=== PATIENT | female | born 1955 | race Caucasian/White ===

== ENCOUNTER → 2018-03-20 11:35 | Outpatient (CLI) | payer BC, SELFPAY ==
[2018-03-20 16:09] LABS: Absolute Lymphocyte Count 2.42 X10^3/ul (0.83-4.51); Absolute Neutrophil Count 3.4 X10^3/uL (2.0-7.7); Basophil# 0.03 X10^3/uL; Basophil% 0.5 % (0-1); Eosinophil# 0.32 X10^3/uL; Eosinophils% 4.9 % (0-5); Hematocrit 41.3 % (37-47); Hemoglobin 13.4 g/dl (12.0-15.0); Lymphocyte # 2.42 X10^3/ul (4.0); Lymphocyte % 36.7 % (19-41); Mean Corp Hgb Conc 32.4 g/gl (32-36); Mean Corpuscular Hgb 31.2 pg (27.0-32.0); Mean Platelet Vol. 12.3 fl (6.2-12.0); Monocyte# 0.42 X10^3/uL; Monocyte% 6.4 % (0-10); Neutrophil # 3.39 X10^3/uL (2.7-7.7); Neutrophil % 51.3 % (47-70); Platelet Count 176 K/mm3 (150-450); RBC Distribution Width CV 14.5 % (11.6-14.6); RBC Distribution Width SD 50.4 fl (35.1-43.9); White Blood Count 6.6 K/mm3 (4.4-11.0)
[2018-03-20 16:12] LABS: POSITIVE COUNT NO; POSITIVE DIFFERENTIAL NO; POSITIVE MORPHOLOGY NO
[2018-03-20 16:33] LABS: Anion Gap 10 (5-15); BUN 17 mg/dL (7-18); BUN/Creat Ratio 16.8 RATIO (10-20); Calcium,Total 8.6 mg/dL (8.5-10.1); Chloride 111 mmol/L (98-107); Cholesterol 188 mg/dL (200); Creatinine, Serum 1.01 mg/dL (0.55-1.02); EST Glomerular Filtration Rate 59 mL/min (>60); Est Glom Filt Rate - Afr Amer 71 mL/min (>60); Glucose 92 mg/dL (74-106); High Density Lipoprotein 48 mg/dL; Potassium 4.2 mmol/L (3.5-5.1); Sodium Level 143 mmol/L (136-145); Thyroid Stim Hormone (TSH) 2.48 uIU/mL (0.358-3.74); Triglycerides 198 mg/dL; Very Low Density Lipoprotein 40 mg/dL (5-40)
[2018-03-21 08:25] LABS: Vitamin D,25 Hydroxy 25.3 ng/mL (29.95-100.01)
[2018-03-24 11:06] LABS: EBV Acute VCA IgM < 36.0 U/mL (0.0-35.9); EBV Early Antigen IgG 22.1 U/mL (0.0-8.9)
== END ==
PROVIDERS: Family Provider Family Medicine; PCP Family Medicine; Visit Provider Family Medicine
DX: E55.9 Vitamin D deficiency, unspecified (principal); E03.9 Hypothyroidism, unspecified; R53.81 Other malaise; R53.83 Other fatigue
CPT/HCPCS: 36415; 80048; 80061; 82306; 84443; 85025; 86663; 86664; 86665

== ENCOUNTER 2018-05-25 14:53 | Emergency (ER) | payer BC, SELFPAY ==
[2018-05-25 14:54] VITALS: BP 151/94; PULSE 59; RESP 18; TEMP 36.6; O2SAT 98; BMI 35.4
[2018-05-25] MEDS: Naproxen 500 MG Tablet PO (15:29)
[2018-05-25] MEDS: Triamcinolone Acetonide 40 MG/ML Vial IM (15:29)
[2018-05-25] MEDS: Famotidine 20 MG Tablet PO (15:29)
--- NOTE | 2018-05-25 15:46 | ED.VISSUMM ---
- ER Visit Summary Date of Service: 05/25/18 Chief Complaint: Bee stings History of Present Illness: The patient is a 63 F who presents with multiple bee stings. She was gardening and disturbed to bees nest. She was wearing gloves but was stung through the gloves. She counted at least 6 things to the back of her left hand and arm. She took 50 mg of Benadryl. She can planes of increasing pain and swelling at the site. She has no difficulty breathing or nausea. Physical Examination: Afebrile vitals are normal Moist mucous membranes Heart regular rate and rhythm Lungs are clear no rales rhonchi wheezing or stridor Airway patent Patient does have some erythema and soft tissue swelling of the dorsum of the left hand and wrist Test Results: Not indicated Emergency Department Course and Treatment: Patient really took diphenhydramine. She was given intramuscular Kenalog oral Pepcid and given naproxen for pain. Reevaluation she is still resting comfortably without any systemic symptoms and has had no progression of symptoms on her left hand or arm. She was advised to continue supportive care including ice and elevation Benadryl at home. She understands to return for new or worsening symptoms and was discharged home. Treatment Plan: [] Disposition: Discharge Impression: Localized allergic reaction to hymenoptera envenomation This note was generated with [employer] dictation software. It may contain incorrect words, spelling, and punctuation that were not noted in review of the chart prior to signing ED Disposition - Plan for ED Patient: Chief Complaint: Allergic Reaction Referrals: Emmanuel Gonzalez MD [Primary Care Provider] -
--- NOTE | 2018-05-25 15:48 | ED.DEP ---
ED Disposition - Plan for ED Patient: Chief Complaint: Allergic Reaction Instructions: ED Bite Sting Insect Local Allergic React Referrals: Emmanuel Gonzalez MD [Primary Care Provider] -
[2018-05-25 16:11] VITALS: BP 149/90; PULSE 61; RESP 18; O2SAT 98
== END 2018-05-25 16:11 | disposition home or self-care (01) ==
LOC: ED 16:04
PROVIDERS: Emergency Provider Emergency Medicine; Family Provider Family Medicine; PCP Family Medicine
DX: T63.441A Toxic effect of venom of bees, accidental (unintentional), initial encounter (principal); M79.89 Other specified soft tissue disorders; M25.432 Effusion, left wrist; L53.8 Other specified erythematous conditions; Y92.9 Unspecified place or not applicable; F31.9 Bipolar disorder, unspecified; E03.9 Hypothyroidism, unspecified; Z79.899 Other long term (current) drug therapy
CPT/HCPCS: 96372; 99283

== ENCOUNTER → 2019-05-01 09:01 | Outpatient (CLI) | payer BC, SELFPAY ==
--- NOTE | 2019-05-01 09:05 | RAD_ITS ---
STUDY: X-RAY - LEFT HAND REASON FOR EXAM: Female, 64 years old. 1 week history of pain of the third digit. No trauma. TECHNIQUE: 3 view(s) of the hand. COMPARISON: None. FINDINGS: Normal radiocarpal articulation. Normal distal radioulnar joint. Normal visualized carpal bones. Normal carpal articulations Normal carpometacarpal articulation of the thumb. Normal second through fifth carpometacarpal joints. Normal metacarpi. Normal metacarpophalangeal joint of the thumb. Normal interphalangeal joint of the thumb. Normal proximal and distal phalanges of the thumb. Normal metacarpophalangeal joints of the second through fifth fingers. Normal proximal and distal interphalangeal joints of the second through fifth fingers. Normal phalanges of the second through fifth fingers. The soft tissue structures are unremarkable. RAD/Hand Min 3 Views IMPRESSION: Normal x-ray examination of the hand. Electronically Signed: Anshu Whaley, at 9:29 EDT , Service support ,
== END ==
PROVIDERS: Family Provider Family Medicine; PCP Family Medicine; Referring Provider Family Medicine; Visit Provider Family Medicine
DX: M79.645 Pain in left finger(s) (principal)
CPT/HCPCS: 73130

== ENCOUNTER 2019-09-02 07:35 | Emergency (ER) | payer BC, SELFPAY ==
[2019-09-02 07:37] VITALS: BP 135/90; PULSE 79; RESP 17; TEMP 37.1; O2SAT 94; BMI 38.6
[2019-09-02 07:48] VITALS: O2SAT 98
--- NOTE | 2019-09-02 07:48 | RAD_ITS ---
STUDY: X-RAY CHEST REASON FOR EXAM: Female, 64 years old. Cough. Shortness of breath. TECHNIQUE: PA and lateral views of the chest. COMPARISON: 01/10/2014. FINDINGS: Cardiac silhouette unremarkable. Pulmonary vascularity unremarkable. Aorta unremarkable. No focal patchy airspace opacities. No pleural effusions. Minimal right basilar airspace disease. Slightly coarse lung markings. Upper abdomen unremarkable. Osseous structures intact with mild degenerative features. No pneumothorax. RAD/Chest PA and Lateral IMPRESSION: Minimal right basilar airspace disease (atelectasis versus early infection) Electronically Signed: Tom Leung DO at 9:31 EST Tel , Service support ,
--- NOTE | 2019-09-02 07:50 | ED.VIS.GEN ---
History of Present Illness Chief Complaint: Cough Informant: Patient Onset: Days - Onset August 31 Context: Sudden Onset Timing: Continuous Quality: Myalgias, arthralgias, temperature 101.0 ?F, cough and wheezing Location: Upper respiratory Current Severity: Mild Maximum Severity: Moderate Worsened by: Uncertain Relieved by: Nothing Associated Symptoms: Nasal congestion and rhinorrhea past 24 hours Narrative: Patient is a 64-year-old non-smoker who presents with respiratory symptoms that started Saturday. She was seen by practitioner at [facility]. She was prescribed Tessalon Perles, albuterol and Zithromax. Patient states nothing is working. She does complain of headache. She denies ocular, visual auditory symptoms. She does report mild sore throat. She does have history obstructive sleep apnea has not been compliant with her CPAP machine. She does report nausea the vomiting diarrhea. She denies rash. Denies leg pain, swelling discoloration. There is no history of PE or DVT. She was not tested for influenza. Prior similar symptoms: Yes Recent Illness/Hospitalization: Yes - Past Medical History (1) Obstructive sleep apnea Status: Acute (2) Diverticulosis large intestine w/o perforation or abscess w/o bleeding Status: Acute (3) Duodenal ulcer disease Status: Acute (4) GERD (gastroesophageal reflux disease) Status: Acute (5) Gastric polyps Status: Acute Past Medical History - Allergies and Home Meds Allergies/Adverse Reactions: Allergies No Known Allergies Allergy (Verified 09/02/19 07:36) Primary Care Physician: Maggie Gutiérrez MD [Primary Care Provider] - Prior records reviewed: Yes Lives: Alone Smoking Status: Never smoker Alcohol: None Drugs: None Review of Systems General: Reports: Fever. Denies: Malaise, Subjective, Sweats Eyes: Denies: Visual changes - bilaterally, Blurred Vision - bilaterally ENT: Reports: Rhinorrhea, Sore throat. Denies: Bilateral ear pain Cardiovascular: Reports: Chest pain - Has pain with cough. Denies: Palpitations, Heart racing Respiratory: Reports: Cough, Sputum. Denies: Dyspnea, Dyspnea on exertion, Orthopnea Gastrointestinal: Denies: Abdominal pain, Nausea, Vomiting, Diarrhea, Melena, Hematochezia Musculoskeletal: Reports: Myalgias. Denies: Arthralgias, Neck pain, Back pain, Swelling, Extremity Pain Skin: Denies: Rash, Wounds Neurological: Reports: Headache, Weakness. Denies: Parasthesia, Numbness Hematologic: Denies: Easy bruising, Easy bleeding Physical Exam Vital Signs/Narrative: Vital Signs Temp Pulse Resp BP Pulse Ox 09/02/19 07:37 98.7 F 79 17 135/90 H 94 Inital Vital Signs reviewed: Yes General: Well nourished, Well developed, Obese, No Acute Distress Cardiovascular: Regular rate, Regular rhythm, No murmurs, Normal S1, Normal S2 Respiratory: No distress, Chest nontender, Rales - Rales noted on the left, Wheezing - Wheezing greater on the left. Negative for: CTA bilaterally Abdomen: Soft, Nontender, Nondistended, Normal bowel sounds Rectal: Deferred Back: Nontender, Normal Inspection Extremities: Nontender, No edema Skin: Normal color, No rash, No Trauma. Negative for: Cyanosis, Diaphoresis, Jaundice Neurological: Alert, Oriented x3, Cranial nerves II-XII grossly intact, Normal Strength, Normal Sensation Psychological: Depressed Diagnostic/Tx/Re-eval Chest X-Ray - ED: 2 View, Read by ED Physician, Normal, Heart, Mediastinum, Bony Structures, No Acute Disease, Chronic Changes 09/02/19 07:48 Chest PA and Lateral [RAD] Stat - Medical Decision Making She presents with viral-like symptoms. This may represent influenza. Will obtain rapid influenza screen. Because rales were noted unilateral chest x-ray was obtained to assess for pneumonia. Patient was treated with albuterol aerosol and prednisone. Per triage symptoms started on Saturday. Patient was informed that she has a viral upper respiratory infection that is causing her cough and wheezing. She was informed the reason she is not getting better is because this is viral and antibiotics do not work on viral infections. She was given a prescription for prednisone. She was informed she may be ill for another 10 to 14 days. Symptoms started proximally 5 days ago will not wait for results of influenza. She is not a candidate for treatment. ED Disposition - Plan for ED Patient: Disposition: Home or Assisted Living Diagnosis: Upper respiratory infection, viral, Acute bronchospasm due to viral infection Instructions: BRONCHITIS with Wheezing (Adult) Prescriptions: Prednisone [Deltasone] 40 mg PO DAILY #10 tab Transmission Status: Received by [facility]/pharmacy #[id number] Inhaler, Assist Devices [Space Chamber Plus] 1 [facility] UD #1 spacer Transmission Status: Received by [facility]/pharmacy #[id number] Referrals: Maggie Gutiérrez MD [Primary Care Provider] - 10-14 Days if not better
[2019-09-02] MEDS: predniSONE 20 MG Tablet 60 MG PO (07:53)
--- NOTE | 2019-09-02 07:54 | ED.RN ---
sepsis screening completed after dr barnes evaluation, sepsis workup not required.
[2019-09-02 08:02] VITALS: PULSE 86; RESP 18; O2SAT 97
[2019-09-02] MEDS: Albuterol 2.5 MG/3 ML VIAL.NEB. INHALATION ×3 (08:02→08:47)
[2019-09-02 09:36] VITALS: BP 121/75; PULSE 68; RESP 15; O2SAT 98
== END 2019-09-02 09:39 | disposition home or self-care (01) ==
PROVIDERS: Emergency Provider Emergency Medicine; Family Provider Family Medicine; PCP Family Medicine
DX: J06.9 Acute upper respiratory infection, unspecified (principal); J98.01 Acute bronchospasm; B34.9 Viral infection, unspecified; G47.33 Obstructive sleep apnea (adult) (pediatric); Z91.19 Patient's noncompliance with other medical treatment and regimen; K21.9 Gastro-esophageal reflux disease without esophagitis; K57.30 Diverticulosis of large intestine without perforation or abscess without bleeding; Z87.19 Personal history of other diseases of the digestive system
CPT/HCPCS: 71046; 87804; 94640; 99251; 99283; G0463

== ENCOUNTER → 2020-02-12 16:35 | Outpatient (CLI) | payer OTHER, BC, SELFPAY ==
--- NOTE | 2020-02-12 16:38 | RAD_ITS ---
STUDY: X-RAY - PELVIS AND RIGHT HIP REASON FOR EXAM: Female, 64 years old. Right hip pain, status post fall. TECHNIQUE: 3 views of the pelvis and hip. COMPARISON: None. FINDINGS: There is a non-specific bowel gas pattern. Normal visualized soft tissue structures. Normal bilateral iliac wings, sacroiliac joints and visualized sacrum. Normal bilateral superior and inferior pubic rami. There is mild sclerosis of the symphysis pubis. Normal bilateral ischial tuberosities. Normal visualized femoral head. Normal acetabulum. Normal hip joint. There are small calcifications lateral to the greater catheters bilaterally which may represent calcific tendinitis. RAD/HIP, UNI W/ Pelvis 2-3 Views IMPRESSION: No demonstrated acute osseous injury as described above. Electronically Signed: Harish Davis MD at 11:50 EDT Tel , Service support ,
--- OUTSIDE RECORDS SUMMARY | 2020-06-19 12:49 | XMS RPT_ITS | CCD ---
:1955 External Reference #:[id number] Author Organization [employer] Care Team Providers Name Role Phone SHIRA PEREZ Unavailable Unavailable ADURY, S Unavailable Unavailable ADURY, S Unavailable Unavailable Allergies Reported Allergen Reaction(s) Severity Date of Onset Location betamethasone Translations: 11-21-2007 - [facility] Other [ BETAMETHASONE [place] [facility] DIPROPIONATE, BETAMETHASONE DIPROPIONATE] SUGAR CANE Translations: [ AOF 05-15-2016 - [facility] Other SUGAR CANE, SUGAR CANE] [facility] Repository Problems Category Problem Name Status Date Location Other hereditary and Restless legs Active 06-27-2017 - [facility] degenerative nervous syndrome System (51702) system conditions Unclassified Unknown / Active 06-22-2016 - [facility](Unknown) [facility] ([id number]) Results Result Name Value Range Unit Interpretation Flag Date Location progress on 2017-06 PROGRESS HNO ID: [id number]: Shira Arriaza Normal 06-27-2017 [facility] AduryService: (none)Author Type: Medical Center PhysicianType: Progress NotesFiled: ([id number]) 08/20/2017 6:33 PMNote Text:TIME IN: 11:30 AMID: Janak Muñiz is a 61 year old femaleCC: Depression and AnxietyHPI:not so goodStressed with workSomewhat reactiveLikes to get things done her waySomehow managingIntermittent dysphoria and ruminationKeeps self busy with craft workAnxiety manageableSome irritabilityDenies SIMed compliantInterim History:Changes in family history: NoChanges in Social history: NoChanges in Health history: Notopiramate (TOPAMAX) 200 mg tablet Take 200 mg by mouth twice daily.sertraline (ZOLOFT) 100 mg tablet Take 1 tablet by mouth once daily.rOPINIRole (REQUIP) 2 mg tablet Take 1 tablet by mouth daily at bedtime.lamoTRIgine (LAMICTAL) 150 mg tablet Take 1 tablet by mouth twice daily.sucralfate (CARAFATE) 1 gram tablet Take 1 g by mouth four times daily.alendronate (FOSAMAX) 70 mg tablet Take 70 mg by mouth once each week.buPROPion XL (WELLBUTRIN XL) 150 mg 24 hr tablet Take 1 tablet by mouthonce daily.CALCIUM CARBONATE/VITAMIN D3 (VITAMIN D-3 ORAL) Take 2,000 Units by mouth.FOLIC ACID/MULTIVIT-MIN/LUTEIN (CENTRUM SILVER ORAL) Take by mouth.FERROUS SULFATE, DRIED (IRON, DRIED, ORAL) Take 65 mg by mouth.levothyroxine (SYNTHROID) 50 mcg tabletMental Status Examination:Appearance: Neatly groomedDemeanor: CooperativeActivity:NormalEye Contact: Temple[facility] Developmental Centerpeech - fastLanguage is goodMood okAffect: Full-RangeAssociations: LogicalProcess:normalKnowledge: GoodDelusion: No.Hallucination: NoSuicidal Ideation: No suicidal ideation, intent or planHomicidal Ideation: No homicidal ideation, intent or plan.Judgement: CriticalInsight: TrueOrientation: Person, Place, Time and SituationMemory: IntactAttention: GoodConcentration: GoodNeurological:Gait: steady Tremor: slightVital Signs: There were no vitals taken for this visit.Review Of SystemsNeurological:Sleep:Average Sleep Per Night: 8hTakes Requip plus UltramNon compliant to PAP therapy - planning to reinitiateGastrointestinal:Appetite: GoodNausea: NoBowel movements: DiarrheaSkin rash: NoOther : Acid refluxCondition: UnchangedMedication side affects: NoAssessment / Plan1. Mild episode of recurrent major depressive disorder (HCC)Cont Lamictal2. JAKE (generalized anxiety disorder)Restart Zoloft3. RLS (restless legs syndrome)Cont Requip4. JOSE - reinitiate CPAP therapy.Orders Placed This Encounter topiramate (TOPAMAX) 200 mg tablet Sig: Take 200 mg by mouth twice daily. sertraline (ZOLOFT) 100 mg tablet Sig: Take 1 tablet by mouth once daily. Dispense: 90 tablet Refill: 3 rOPINIRole (REQUIP) 2 mg tablet Sig: Take 1 tablet by mouth daily at bedtime. Dispense: 90 tablet Refill: 3 lamoTRIgine (LAMICTAL) 150 mg tablet Sig: Take 1 tablet by mouth twice daily. Dispense: 180 tablet Refill: 3Supportive therapy was provided as part of session. Plan discussedincluding risks,benefits, and side effects of medications (ongoingdiscussionn) and patient agreeable to plan.> half of time in counseling AND coordinationShira Perez MDTIME OUT: 11:55 AM Encounters Date Type Reason Provider Location 09-19-2017 Ambulatory SHIRA Lackey CHRIS Facility:[facility] 06-27-2017 - Ambulatory Restless legs [facility] 06-27-2017 syndrome [facility] rodrigo CHRIS ([id number]) Payers Payer Name Policy Number Location BLUE CARD PPO [id number] [facility] ([id number]) The following information is from the original human readable contentNo Payer Records Found Summary Purpose Family History No Family History Records FoundNo Family History Records Found Advance Directives No Advanced Directives Records FoundNo Advanced Directives Records Found Additional Source Comments FOR RECORDS PERTAINING TO PATIENTS WHO ARE OR HAVE BEEN ENROLLED IN A CHEMICAL DEPENDENCY/SUBSTANCE ABUSE PROGRAM, SOME INFORMATION MAY BE OMITTED. This clinical summary was aggregated from multiple sources. Caution should be exercised in using it in the provision of clinical care. This summary normalizes information from multiple sources, and as a consequence, information in this document may materially changethe coding, format and clinical context of patient data. In addition, data may be omittedin some cases. CLINICAL DECISIONS SHOULD BE BASED ON THE PRIMARY CLINICAL RECORDS. [facility] provides no warranty or guarantee of the accuracy or completeness of information in this document. UNRECOGNIZED CONTENT PROVIDED BELOW FOR UNRECOGNIZED SECTION INFORMATION SOURCE DATE CREATED AUTHOR AUTHOR'S ORGANIZATIO N 02/25/2018 [facility] DATE CREATED AUTHOR AUTHOR'S ORGANIZATIO N 02/25/2018 [facility]
== END ==
PROVIDERS: PCP Family Medicine; Referring Provider Nurse Practitioner Family; Visit Provider Nurse Practitioner Family
DX: S73.101A Unspecified sprain of right hip, initial encounter (principal); W19.XXXA Unspecified fall, initial encounter
CPT/HCPCS: 73502

== ENCOUNTER → 2020-02-24 11:43 | Outpatient (CLI) | payer BC, SELFPAY ==
[2020-02-24 15:42] LABS: Absolute Lymphocyte Count 2.23 X10^3/uL (0.83-4.51); Absolute Neutrophil Count 2.3 X10^3/uL (2.0-7.7); Basophil# 0.04 X10^3/uL; Basophil% 0.8 % (0-1); Eosinophils% 5.8 % (0-5); Hematocrit 40.8 % (37-47); Hemoglobin 13.2 g/dL (12.0-15.0); Lymphocyte # 2.23 X10^3/ul (4.0); Lymphocyte % 43.1 % (19-41); Mean Corp Hgb Conc 32.4 g/dL (32-36); Mean Corpuscular Hgb 31.5 pg (27.0-32.0); Mean Corpuscular Volume 97.4 fL (81-99); Mean Platelet Vol. 12.8 fl (6.2-12.0); Monocyte# 0.32 X10^3/uL; Monocyte% 6.2 % (0-10); NRBC Flagged by Analyzer 0 % (0-5); Neutrophil # 2.28 X10^3/uL (2.7-7.7); Neutrophil % 43.9 % (47-70); Platelet Count 175 K/mm3 (150-450); RBC Distribution Width CV 13.6 % (11.6-14.6); RBC Distribution Width SD 48.3 fl (35.1-43.9); Red Blood Count 4.19 M/mm3 (4.2-5.4); White Blood Count 5.2 K/mm3 (4.4-11.0)
[2020-02-24 16:46] LABS: ALB/GLOB Ratio 1.1 RATIO (0.9-2.4); AST(SGOT) 15 U/L (15-37); Alanine Aminotransfer ALT/SGPT 26 U/L (13-56); Albumin, Serum 3.6 g/dL (3.2-5.0); Alkaline Phosphatase 110 U/L (45-117); Anion Gap 7 (5-15); BUN 16 mg/dL (7-18); Calcium,Total 8.7 mg/dL (8.5-10.1); Chloride 109 mmol/L (98-107); Creatinine, Serum 0.89 mg/dL (0.55-1.02); EST Glomerular Filtration Rate 67 mL/min (>60); Est Glom Filt Rate - Afr Amer 82 mL/min (>60); Globulin 3.4 g/dL (2.2-4.2); Glucose 95 mg/dL (74-106); Potassium 3.8 mmol/L (3.5-5.1); Sodium Level 140 mmol/L (136-145); Thyroid Stim Hormone (TSH) 2.66 uIU/mL (0.358-3.74)
[2020-03-22 05:02] LABS: EBV Acute VCA IgM < 36.0
== END ==
PROVIDERS: PCP Family Medicine; Visit Provider Family Medicine
DX: R53.81 Other malaise (principal); R53.83 Other fatigue
CPT/HCPCS: 36415; 80053; 84443; 85025; 86664; 86665

== ENCOUNTER → 2020-05-02 13:53 | Outpatient (CLI) | payer BC, SELFPAY ==
--- NOTE | 2020-05-02 13:56 | RAD_ITS ---
STUDY: X-RAY - LEFT FOOT CLINICAL: Female, 65 years old. foot pain TECHNIQUE: 3 view(s) of the foot. COMPARISON: 11/28/2014 FINDINGS: Normal talus, calcaneus, and tarsal bones. Normal visualized subtalar, talonavicular, calcaneocuboid, tarsal and tarsometatarsal articulations. Normal metatarsi. There is degenerative arthrosis of the metatarsophalangeal joint of the hallux with a hallux valgus deformity. Normal tibial and fibular sesamoid bones. Normal interphalangeal joint of the great toe. Normal phalanges of the great toe. Normal second through fifth metatarsophalangeal joints. Normal interphalangeal joints and phalanges of the lesser toes. The soft tissue structures are unremarkable. RAD/Foot min 3 Views IMPRESSION: Hallux valgus deformity. Electronically Signed: Dameon Oconnor MD at 23:26 EDT Tel , Service support ,
== END ==
PROVIDERS: PCP Family Medicine; Referring Provider Podiatrist; Visit Provider Podiatrist
DX: M20.12 Hallux valgus (acquired), left foot (principal)
CPT/HCPCS: 73630

== ENCOUNTER → 2020-06-22 13:51 | Outpatient (CLI) | payer BC, SELFPAY ==
[2020-06-22 16:21] LABS: Ferritin 47 ng/mL (8-252)
== END ==
PROVIDERS: PCP Family Medicine; Referring Provider Family Medicine; Visit Provider Internal Medicine Pulmonary Disease
DX: G25.81 Restless legs syndrome (principal); D64.9 Anemia, unspecified
CPT/HCPCS: 36415; 82728

== ENCOUNTER → 2020-07-11 14:35 | Outpatient (CLI) | payer BC, SELFPAY ==
--- NOTE | 2020-07-11 14:37 | RAD_ITS ---
STUDY: X-RAY - RIGHT HAND, ATTENTION 3 FINGER REASON FOR EXAM: Female, 65 years old. right 3rd finger pain after a fall last week TECHNIQUE: 3 view(s) of the finger were obtained. COMPARISON: None. FINDINGS: Normal metacarpal head. Normal metacarpophalangeal joint. Normal proximal phalanx. Normal middle phalanx. Normal distal phalanx. Normal proximal interphalangeal joint. Normal distal interphalangeal joint. RAD/Finger(s) Min 2 Views IMPRESSION: Normal x-ray examination of the finger. Electronically Signed: Te Calvin MD at 15:15 EST Tel , Service support ,
--- NOTE | 2020-07-11 14:45 | RAD_ITS ---
STUDY: X-RAY - RIGHT HAND, ATTENTION FOR FINGER REASON FOR EXAM: Female, 65 years old. right 4th digit pain after a fall last week TECHNIQUE: 3 view(s) of the finger were obtained. COMPARISON: None. FINDINGS: Normal metacarpal head. Normal metacarpophalangeal joint. Normal proximal phalanx. Normal middle phalanx. Normal distal phalanx. Normal proximal interphalangeal joint. Normal distal interphalangeal joint. RAD/Finger(s) Min 2 Views IMPRESSION: Normal x-ray examination of the finger. Electronically Signed: Te Calvin MD at 15:13 EST Tel , Service support ,
== END ==
PROVIDERS: PCP Family Medicine; Referring Provider Family Medicine; Visit Provider Family Medicine
DX: M79.644 Pain in right finger(s) (principal)
CPT/HCPCS: 73140

== ENCOUNTER → 2020-08-08 16:20 | Outpatient (CLI) | payer BC, SELFPAY ==
--- NOTE | 2020-08-08 16:22 | RAD_ITS ---
STUDY: X-RAY - RIGHT HAND REASON FOR EXAM: Female, 65 years old. right 4th mcp joint pain-original injury is from several weeks ago, pain not getting any better TECHNIQUE: 2 view(s) of the hand. COMPARISON: None. FINDINGS: Normal radiocarpal articulation. Normal distal radioulnar joint. Normal visualized carpal bones. Normal carpal articulations There is degenerative arthrosis of the carpometacarpal (CMC) articulation of the thumb. Normal second through fifth carpometacarpal joints. Normal metacarpi. Normal metacarpophalangeal joint of the thumb. Normal interphalangeal joint of the thumb. Normal proximal and distal phalanges of the thumb. Normal metacarpophalangeal joints of the second through fifth fingers. Normal proximal and distal interphalangeal joints of the second through fifth fingers. Normal phalanges of the second through fifth fingers. The soft tissue structures are unremarkable. RAD/Hand 2 Views IMPRESSION: Mild first carpometacarpal joint arthrosis Electronically Signed: Te Calvin MD at 16:45 EST Tel , Service support ,
--- NOTE | 2020-08-08 16:22 | RAD_ITS ---
STUDY: X-RAY - RIGHT HAND, ATTENTION 4 FINGER REASON FOR EXAM: Female, 65 years old. right 4th mcp joint pain-original injury is from several weeks ago, pain not getting any better TECHNIQUE: 3 view(s) of the finger were obtained. COMPARISON: 07/11/2020 FINDINGS: Normal metacarpal head. Normal metacarpophalangeal joint. Normal proximal phalanx. Normal middle phalanx. Normal distal phalanx. Normal proximal interphalangeal joint. Normal distal interphalangeal joint. RAD/Finger(s) Min 2 Views IMPRESSION: Normal x-ray examination of the finger. Electronically Signed: Te Calvin MD at 16:44 EST Tel , Service support ,
== END ==
PROVIDERS: PCP Family Medicine; Referring Provider Family Medicine; Visit Provider Family Medicine
DX: M79.644 Pain in right finger(s) (principal); M19.041 Primary osteoarthritis, right hand
CPT/HCPCS: 73120; 73140

== ENCOUNTER 2020-09-01 13:00 | Outpatient (RCR) | payer BC, SELFPAY ==
--- NOTE | 2020-08-11 12:33 | HP.OTEVAL_ITS ---
Patient's Visit Information JANAK UGARTE is a 65 year old F, referred to Occupational Therapy by Dr. Emmanuel Tavarez MD, with a diagnosis of right hand pian. Date of Evaluation: 08/11/20 Occupational Therapist: Liv Finley, OTR/L, CHT - Subjective This 65 year old female was seen for OT eval with dx of right hand pain, 4th d igit injury. pt states she smacked her hand hard on the table by accident on Jul.06. pt states her hand is pianful and she has limited ability to use her hand for ADls- pt is right handed and continues to have pain- pt states x-rays were neg. pt would like her hand pain to decrease. 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 pt states she can not use her hand to lift. - Pain right hand 1 Pain Intensity Range: 1, 7 - ROM ROM Comments: pt demo full composite first but painful with request. pt states her hand was more painful with temp. change - Strength Nurseryperson: right 20# left 50# Lateral Pinch: right 6# left 8# Tripod Pinch: right 2# left 4# Strength Comments: pt limited with right community development aide strength - Edema PIP: right RF 6.0 left RF 5.5 - Quick DASH-Disab of Arm,Shoulder& Hand Quick DASH Score: 45.0000 - Goals Goal:: pt will demo a increase in right community development aide strength to 40# to increase pts ind. with ADls and IADLs by d/c Goal:: pt will report no pain greater than 1/10 with use of right hand with ADls and IADls by dc Goal:: pt will demo understanding of edema control macho. as co-band- elevation- contrast bath by end of 2nd session. - Rehabilitation General Assessment: pt demo with limited functional community development aide strength and pain of right hand with use of ADLs- pt would benefit from skilled OT services 2x week for 3-4 weeks to ed. pt on joint protection, lucila control pain mtg and PRE as pt kole. pt demo understanding and agree to POC Rehabilitation Potential: Good - Anticipated Interventions A/AAROM/PROM, Strengthening, Edema Control, Triggerpoint Release, Modalities, Orthoses, Joint Protection/Energy Conservation - Visit Plan Frequency: 2x /Week Duration: 4 Weeks TEXT: Thank you for the opportunity to evaluate your patient. For Medicare and Medicare HMO plans, please review the plan of care and approve it. It will need to be FAXED BACK to us at [phone] for Medicare purposes. Please let me know if there are questions or concerns regarding this plan of care. Physician Signature:___ Date:
--- NOTE | 2020-11-22 10:37 | HP.OT.NRP ---
JANAK UGARTE was seen in my office for initial evaluation on 08/11/20. The following Plan of Care was established for this patient: Initial Frequency: 2x /Week Initial Duration: 4 Weeks Plan: continue with OT POC, further addressing strength R hand and pain management techs. Asssess proper fitting edema glove pt. has purchased for R hand edema management next session pt. to bring in glove Anticipated Interventions: A/AAROM/PROM, Strengthening, Edema Control, Triggerpoint Release, Modalities, Orthoses, Joint Protection/Energy Conservation This patient was last seen in our office 09/01/20. Pertinent comments regarding their Occupational therapy will appear below: pt was seen for 8 visit with dx of hand pain. pt made little gains and cancelled her last scheduled apt. Due to time lapse in services pt d/c at this time. At this point I will be discontinuing this patient from occupational therapy. I would be happy to see this patient again in the future if found appropriate by the physician. Thank you! Liv Finley, OTR/L, CHT
== END 2020-09-01 19:00 | disposition home or self-care (01) ==
LOC: OT 13:00
PROVIDERS: PCP Family Medicine; Referring Provider Family Medicine; Visit Provider Family Medicine
DX: S69.91XD Unspecified injury of right wrist, hand and finger(s), subsequent encounter (principal)
CPT/HCPCS: 97035; 97110; 97140; 97166

== ENCOUNTER → 2020-09-09 | Outpatient (CLI) | payer OTHER, SELFPAY | END | disposition home or self-care (01) | LOC: LABSPEC 11:50 | PROVIDERS: PCP Family Medicine; Visit Provider Family Medicine | DX: Z20.822 Contact with and (suspected) exposure to COVID-19 (principal) | CPT/HCPCS: 87635; U0005; U0003 ==

== ENCOUNTER → 2020-09-15 | Outpatient (CLI) | payer OTHER, SELFPAY | END | disposition home or self-care (01) | LOC: LABSPEC 16:01 | PROVIDERS: PCP Family Medicine; Visit Provider Family Medicine | DX: Z20.822 Contact with and (suspected) exposure to COVID-19 (principal) | CPT/HCPCS: 87635; U0005; U0003 ==

== ENCOUNTER 2020-11-17 20:51 | Emergency (ER) | payer OTHER, SELFPAY ==
[2020-11-17 20:52] VITALS: BP 186/75; PULSE 72; RESP 18; TEMP 36.1; O2SAT 96; BMI 39.8
--- NOTE | 2020-11-17 21:13 | ED.DCSUM_ITS ---
History of Present Illness Chief Complaint: Lower Extremity Injury Informant: Patient Onset: Days Context: Gradual Onset Timing: Intermittent Current Severity: Moderate Maximum Severity: Moderate Narrative: Patient is a 65-year-old female who presents to the emergency department with right hip pain. The patient states is been happening with increasing frequency. She states sometimes if she stands for prolonged period of time or turns, she feels like her hip gives out. She states that she catches her self and will get pain in her knee. She states it happened 3 times at work tonight. She denies any definitive trauma. She denies any definitive falls. She denies any weakness of the leg. She states if she is just on it for a long period of time it will flareup and give out. Prior similar symptoms: Yes Recent Illness/Hospitalization: No Past Medical History - Allergies and Home Meds Allergies/Adverse Reactions: Allergies No Known Allergies Allergy (Verified 11/17/20 20:55) Primary Care Physician: Emmanuel Tavarez MD [Primary Care Provider] - Prior records reviewed: Yes Surgical History: noncontributory Smoking Status: Never smoker Review of Systems General: Denies: Chills, Fever, Sweats Eyes: Denies: Visual changes - bilaterally, Diplopia ENT: Denies: Rhinorrhea, Sore throat Cardiovascular: Denies: Chest pain, Palpitations Respiratory: Denies: Dyspnea, Cough, Dyspnea on exertion Gastrointestinal: Denies: Abdominal pain, Nausea, Vomiting, Diarrhea, Melena, Hematochezia Genitourinary: Denies: Dysuria, Hematuria, Frequency Musculoskeletal: Denies: Back pain, Extremity Pain Skin: Denies: Rash, Wounds Neurological: Denies: Headache, Weakness, Numbness Physical Exam Vital Signs/Narrative: Vital Signs Temp Pulse Resp BP Pulse Ox 11/17/20 20:52 96.9 F L 72 18 186/75 H 96 Inital Vital Signs reviewed: Yes General: Well nourished, Well developed, No Acute Distress Head: Normocephalic, Atraumatic Eyes: Perrl, EOMI ENT: Moist mucous membranes, No rhinorrhea Neck: Supple, Nontender Cardiovascular: Regular rate, Regular rhythm, No murmurs Respiratory: No distress, CTA bilaterally, Chest nontender Abdomen: Soft, Nontender, Nondistended, Normal bowel sounds Back: Nontender, Normal Inspection Extremities: Nontender, No edema Skin: Normal color, No rash Neurological: Alert, Oriented x3, Cranial nerves II-XII grossly intact, Normal Strength, Normal Sensation Psychological: Normal affect, Normal Mood Diagnostic/Tx/Re-eval - Medical Decision Making Patient presents with atraumatic right hip pain. She has normal reflexes. She does have some pain with abduction of the hip. Pulses are normal. Plain films are obtained. There is some calcific tendinitis, but no evidence fracture dislocation. These were reviewed by both myself and the radiologist. The joint space is well-maintained. I do feel the patient would benefit from a short course of steroids. I am also going to have her outpatient orthopedic follow- up. She is comfortable with this plan of care. Impression 1. Right hip strain ED Disposition - Plan for ED Patient: Instructions: ED Hip Strain Prescriptions: Prednisone [Deltasone] 40 mg PO DAILY #10 tablet Prescription Printed Referrals: Veronika Medley DO [STAFF PHYSICIAN] -
--- NOTE | 2020-11-17 21:25 | RAD_ITS ---
STUDY: X-RAY - PELVIS AND RIGHT HIP REASON FOR EXAM: Female, 65 years old. pain TECHNIQUE: 3 views of the pelvis and hip. COMPARISON: FEBRUARY 12, 2020 FINDINGS: There is a non-specific bowel gas pattern. Normal visualized soft tissue structures. No visualized fracture or osteonecrosis. Normal bilateral iliac wings, sacroiliac joints and visualized sacrum. Normal bilateral superior and inferior pubic rami. There is narrowing with sclerosis of the pubic symphysis. Normal bilateral ischial tuberosities. Normal visualized femoral head. Normal acetabulum. Normal hip joint. RAD/HIP, UNI W/ Pelvis 2-3 Views IMPRESSION: Normal x-ray examination of the pelvis and hip. Electronically Signed: Myron Mcdonald MD at 22:15 EDT , Service support ,
[2020-11-17] MEDS: HYDROcodone Bitartrate/Apap 5/325 Tablet PO (21:39)
[2020-11-17 22:27] VITALS: BP 155/66; PULSE 71; RESP 16; O2SAT 99
== END 2020-11-17 22:28 | disposition home or self-care (01) ==
PROVIDERS: Emergency Provider Emergency Medicine; PCP Family Medicine
DX: S76.011A Strain of muscle, fascia and tendon of right hip, initial encounter (principal); X58.XXXA Exposure to other specified factors, initial encounter
CPT/HCPCS: 73502; 99283

== ENCOUNTER → 2021-02-27 11:52 | Outpatient (CLI) | payer OTHER, SELFPAY ==
[2021-02-27 15:23] LABS: Absolute Lymphocyte Count 2.39 X10^3/uL (0.83-4.51); Absolute Neutrophil Count 3.5 X10^3/uL (2.0-7.7); Basophil# 0.04 X10^3/uL; Basophil% 0.6 % (0-1); Eosinophil# 0.81 X10^3/uL; Eosinophils% 11.3 % (0-5); Hematocrit 43.1 % (37-47); Hemoglobin 14.1 g/dL (12.0-15.0); Lymphocyte # 2.39 X10^3/ul (0.83-4.51); Lymphocyte % 33.3 % (19-41); Mean Corp Hgb Conc 32.7 g/dL (32-36); Mean Corpuscular Hgb 31.1 pg (27.0-32.0); Mean Corpuscular Volume 95.1 fL (81-99); Mean Platelet Vol. 12.7 fl (6.2-12.0); Monocyte% 5.6 % (0-10); NRBC Flagged by Analyzer 0 % (0-5); Neutrophil # 3.51 X10^3/uL (2.7-7.7); Neutrophil % 48.8 % (47-70); Platelet Count 200 K/mm3 (150-450); RBC Distribution Width CV 13.5 % (11.6-14.6); RBC Distribution Width SD 47.6 fl (35.1-43.9); Red Blood Count 4.53 M/mm3 (4.2-5.4); White Blood Count 7.2 K/mm3 (4.4-11.0)
[2021-02-27 15:37] LABS: Vitamin D,25 Hydroxy 30.7 ng/mL
[2021-02-27 15:54] LABS: AST(SGOT) 16 U/L (15-37); Alanine Aminotransfer ALT/SGPT 24 U/L (13-56); Albumin, Serum 3.7 g/dL (3.2-5.0); Alkaline Phosphatase 120 U/L (45-117); Anion Gap 5 (5-15); BUN 22 mg/dL (7-18); BUN/Creat Ratio 22.6 RATIO (10-20); Calcium,Total 8.1 mg/dL (8.5-10.1); Chloride 107 mmol/L (98-107); Cholesterol 205 mg/dL (200); Creatinine, Serum 0.98 mg/dL (0.55-1.02); EST Glomerular Filtration Rate 61 mL/min (>60); Est Glom Filt Rate - Afr Amer 73 mL/min (>60); Globulin 3.7 g/dL (2.2-4.2); Glucose 92 mg/dL (74-106); High Density Lipoprotein 46 mg/dL; Protein, Total 7.4 g/dL (6.4-8.2); Sodium Level 138 mmol/L (136-145); Thyroid Stim Hormone (TSH) 4.21 uIU/mL (0.358-3.74); Triglycerides 164 mg/dL; Very Low Density Lipoprotein 33 mg/dL (5-40)
== END ==
PROVIDERS: PCP Family Medicine; Visit Provider Family Medicine
DX: E55.9 Vitamin D deficiency, unspecified (principal); E78.5 Hyperlipidemia, unspecified; E03.9 Hypothyroidism, unspecified
CPT/HCPCS: 36415; 80053; 80061; 82306; 84443; 85025

== ENCOUNTER 2021-03-30 12:00 | Outpatient (RCR) | payer OTHER, SELFPAY ==
--- NOTE | 2020-11-24 12:39 | HP.PTEVAL_ITS ---
Patient's Visit Information JANAK UGARTE is a 65 year old F referred to Physical Therapy by Dr. Veronika Hoskins, with a diagnosis of R LAT TROCH SYNDROME (PIRIFORMIS/ITB,ETC). GREATER TROCH BURSITIS.. Date of Evaluation: 11/24/20 Physical Therapist: Kandice Clemente, PT, Cert MDT - Visit Plan Frequency: 2-3x /Week Duration: 4-6 Weeks Plan: AQUATIC THERPAY FOR LOW BACK AND HIP PAIN RELIEF, PIRIFORMIS AND ITB STRETCHING, POSTURE CORRECTION/STRENGTHENING, INSTRUCTION IN APPROPRIATE BODY MECHANICS AND ACTIVITY MODIFICATIONS. DLS STARTING WITH A NEUTRAL SPINE PROGRESSING ROM TOLERATED. MARLENE LE ROM, STRETCHING AND STRENGTHENING. HEP INSTRUCTION. 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 WENT BACK TO WORK SATURDAY AFTER BEING OFF A FEW DAYS. FULL DUTY LAST NIGHT - PAINFUL. Disability: NO. Present symptoms: LOW BACK PAIN. RIGHT HIP PAIN AND RIGHT LATERAL THIGH PAIN. RIGHT THIGH NUMBNESS AND TINGLING. INTERMITTENT RIGHT HIP SPASMS. Present since: SEP 2018. Pain Scale: WORST 8/10, LEAST 2/10. Currently: 3/10. Commenced as a result of: TRIPPED OVER SOMEONE AT WORK THAT WAS LYING DOWN ON THE FLOOR. LANDED ON RIGHT KNEE ON CONCRETE THEN WHEN FORWARD ON HANDS. Symptoms at onset: R HIP BUT HIP SPASMS JUST STARTED A COUPLE MONTHS AGO. Worse: WALKING, TWISTING, BENDING, LYING ON RIGHT SIDE, LIFTING, SQUATTING, GETTING PANTS ON, GETTING IN/OUT OF CAR. STEPS. SITTING. Better: LYING FLAT ON BACK, IBUPROFEN. Disturbed sleep: YES - MILDLY. Previous history/Previous treatment: NO BACK OR HIP HISTORY PRIOR TO SEP 2018. PHYSICAL THERAPY AT [facility] IN 2019 - STATES SHE HAD A LOT OF PHYSICAL THERPAY BUT IT DIDN'T HELP HER HIP. FELIPE IN LOW BACK X 3 BETWEEN 2018 AND 2019. SHE REPORTS THE FIRST INJECTION HELPED. NO HIP INJECTIONS. INITIALLY PATINT REPORTS THIS WAS WORKERS COMPENSATION. NO CHIROPRACTOR. ED VISIT A WK AGO - RECEIVED PAIN MEDICINE. HAD X-RAYS IN ED, GIVEN PRESCRIPTION FOR PREDNISONE AND REFERRED TO DR. HOSKINS. THIS IS FIRST VISIT WITH DR. HOSKINS. Coughing/sneezing/straining: NEGATIVE. Gait: I WADDLE. PATIENT REPORTS SHE LIMPS ON R LE TO GET PRESSURE OFF OF HER RIGHT HIP AND KNEE. CAN FEEL WHEN SPASMS ARE GOING TO COME ON. STATES THE SPASMS ARE FREQUENT NOW. STATES HER THE SPASMS USE TO TAKE HER BY SURPRISE AND ALMOST CAUSE HER TO FALL. TIME AND DISTANCE LIMITED. DECREASED SPEED. Difficulty initiating urinatin: NO. Accidents: FALL. Unexplained weight loss: NO. PMH: SHINGLES IN SEP/OCT. MARLENE FOOT PROBLEMS. SEE FURTHER PMH BELOW. Imaging: STUDY: X-RAY - LUMBAR SPINE. REASON FOR EXAM: Female, 65 years old. pain. TECHNIQUE: 4 view(s) of the lumbar spine were obtained. COMPARISON: None. . FINDINGS: Normal lumbar lordosis. There is no substantial scoliosis. There is a. normal alignment of the vertebrae. There is multilevel endplate spondylosis of the lumbar vertebrae. Disc. heights are relatively preserved with only slight narrowing at L3-L4. There is no demonstrated fracture. No spondylolisthesis on flexion,. extension or neutral views. The soft tissue structures are unremarkable. . RAD/L/S Spine Min 4 Views. IMPRESSION: Mild degenerative changes. . Electronically Signed: Gurjit Izquierdo MD ([place]). at 10:35 EDT. STUDY: X-RAY - PELVIS AND RIGHT HIP. REASON FOR EXAM: Female, 65 years old. pain. TECHNIQUE: 3 views of the pelvis and hip. COMPARISON: FEBRUARY 12, 2020. . FINDINGS: There is a non-specific bowel gas pattern. Normal visualized soft tissue. structures. No visualized fracture or osteonecrosis. Normal bilateral iliac wings, sacroiliac joints and visualized sacrum. Normal bilateral superior and inferior pubic rami. There is narrowing with. sclerosis of the pubic symphysis. Normal bilateral ischial tuberosities. Normal visualized femoral head. Normal acetabulum. Normal hip joint. . RAD/HIP, UNI W/ Pelvis 2-3 Views. IMPRESSION: Normal x-ray examination of the pelvis and hip. PATIENT DOES NOT RECALL HAVING AN MRI OF HER BACK OR HIP. . OTHER: WENT TO THE ED AT [facility] A WEEK AGO DUE TO RIGHT HIP SPASMS. OFF PREDNISONE NOW. - Objective Sitting/Standing Posture: POOR. Lordosis: NORMAL. Lateral shift: NO. Relevant shift: N/A. Active Correction of posture: BETTER. Other Observations: INDEP GAIT INTO PT LIMPING ON THE RIGHT LE. INCREASED TRUNK FLEX ION, DECREASED MARLENE STRIDE LENGTH AND DECREASED CADANCE. PATIENT IS MOVING SLOWLY AND GUARDED. Motor deficit: MARLENE LE STRENGTH GROSSLY 5/5 WITH MMT'ING EXCEPT HIPS 4/5 BUT NO C/O PAIN WITH TESTING. Sensory deficit: HYPERSENSATIVITY OR RIGHT DISTAL LATERAL THIGH COMPARED TO LEFT. ROM deficit: TIGHT MARLENE HIP FLEXORS, HS'S AND GASTROC SOLEUS COMPLEX'S. MARLENE HIP IR/ER SYMMETRICAL AND PATIENT DENIES PAIN WITH TESTING. Reflexes: UNABLE TO ELICIT MARLENE LE DTR'S. Dural Signs: NEGATIVE MARLENE LE'S. Lumbar mvmt loss: flex - NIL. ext - MOD. R SG - MOD. L SG - MIN. PATIENT C/O INCREASED RIGHT LOW BACK PAIN WITH LUMBAR EXTENSION AND R SG ROM TESTING. HER MOVEMENT IN THESE DIRECTIONS IS ALSO MORE LIMITED. Core strength: POOR. Palpation: VERY ACUTELY TENDER IN THE L345 REGION WITH LIGHT PALPATION. SHE IS ALSO TENDER WITH PALPATION OF THE RIGHT LATERAL HIP REGION IN THE GREATER TROCH AND ITB REGIONS. SHE IS ALSO TENDER IN THE R PIRIFORMIS REGION. OTHER; POSITIVE RIGHT JOSE TEST. TREATMENT: NEUROMUSCULAR REEDUCATION - RETRAINING OF MVMT AND POSTURE FOR SITTING, LYING AND STANDING ACTIVITIES. - Goals Goal 1:: DECREASE C/O LOW BACK AND RIGHT LE SX'S. Goal Time Frame: 4-6 Weeks Goal 2:: IMPROVE PERSONAL CARE, LIFITNG, WALKING, SITTING, STANDING, SLEEP, SOCIAL LIFE, TRAVEL AND HOMEMAKING FUNCTION Goal Time Frame: 4-6 Weeks Goal 3:: INSTRUCT IN PROPHYLAXIS AND PATIENT WILL BE INDEP WITH A HEP FOR CONTINUED IMPROVEMENT ONCE FORMAL PHYSICAL THERAPY CONCLUDES. Goal Time Frame: 4-6 Weeks - Anticipated Interventions Patient/Client Instruction: Educate patient on: Condition, Plan of Care, Risk Factors, Benefits of Fitness Program For the Purpose of:: To improve self management Therapeutic Exercise to Include: Strength training, Balance training, Body mechanics, Postural training, Flexibilty training, Gait and locomotor training, Neuromotor development, In an aquatic setting, Dynamic Lumbar Stabilization For the Purpose of:: To decrease pain, To increase ROM, To improve muscle performance and motor function, To increase tolerance to activity/condition/position, To improve ability of physical actions for home/community/work/leisure, To improve gait and locomotor functions Cryotherapy (ice pack, ice massage): Yes Thermo therapy (hot pack): Yes Ultrasound (thermal/non thermal): Yes For the Purpose of:: To decrease pain, To improve nutrient delivery to tissue Thank you for the opportunity to evaluate your patient. For Medicare and Medicare HMO plans, please review the plan of care and approve it. It will need to be FAXED BACK to us at [phone] for Medicare purposes. For Medicare only, by signing this I certify the plan of care. Please let me know if there are questions or concerns regarding this plan of care. Physician Signature: Date:
--- NOTE | 2020-12-29 09:03 | HP.PTREVAL_ITS ---
Dr. Veronika Medley, DO, It has been my pleasure to treat JANAK UGARTE over the last 10 visits for R LAT TROCH SYNDROME (PIRIFORMIS/ITB,ETC). GREATER TROCH BURSITIS.. Please see the progress note below for an update on the physical therapy plan of care! Subjective: PATIENT REPORTS SHE IS DOING BETTER. AT TIMES HER PAIN IS ONLY A 1/10. ITS BEEN SO MUCH BETTER. PATIENT REPORTS SHE IS GRATEFUL TO BE ABLE TO GO UP STEPS NORMALLY NOW. SHE REPORTS SHE USE TO DRAG HERSELF UP STEPS. STATES SHE FEELS LIKE SHE IS HEADED THE RIGHT DIRECTION BUT STILL HAS MORE TO LEARN. REPORTS THAT SHE DOES STILL GET ACHING INTO THE OUTSIDE OF HER RIGHT THIGH BUT IT IS SO MUCH BETTER. THE PAIN IN HER RIGHT LOW BACK IS STILL CONSTANT - ALWAYS THERE TO SOME DEGREE. NO LONGER GETTING RIGHT HIP SPASMS. PATIENT REPORTS IT HAS BEEN A COUPLE WEEKS SINCE SHE HAS HAD A SPASM AND THEY USE TO TAKE HER DOWN. LYING ON THE RIGHT SIDE STILL CAUSES PAIN. ABLE TO GET IN AND OUT OF THE CAR EASIER - ISN'T MUCH OF A STRUGGLE. PATIENT IS HAPPY THAT SHE IS SEEING RESULTS. Objective/Function: PATIENT WAS SEEN TODAY FOR RE-ASSESSMENT OF PROGRESS TOWARD THE SET PT GOALS AND THE NEED FOR FURTHER PHYSICAL THERAPY VS READINESS FOR DISCHARGE. PATIENT IS MAKING GOOD PROGRESS TOWARD ALL PT GOALS AND IS A GOOD CANDIDATE TO CONTINUE AQUATIC THERPAY BASED ON PROGRESS MADE AND ROOM FOR FURTHER IMPROVEMENT. UPON EXAM TODAY: INDEP GAIT INTO PT WITHOUT LIMP ON R LE NOW. INCREASED TRUNK FLEXION, BETTER MARLENE STRIDE LENGTH NOW BUT STILL SOME DECREASED CADANCE. PATIENT IS MUCH LESS GUARDED WITH GAIT AND TRANSFERS NOW. Motor deficit: MARLENE LE STRENGTH GROSSLY 5/5 WITH MMT'ING AND NO C/O PAIN WITH TESTING. Sensory deficit: PATIENT NO LONGER HAS HYPERSENSATIVITY OR RIGHT DISTAL LATERAL THIGH COMPARED TO LEFT. MARLENE LE LIGHT TOUCH SENSATION IS INTACT AND SYMMETRICAL. ROM deficit: TIGHT MARLENE HIP FLEXORS, HS'S AND GASTROC SOLEUS COMPLEX'S. MARLENE HIP IR/ER SYMMETRICAL AND PATIENT DENIES PAIN WITH TESTING. Reflexes: UNABLE TO ELICIT MARLENE LE DTR'S. Dural Signs: NEGATIVE MARLENE LE'S. Lumbar mvmt loss: flex - NIL. ext - MOD. R SG - MOD. L SG - MIN. PATIENT C/O INCREASED RIGHT LOW BACK PAIN WITH LUMBAR EXTENSION AND R SG ROM TESTING. HER MOVEMENT IN THESE DIRECTIONS IS ALSO MORE LIMITED. Core strength: POOR. Palpation: VERY ACUTELY TENDER IN THE L345 REGION WITH LIGHT PALPATION. SHE IS ALSO TENDER WITH PALPATION OF THE RIGHT LATERAL HIP REGION IN THE GREATER TROCH AND ITB REGIONS. SHE IS ALSO TENDER IN THE R PIRIFORMIS REGION. OTHER; POSITIVE RIGHT JOSE TEST. Plan Plan: CONTINUE. AQUATIC THERPAY FOR LOW BACK AND HIP PAIN RELIEF, PIRIFORMIS AND ITB STRETCHING, POSTURE CORRECTION/STRENGTHENING, INSTRUCTION IN APPROPRIATE BODY MECHANICS AND ACTIVITY MODIFICATIONS. DLS STARTING WITH A NEUTRAL SPINE PROGRESSING ROM TOLERATED. MARLENE LE ROM, STRETCHING AND STRENGTHENING. HEP INSTRUCTION. Goals Goal 1:: DECREASE C/O LOW BACK AND RIGHT LE SX'S. Goal Time Frame: 4-6 Weeks Goal Progress: Progressing Goal 2:: IMPROVE PERSONAL CARE, LIFITNG, WALKING, SITTING, STANDING, SLEEP, SOCIAL LIFE, TRAVEL AND HOMEMAKING FUNCTION Goal Time Frame: 4-6 Weeks Goal Progress: Progressing Goal 3:: INSTRUCT IN PROPHYLAXIS AND PATIENT WILL BE INDEP WITH A HEP FOR CONTINUED IMPROVEMENT ONCE FORMAL PHYSICAL THERAPY CONCLUDES. Goal Time Frame: 4-6 Weeks Goal Progress: Progressing Anticipated Interventions Patient/Client Instruction: Educate patient on: Condition, Plan of Care, Risk Factors, Benefits of Fitness Program For the Purpose of:: To improve self management Therapeutic Exercise to Include: Strength training, Balance training, Body mechanics, Postural training, Flexibilty training, Gait and locomotor training, Neuromotor development, In an aquatic setting, Dynamic Lumbar Stabilization For the Purpose of:: To decrease pain, To increase ROM, To improve muscle performance and motor function, To increase tolerance to activity/c ondition/position, To improve ability of physical actions for home/community/work/leisure, To improve gait and locomotor functions Cryotherapy (ice pack, ice massage): Yes Thermo therapy (hot pack): Yes Ultrasound (thermal/non thermal): Yes For the Purpose of:: To decrease pain, To improve nutrient delivery to tissue Please do not hesitate to contact me at [phone] by phone or if you have questions or concerns regarding this new plan of care! Sincerely, Kandice Clemente, PT, Cert MDT
--- NOTE | 2021-03-30 14:05 | HP.PT.NRP ---
JANAK UGARTE was seen in my office for initial evaluation on 11/24/20. The following Plan of Care was established for this patient: Initial Frequency: 2-3x /Week Initial Duration: 4-6 Weeks Patient/Client Instruction: Educate patient on: Condition, Plan of Care, Risk Factors, Benefits of Fitness Program For the Purpose of:: To improve self management Therapeutic Exercise to Include: Strength training, Balance training, Body mechanics, Postural training, Flexibilty training, Gait and locomotor training, Neuromotor development, In an aquatic setting, Dynamic Lumbar Stabilization For the Purpose of:: To decrease pain, To increase ROM, To improve muscle performance and motor function, To increase tolerance to activity/condition/position, To improve ability of physical actions for home/community/work/leisure, To improve gait and locomotor functions Cryotherapy (ice pack, ice massage): Yes Thermo therapy (hot pack): Yes Ultrasound (thermal/non thermal): Yes For the Purpose of:: To decrease pain, To improve nutrient delivery to tissue This patient was last seen in our office 02/07/21. Pertinent comments regarding their Physical therapy will appear below: This patient has not returned to Physical Therapy and is appropriate to return to MD for further follow-up as needed. She reported to this PT that she has been very busy and unable to come even though she feels she needs more therapy and the aquatic therapy was really helping her. She is also going to have foot surgery soon. We would be happy to resume PT as needed/indicated. At this point I will be discontinuing this patient from physical therapy. I would be happy to see this patient again in the future if found appropriate by the physician. Thank you! Kandice Clemente, PT, Cert MDT Balance/Gait/Functional tests - Balance/Special Test Scores Oswestry Low Back Score: 4 Lower Extremity Functional Score: 53
== END 2021-03-30 19:00 | disposition home or self-care (01) ==
LOC: PT 12:00
PROVIDERS: PCP Family Medicine; Referring Provider Orthopaedic Surgery; Visit Provider Orthopaedic Surgery
DX: M70.61 Trochanteric bursitis, right hip (principal)
CPT/HCPCS: 97112; 97113; 97162; 97164; 97530

== ENCOUNTER → 2021-04-11 10:23 | Outpatient (CLI) | payer OTHER, SELFPAY ==
[2021-04-11 11:30] LABS: Absolute Lymphocyte Count 2.92 X10^3/uL (0.83-4.51); Absolute Neutrophil Count 3.2 X10^3/uL (2.0-7.7); Basophil# 0.06 X10^3/uL; Basophil% 0.8 % (0-1); Eosinophil# 0.42 X10^3/uL; Eosinophils% 5.9 % (0-5); Hematocrit 41.2 % (37-47); Hemoglobin 13.7 g/dL (12.0-15.0); Lymphocyte # 2.92 X10^3/ul (0.83-4.51); Lymphocyte % 40.9 % (19-41); Mean Corp Hgb Conc 33.3 g/dL (32-36); Mean Corpuscular Hgb 31.5 pg (27.0-32.0); Mean Corpuscular Volume 94.7 fL (81-99); Mean Platelet Vol. 12.3 fl (6.2-12.0); Monocyte# 0.49 X10^3/uL; Monocyte% 6.9 % (0-10); NRBC Flagged by Analyzer 0 % (0-5); Neutrophil # 3.23 X10^3/uL (2.7-7.7); Neutrophil % 45.2 % (47-70); Platelet Count 171 K/mm3 (150-450); RBC Distribution Width CV 13.3 % (11.6-14.6); RBC Distribution Width SD 46.4 fl (35.1-43.9); Red Blood Count 4.35 M/mm3 (4.2-5.4); White Blood Count 7.1 K/mm3 (4.4-11.0)
[2021-04-11 12:05] LABS: AST(SGOT) 18 U/L (15-37); Alanine Aminotransfer ALT/SGPT 30 U/L (13-56); Albumin, Serum 3.6 g/dL (3.2-5.0); Alkaline Phosphatase 107 U/L (45-117); Anion Gap 5 (5-15); BUN 13 mg/dL (7-18); Calcium,Total 8.7 mg/dL (8.5-10.1); Chloride 106 mmol/L (98-107); Cholesterol 178 mg/dL (200); Creatinine, Serum 0.87 mg/dL (0.55-1.02); EST Glomerular Filtration Rate 69 mL/min (>60); Est Glom Filt Rate - Afr Amer 84 mL/min (>60); Globulin 3.5 g/dL (2.2-4.2); Glucose 90 mg/dL (74-106); High Density Lipoprotein 42 mg/dL; Potassium 4.2 mmol/L (3.5-5.1); Protein, Total 7.1 g/dL (6.4-8.2); Sodium Level 139 mmol/L (136-145); Triglycerides 261 mg/dL; Very Low Density Lipoprotein 52 mg/dL (5-40)
== END ==
PROVIDERS: PCP Family Medicine; Referring Provider Family Medicine; Visit Provider Family Medicine
DX: E03.9 Hypothyroidism, unspecified (principal); E55.9 Vitamin D deficiency, unspecified; E78.5 Hyperlipidemia, unspecified
CPT/HCPCS: 36415; 80053; 80061; 82306; 84443; 85025

== ENCOUNTER → 2021-04-19 10:24 | Outpatient (CLI) | payer OTHER, SELFPAY ==
--- NOTE | 2021-04-19 10:30 | RAD_ITS ---
STUDY: X-RAY CHEST REASON FOR EXAM: Female, 66 years old. PRE-PROCEDURE TECHNIQUE: Single PA view of the chest. COMPARISON: Comparison is made with prior study dated 09/02/2019. FINDINGS: The lungs are clear and expanded. There is no demonstrated pleural abnormality. Normal size heart. Normal mediastinum and oliva. Normal visualized pulmonary arteries. Normal visualized aortic arch and descending thoracic aorta. Normal visualized thoracic spine. Normal visualized ribs, clavicles, and shoulders. There is no demonstrated abnormality of the visualized soft tissue structures of the upper abdomen. RAD/Chest 1 View IMPRESSION: Normal x-ray examination of the chest. Electronically Signed: Anshu Whaley MD at 9:43 EDT , Service support ,
== END ==
PROVIDERS: PCP Family Medicine; Referring Provider Podiatrist; Visit Provider Podiatrist
DX: Z01.818 Encounter for other preprocedural examination (principal)
CPT/HCPCS: 71045

== ENCOUNTER → 2021-04-27 14:27 | Outpatient (CLI) | payer OTHER, SELFPAY ==
--- NOTE | 2021-04-27 14:40 | RAD_ITS ---
STUDY: X-RAY - LEFT FOOT CLINICAL: Female, 66 years old. Injury due to a fall. TECHNIQUE: 3 view(s) of the foot. COMPARISON: Comparison is made with prior study 05/02/2020. FINDINGS: Normal talus, calcaneus, and tarsal bones. Normal visualized subtalar, talonavicular, calcaneocuboid, tarsal and tarsometatarsal articulations. The patient is status post corrective hallux valgus surgery with tip 3 small screws in the midportion of the first metatarsal. Normal metatarsophalangeal joint of the great toe. Normal tibial and fibular sesamoid bones. Normal interphalangeal joint of the great toe. Normal phalanges of the great toe. Normal second through fifth metatarsophalangeal joints. Normal interphalangeal joints and phalanges of the lesser toes. Soft tissue swelling. RAD/Foot min 3 Views IMPRESSION: Postoperative changes. Soft tissue swelling. No new fracture is seen. Electronically Signed: Anshu Whaley MD at 15:04 EDT , Service support ,
== END ==
PROVIDERS: PCP Family Medicine; Referring Provider Podiatrist; Visit Provider Podiatrist
DX: S93.692A Other sprain of left foot, initial encounter (principal); W19.XXXA Unspecified fall, initial encounter
CPT/HCPCS: 73630

== ENCOUNTER → 2021-06-21 16:06 | Outpatient (CLI) | payer OTHER, SELFPAY ==
--- NOTE | 2021-06-21 16:09 | RAD_ITS ---
STUDY: X-RAY - LEFT FOOT CLINICAL: Female, 66 years old. PAIN- FOLLOW UP FROM SURGERY TECHNIQUE: 3 radiographic view(s) of the foot. COMPARISON: 04/27/2021 RAD/Foot min 3 Views IMPRESSION: First metatarsal ORIF in near anatomic alignment. There is increased bone bridging and callus formation, compatible with healing. Electronically Signed: Andre Briscoe MD at 8:01 EDT Tel , Service support ,
== END ==
PROVIDERS: PCP Family Medicine; Referring Provider Podiatrist; Visit Provider Podiatrist
DX: M20.12 Hallux valgus (acquired), left foot (principal)
CPT/HCPCS: 73630

== ENCOUNTER → 2021-07-04 | Outpatient (CLI) | payer OTHER, SELFPAY | END | disposition home or self-care (01) | PROVIDERS: PCP Family Medicine; Referring Provider Family Medicine; Visit Provider Family Medicine | DX: Z20.822 Contact with and (suspected) exposure to COVID-19 (principal) | CPT/HCPCS: 87635; U0005; U0003 ==

== ENCOUNTER 2021-08-29 01:18 | Emergency (ER) | payer OTHER, SELFPAY ==
[2021-08-29 01:19] VITALS: BP 123/84; PULSE 74; RESP 22; TEMP 35.9; O2SAT 98; BMI 41.7
--- NOTE | 2021-08-29 01:31 | EKG12_ITS ---
Test Reason : CP Blood Pressure : / mmHG Vent. Rate : 072 BPM Atrial Rate : 072 BPM P-R Int : 180 ms QRS Dur : 090 ms QT Int : 398 ms P-R-T Axes : 049 017 045 degrees QTc Int : 435 ms Normal sinus rhythm Normal ECG Confirmed by MARYCHUY GALICIA, GABO ([id number]), food expeditor ADELITA CONDON ([id number]) on 08/31/2021 9:26:20 AM Referred By: DONATO Confirmed By:GABO PERRIN MD
--- NOTE | 2021-08-29 01:31 | RAD_ITS ---
STUDY: X-RAY CHEST REASON FOR EXAM: Female, 66 years old. Chest pain TECHNIQUE: Single AP portable view of the chest. COMPARISON: 04/19/2021 chest x-ray FINDINGS: The lungs are clear and expanded. There is no demonstrated pleural abnormality. Normal size heart. Normal mediastinum and oliva. Normal visualized pulmonary arteries. Normal visualized aortic arch and descending thoracic aorta. There are diffuse degenerative changes of the visualized thoracic spine. Normal visualized ribs, clavicles, and shoulders. There is no demonstrated abnormality of the visualized soft tissue structures of the upper abdomen. RAD/Chest 1 View (Portable) IMPRESSION: No demonstrated acute cardiopulmonary process. Electronically Signed: Ana Veloz MD at 2:23 EST Tel , Service support ,
--- NOTE | 2021-08-29 01:31 | ED.VIS.CHEST ---
HPI History of Present Illness Chief Complaint: Chest Pain Narrative Narrative: With past medical history of duodenal ulcer disease, gastric polyps, GERD, and hypothyroidism presents with central chest pressure and left arm pain. She states she went to work, and she has worked second shift for 5 hours. She went home, and then began having sharp stabbing pain shooting down her arm that is worse with movement. She also had chest pressure. This started at 9 PM. She has had constant pain and pressure for the last 4-1/2 hours. She denies any history of coronary artery disease or stenting of her coronary arteries. No nausea or vomiting. No fevers or chills. She had shortness of breath in the past and possibly related to this, but she does have history of obstructive sleep apnea. Her main concern is the chest pain, and the sharp stabbing pain she gets with movement of her arm. [facility] Medical History Bipolar disorder GERD (gastroesophageal reflux disease) Hypothyroidism Restless leg syndrome Home Medications bupropion HCl 150 mg PO DAILY 02/10/14 [History Last Taken Unknown] lamotrigine 150 mg PO BID 02/10/14 [History Last Taken Unknown] calcium carbonate 600 mg PO DAILY 05/15/16 [History Last Taken Unknown] cholecalciferol (vitamin D3) 2,000 unit PO DAILY 05/15/16 [History Last Taken Unknown] ferrous sulfate 65 mg PO DAILY 05/15/16 [History Last Taken Unknown] levothyroxine 50 mcg PO DAILY 05/15/16 [History Last Taken Unknown] jqzjzdre-qyf-yjgt-FA-lutein 1 each PO DAILY 05/15/16 [History Last Taken Unknown] ropinirole 2 mg PO QHS 05/15/16 [History Last Taken Unknown] sucralfate 1 gm PO 4X/DAY #120 tab 06/05/16 [Rx Last Taken Unknown] albuterol sulfate 1 puff INHALATION Q4H PRN PRN 09/02/19 [History Last Taken Unknown] cyanocobalamin (vitamin B-12) 500 mcg PO DAILY@0800 09/02/19 [History Last Taken Unknown] gabapentin 300 mg PO QHS 09/02/19 [History Last Taken Unknown] inhalational spacing device #1 spacer 09/02/19 [Rx Last Taken Unknown] omeprazole 20 mg PO DAILY 09/02/19 [History Last Taken Unknown] prednisone 40 mg PO DAILY #10 tablet 11/17/20 [Rx Last Taken Unknown] Allergy/AdvReac Type Severity Reaction Status Date / Time No Known Allergies Allergy Verified 08/29/21 01:22 Social History Smoking Status: Never smoker ROS ROS ED ROS Narrative Constitutional: No fever, no chills. HEENT: No sore throat. No neck pain. No loss of vision. No rhinorrhea. Cardiovascular: Positive chest pressure/chest pain. No palpitations. No pedal edema. Respiratory: No cough, no shortness of breath. Abdominal: No abdominal pain. No nausea. No vomiting. Genitourinary: No dysuria. No hematuria. Musculoskeletal: No myalgias. Left arm pain worse with movement of shoulder. Neurologic: No headaches. No dizziness. No lightheadedness. Skin: No rash. No change in color. Psychiatric: No depression. No anxiety. EXAM Physical Exam Narrative Exam Narrative: Afebrile. Vital signs noted. HEENT: Normocephalic. Atraumatic. PERRL, EOMI. Neck soft and supple. No point tenderness or step off. Cardiovascular: Regular rate and rhythm. No murmurs, rubs, or gallops appreciated. Respiratory: No tachypnea. Lungs clear to auscultation bilaterally. Gastrointestinal: Abdomen soft, nontender, with normoactive bowel sounds. No rebound or guarding. Neurological: Awake. Alert. Nonfocal, nonlateralizing. Skin: No rash. Normal color. No pallor. Musculoskeletal: No pedal edema. Full range of motion extremities. Reproducible left arm pain with raising upper arm greater than 45 degrees. Palpable radial pulse. No evidence of clinical dislocation. Const Vital Signs: 08/29/21 01:19 08/29/21 01:23 08/29/21 01:35 Temperature 96.7 F L Temperature Source Temporal Pulse Rate 74 Respiratory Rate 22 H Respiratory Effort Normal Respiratory Pattern Tachypnea Blood Pressure 123/84 H Blood Pressure Mean 97 Pulse Ox 98 Oxygen Delivery Method Room Air Room Air 08/29/21 03:58 Temperature Temperature Source Pulse Rate 75 Respiratory Rate 16 Respiratory Effort Respiratory Pattern Blood Pressure 150/71 H Blood Pressure Mean 97 Pulse Ox 95 Oxygen Delivery Method Room Air MDM MDM MDM Narrative Medical decision making narrative: Chest pain work-up was pursued. I do feel that she has more of an impingement tendinitis of her left shoulder as it is reproducible. Her EKG demonstrates normal sinus rhythm at 72 bpm without ectopy or acute ST changes. She was not administered aspirin as she has had history of duodenal ulcer. Her laboratory work is grossly unremarkable, CBC normal white count of 8.7 with hemoglobin stable at 13.5. She does have an elevated chloride of 110 but a normal sodium of 141. Initial high-sensitivity troponin negative at 6. Her repeat troponin is negative at 5. Chest x-ray shows no acute process. At this point in time, I feel she be discharged safely home. I feel she has more of an impingement tendinitis of her left shoulder. She will take puek-bal-krxbobe medications as needed. Additionally, I am unsure as the cause of her chest pressure, but with 2 - troponins I feel she can be discharged safely home with follow-up. Of note, she did want to take her home dose of Requip which was given here. Return instructions to the emergency department were reviewed. Disposition is discharged home in stable condition. Lab Data Attestation: I reviewed the patient's lab results. Labs: Laboratory Results - last 24 hr 08/29/21 08/29/21 08/29/21 01:25 01:25 01:52 WBC 8.7 RBC 4.29 Hgb 13.5 Hct 40.4 MCV 94.2 MCH 31.5 MCHC 33.4 RDW Std Deviation 47.7 H RDW Coeff of Poly 14.0 Plt Count 175 MPV 12.5 H Immature Gran % (Auto) 0.500 Neut % (Auto) 55.1 Lymph % (Auto) 33.5 [place] % (Auto) 6.7 Eos % (Auto) 3.4 Baso % (Auto) 0.8 Absolute Neuts (auto) 4.8 Absolute Lymphs (auto) 2.92 Nucleated RBC % 0 Sodium Cancelled 141 Potassium Cancelled 3.8 Chloride Cancelled 110 H Carbon Dioxide Cancelled 25.0 Anion Gap Cancelled 6 BUN Cancelled 16 Creatinine Cancelled 0.97 Estim Creat Clear Calc Cancelled 46.56 Est GFR (MDRD) Af Amer Cancelled 73 Est GFR (MDRD) Non-Af Cancelled 61 BUN/Creatinine Ratio Cancelled 16.4 Glucose Cancelled 100 Calcium Cancelled 9.0 Troponin I High Sens Cancelled 6 08/29/21 03:56 WBC RBC Hgb Hct MCV MCH MCHC RDW Std Deviation RDW Coeff of Poly Plt Count MPV Immature Gran % (Auto) Neut % (Auto) Lymph % (Auto) [place] % (Auto) Eos % (Auto) Baso % (Auto) Absolute Neuts (auto) Absolute Lymphs (auto) Nucleated RBC % Sodium Potassium Chloride Carbon Dioxide Anion Gap BUN Creatinine Estim Creat Clear Calc Est GFR (MDRD) Af Amer Est GFR (MDRD) Non-Af BUN/Creatinine Ratio Glucose Calcium Troponin I High Sens 5 Radiography Diagnostic Testing: Clinical Impression(s) from Imaging Studies Chest X-Ray 08/29/21 01:31 IMPRESSION: No demonstrated acute cardiopulmonary process. Electronically Signed: Ana Veloz MD at 2:23 EST Tel , Service support , Discharge Plan Triage Chief Complaint: Chest Pain ED Provider: Fausto Edmonds Dx/Rx/DC Orders Clinical Impression: Chest pain, Acute shoulder pain, Impingement syndrome of left shoulder Instructions: ED Chest Pain, Uncertain Cause, ED Shoulder Impingement Syndrome, ED Shoulder Pain, Uncertain Cause Prescriptions: No Action lamotrigine 150 MG tablet 150 mg PO BID RF: 0 bupropion HCl 300 MG tablet extended release 24 hr 150 mg PO DAILY RF: 0 ropinirole 1 MG tablet 2 mg PO QHS RF: 0 calcium carbonate 600 MG tablet 600 mg PO DAILY RF: 0 levothyroxine 50 MCG tablet 50 mcg PO DAILY RF: 0 cholecalciferol (vitamin D3) 1,000 UNIT tablet 2,000 unit PO DAILY RF: 0 ferrous sulfate 15 MG/ML drops 65 mg PO DAILY RF: 0 dfbpyiud-iog-mnsq-FA-lutein 1 EACH tablet 1 each PO DAILY RF: 0 sucralfate 1 GM tablet 1 gm PO 4X/DAY Qty: 120 RF: 2 cyanocobalamin (vitamin B-12) 500 MCG tablet 500 mcg PO DAILY@0800 RF: 0 gabapentin 300 MG capsule 300 mg PO QHS RF: 0 omeprazole 20 MG capsule 20 mg PO DAILY RF: 0 albuterol sulfate 1 PUFF inhaler 1 puff inhalation Q4H PRN PRN (Reason: Sob &/Or Wheezing) RF: 0 (DME) inhalational spacing device 1 EACH spacer 1 ea MC UD Qty: 1 RF: 0 prednisone 20 MG tablet 40 mg PO DAILY Qty: 10 RF: 0 Primary Care Provider: Andre Dale Referrals: Andre Dale [Primary Care Provider] - 09/01/21 Disposition Disposition: Home, Self Care
[2021-08-29 01:39] LABS: Absolute Lymphocyte Count 2.92 X10^3/uL (0.83-4.51); Absolute Neutrophil Count 4.8 X10^3/uL (2.0-7.7); Basophil# 0.07 X10^3/uL; Basophil% 0.8 % (0-1); Eosinophils% 3.4 % (0-5); Hematocrit 40.4 % (37-47); Hemoglobin 13.5 g/dL (12.0-15.0); Lymphocyte # 2.92 X10^3/ul (0.83-4.51); Lymphocyte % 33.5 % (19-41); Mean Corp Hgb Conc 33.4 g/dL (32-36); Mean Corpuscular Hgb 31.5 pg (27.0-32.0); Mean Corpuscular Volume 94.2 fL (81-99); Mean Platelet Vol. 12.5 fl (6.2-12.0); Monocyte# 0.58 X10^3/uL; Monocyte% 6.7 % (0-10); NRBC Flagged by Analyzer 0 % (0-5); Neutrophil % 55.1 % (47-70); Platelet Count 175 K/mm3 (150-450); RBC Distribution Width SD 47.7 fl (35.1-43.9); Red Blood Count 4.29 M/mm3 (4.2-5.4); White Blood Count 8.7 K/mm3 (4.4-11.0)
[2021-08-29 02:39] LABS: Anion Gap 6 (5-15); BUN 16 mg/dL (7-18); BUN/Creat Ratio 16.4 RATIO (10-20); Chloride 110 mmol/L (98-107); Creatinine, Serum 0.97 mg/dL (0.55-1.02); EST Glomerular Filtration Rate 61 mL/min (>60); Est Glom Filt Rate - Afr Amer 73 mL/min (>60); Estimated Creatinine Clearance 46.56 ml/min; Glucose 100 mg/dL (74-106); Potassium 3.8 mmol/L (3.5-5.1); Sodium Level 141 mmol/L (136-145); Troponin-I HS 6 pg/mL (3.0-54.0)
[2021-08-29] MEDS: Pramipexole Di-HCl 1 MG Tablet PO (03:55)
[2021-08-29 03:58] VITALS: BP 150/71; PULSE 75; RESP 16; O2SAT 95
[2021-08-29 04:31] LABS: Troponin-I HS 5 pg/mL (3.0-54.0)
[2021-08-29 04:49] VITALS: BP 168/90; PULSE 67; RESP 16; O2SAT 95
== END 2021-08-29 04:51 | disposition home or self-care (01) ==
PROVIDERS: Emergency Provider Emergency Medicine; PCP Family Medicine
DX: R07.9 Chest pain, unspecified (principal); M25.812 Other specified joint disorders, left shoulder; E03.9 Hypothyroidism, unspecified; K21.9 Gastro-esophageal reflux disease without esophagitis; G25.81 Restless legs syndrome; F31.9 Bipolar disorder, unspecified; Z79.899 Other long term (current) drug therapy; Z87.19 Personal history of other diseases of the digestive system
CPT/HCPCS: 71045; 80048; 84484; 85025; 93005; 99285; A4216

== ENCOUNTER 2021-10-04 15:25 | Outpatient (CLI) | payer BC, SELFPAY | END 2021-10-04 23:59 | disposition short-term general hospital (02) | PROVIDERS: PCP Family Medicine; Visit Provider Nurse Practitioner Family | DX: Z20.822 Contact with and (suspected) exposure to COVID-19 (principal) | CPT/HCPCS: 87635; U0003; U0005 ==

== ENCOUNTER 2021-10-14 11:34 | Emergency (ER) | payer BC, MEDICARE, SELFPAY ==
[2021-10-14 11:35] VITALS: BP 195/80; PULSE 90; RESP 18; TEMP 36.6; O2SAT 98; BMI 41.6
[2021-10-14 11:45] VITALS: BP 195/80; PULSE 90; RESP 18; TEMP 36.6; O2SAT 98
--- NOTE | 2021-10-14 11:46 | EX.ED.VIS.UR ---
HPI HPI - URI History of Present Illness Chief Complaint: Shortness of Breath Informant: patient Onset/Context/Timing Onset: Days Context: Gradual Onset Timing: Continuous Current Severity: Mild Maximum Severity: Mild Associated Symptoms Associated Symptoms: Positive for Nasal Congestion, Myalgias, Shortness of Breath and Productive Cough; Negative for Nausea and Vomiting Narrative Narrative: 66-year-old female history of bipolar disorder and hypothyroidism. States on Saturday she started not feeling well and Saturday she developed laryngitis. Thought she just had a cold. Saturday she started developing a low-grade fever of 100.8. She had yellowish sputum that she thinks may have been blood-tinged. She has been vaccinated against COVID she has had 1 shot Kendra was on September 11. She said she has had other symptoms since that time and has been unable to get her second shot yet. She did take a home Covid test on that was negative. Prior similar symptoms: Yes Recent Illness/Hospitalization: No ROS ROS ED ROS Narrative Cough. Fever. Wheezing. Review of Systems ROS Unobtainable: Denies due to encephalopathy Constitutional Constitutional ED: Reports fever(s) Eyes Eyes: Denies change in vision ENT ENT ED: Reports rhinorrhea; Denies ear pain or sore throat Cardiovascular Cardiovascular: Denies chest pain Respiratory/Chest Respiratory/Chest: Reports cough, dyspnea and sputum Gastrointestinal Gastrointestinal: Denies abdominal pain, nausea or vomiting Genitourinary Genitourinary ED: Denies dysuria Musculoskeletal Musculoskeletal: Reports myalgias Integumentary Denies rash Neurologic Neurologic: Denies headache(s) Psychiatric Psychiatric: Denies depression Endocrine Endocrinology: Denies polyuria Hematologic/Lymphatic Hematologic/Lymphatic: Denies easy bruising Allergic/Immunologic Allergic/Immunologic ED: Denies urticaria PFSH [facility] Medical History Bipolar disorder GERD (gastroesophageal reflux disease) Hypothyroidism Restless leg syndrome Home Medications bupropion HCl 150 mg PO DAILY 02/10/14 [History Last Taken Unknown] lamotrigine 150 mg PO BID 02/10/14 [History Last Taken Unknown] calcium carbonate 600 mg PO DAILY 05/15/16 [History Last Taken Unknown] cholecalciferol (vitamin D3) 2,000 unit PO DAILY 05/15/16 [History Last Taken Unknown] ferrous sulfate 65 mg PO DAILY 05/15/16 [History Last Taken Unknown] levothyroxine 50 mcg PO DAILY 05/15/16 [History Last Taken Unknown] gtlsakbc-fqy-aoxp-FA-lutein 1 each PO DAILY 05/15/16 [History Last Taken Unknown] ropinirole 2 mg PO QHS 05/15/16 [History Last Taken Unknown] sucralfate 1 gm PO 4X/DAY #120 tab 06/05/16 [Rx Last Taken Unknown] albuterol sulfate 1 puff INHALATION Q4H PRN PRN 09/02/19 [History Last Taken Unknown] cyanocobalamin (vitamin B-12) 500 mcg PO DAILY@0800 09/02/19 [History Last Taken Unknown] gabapentin 300 mg PO QHS 09/02/19 [History Last Taken Unknown] inhalational spacing device #1 spacer 09/02/19 [Rx Last Taken Unknown] omeprazole 20 mg PO DAILY 09/02/19 [History Last Taken Unknown] prednisone 40 mg PO DAILY #10 tablet 11/17/20 [Rx Last Taken Unknown] albuterol sulfate [ProAir HFA] 2 puff INHALATION Q6H PRN #1 g 10/14/21 [Rx Last Taken Unknown] prednisone 40 mg PO DAILY 7 Days #14 tab 10/14/21 [Rx Last Taken Unknown] Allergy/AdvReac Type Severity Reaction Status Date / Time No Known Allergies Allergy Verified 10/14/21 11:38 Social History Smoking Status: Never smoker EXAM Physical Exam Narrative Exam Narrative: 66-year-old female no acute distress. Vital signs stable. Currently afebrile with a temperature 97.9. Pulse ox 90% on room air no signs of hypoxia. She is in no distress. She does not have labored breathing. H EENT exam unremarkable. Posterior pharynx moist and pink. No erythema or exudate. No trouble swallowing or breathing. Neck nontender. No lymphadenopathy. Lungs dry hacking cough. Bilateral expiratory wheezing. No rales or rhonchi. Equal symmetrical. Heart regular rhythm rate about 90 no murmur. Abdomen soft nontender. Moving all 4 extremities. Calves nontender no edema. Neurologically awake and alert with no focal motor deficits. Const Vital Signs: 10/14/21 11:35 10/14/21 11:45 10/14/21 11:58 Temperature 97.9 F 97.9 F Temperature Source Temporal Temporal Pulse Rate 90 90 76 Respiratory Rate 18 18 18 Respiratory Effort Normal Non-Labored Respiratory Depth Normal Respiratory Pattern Normal Blood Pressure 195/80 H 195/80 H Blood Pressure Mean 118 118 Pulse Ox 98 98 Oxygen Delivery Method Room Air Room Air Positive well nourished, well developed and obese; Negative for cachectic or contractures General Appearance ED: well developed and NAD; Negative for cachectic, contractures, cyanotic, diaphoretic or pallor Nutritional Appearance: obese; Negative for cachectic HEENT Reports moist mucous membranes normocephalic and atraumatic; Negative for scalp tenderness Face and Sinus: Negative for sinus tenderness, maxillary instability or facial tenderness External Ear: external ears normal Eyes PERRL and EOMs intact bilaterally General Eye ED: Negative for pale conjunctiva or scleral icterus Neck no lymphadenopathy, supple, no meningeal signs and no JVD General: Negative for anterior neck swelling or lymphadenopathy Resp normal respiratory effort and No clear to auscultation bilaterally Effort and Inspection: Negative for retractions Auscultation: wheezes; Negative for rales, rhonchi or diminished lung sounds Cardio S1 normal heart sound, S2 normal heart sound and no murmurs Rate: regular rate Rhythm: regular rhythm GI non-tender, non-distended and no masses Inspection: Negative for abdominal distention Auscultation: normoactive bowel sounds Palpation: soft; Negative for tender or guarding Back/Spine no CVA tenderness and normal ROM General Back: Negative for CVA tenderness Cervical Spine: Negative for cervical spine tenderness Thoracic Spine / Upper Back: Negative for thoracic spinal tenderness Extremity normal to inspection and full ROM General Extremety ED: Negative for cyanosis or tenderness General Extremity: Negative for cyanosis Neuro oriented x3 Sensorium / Orientation: alert, oriented to person, oriented to place and oriented to time; Negative for orientation impaired or lethargic Psych mental status grossly normal Attitude: No agitated Mood & Affect: Negative for depressed or tearful Skin General Skin Exam: Negative for jaundice or pallor Lesions: no lesions Rashes: no rashes MDM MDM MDM Narrative Medical decision making narrative: 66-year-old female most likely has a viral URI, bronchitis with bronchospasm. Will obtain a chest x-ray to rule out pneumonia. Obtain a Covid test. And she will be given prednisone and a DuoNeb aerosol treatment for her wheezing. Repeat exam patient is doing well at 1:20 PM. Improved after the aerosol treatment. We went over the patient's test results. She will be discharged home placed on prednisone. And inhaler as needed. And follow-up. Treated as a viral bronchitis with bronchospasm. Lab Data Attestation: I reviewed the patient's lab results. Lab results narrative: Rapid COVID antigen test negative. Radiography Diagnostic Testing: Clinical Impression(s) from Imaging Studies Chest X-Ray 10/14/21 11:49 IMPRESSION: No active pulmonary disease. Electronically Signed: Harish Davis, at 12:03 EST , Chest x-ray, portable, single view interpreted by myself shows normal cardiac silhouette. Chronic changes no acute process. Also read by the radiologist and agrees. Discharge Plan Triage Chief Complaint: Shortness of Breath ED Provider: Lyndon Booker Dx/Rx/DC Orders Clinical Impression: Bronchitis, Bilateral wheezing Instructions: ED Bronchitis with Wheezing (Adult) Prescriptions: New prednisone 20 mg tablet 40 mg PO DAILY 7 Days Qty: 14 RF: 0 albuterol sulfate [ProAir HFA] 90 mcg/actuation HFA aerosol inhaler 2 puff inhalation Q6H PRN (Reason: shortness of breath or wheezing) Qty: 1 RF: 0 No Action lamotrigine 150 MG tablet 150 mg PO BID RF: 0 bupropion HCl 300 MG tablet extended release 24 hr 150 mg PO DAILY RF: 0 ropinirole 1 MG tablet 2 mg PO QHS RF: 0 calcium carbonate 600 MG tablet 600 mg PO DAILY RF: 0 levothyroxine 50 MCG tablet 50 mcg PO DAILY RF: 0 cholecalciferol (vitamin D3) 1,000 UNIT tablet 2,000 unit PO DAILY RF: 0 ferrous sulfate 15 MG/ML drops 65 mg PO DAILY RF: 0 dgsjrngk-ypk-rkmy-FA-lutein 1 EACH tablet 1 each PO DAILY RF: 0 sucralfate 1 GM tablet 1 gm PO 4X/DAY Qty: 120 RF: 2 cyanocobalamin (vitamin B-12) 500 MCG tablet 500 mcg PO DAILY@0800 RF: 0 gabapentin 300 MG capsule 300 mg PO QHS RF: 0 omeprazole 20 MG capsule 20 mg PO DAILY RF: 0 albuterol sulfate 1 PUFF inhaler 1 puff inhalation Q4H PRN PRN (Reason: Sob &/Or Wheezing) RF: 0 (DME) inhalational spacing device 1 EACH spacer 1 ea MC UD Qty: 1 RF: 0 prednisone 20 MG tablet 40 mg PO DAILY Qty: 10 RF: 0 Primary Care Provider: Andre Dale Referrals: Andre Dale [Primary Care Provider] - 3-5 Days if not improving Activity Restrictions/Additional Instructions: Prednisone, which is a steroid, 40 mg a day starting tomorrow for 1 week. This should decrease inflammation in your lungs, improve your breathing and decrease the wheezing. I also wrote your prescription for an inhaler if you need it. Get that filled if you do not feel like your breathing is improving. The prednisone prescription was sent directly to your pharmacy. Follow-up with your doctor as needed if not improved. Most likely this is a virus and should improve with the steroids. If not follow-up with your doctor you may need an antibiotic. Disposition Disposition: Home, Self Care
--- NOTE | 2021-10-14 11:49 | RAD_ITS ---
STUDY: X-RAY CHEST REASON FOR EXAM: Female, 66 years old. Cough TECHNIQUE: Single AP portable view of the chest. COMPARISON: 08/29/2021. FINDINGS: The lungs are clear and expanded. There is no demonstrated pleural abnormality. Normal size heart. Normal mediastinum and oliva. Normal visualized pulmonary arteries. Normal visualized aortic arch and descending thoracic aorta. Stable soft tissues and osseous structures. There is no demonstrated abnormality of the visualized soft tissue structures of the upper abdomen. RAD/Chest 1 View (Portable) IMPRESSION: No active pulmonary disease. Electronically Signed: Hairsh Davis, at 12:03 [facility] ,
[2021-10-14] MEDS: predniSONE 20 MG Tablet 60 MG PO (11:54)
[2021-10-14] MEDS: Ipratropium/Albuterol Sulfate 3 ML AMPUL.NEB INHALATION (11:57)
[2021-10-14 11:58] VITALS: PULSE 76; RESP 18
== END 2021-10-14 13:32 | disposition home or self-care (01) ==
PROVIDERS: Emergency Provider Emergency Medicine; PCP Family Medicine; Visit Provider Emergency Medicine
DX: J40 Bronchitis, not specified as acute or chronic (principal); F31.9 Bipolar disorder, unspecified; R06.2 Wheezing; E03.9 Hypothyroidism, unspecified; K21.9 Gastro-esophageal reflux disease without esophagitis; Z79.899 Other long term (current) drug therapy
CPT/HCPCS: 71045; 87426; 94640; 99283

== ENCOUNTER 2021-10-31 11:55 | Outpatient (CLI) | payer BC, SELFPAY ==
--- NOTE | 2021-10-31 12:00 | RAD_ITS ---
STUDY: X-RAY - LEFT FOOT CLINICAL: Female, 66 years old. Pain. TECHNIQUE: 3 view(s) of the foot. COMPARISON: 06/21/2021. FINDINGS: Osteopenia. Inferior calcaneal spur. Mild arthrosis of the tibiotalar and subtalar joints. Mild arthrosis of the midfoot. Postsurgical changes of hallux valgus repair, unchanged with 3 screws in the proximal first metatarsal. Stable mild deformity of the first metatarsal from surgical intervention. Moderate osteoarthritic changes with hammertoe deformities unaltered. The soft tissue structures are unremarkable. RAD/Foot min 3 Views IMPRESSION: Stable left foot with postsurgical changes and osteoarthritic changes. No acute abnormality. Electronically Signed: Raffi Brown MD at 13:30 EST ,
== END 2021-10-31 23:59 | disposition home or self-care (01) ==
PROVIDERS: PCP Family Medicine; Referring Provider Podiatrist; Visit Provider Podiatrist
DX: M20.12 Hallux valgus (acquired), left foot (principal); M77.32 Calcaneal spur, left foot; M19.072 Primary osteoarthritis, left ankle and foot
CPT/HCPCS: 73630

== ENCOUNTER → 2022-02-27 | Outpatient (CLI) | payer BC, SELFPAY ==
[2022-02-27 12:21] LABS: Basophil# 0.05 X10^3/uL; Basophil% 0.9 % (0-1); Eosinophils% 6.9 % (0-5); Hematocrit 41.3 % (37-47); Hemoglobin 13.4 g/dL (12.0-15.0); Lymphocyte % 32.8 % (19-41); Mean Corp Hgb Conc 32.4 g/dL (32-36); Mean Corpuscular Hgb 31.2 pg (27.0-32.0); Mean Corpuscular Volume 96.3 fL (81-99); Mean Platelet Vol. 12.1 fl (6.2-12.0); Monocyte% 6.9 % (0-10); NRBC Flagged by Analyzer 0 % (0-5); Neutrophil # 3.03 X10^3/uL (2.7-7.7); Neutrophil % 52.2 % (47-70); Platelet Count 179 K/mm3 (150-450); RBC Distribution Width CV 13.9 % (11.6-14.6); RBC Distribution Width SD 49.4 fl (35.1-43.9); Red Blood Count 4.29 M/mm3 (4.2-5.4); White Blood Count 5.8 K/mm3 (4.4-11.0)
[2022-02-27 13:08] LABS: ALB/GLOB Ratio 0.9 RATIO (0.9-2.4); AST(SGOT) 26 U/L (15-37); Alanine Aminotransfer ALT/SGPT 38 U/L (13-56); Albumin, Serum 3.4 g/dL (3.2-5.0); Alkaline Phosphatase 131 U/L (45-117); Anion Gap 7 (5-15); BUN 15 mg/dL (7-18); BUN/Creat Ratio 15.8 RATIO (10-20); Calcium,Total 8.8 mg/dL (8.5-10.1); Chloride 107 mmol/L (98-107); Creatinine, Serum 0.95 mg/dL (0.55-1.02); EST Glomerular Filtration Rate 62 mL/min (>60); Est Glom Filt Rate - Afr Amer 75 mL/min (>60); Globulin 3.9 g/dL (2.2-4.2); Glucose 93 mg/dL (74-106); Potassium 4.1 mmol/L (3.5-5.1); Protein, Total 7.3 g/dL (6.4-8.2); Sodium Level 139 mmol/L (136-145); Thyroid Stim Hormone (TSH) 1.59 uIU/mL (0.358-3.74)
[2022-02-27 13:33] LABS: Vitamin B12 545 pg/mL (211-911)
== END | disposition home or self-care (01) ==
LOC: MFPLAB 11:02
PROVIDERS: PCP Family Medicine; Visit Provider Family Medicine
DX: R53.83 Other fatigue (principal)
CPT/HCPCS: 36415; 80053; 82306; 82607; 84443; 85025

== ENCOUNTER → 2022-03-21 | Outpatient (CLI) | payer BC, SELFPAY ==
[2022-03-21 15:36] LABS: Internal QC Validated? YES +Cl - CLEAR BKGD; Monotest Negative (Negative)
== END | disposition home or self-care (01) ==
LOC: MFPLAB 13:57
PROVIDERS: PCP Family Medicine; Referring Provider Family Medicine; Visit Provider Family Medicine
DX: R50.9 Fever, unspecified (principal)
CPT/HCPCS: 36415; 86308

== ENCOUNTER 2022-05-16 10:56 | Emergency (ER) | payer BC, SELFPAY ==
[2022-05-16 10:58] VITALS: BP 168/78; PULSE 66; RESP 20; TEMP 36.8; O2SAT 96; BMI 40.0
--- NOTE | 2022-05-16 11:13 | EKG12_ITS ---
Test Reason : CP/SOB Blood Pressure : / mmHG Vent. Rate : 060 BPM Atrial Rate : 060 BPM P-R Int : 174 ms QRS Dur : 092 ms QT Int : 444 ms P-R-T Axes : 048 026 063 degrees QTc Int : 444 ms Normal sinus rhythm Normal ECG Confirmed by MARYCHUY GALICIA, GABO ([id number]), photography editor ISMAEL SCHAFER ([id number]) on 05/18/2022 9:50:50 AM Referred By: DONATO Confirmed By:GABO PERRIN MD
--- NOTE | 2022-05-16 11:14 | EDS_ITS ---
HPI History of Present Illness Chief Complaint: Chest Pain Narrative Narrative: Patient presents with central chest tightness and right arm pain that she is had since this morning. She states that she is actually been having bilateral arm pain on and off for the last week. Yesterday when she came home from work, she had right arm pain. She was nauseated all evening. She woke up in cold sweats. This morning she noticed she had central chest tightness. She denies any leg swelling that is worse than usual. She states that she was concerned because she looked up her symptoms and felt that she needed to be checked out because of the night sweats and the continuing arm pain. She denies any exacerbating or alleviating symptoms. She also states that she has been short of breath. She denies any fevers or chills. No cough. No other symptoms. [facility] Medical History Bipolar disorder GERD (gastroesophageal reflux disease) Hypothyroidism Restless leg syndrome Home Medications lamotrigine 150 mg tablet 150 mg PO BID 02/10/14 [History Last Taken Unknown] calcium carbonate 600 mg calcium (1,500 mg) tablet 600 mg PO DAILY 05/15/16 [History Last Taken Unknown] cholecalciferol (vitamin D3) 25 mcg (1,000 unit) tablet 2,000 unit PO DAILY 05/15/16 [History Last Taken Unknown] ferrous sulfate 15 mg iron (75 mg)/mL oral drops 65 mg PO DAILY 05/15/16 [History Last Taken Unknown] levothyroxine 50 mcg tablet 75 mcg PO DAILY 05/15/16 [History Last Taken Unknown] multivit with iywxalsa-ejlq-QF-lutein 8 mg iron-400 mcg-300 mcg tablet 1 each PO DAILY 05/15/16 [History Last Taken Unknown] ropinirole 1 mg tablet 2 mg PO QHS 05/15/16 [History Last Taken Unknown] sucralfate 1 gram tablet 1 gm PO 4X/DAY #120 TABLETS 06/05/16 [Rx Last Taken Unknown] cyanocobalamin (vitamin B-12) 500 mcg tablet 500 mcg PO DAILY@0800 09/02/19 [History Last Taken Unknown] inhalational spacing device ##1 09/02/19 [Rx Last Taken Unknown] omeprazole 20 mg capsule,delayed release 20 mg PO BID 09/02/19 [History Last Taken Unknown] ondansetron 4 mg disintegrating tablet 4 mg PO Q6H PRN nausea and vomiting #12 tabs 05/16/22 [Rx Last Taken Unknown] Allergy/AdvReac Type Severity Reaction Status Date / Time No Known Allergies Allergy Verified 05/16/22 10:57 Surgical History H/O foot surgery Social History Smoking Status: Never smoker ROS ROS ED ROS Narrative Constitutional: No fever, no chills. HEENT: No sore throat. No neck pain. No loss of vision. No rhinorrhea. Cardiovascular: Central chest tightness/chest pain. No palpitations. No pedal edema. Respiratory: No cough, positive shortness of breath. Abdominal: No abdominal pain. No nausea. No vomiting. Genitourinary: No dysuria. No hematuria. Musculoskeletal: No myalgias. Bilateral arm pain, right greater than left today. Neurologic: No headaches. No dizziness. No lightheadedness. Skin: No rash. No change in color. Psychiatric: No depression. No anxiety. EXAM Physical Exam Const Vital Signs: 05/16/22 10:58 05/16/22 11:09 05/16/22 11:19 Temperature 98.2 F Temperature Source Temporal Pulse Rate 66 Respiratory Rate 20 H Respiratory Pattern Normal Blood Pressure 168/78 H Blood Pressure Mean 108 Pulse Ox 96 Oxygen Delivery Method Room Air Room Air Heart Score History: Slightly/Non-Suspicious ECG: Normal Age: >/= 65 years Risk Factors: 1 or 2 Risk Factors Troponin: </= Normal Limit Score: 3 MDM MDM MDM Narrative Medical decision making narrative: Chest pain work-up was pursued. Her pulse ox is 96% on room air without evide nce of hypoxia. She has normal pulse rate. Chest x-ray reviewed by myself and interpreted by myself shows no acute process, no pneumothorax or infiltrate. CBC shows normal white count of 6.9, hemoglobin normal at 13.5 with normal platelet count of 183. CMP is grossly normal with a normal lipase of 170. Initial high-sensitivity troponin 5. Repeat after 2 hours is 4 for a delta troponin less than 7. I feel that she can be discharged safely home with follow-up. I do not feel that her arm pain is related to cardiac pain. She will follow-up with her primary care physician and start [id number] Pepcid. She does have history of peptic ulcer disease and gastric polyps according to her EMR which could be the cause of her nausea. She was given a prescription for Zofran. Return instructions to the emergency department were reviewed. Disposition is discharged home in stable condition. Lab Data Attestation: I reviewed the patient's lab results. Labs: Laboratory Results - last 24 hr 05/16/22 05/16/22 05/16/22 11:18 11:18 13:45 WBC 6.9 RBC 4.37 Hgb 13.5 Hct 41.0 MCV 93.8 MCH 30.9 MCHC 32.9 RDW Std Deviation 48.7 H RDW Coeff of Poly 14.2 Plt Count 183 MPV 11.8 Immature Gran % (Auto) 0.100 Neut % (Auto) 47.1 Lymph % (Auto) 39.8 [place] % (Auto) 7.0 Eos % (Auto) 5.4 H Baso % (Auto) 0.6 Absolute Neuts (auto) 3.2 Absolute Lymphs (auto) 2.74 Nucleated RBC % 0 Sodium 140 Potassium 3.8 Chloride 107 Carbon Dioxide 26.0 Anion Gap 7 BUN 14 Creatinine 0.93 Estim Creat Clear Calc 47.89 Est GFR (MDRD) Af Amer 77 Est GFR (MDRD) Non-Af 64 BUN/Creatinine Ratio 15.1 Glucose 101 Calcium 8.7 Troponin I High Sens 5 4 Lipase 170 Radiography Diagnostic Testing: Clinical Impression(s) from Imaging Studies Chest X-Ray 05/16/22 11:20 IMPRESSION: No acute abnormality is present. Electronically Signed: Anshu Whaley MD at 11:59 EDT , Discharge Plan Triage Chief Complaint: Chest Pain ED Provider: Fausto Edmonds Dx/Rx/DC Orders Clinical Impression: Chest tightness, Arm pain, Nausea Instructions: ED Chest Pain, Uncertain Cause, ED Pain, Acute, Uncertain Cause Prescriptions: New ondansetron 4 mg tablet,disintegrating 4 mg PO Q6H PRN (Reason: nausea and vomiting) Qty: 12 0RF No Action lamotrigine 150 MG tablet 150 mg PO BID Label Comments: BIPOLAR ropinirole 1 MG tablet 2 mg PO QHS Label Comments: RESTLESS LEGS calcium carbonate 600 MG tablet 600 mg PO DAILY levothyroxine 50 MCG tablet 75 mcg PO DAILY Label Comments: THYROID cholecalciferol (vitamin D3) 1,000 UNIT tablet 2,000 unit PO DAILY ferrous sulfate 15 MG/ML drops 65 mg PO DAILY cixyduju-sii-slrz-FA-lutein 1 EACH tablet 1 each PO DAILY sucralfate 1 GM tablet 1 gm PO 4X/DAY Qty: 120 2RF cyanocobalamin (vitamin B-12) 500 MCG tablet 500 mcg PO DAILY@0800 omeprazole 20 MG capsule 20 mg PO BID (DME) inhalational spacing device 1 EACH spacer 1 ea MC UD Qty: 1 0RF Rx Instructions: use with MDI Primary Care Provider: Tila Zazueta Referrals: Andre Dale [[facility]] - Activity Restrictions/Additional Instructions: Follow-up with your primary care physician in 3 to 5 days. Disposition Disposition: Home, Self Care
[2022-05-16] MEDS: 0.9% Normal Saline 1,000 ML 1000 ML IV (11:20)
--- NOTE | 2022-05-16 11:20 | RAD_ITS ---
STUDY: X-RAY CHEST REASON FOR EXAM: Female, 67 years old. Chest pain TECHNIQUE: Single AP portable view of the chest. COMPARISON: Comparison is made with prior study of 10/14/2021. FINDINGS: EKG electrodes are seen. The lungs are clear and expanded. There is no demonstrated pleural abnormality. Normal size heart. Normal mediastinum and oliva. Normal visualized pulmonary arteries. There is atherosclerotic tortuosity of the aortic arch and descending thoracic aorta. There are diffuse degenerative changes of the visualized thoracic spine. Normal visualized ribs, clavicles, and shoulders. There is no demonstrated abnormality of the visualized soft tissue structures of the upper abdomen. RAD/Chest 1 View (Portable) IMPRESSION: No acute abnormality is present. Electronically Signed: Anshu Whaley MD at 11:59 EDT ,
[2022-05-16 11:30] LABS: Absolute Lymphocyte Count 2.74 X10^3/uL (0.83-4.51); Absolute Neutrophil Count 3.2 X10^3/uL (2.0-7.7); Basophil# 0.04 X10^3/uL; Basophil% 0.6 % (0-1); Eosinophil# 0.37 X10^3/uL; Eosinophils% 5.4 % (0-5); Hemoglobin 13.5 g/dL (12.0-15.0); Lymphocyte # 2.74 X10^3/ul (0.83-4.51); Lymphocyte % 39.8 % (19-41); Mean Corp Hgb Conc 32.9 g/dL (32-36); Mean Corpuscular Hgb 30.9 pg (27.0-32.0); Mean Corpuscular Volume 93.8 fL (81-99); Mean Platelet Vol. 11.8 fl (6.2-12.0); Monocyte# 0.48 X10^3/uL; NRBC Flagged by Analyzer 0 % (0-5); Neutrophil # 3.24 X10^3/uL (2.7-7.7); Neutrophil % 47.1 % (47-70); Platelet Count 183 K/mm3 (150-450); RBC Distribution Width CV 14.2 % (11.6-14.6); RBC Distribution Width SD 48.7 fl (35.1-43.9); Red Blood Count 4.37 M/mm3 (4.2-5.4); White Blood Count 6.9 K/mm3 (4.4-11.0)
[2022-05-16 11:47] LABS: Anion Gap 7 (5-15); BUN 14 mg/dL (7-18); BUN/Creat Ratio 15.1 RATIO (10-20); Calcium,Total 8.7 mg/dL (8.5-10.1); Chloride 107 mmol/L (98-107); Creatinine, Serum 0.93 mg/dL (0.55-1.02); EST Glomerular Filtration Rate 64 mL/min (>60); Est Glom Filt Rate - Afr Amer 77 mL/min (>60); Estimated Creatinine Clearance 47.89 ml/min; Glucose 101 mg/dL (74-106); Lipase 170 U/L (73-393); Potassium 3.8 mmol/L (3.5-5.1); Sodium Level 140 mmol/L (136-145); Troponin-I HS (w/2H Reflex) 5 pg/mL (3.0-54.0)
[2022-05-16 13:25] LABS: Reflex Troponin-HS? (from REC) Y
[2022-05-16 14:10] LABS: Troponin-I HS 4 pg/mL (3.0-54.0)
[2022-05-16] MEDS: Ondansetron 4 MG/2 ML Vial IV (14:15)
[2022-05-16 14:52] VITALS: BP 144/97; PULSE 59
== END 2022-05-16 14:55 | disposition home or self-care (01) ==
PROVIDERS: Emergency Provider Emergency Medicine; PCP Family Medicine; Visit Provider Emergency Medicine
DX: R07.89 Other chest pain (principal); M79.601 Pain in right arm; R11.0 Nausea; E03.9 Hypothyroidism, unspecified; K21.9 Gastro-esophageal reflux disease without esophagitis; Z79.899 Other long term (current) drug therapy
CPT/HCPCS: 71045; 80048; 83690; 84484; 85025; 93005; 96361; 96374; 99284; J7030; A4216; J2405

== ENCOUNTER → 2022-08-09 | Outpatient (CLI) | payer BC, SELFPAY ==
[2022-08-19 15:28] LABS: HPV APTIMA, High Risk Negative (Negative)
[2022-08-19 15:29] LABS: HPV Reflexed? NOT INDICATED
== END | disposition home or self-care (01) ==
LOC: LABSPEC 09:56
PROVIDERS: PCP Family Medicine; Visit Provider Nurse Practitioner Family
DX: Z12.4 Encounter for screening for malignant neoplasm of cervix (principal)
CPT/HCPCS: 88175; G0145

== ENCOUNTER → 2022-08-30 | Outpatient (CLI) | payer BC, SELFPAY ==
--- NOTE | 2022-08-30 15:45 | BI_ITS ---
MAMMOGRAPHY - BILATERAL SCREENING REASON FOR EXAM: Female, 67 years old. Routine annual screening examination. PERTINENT HISTORY: Trauma to left breast in 1995. No personal or family history of breast cancer reported. TECHNIQUE: Digital bilateral breast varghese (3D mammographic acquisition) in the CC and MLO projections. 2-D mediolateral oblique (MLO) and craniocaudad (CC) views of both breasts were obtained. CAD: Full Field Digital Mammography with Computer Added Detection was performed. COMPARISON: 10/18/2016, 08/31/2014. FINDINGS: Breast Composition: There are scattered areas of fibroglandular density. There are no dominant masses or suspicious calcifications. Stable benign calcified oil gland cysts in the left breast. Stable benign-appearing bilateral axillary lymph nodes. No other significant abnormalities are identified. There has been no significant change since the prior study. BI/SCRN MAMM (CAD)W/VARGHESE BILAT IMPRESSION: Stable bilateral screening mammogram. Yearly follow-up mammogram recommended. (A) ASSESSMENT CATEGORY: BIRADS Category 2: Benign. A letter regarding these results will be sent to the patient by the facility within 30 days. Approximately 10% of breast cancers are not detected by mammography. A normal mammogram should not delay biopsy of a clinically suspicious abnormality. Electronically Signed: Singh Chance, at 15:44 EST ,
== END | disposition home or self-care (01) ==
LOC: OPBI 15:44
PROVIDERS: PCP Family Medicine; Referring Provider Nurse Practitioner Family; Visit Provider Nurse Practitioner Family
DX: Z12.31 Encounter for screening mammogram for malignant neoplasm of breast (principal)
CPT/HCPCS: 77063; 77067

== ENCOUNTER → 2022-10-10 | Outpatient (CLI) | payer BC, SELFPAY ==
[2022-10-10 17:54] LABS: Absolute Lymphocyte Count 2.43 X10^3/uL (0.83-4.51); Absolute Neutrophil Count 3.2 X10^3/uL (2.0-7.7); Basophil# 0.05 X10^3/uL; Basophil% 0.8 % (0-1); Eosinophil# 0.28 X10^3/uL; Eosinophils% 4.4 % (0-5); Hematocrit 42.3 % (37-47); Hemoglobin 13.7 g/dL (12.0-15.0); Lymphocyte # 2.43 X10^3/ul (0.83-4.51); Lymphocyte % 37.9 % (19-41); Mean Corp Hgb Conc 32.4 g/dL (32-36); Mean Corpuscular Hgb 30.9 pg (27.0-32.0); Mean Corpuscular Volume 95.3 fL (81-99); Mean Platelet Vol. 12.4 fl (6.2-12.0); Monocyte% 6.2 % (0-10); NRBC Flagged by Analyzer 0 % (0-5); Neutrophil # 3.22 X10^3/uL (2.7-7.7); Neutrophil % 50.2 % (47-70); Platelet Count 184 K/mm3 (150-450); RBC Distribution Width SD 48.7 fl (35.1-43.9); Red Blood Count 4.44 M/mm3 (4.2-5.4); White Blood Count 6.4 K/mm3 (4.4-11.0)
[2022-10-10 18:30] LABS: ALB/GLOB Ratio 0.9 RATIO (0.9-2.4); AST(SGOT) 18 U/L (15-37); Alanine Aminotransfer ALT/SGPT 25 U/L (13-56); Albumin, Serum 3.5 g/dL (3.2-5.0); Alkaline Phosphatase 106 U/L (45-117); Anion Gap 9 (5-15); BUN 14 mg/dL (7-18); BUN/Creat Ratio 14.3 RATIO (10-20); Calcium,Total 8.8 mg/dL (8.5-10.1); Chloride 109 mmol/L (98-107); Creatinine, Serum 0.98 mg/dL (0.55-1.02); EST Glomerular Filtration Rate 60 mL/min (>60); Est Glom Filt Rate - Afr Amer 73 mL/min (>60); Globulin 3.8 g/dL (2.2-4.2); Glucose 114 mg/dL (74-106); Potassium 3.4 mmol/L (3.5-5.1); Protein, Total 7.3 g/dL (6.4-8.2); Sodium Level 142 mmol/L (136-145); Thyroid Stim Hormone (TSH) 1.48 uIU/mL (0.358-3.74)
== END | disposition home or self-care (01) ==
LOC: MFPLAB 14:29
PROVIDERS: PCP Family Medicine; Visit Provider Family Medicine
DX: R53.83 Other fatigue (principal)
CPT/HCPCS: 36415; 80053; 84443; 85025

== ENCOUNTER 2022-11-05 02:11 | Emergency (ER) | payer BC, SELFPAY ==
[2022-11-05 02:12] VITALS: BP 165/103; RESP 77; TEMP 36.5; O2SAT 95; BMI 41.4
[2022-11-05 02:16] VITALS: BP 140/82
[2022-11-05 02:17] VITALS: O2SAT 95
--- NOTE | 2022-11-05 02:26 | RAD_ITS ---
EXAM: XR CHEST, 1 VIEW CLINICAL INDICATION: SOB SOB TECHNIQUE: Frontal view of the chest. This report was created using [employer] report generation technology. COMPARISON: Chest x-ray 05/16/2022. FINDINGS: LUNGS AND PLEURAL SPACES: Unremarkable. No consolidation or edema. No pneumothorax. No effusion. HEART: Unremarkable. Cardiac silhouette not enlarged. MEDIASTINUM: Central airways and mediastinal contour are unremarkable. BONES/JOINTS: There are multilevel degenerative changes in the visualized spine. SOFT TISSUES: Unremarkable. RAD/Chest 1 View (Portable) IMPRESSION: No acute findings in the chest. Electronically Signed: Fransisco Lopez MD at 3:59 EST Reading Location ID and State: [facility] / [place] , Service support ,
--- NOTE | 2022-11-05 02:27 | EDS_ITS ---
HPI History of Present Illness Chief Complaint: Shortness of Breath Informant: patient Narrative Narrative: Patient presents saying that when she falls asleep she pauses her breathing. She has had some of this before but its more now. She states she had a sleep study many years ago that was normal but recently her doctor told her that he thought she likely had sleep apnea. She does not use BiPAP or CPAP. She denies asthma but she has used an inhaler. When she gets ill she will get some wheezing. She does not have this at home at this time. She denies being sick recently. No recent coughing. She had a little runny nose that she thought was allergies but no other symptoms. She does not and has not had any chest pain or tightness. No pleuritic pain. No hemoptysis. No personal history of DVT PE recent travel surgery or immobilization. She does not know her family history as she is adopted. She states sitting in the bed and walking around she feels fine. But when she falls asleep she watches herself and then she stops breathing and that wakes her up. She does have a history of anxiety and thinks that this is setting off her anxiety also. [facility] Medical History Abdominal pain Bipolar disorder Carpal tunnel syndrome Cervix erosion Depression Dizziness Fatigue Fever GERD (gastroesophageal reflux disease) Hemorrhoid HLD (hyperlipidemia) HTN (hypertension) Hypothyroidism IBS (irritable bowel syndrome) Impaired fasting glucose Impingement syndrome of unspecified shoulder Incontinence Iron deficiency Kidney stone Low back pain Osteoarthritis Radiculopathy, lumbar region Restless leg syndrome Shingles Stomach ulcer Vitamin D deficiency Home Medications lamotrigine 150 mg tablet 150 mg PO BID 02/10/14 [History Last Taken Unknown] calcium carbonate 600 mg calcium (1,500 mg) tablet 600 mg PO DAILY 05/15/16 [History Last Taken Unknown] cholecalciferol (vitamin D3) 25 mcg (1,000 unit) tablet 2,000 unit PO DAILY 05/15/16 [History Last Taken Unknown] ferrous sulfate 15 mg iron (75 mg)/mL oral drops 65 mg PO DAILY 05/15/16 [History Last Taken Unknown] levothyroxine 50 mcg tablet 75 mcg PO DAILY 05/15/16 [History Last Taken Unknown] multivit with ccjxquqy-znmz-MK-lutein 8 mg iron-400 mcg-300 mcg tablet 1 each PO DAILY 05/15/16 [History Last Taken Unknown] ropinirole 1 mg tablet 2 mg PO QHS 05/15/16 [History Last Taken Unknown] sucralfate 1 gram tablet 1 gm PO 4X/DAY #120 TABLETS 06/05/16 [Rx Last Taken Unknown] cyanocobalamin (vitamin B-12) 500 mcg tablet 500 mcg PO DAILY@0800 09/02/19 [History Last Taken Unknown] inhalational spacing device ##1 09/02/19 [Rx Last Taken Unknown] omeprazole 20 mg capsule,delayed release 20 mg PO BID 09/02/19 [History Last Taken Unknown] ondansetron 4 mg disintegrating tablet 4 mg PO Q6H PRN nausea and vomiting #12 tabs 05/16/22 [Rx Last Taken Unknown] venlafaxine 150 mg capsule,extended release 24 hr 150 mg PO DAILY 10/23/22 [History Last Taken Unknown] Allergy/AdvReac Type Severity Reaction Status Date / Time Fish Containing Products Allergy Intermediate Other Verified 10/23/22 08:36 Sugars, Metabolically Active Allergy Intermediate Diarrhea Verified 10/23/22 08:36 prednisone AdvReac Intermediate Other Verified 11/05/22 02:15 Surgical History H/O foot surgery History of tonsillectomy and adenoidectomy Hx of cholecystectomy Social History Smoking Status: Never smoker alcohol intake: current ROS ROS ED Constitutional Constitutional ED: Denies chills or fever(s) ENT ENT ED: Reports rhinorrhea; Denies sore throat Cardiovascular Cardiovascular: Denies chest pain, palpitations or racing heartbeat Respiratory/Chest Respiratory/Chest: Reports other Details: See history of present illness. ; Denies cough or sputum Gastrointestinal Gastrointestinal: Denies abdominal pain, nausea or vomiting Genitourinary Genitourinary ED: Denies dysuria Musculoskeletal Musculoskeletal: Denies back pain, myalgias or neck pain Integumentary Denies rash Neurologic Neurologic: Denies headache(s), paresthesias or weakness Psychiatric Psychiatric: Reports anxiety Endocrine Endocrinology: Denies polydipsia or polyuria Hematologic/Lymphatic Hematologic/Lymphatic: Denies easy bleeding or easy bruising Allergic/Immunologic Allergic/Immunologic ED: Denies urticaria EXAM Physical Exam Narrative Exam Narrative: Patient is awake alert no acute distress. She is laying in bed. She carries on a normal conversation. HEENT shows no trauma. Voice is normal. No intraoral swelling or exudate. Neck shows no JVD or stridor Lungs are overall clear. If she takes a deep breath she will sometimes cough. At first I thought I heard a little wheeze at the bases but after couple deep breaths that resolved. She did not have a pain with a deep breath. Heart is regular. Has a rate about 75. Appears to be normal sinus rhythm on the monitor. No muffled tones or murmur is heard. Abdomen is soft nontender Extremities show no edema cords tenderness or distended veins. No asymmetry. Skin is not pale or diaphoretic. Const Vital Signs: 11/05/22 02:12 11/05/22 02:16 11/05/22 02:17 Temperature 97.7 F L Temperature Source Temporal Pulse Rate Respiratory Rate 77 H Respiratory Effort Normal Non-Labored Respiratory Depth Normal Respiratory Pattern Normal Blood Pressure 165/103 H 140/82 H Blood Pressure Mean 123 101 Pulse Ox 95 Oxygen Delivery Method Room Air Room Air 11/05/22 02:44 11/05/22 03:11 Temperature Temperature Source Pulse Rate 74 80 Respiratory Rate 12 21 H Respiratory Effort Respiratory Depth Respiratory Pattern Normal Blood Pressure 145/79 H Blood Pressure Mean 101 Pulse Ox 91 Oxygen Delivery Method MDM MDM MDM Narrative Medical decision making narrative: My independent interpretation of the patient's single AP chest x-ray shows what may be some subtle atelectasis at the base and a slightly poor inspiration but no significant infiltrate that I see. Cardiac silhouette and mediastinum look overall normal. Patient's blood work shows no anemia. Her white count and platelets are normal. Electrolytes look good other than minimal elevation of creatinine of 1.05. Glucose is minimally up at 117. Troponin is negative at 4. BNP is totally normal at 39.4. Patient was rechecked. While asleep her saturation did drop as low as 91% but not lower. I rechecked her. She states she feels better. She states she was able to actually fall asleep and did not have that feeling again. I think she might have a component of bronchospasm which she has had in the past. I will send her home with an inhaler. I have encouraged her to talk with her physician as she may need further studies for sleep apnea. She does carry a little bit of extra weight. Her symptoms are consistent with sleep apnea. Patient is not having any chest pain cough pleuritic pain hemoptysis or known risk factor for DVT or PE. She is not tachypneic tachycardic or hypoxic. When the patient checked in she had a respiratory rate recorded is 77 but this was an error. We discussed reasons to return with the patient. Lab Data Attestation: I reviewed the patient's lab results. Labs: Laboratory Results - last 24 hr 11/05/22 11/05/22 11/05/22 02:30 02:30 02:30 WBC 7.3 RBC 4.19 L Hgb 13.2 Hct 40.4 MCV 96.4 MCH 31.5 MCHC 32.7 RDW Std Deviation 49.5 H RDW Coeff of Poly 14.1 Plt Count 183 MPV 12.1 H Immature Gran % (Auto) 0.400 Neut % (Auto) 50.6 Lymph % (Auto) 36.4 [place] % (Auto) 6.8 Eos % (Auto) 5.0 Baso % (Auto) 0.8 Absolute Neuts (auto) 3.7 Absolute Lymphs (auto) 2.67 Nucleated RBC % 0 Sodium 141 Potassium 4.0 Chloride 107 Carbon Dioxide 29.0 Anion Gap 5 BUN 12 Creatinine 1.05 H Estim Creat Clear Calc 42.42 Est GFR (MDRD) Af Amer 67 Est GFR (MDRD) Non-Af 55 L BUN/Creatinine Ratio 11.4 Glucose 117 H Calcium 8.9 Troponin I High Sens 4 B-Natriuretic Peptide 39.4 EKG Initial EKG: Comments: My independent interpretation of the patient's EKG that was done for a sense of dyspnea shows a normal sinus rhythm with overall rate of 67. No ectopy. No preexcitation. No acute ST elevation or depression. AL interval, QRS duration and QTc are all normal. Discharge Plan Triage Chief Complaint: Shortness of Breath ED Provider: Ponce Garcia Dx/Rx/DC Orders Clinical Impression: Sleep apnea, Bronchospasm Instructions: ED Bronchospasm (Adult), ED Sleep Apnea, Obstructive Prescriptions: No Action venlafaxine 150 mg capsule,extended release 24hr 150 mg PO DAILY lamotrigine 150 MG tablet 150 mg PO BID Label Comments: BIPOLAR ropinirole 1 MG tablet 2 mg PO QHS Label Comments: RESTLESS LEGS calcium carbonate 600 MG tablet 600 mg PO DAILY levothyroxine 50 MCG tablet 75 mcg PO DAILY Label Comments: THYROID cholecalciferol (vitamin D3) 1,000 UNIT tablet 2,000 unit PO DAILY ferrous sulfate 15 MG/ML drops 65 mg PO DAILY iwyooqao-phj-idrf-FA-lutein 1 EACH tablet 1 each PO DAILY sucralfate 1 GM tablet 1 gm PO 4X/DAY Qty: 120 2RF cyanocobalamin (vitamin B-12) 500 MCG tablet 500 mcg PO DAILY@0800 omeprazole 20 MG capsule 20 mg PO BID (DME) inhalational spacing device 1 EACH spacer 1 ea MC UD Qty: 1 0RF Rx Instructions: use with MDI ondansetron 4 mg tablet,disintegrating 4 mg PO Q6H PRN (Reason: nausea and vomiting) Qty: 12 0RF Primary Care Provider: Tila Zazueta Referrals: Tila Zazueta, [Primary Care Provider] - 3-5 Days Disposition Disposition: Home, Self Care
--- NOTE | 2022-11-05 02:27 | EKG12_ITS ---
Test Reason : SOB Blood Pressure : / mmHG Vent. Rate : 067 BPM Atrial Rate : 067 BPM P-R Int : 176 ms QRS Dur : 090 ms QT Int : 420 ms P-R-T Axes : 057 067 077 degrees QTc Int : 443 ms Normal sinus rhythm Normal ECG Confirmed by CARLEEN GALICIA, ONEIL ([id number]), editorial clerk ISMAEL SCHAFER ([id number]) on 11/06/2022 7:50:25 AM Referred By: KIARA Confirmed By:ONEIL DURANT MD
[2022-11-05 02:40] LABS: Absolute Lymphocyte Count 2.67 X10^3/uL (0.83-4.51); Absolute Neutrophil Count 3.7 X10^3/uL (2.0-7.7); Basophil# 0.06 X10^3/uL; Basophil% 0.8 % (0-1); Eosinophil# 0.37 X10^3/uL; Hematocrit 40.4 % (37-47); Hemoglobin 13.2 g/dL (12.0-15.0); Lymphocyte # 2.67 X10^3/ul (0.83-4.51); Lymphocyte % 36.4 % (19-41); Mean Corp Hgb Conc 32.7 g/dL (32-36); Mean Corpuscular Hgb 31.5 pg (27.0-32.0); Mean Corpuscular Volume 96.4 fL (81-99); Mean Platelet Vol. 12.1 fl (6.2-12.0); Monocyte% 6.8 % (0-10); NRBC Flagged by Analyzer 0 % (0-5); Neutrophil # 3.71 X10^3/uL (2.7-7.7); Neutrophil % 50.6 % (47-70); Platelet Count 183 K/mm3 (150-450); RBC Distribution Width CV 14.1 % (11.6-14.6); RBC Distribution Width SD 49.5 fl (35.1-43.9); Red Blood Count 4.19 M/mm3 (4.2-5.4); White Blood Count 7.3 K/mm3 (4.4-11.0)
[2022-11-05] MEDS: Ipratropium/Albuterol Sulfate 3 ML AMPUL.NEB INHALATION (02:43)
[2022-11-05 02:44] VITALS: PULSE 74; RESP 12
[2022-11-05 03:02] LABS: Anion Gap 5 (5-15); BUN 12 mg/dL (7-18); BUN/Creat Ratio 11.4 RATIO (10-20); Calcium,Total 8.9 mg/dL (8.5-10.1); Chloride 107 mmol/L (98-107); Creatinine, Serum 1.05 mg/dL (0.55-1.02); EST Glomerular Filtration Rate 55 mL/min (>60); Est Glom Filt Rate - Afr Amer 67 mL/min (>60); Estimated Creatinine Clearance 42.42 ml/min; Glucose 117 mg/dL (74-106); Sodium Level 141 mmol/L (136-145); Troponin-I HS 4 pg/mL (3.0-54.0)
[2022-11-05 03:05] LABS: BNP,B-Type NATRIURETIC PEPTIDE 39.4 pg/mL (0-100)
[2022-11-05 03:11] VITALS: BP 145/79; PULSE 80; RESP 21; O2SAT 91
[2022-11-05 04:05] VITALS: BP 143/73; PULSE 76; RESP 18; O2SAT 99
[2022-11-05] MEDS: Albuterol Sulfate 8 gm Inhaler (60 puffs) 2 PUFF INHALATION (04:06)
== END 2022-11-05 04:08 | disposition home or self-care (01) ==
PROVIDERS: Emergency Provider Emergency Medicine; PCP Family Medicine; Visit Provider Emergency Medicine
DX: G47.30 Sleep apnea, unspecified (principal); J98.01 Acute bronchospasm
CPT/HCPCS: 71045; 80048; 83880; 84484; 85025; 93005; 94640; 99284

== ENCOUNTER → 2022-12-17 | Outpatient (CLI) | payer BC, SELFPAY ==
--- NOTE | 2022-12-17 16:00 | RAD_ITS ---
STUDY: X-RAY CHEST REASON FOR EXAM: Female, 67 years old. COUGH TECHNIQUE: Single frontal view of the chest. COMPARISON: November 05, 2022 FINDINGS: The lungs are clear and expanded. There is no demonstrated pleural abnormality. Normal size heart. Normal mediastinum and oliva. Normal visualized pulmonary arteries. Normal visualized aortic arch and descending thoracic aorta. Normal visualized thoracic spine. Normal visualized ribs, clavicles, and shoulders. There is no demonstrated abnormality of the visualized soft tissue structures of the upper abdomen. RAD/Chest PA and Lateral IMPRESSION: Normal x-ray examination of the chest. Electronically Signed: Bakari Elmore MD at 23:02 EDT ,
== END | disposition home or self-care (01) ==
PROVIDERS: PCP Family Medicine; Referring Provider Family Medicine; Visit Provider Family Medicine
DX: R05.9 Cough, unspecified (principal)
CPT/HCPCS: 71046

== ENCOUNTER 2022-12-18 23:13 | Emergency (ER) | payer BC, SELFPAY ==
[2022-12-18 23:14] VITALS: BP 120/101; PULSE 92; RESP 24; TEMP 35.5; O2SAT 96; BMI 41.6
--- NOTE | 2022-12-18 23:32 | CT_ITS ---
STUDY: CT ABDOMEN AND PELVIS WITHOUT CONTRAST REASON FOR EXAM: Female, 67 years old patient with flank pain. RADIATION DOSAGE (If Supplied By Facility): CTDIvol = ( 20.65 ) mGy, DLP = ( 1037.06 ) mGycm TECHNIQUE: Transaxial images were obtained from the dome of the diaphragm to the symphysis pubis without oral contrast, and without intravenous contrast. Sagittal and coronal images were reconstructed. Individualized dose optimization techniques were used for this CT. COMPARISON: CT of the abdomen and pelvis dated May 15, 2016. FINDINGS: There is bilateral basilar dependent atelectasis. There is groundglass attenuation suggesting possibly early pneumonia. The visualized portions of the heart are within normal limits. Normal liver. There is non-visualization of the gallbladder, which may be secondary to either contraction or a prior cholecystectomy. Normal spleen. Normal pancreas. Normal bilateral adrenal glands. There are tiny nonobstructing renal calculi measuring about 1 or 2 mm in size. There is mild left-sided hydronephrosis and hydroureter secondary to distal ureteral calculus measuring about 2 mm in size. Normal visualized stomach. There is no obvious dilated bowel, ascites or pneumoperitoneum. Small bowel has a grossly normal appearance. There is stool visible throughout the colon with scattered diverticula. Descending colon and sigmoid colon are relatively nondistended. The appendix is visualized and appears normal. There is minimal atherosclerotic calcification of the abdominal aorta, without a demonstrated aneurysm. Normal inferior vena cava. Normal retroperitoneum. There are calcifications in urinary bladder. There may be some sludge within the dependent urinary bladder is well. Normal visualized uterus. There is a small umbilical hernia containing fat. There are diffuse degenerative changes of the visualized spine. CT/Abdomen/Pelvis without Cont IMPRESSION: 1. Mild left-sided hydronephrosis and hydroureter secondary to a distal ureteral calculus. 2. Bilateral nonobstructing renal calculi. 3. Calculi and sludge within the urinary bladder. 4. Bilateral basilar airspace disease and/or atelectasis. Electronically Signed: Juliana Gonzalez MD at 1:33 EDT ,
[2022-12-18] MEDS: 0.9% Normal Saline 1,000 ML 999 ML IV (23:51)
[2022-12-18] MEDS: Morphine 4 MG/ML Syringe IV (23:52)
[2022-12-18] MEDS: Ondansetron 4 MG/2 ML Vial IV (23:52)
[2022-12-19] LABS: Absolute Neutrophil Count 9.8 X10^3/uL (2.0-7.7); Basophil# 0.03 X10^3/uL; Basophil% 0.2 % (0-1); Eosinophil# 0.03 X10^3/uL; Eosinophils% 0.2 % (0-5); Hematocrit 41.9 % (37-47); Lymphocyte % 22.4 % (19-41); Mean Corp Hgb Conc 33.4 g/dL (32-36); Mean Corpuscular Hgb 31.6 pg (27.0-32.0); Mean Corpuscular Volume 94.6 fL (81-99); Mean Platelet Vol. 12.3 fl (6.2-12.0); Monocyte# 0.79 X10^3/uL; Monocyte% 5.7 % (0-10); NRBC Flagged by Analyzer 0 % (0-5); Neutrophil # 9.82 X10^3/uL (2.7-7.7); Neutrophil % 70.9 % (47-70); Platelet Count 191 K/mm3 (150-450); RBC Distribution Width CV 14.1 % (11.6-14.6); RBC Distribution Width SD 48.5 fl (35.1-43.9); Red Blood Count 4.43 M/mm3 (4.2-5.4); White Blood Count 13.9 K/mm3 (4.4-11.0)
[2022-12-19 00:14] LABS: Anion Gap 3 (5-15); BUN 19 mg/dL (7-18); Calcium,Total 9.5 mg/dL (8.5-10.1); Chloride 113 mmol/L (98-107); EST Glomerular Filtration Rate 66 mL/min (>60); Est Glom Filt Rate - Afr Amer 80 mL/min (>60); Estimated Creatinine Clearance 49.49 ml/min; Glucose 116 mg/dL (74-106); Potassium 3.7 mmol/L (3.5-5.1); Sodium Level 141 mmol/L (136-145)
[2022-12-19 00:54] LABS: Mucous, Urine 0 SEEN /hpf (<or=2+)
[2022-12-19 00:56] LABS: Color, Urine Yellow (Yellow); Glucose, Dipstick Normal (Normal); Ketone-Dipstick Negative (Negative); Leukocyte Esterase-Dipstick 500 /ul (Negative); Nitrite-Dipstick Positive (Negative); Occult Blood-Urine 250 /ul (Negative); Protein-Dipstick 100 mg/dl (Negative); Urine Bilirubin Dipstick Negative (Negative); Urine Clarity Sl. Cloudy (Clear); Urine Urobilinogen Normal (Normal); Urine pH 6.5 (5.0 - 8.0)
[2022-12-19 01:07] LABS: White Blood Cells 10-25 SEEN /hpf (0-5)
[2022-12-19 01:08] LABS: Amorphous Sediment 2+; Bacteria 3+ /hpf (None Seen); Red Blood Cells-Urine 0-5 SEEN /hpf (0-5); Squamous Epithelial Cells - UA 0-5 SEEN /hpf (5-10)
--- NOTE | 2022-12-19 02:17 | EDS_ITS ---
HPI History of Present Illness Chief Complaint: Flank Pain Informant: patient and friend Narrative Narrative: Patient is a 67-year-old female with past medical history of GERD and diverticulosis who states that she developed sudden onset left-sided back/flank pain that is sharp and stabbing in nature. She states that there was no excessive activity or trauma prior to the pain beginning. She states that there is no improvement with motion or rest. She denies any fevers chills dysuria or hematuria. She states that she has tried znxb-lph-fjorwax medications but there is been no symptom improvement and secondary to the persistent pain comes in for evaluation [facility] Medical History Abdominal pain Bipolar disorder Carpal tunnel syndrome Cervix erosion Depression Dizziness Fatigue Fever GERD (gastroesophageal reflux disease) Hemorrhoid HLD (hyperlipidemia) HTN (hypertension) Hypothyroidism IBS (irritable bowel syndrome) Impaired fasting glucose Impingement syndrome of unspecified shoulder Incontinence Iron deficiency Kidney stone Low back pain Osteoarthritis Radiculopathy, lumbar region Restless leg syndrome Shingles Stomach ulcer Vitamin D deficiency Home Medications lamotrigine 150 mg tablet 150 mg PO BID 02/10/14 [History Last Taken Unknown] calcium carbonate 600 mg calcium (1,500 mg) tablet 600 mg PO DAILY 05/15/16 [History Last Taken Unknown] cholecalciferol (vitamin D3) 25 mcg (1,000 unit) tablet 2,000 unit PO DAILY 05/15/16 [History Last Taken Unknown] ferrous sulfate 15 mg iron (75 mg)/mL oral drops 65 mg PO DAILY 05/15/16 [History Last Taken Unknown] levothyroxine 50 mcg tablet 75 mcg PO DAILY 05/15/16 [History Last Taken Unknown] multivit with cnzfxjdi-pryy-RG-lutein 8 mg iron-400 mcg-300 mcg tablet 1 each PO DAILY 05/15/16 [History Last Taken Unknown] ropinirole 1 mg tablet 2 mg PO QHS 05/15/16 [History Last Taken Unknown] sucralfate 1 gram tablet 1 gm PO 4X/DAY #120 TABLETS 06/05/16 [Rx Last Taken Unknown] cyanocobalamin (vitamin B-12) 500 mcg tablet 500 mcg PO DAILY@0800 09/02/19 [History Last Taken Unknown] inhalational spacing device ##1 09/02/19 [Rx Last Taken Unknown] omeprazole 20 mg capsule,delayed release 20 mg PO BID 09/02/19 [History Last Taken Unknown] ondansetron 4 mg disintegrating tablet 4 mg PO Q6H PRN nausea and vomiting #12 tabs 05/16/22 [Rx Last Taken Unknown] venlafaxine 150 mg capsule,extended release 24 hr 150 mg PO DAILY 10/23/22 [History Last Taken Unknown] cephalexin 500 mg capsule 500 mg PO TID 7 days #21 caps 12/19/22 [Rx Last Taken Unknown] ketorolac 10 mg tablet 10 mg PO 4X/DAY PRN PRN pain 5 days #20 tabs 12/19/22 [Rx Last Taken Unknown] oxycodone-acetaminophen 5 mg-325 mg tablet (Percocet) 1 tab PO Q6H PRN pain 3 days #12 tabs 12/19/22 [Rx Last Taken Unknown] tamsulosin 0.4 mg capsule (Flomax) 0.4 mg PO DAILY #14 caps 12/19/22 [Rx Last Taken Unknown] Allergy/AdvReac Type Severity Reaction Status Date / Time Fish Containing Products Allergy Intermediate Other Verified 12/18/22 23:14 Sugars, Metabolically Active Allergy Intermediate Diarrhea Verified 12/18/22 23:14 prednisone AdvReac Intermediate Other Verified 12/18/22 23:14 Surgical History H/O foot surgery History of tonsillectomy and adenoidectomy Hx of cholecystectomy Social History Smoking Status: Never smoker alcohol intake: current ROS ROS ED Constitutional Constitutional ED: Denies chills or fever(s) ENT ENT ED: Denies sore throat Cardiovascular Cardiovascular: Denies chest pain Respiratory/Chest Respiratory/Chest: Denies cough or dyspnea Gastrointestinal Gastrointestinal: Reports abdominal pain and nausea; Denies diarrhea or vomiting Genitourinary Genitourinary ED: Denies dysuria or hematuria Musculoskeletal Musculoskeletal: Reports back pain; Denies myalgias Integumentary Denies rash Neurologic Neurologic: Denies headache(s) Hematologic/Lymphatic Hematologic/Lymphatic: Denies easy bleeding or easy bruising EXAM Physical Exam Const Vital Signs: 12/18/22 23:14 Temperature 96 F L Temperature Source Temporal Pulse Rate 92 Respiratory Rate 24 H Blood Pressure 120/101 H Blood Pressure Mean 107 Pulse Ox 96 Oxygen Delivery Method Room Air Positive well nourished, well developed and obese General Appearance ED: well developed Nutritional Appearance: obese HEENT Reports moist mucous membranes Eyes PERRL and EOMs intact bilaterally General Eye ED: Negative for scleral icterus Neck supple Resp normal respiratory effort and clear to auscultation bilaterally Cardio regular rate and regular rhythm Rate: other Other Details: Radial pulses are plus 2 out of 4 bilaterally are equal and symmetric GI non-distended GI Narrative: Abdomen is obese soft and nondistended with normal active bowel sounds. There is pain with palpation in the left mid and lower quadrant with voluntary guarding at the site. No pulsatile mass or fluid wave noted Auscultation: normoactive bowel sounds Palpation: soft Back/Spine Back/Spine Narrative: Positive left CVA pain present Extremity normal to inspection Neuro oriented x3 and CN's II-XII intact bilaterally Sensorium / Orientation: alert Psych mental status grossly normal Skin no rashes or lesions noted Skin Narrative: No overlying abrasions or ecchymosis to suggest trauma no erythema or warmth to suggest infection MDM MDM MDM Narrative Medical decision making narrative: Patient presented to the ER with sudden onset left-sided flank/abdominal pain. Differential includes kidney stone pyelonephritis diverticulitis colitis or lumbosacral spasm/strain. With the sudden onset of pain that is sharp and radiating kidney stone is the most likely differential diagnosis. Secondary to his basic blood work urine sample noncontrast CT scan ordered. White count was elevated at 13.9 and urine did show signs of infection with +3 bacteria but otherwise there is no clinically significant finding. Based on her blood pressure and temperature she does not qualify as urosepsis at this time. Kidney function is normal and therefore she does not have acute kidney injury. CT scan confirmed kidney stone and on reevaluation after treatment the patient is pain- free. Therefore at this time as she does not have NICOLE or urosepsis and her pain has resolved she can be given antibiotics and pain control and is otherwise safe to follow-up with urology on an outpatient basis. History & Record Review Discussion w/independent historian: Patient Lab Data Attestation: I reviewed the patient's lab results. Labs: Laboratory Results - last 24 hr 12/18/22 12/18/22 12/19/22 23:50 23:50 00:50 WBC 13.9 H RBC 4.43 Hgb 14.0 Hct 41.9 MCV 94.6 MCH 31.6 MCHC 33.4 RDW Std Deviation 48.5 H RDW Coeff of Poly 14.1 Plt Count 191 MPV 12.3 H Immature Gran % (Auto) 0.600 Neut % (Auto) 70.9 H Lymph % (Auto) 22.4 [place] % (Auto) 5.7 Eos % (Auto) 0.2 Baso % (Auto) 0.2 Absolute Neuts (auto) 9.8 H Absolute Lymphs (auto) 3.10 Nucleated RBC % 0 Sodium 141 Potassium 3.7 Chloride 113 H Carbon Dioxide 25.0 Anion Gap 3 L BUN 19 H Creatinine 0.90 Estim Creat Clear Calc 49.49 Est GFR (MDRD) Af Amer 80 Est GFR (MDRD) Non-Af 66 BUN/Creatinine Ratio 21.0 H Glucose 116 H Calcium 9.5 Urine Color Yellow Urine Clarity Sl. Cloudy Urine pH 6.5 Ur Specific Sloan 1.020 Urine Protein 100 H Urine Glucose (UA) Normal Urine Ketones Negative Urine Occult Blood 250 H Urine Nitrite Positive H Urine Bilirubin Negative Urine Urobilinogen Normal Ur Leukocyte Esterase 500 H Urine RBC 0-5 SEEN Urine WBC 10-25 SEEN Ur Squamous Epith Cells 0-5 SEEN Amorphous Sediment 2+ Urine Bacteria 3+ Urine Mucus 0 SEEN Radiography Diagnostic Testing: Clinical Impression(s) from Imaging Studies Abdomen/Pelvis CT 12/18/22 23:32 IMPRESSION: 1. Mild left-sided hydronephrosis and hydroureter secondary to a distal ureteral calculus. 2. Bilateral nonobstructing renal calculi. 3. Calculi and sludge within the urinary bladder. 4. Bilateral basilar airspace disease and/or atelectasis. Electronically Signed: Juliana Gonzalez MD at 1:33 EDT Reading Location ID and State: [facility] / [place] , Service support , Discharge Plan Triage Chief Complaint: Flank Pain Other Complaint: Complaint ED Provider: Óscar Crenshaw Dx/Rx/DC Orders Clinical Impression: Kidney stone, Renal colic, UTI (urinary tract infection) Instructions: ED Kidney Stone w/ Colic, UTIs Women Prescriptions: New oxycodone-acetaminophen [Percocet] 5-325 mg tablet 1 tab PO Q6H PRN (Reason: pain) 3 Days Qty: 12 0RF ketorolac 10 mg tablet 10 mg PO 4X/DAY PRN PRN (Reason: pain) 5 Days Qty: 20 0RF tamsulosin [Flomax] 0.4 mg capsule 0.4 mg PO DAILY Qty: 14 0RF cephalexin 500 mg capsule 500 mg PO TID 7 Days Qty: 21 0RF No Action venlafaxine 150 mg capsule,extended release 24hr 150 mg PO DAILY lamotrigine 150 MG tablet 150 mg PO BID Label Comments: BIPOLAR ropinirole 1 MG tablet 2 mg PO QHS Label Comments: RESTLESS LEGS calcium carbonate 600 MG tablet 600 mg PO DAILY levothyroxine 50 MCG tablet 75 mcg PO DAILY Label Comments: THYROID cholecalciferol (vitamin D3) 1,000 UNIT tablet 2,000 unit PO DAILY ferrous sulfate 15 MG/ML drops 65 mg PO DAILY vydlfvfk-ydv-hfju-FA-lutein 1 EACH tablet 1 each PO DAILY sucralfate 1 GM tablet 1 gm PO 4X/DAY Qty: 120 2RF cyanocobalamin (vitamin B-12) 500 MCG tablet 500 mcg PO DAILY@0800 omeprazole 20 MG capsule 20 mg PO BID (DME) inhalational spacing device 1 EACH spacer 1 ea MC UD Qty: 1 0RF Rx Instructions: use with MDI ondansetron 4 mg tablet,disintegrating 4 mg PO Q6H PRN (Reason: nausea and vomiting) Qty: 12 0RF Primary Care Provider: Maggie Gutiérrez Referrals: Maggie Gutiérrez MD [Primary Care Provider] - Kelsey Beck MD [Med Staff - Active Staff] - Activity Restrictions/Additional Instructions: Please follow-up with urology for repeat evaluation regarding your kidney stone. If you develop a fever over 100.4 or have intractable pain despite taking your medications please return the hospital for repeat evaluation Disposition Disposition: Home, Self Care Discharge Date/Time: 12/19/22 03:45
[2022-12-19] MEDS: Ketorolac 30 MG/ML Syringe IV (02:35)
[2022-12-19] MEDS: Ceftriaxone 1 GM/50 ML BAG IV (02:38)
[2022-12-19 02:39] VITALS: BP 147/78; PULSE 73; RESP 15; O2SAT 92
[2022-12-19 03:44] VITALS: BP 147/78; PULSE 73; RESP 15; O2SAT 92
== END 2022-12-19 03:45 | disposition home or self-care (01) ==
PROVIDERS: Emergency Provider Emergency Medicine; PCP Family Medicine; Visit Provider Emergency Medicine
DX: N13.6 Pyonephrosis (principal); N23 Unspecified renal colic; E66.9 Obesity, unspecified
CPT/HCPCS: 74176; 80048; 81001; 85025; 87086; 87088; 96361; 96365; 96375; 99282; A4216; J2405

== ENCOUNTER 2023-03-26 14:06 | Day surgery (SDC) | payer MEDICARE, SELFPAY ==
--- NOTE | 2023-03-26 | EGD_PTH ---
PATIENT: JANAK UGARTE LOC: EN U#:[id number] AGE/SX: 68/F ROOM: RE03/26/[address]: Dr. Tanner Ross DO : 1955 BED: DIS: 03/26/2023 SPEC #: [id number] RECD: 03/26/23 16:59 STATUS: SARITA RETianna #: [id number] PORFIRIO: 03/26/23 00:[address]: Tanner Ross DEPT: SURGICAL PATHOLOGY RECD BY: Blaine Connell ENTERED: 03/27/23 11:41 SP TYPE: EGD BIOPSY OT DR: Tila Zazueta DO Tissues: A - Duodenum, NOS B - Esophageal mucous membrane C - Ileum, NOS D - COLON BIOPSY Procedures: Special Stain Group II Surgery Specimen Level IV Alcian Blue/PAS (control) HEADER OPERATION: [place] [place] PRE-OP DIAGNOSIS: GERD, rectal bleeding TISSUE SUBMITTED: A - Duodenum biopsy, B - Distal esophagus biopsy, C - Terminal ileum biopsy, D - Random colon biopsy MICROSCOPIC DIAGNOSIS A. Duodenum, biopsy: Fragments of duodenal mucosa with nonspecific chronic inflammation and focal gastric metaplasia. B. Distal esophagus, biopsy: Fragments of gastric mucosa with moderate chronic inflammation and mild acute inflammation. Intestinal metaplasia (goblet cell metaplasia) not identified. See comment. C. Terminal ileum, biopsy: A fragment of small intestinal mucosa, no pathologic diagnosis. D. Colon, random biopsy: Fragments of colonic mucosa, no pathologic diagnosis. SJ:apple 03/28/2023 COMMENT B. Alcian blue/PAS stain with matched control supports the above diagnosis. MICROSCOPIC DESCRIPTION Slides are reviewed. GROSS DESCRIPTION A - Received in fixative is one container labeled with the patient's name and designated duodenum biopsy. The specimen consists of multiple irregular fragments of light ureña soft tissue that in aggregate measure 1.0 x 0.5 x 0.1 cm. The specimen is totally submitted in one cassette. B - Received in fixative is one container labeled with the patient's name and designated distal esophagus biopsy. The specimen consists of two irregular fragments of light ureña soft tissue that in aggregate measure 0.8 x 0.3 x 0.1 cm. The specimen is totally submitted in one cassette. C - Received in fixative is one container labeled with the patient's name and designated terminal ileum biopsy. The specimen consists of one irregular fragment of light ureña soft tissue that measures 0.3 x 0.3 x 0.1 cm. The specimen is totally submitted in one cassette. D - Received in fixative is one container labeled with the patient's name and designated random colon biopsy. The specimen consists of multiple irregular fragments of light ureña soft tissue that in aggregate measure 0.8 x 0.2 x 0.1 cm. The specimen is totally submitted in one cassette. / SJ:rg 03/27/2023 TC:3 CPT: 09820 x4, 18847
[2023-03-26] MEDS: Lactated Ringers 1,000 ML 15 ML IV (14:30)
[2023-03-26 14:41] VITALS: BP 116/85; PULSE 73; RESP 17; TEMP 36.6; O2SAT 98; BMI 39.4
--- NOTE | 2023-03-26 14:45 | HP.PCM_ITS ---
History and Physical Date of Admission: 03/26/23 Chief Complaint: rectal bleeding Details: JANAK UGARTE, is a 67 F who presents to the office today to establish with Gastroenterology for intermittent bright red rectal bleeding for at least 5 yrs. Typically occurs with diarrhea, she blames hemorrhoids, can occur several days in a row and then not for a couple of months. She reports a long hx of IBS-D, gets cramping. Flares from sugar and stress. Last colonoscopy 2016--diverticulosis, no polyps. She reports heartburn, sore throat, some dysphagia especially with big pills, nausea (resolves with BM). Has had EGD before, was told distal esophagus was red. 2016 EGD--esophagitis, duodenal ulcers, neg Zheng's. She takes omeprazole 20 mg prn. She takes sucralfate once a day which helps. Recently retired. ROS Const Constitutional: No fatigue ENT ENT: No difficulty swallowing Gastro GI: Positive for abdominal pain, diarrhea and heartburn; No belching, bloating, change in bowel habits, change in stool character, coffee ground emesis, constipation, cramping, difficulty swallowing, feeling full early, excessive flatus, incontinent of stools, Vomiting blood/hematemesis, Blood in stool, loose stools, Black,tarry stools, nausea/dyspepsia, pain with swallowing, vomiting or other Musc Musculoskeletal: No joint pain Skin Skin: No yellowing of the eye or itchy eyes Psych Psychiatric: No anxiety and No depression Endo Endocrine: No fatigue Aller/Imm Allergy/Immunologic: No itchy eyes Pietro/Lymp Hematologic/Lymphatic: No easy bleeding or easy bruising Exam Const General: cooperative and comfortable Nutritional Appearance: obese Orientation: alert, awake and oriented x3 HENMT Head: normal to inspection Eyes Sclera: sclerae normal Resp Effort & Inspection: normal respiratory effort Skin General: no rashes or lesions noted Neuro Gait: normal gait Psych Mood: euthymic mood Quality Reporting Tobacco Screening ([facility]) Smoking Status: Never smoker Assessment and Plan Assessment and Plan (1) GERD (gastroesophageal reflux disease): Status: Chronic Qualifiers: Esophagitis presence: without esophagitis Qualified Code(s): K21.9 - Gastro-esophageal reflux disease without esophagitis Plan: May need to take PPI daily but prefers to continue prn use for now. Will get EGD. (2) Rectal bleeding: Status: Chronic Plan: Chronic intermittent red blood per rectum, she relates it to IBS-D and hemorrhois. Will get colonoscopy. f/u in office 2 wks later. I have examined the patient and the H&P has been reviewed. There are no clinical changes since date of exam.
[2023-03-26 16:35] VITALS: BP 116/85; BP 98/56; PULSE 67; RESP 16; TEMP 36.2; O2SAT 93
[2023-03-26 16:40] VITALS: BP 116/85; BP 94/58; PULSE 66; RESP 16; O2SAT 92
--- NOTE | 2023-03-26 16:43 | OP.EGD_ITS ---
Patient Name: Adriana Aguilera Procedure Date: 03/26/2023 3:45 PM Date of : 1955 Age: 68 Procedure: Upper GI endoscopy Indications: Heartburn Providers: Tanner Ross DO Referring MD: Tanner Ross DO Medicines: Monitored Anesthesia Care Patient Profile: This is a 68 year old female. Refer to note in patient chart for documentation of history and physical. Patient has symptoms. Complications: No immediate complications. Procedure: Pre-Anesthesia Assessment: - Prior to the procedure, a History and Physical was performed, and patient medications and allergies were reviewed. The patient is competent. The risks and benefits of the procedure and the sedation options and risks were discussed with the patient. All questions were answered and informed consent was obtained. Patient identification and proposed procedure were verified by the physician. Mental Status Examination: alert and oriented. Prophylactic Antibiotics: The patient does not require prophylactic antibiotics. Prior Anticoagulants: The patient has taken no previous anticoagulant or antiplatelet agents. ASA Grade Assessment: II - A patient with mild systemic disease. After reviewing the risks and benefits, the patient was deemed in satisfactory condition to undergo the procedure. The anesthesia plan was to use monitored anesthesia care (MAC). Immediately prior to administration of medications, the patient was re-assessed for adequacy to receive sedatives. The heart rate, respiratory rate, oxygen saturations, blood pressure, adequacy of pulmonary ventilation, and response to care were monitored throughout the procedure. The physical status of the patient was re-assessed after the procedure. After obtaining informed consent, the endoscope was passed under direct vision. Throughout the procedure, the patient's blood pressure, pulse, and oxygen saturations were monitored continuously. The Colonoscope was introduced through the mouth, and advanced to the second part of duodenum. The upper GI endoscopy was accomplished without difficulty. The patient tolerated the procedure well. Scope In: 3:52:25 PM Scope Out: 3:56:51 PM Total Procedure Duration Time 0 hours 4 minutes 26 seconds Findings: LA Grade A (one or more mucosal breaks less than 5 mm, not extending between tops of 2 mucosal folds) esophagitis with no bleeding was found 37 to 39 cm from the incisors. Biopsies were taken with a cold forceps for histology. Verification of patient identification for the specimen was done. Estimated blood loss was minimal. A small hiatal hernia was present. No gross lesions were noted in the entire examined stomach. Diffuse moderate inflammation characterized by friability and granularity was found in the duodenal bulb, in the first portion of the duodenum and in the second portion of the duodenum. Biopsies were taken with a cold forceps for histology. Verification of patient identification for the specimen was done. Estimated blood loss was minimal. Impression: - LA Grade A reflux esophagitis. Biopsied. - Small hiatal hernia. - No gross lesions in the stomach. - Chronic duodenitis. Biopsied. Recommendation: - Discharge patient to home. - Resume previous diet. - Continue present medications. - Await pathology results. - Repeat upper endoscopy to check healing. - Return to GI office. Procedure Code(s): --- Professional --- 06016, Esophagogastroduodenoscopy, flexible, transoral; with biopsy, single or multiple CPT copyright 2017 [employer] [employer]. All rights reserved. The codes documented in this report are preliminary and upon therapy tech review may be revised to meet current compliance requirements. Tanner Ross DO 03/26/2023 4:42:23 PM This report has been signed electronically. Number of Addenda: 0 Note Initiated On: 03/26/2023 3:45 PM
--- NOTE | 2023-03-26 16:43 | OP.CCLET_ITS ---
03/26/2023 Tila Zazueta Do Re : Upper GI endoscopy procedure for Adriana Aguilera Dear Carlita This procedure was performed on Sunday, March 26, 2023. My impressions and recommendations are as follows: Impressions : - LA Grade A reflux esophagitis. Biopsied. - Small hiatal hernia. - No gross lesions in the stomach. - Chronic duodenitis. Biopsied. Recommendations : - Discharge patient to home. - Resume previous diet. - Continue present medications. - Await pathology results. - Repeat upper endoscopy to check healing. - Return to GI office. My findings are described in the full procedure note, which is enclosed. If I can be of further assistance, please feel free to contact me at . Sincerely, Tanner Ross, 03/26/2023 4:42:23 PM This report has been signed electronically.
[2023-03-26 16:45] VITALS: BP 116/85; BP 95/58; PULSE 62; RESP 16; O2SAT 94
--- NOTE | 2023-03-26 16:47 | OP.CCLET_ITS ---
03/26/2023 Tila Zazueta Do Re : Colonoscopy procedure for Adriana Aguilera Dear Carlita This procedure was performed on Sunday, March 26, 2023. My impressions and recommendations are as follows: Impressions : - Non-bleeding internal hemorrhoids. Banded. - Congested mucosa in the sigmoid colon, in the transverse colon and in the ascending colon. Biopsied. Clips were placed. - Ileitis. Biopsied. Recommendations : - Discharge patient to home. - Resume previous diet. - Continue present medications. - Await pathology results. - Repeat colonoscopy is recommended for surveillance. The colonoscopy date will be determined after pathology results from today's exam become available for review. My findings are described in the full procedure note, which is enclosed. If I can be of further assistance, please feel free to contact me at . Sincerely, Tanner Ross, 03/26/2023 4:46:51 PM This report has been signed electronically.
--- NOTE | 2023-03-26 16:47 | OP.COLON_ITS ---
Patient Name: Adriana Aguilera Procedure Date: 03/26/2023 3:57 PM Date of : 1955 Age: 68 Procedure: Colonoscopy Indications: Clinically significant diarrhea of unexplained origin Providers: Tanner Ross DO Referring MD: Tanner Ross DO Medicines: Monitored Anesthesia Care Patient Profile: This is a 68 year old female. Refer to note in patient chart for documentation of history and physical. Patient has symptoms. Refer to note in patient chart for documentation of history and physical. Last Colonoscopy: date unknown. Unable to locate last colonoscopy report. Complications: No immediate complications. Procedure: Pre-Anesthesia Assessment: - Prior to the procedure, a History and Physical was performed, and patient medications and allergies were reviewed. The patient is competent. The risks and benefits of the procedure and the sedation options and risks were discussed with the patient. All questions were answered and informed consent was obtained. Patient identification and proposed procedure were verified by the physician. Mental Status Examination: alert and oriented. Prophylactic Antibiotics: The patient does not require prophylactic antibiotics. Prior Anticoagulants: The patient has taken no previous anticoagulant or antiplatelet agents. ASA Grade Assessment: II - A patient with mild systemic disease. After reviewing the risks and benefits, the patient was deemed in satisfactory condition to undergo the procedure. The anesthesia plan was to use monitored anesthesia care (MAC). Immediately prior to administration of medications, the patient was re-assessed for adequacy to receive sedatives. The heart rate, respiratory rate, oxygen saturations, blood pressure, adequacy of pulmonary ventilation, and response to care were monitored throughout the procedure. The physical status of the patient was re-assessed after the procedure. After I obtained informed consent, the scope was passed under direct vision. Throughout the procedure, the patient's blood pressure, pulse, and oxygen saturations were monitored continuously. The Colonoscope was introduced through the anus and advanced to the terminal ileum. The colonoscopy was performed without difficulty. The patient tolerated the procedure well. The quality of the bowel preparation was adequate. Scope In: 3:59:44 PM Scope Withdrawal Time 0 hours 18 minutes 6 seconds Scope Out: 4:28:36 PM Total Procedure Duration Time 0 hours 28 minutes 52 seconds Findings: The perianal and digital rectal examinations were normal. Non-bleeding internal hemorrhoids were found during retroflexion. The hemorrhoids were Grade II (internal hemorrhoids that prolapse but reduce spontaneously). A hemorrhoid was isolated with anoscopy. Nitroglycerin was applied topically to decrease spasm of the anal sphincter. The ShortShot ligator was positioned over the hemorrhoid at the left lateral position. Suction was applied and one rubber band was placed over the hemorrhoid. This was checked to make certain that the muscularis was free of the band. Post-banding digital rectal exam showed band in good position. There were no complications. An area of mildly congested mucosa was found in the sigmoid colon, in the transverse colon and in the ascending colon. Biopsies were taken with a cold forceps for histology. Verification of patient identification for the specimen was done. Estimated blood loss was minimal. To prevent bleeding after the biopsy, two hemostatic clips were successfully placed. There was no bleeding at the end of the procedure. Patchy inflammation, mild in severity and characterized by erythema was found in the terminal ileum. Biopsies were taken with a cold forceps for histology. Verification of patient identification for the specimen was done. Estimated blood loss was minimal. Impression: - Non-bleeding internal hemorrhoids. Banded. - Congested mucosa in the sigmoid colon, in the transverse colon and in the ascending colon. Biopsied. Clips were placed. - Ileitis. Biopsied. Recommendation: - Discharge patient to home. - Resume previous diet. - Continue present medications. - Await pathology results. - Repeat colonoscopy is recommended for surveillance. The colonoscopy date will be determined after pathology results from today's exam become available for review. Procedure Code(s): --- Professional --- 75935, Colonoscopy, flexible; with band ligation(s) (eg, hemorrhoids) 76828, Colonoscopy, flexible; with biopsy, single or multiple CPT copyright 2017 [employer]. All rights reserved. The codes documented in this report are preliminary and upon medical insurance coder review may be revised to meet current compliance requirements. Tanner Ross DO 03/26/2023 4:46:51 PM This report has been signed electronically. Number of Addenda: 0 Note Initiated On: 03/26/2023 3:57 PM
[2023-03-26 16:50] VITALS: BP 116/85; BP 93/65; PULSE 61; RESP 16; TEMP 36.1; O2SAT 93
[2023-03-26 17:18] VITALS: BP 116/85
== END 2023-03-26 17:30 | disposition home or self-care (01) ==
LOC: EN 14:09 → AC 14:10
PROVIDERS: PCP Family Medicine; Referring Provider Family Medicine; Visit Provider Internal Medicine Gastroenterology
PROC: 0DJD8ZZ Inspection of Lower Intestinal Tract, Via Natural or Artificial Opening Endoscopic (ICD-10-PCS; CPT 45378; principal; 2023-03-26 15:10)
DX: K21.00 Gastro-esophageal reflux disease with esophagitis, without bleeding (principal); F31.9 Bipolar disorder, unspecified; K29.80 Duodenitis without bleeding; K44.9 Diaphragmatic hernia without obstruction or gangrene; K64.1 Second degree hemorrhoids; K58.0 Irritable bowel syndrome with diarrhea; I10 Essential (primary) hypertension; E03.9 Hypothyroidism, unspecified; E66.9 Obesity, unspecified; Z90.49 Acquired absence of other specified parts of digestive tract; Z68.34 Body mass index [BMI] 34.0-34.9, adult; Z79.899 Other long term (current) drug therapy
CPT/HCPCS: 45380; 45398; 43239; 88305; 88313; J7120; J2405

== ENCOUNTER 2023-04-21 11:41 | Inpatient (IN) | payer MEDICARE, SELFPAY ==
[2023-04-21] VITALS (19 sets, daily range): BP systolic 59–155; BP diastolic 43–88; PULSE 78–110; RESP 12–94; TEMP 36.3–37.2; O2SAT 84–98; BMI 40.8
--- NOTE | 2023-04-21 11:55 | CT_ITS ---
STUDY: CT ABDOMEN AND PELVIS WITHOUT CONTRAST REASON FOR EXAM: Female, 68 years old. Diffuse abdominal pain RADIATION DOSAGE (If Supplied By Facility): CTDIvol = ( 20.49 ) mGy, DLP = ( 41239.46 ) mGycm TECHNIQUE: Transaxial images were obtained from the dome of the diaphragm to the symphysis pubis without oral contrast, and without intravenous contrast. Sagittal and coronal images were reconstructed. Individualized dose optimization techniques were used for this CT. COMPARISON: 12/19/2022 FINDINGS: Chronic interstitial changes in the lung bases with dependent atelectasis. The visualized portions of the heart are within normal limits. Normal liver. There is non-visualization of the gallbladder, which may be secondary to either contraction or a prior cholecystectomy. Normal spleen. Normal pancreas. Normal bilateral adrenal glands. Right kidney is free of obstructive uropathy or suspicious solid renal lesion, there are punctate nonobstructing stones. Left kidney shows hydronephrosis and hydroureter findings due to a 4.8 mm stone in the distal left ureter seen on axial image 151 and coronal recon image 88. There are punctate nonobstructing left renal stones as well. Normal visualized stomach. Normal small intestine. Normal colon. The appendix is visualized and appears normal. Appendix is seen on coronal reconstructed images 68 through 71 There is diffuse atherosclerotic calcification of the abdominal aorta, without a demonstrated aneurysm. Normal inferior vena cava. Normal retroperitoneum. Normal urinary bladder. Uterus is present, the endometrium cannot be accurately evaluated with CT Normal abdominal wall. Mild degenerative bony changes CT/Abdomen/Pelvis without Cont IMPRESSION: Left-sided hydronephrosis and hydroureter with a minimal amount of perinephric and periureteral stranding due to a 4.8 mm stone in the distal left ureter on images described above. Punctate nonobstructing bilateral nephrolithiasis No free intraperitoneal fluid, air, or suspicious adenopathy, normal appendix visualized Uterus is present, the endometrium cannot be accurately evaluated with CT Electronically Signed: Wade Villa MD at 13:14 EDT ,
--- NOTE | 2023-04-21 11:56 | EX.ED.DYSGE1 ---
HPI History of Present Illness Chief Complaint: Flank Pain Detail of Chief Complaint: Left flank pain Informant: patient Narrative Narrative: Patient presents with left flank pain that started last evening. Patient states the pain now radiates to the left lower abdomen. She complains of feeling the urge to urinate but often times unable to get urine out. Patient complains of some dysuria. She has history of kidney stones and thinks she might be passing a kidney stone. She denies any hematuria. She denies fever. She has had nausea but no vomiting. She does see a urologist. [facility] Medical History (Updated 04/21/23 @ 15:[address] Madonna Bradley, DO) Abdominal pain Arthritis Bipolar disorder Bipolar disorder, unspecified Carpal tunnel syndrome Cervix erosion Chronic cough Depression Dizziness Easy bruising Fatigue Fever GERD (gastroesophageal reflux disease) Hemorrhoid History of edema History of kidney stones HTN (hypertension) Hypothyroidism IBS (irritable bowel syndrome) Impaired fasting glucose Impingement syndrome of unspecified shoulder Incontinence Injury of head and neck Iron deficiency Leg cramps Low back pain Low iron Non-smoker Osteoarthritis Post-menopausal Radiculopathy, lumbar region Restless leg syndrome Shingles Shortness of breath on exertion Stomach ulcer Vitamin D deficiency Wears glasses Wears partial dentures Home Medications cholecalciferol (vitamin D3) 25 mcg (1,000 unit) tablet 2,000 unit PO DAILY 05/15/16 [History Last Taken Unknown] ferrous sulfate 15 mg iron (75 mg)/mL oral drops 65 mg PO DAILY 05/15/16 [History Last Taken Unknown] levothyroxine 50 mcg tablet 75 mcg PO DAILY 05/15/16 [History Last Taken Unknown] ugqyzlvo-ijlo-jkmu 8 mg-folic 400 mcg-K 50 mcg-lutein 300 mcg tablet 1 each PO DAILY 05/15/16 [History Last Taken Unknown] inhalational spacing device ##1 09/02/19 [Rx Last Taken Unknown] omeprazole 20 mg capsule,delayed release 20 mg PO DAILY 09/02/19 [History Last Taken Unknown] albuterol sulfate 90 mcg/actuation breath activated powder inhaler 2 inh inhalation Q6H PRN COUGHING 03/22/23 [History Last Taken Unknown] calcium carb-vit V5-mxjczrxvf-twnq 333 mg-200 unit-133 mg-5 mg tablet 1 tab PO DAILY 03/22/23 [History Last Taken Unknown] potassium chloride 10 mEq tablet,extended release (K-Tab) 10 meq PO DAILY 03/22/23 [History Last Taken Unknown] sucralfate 1 gram tablet 1 gm PO DAILY 03/22/23 [History Last Taken Unknown] vitamin B complex (Vitamins B Complex capsule) 1 cap PO DAILY 03/22/23 [History Last Taken Unknown] lamotrigine 150 mg tablet 150 mg PO BID #60 tabs 04/11/23 [Rx Last Taken Unknown] ropinirole 1 mg tablet 3 mg PO QHS 04/11/23 [History Last Taken Unknown] venlafaxine 150 mg capsule,extended release 24 hr 150 mg PO DAILY #30 caps 04/11/23 [Rx Last Taken Unknown] venlafaxine 75 mg tablet 75 mg PO DAILY 04/11/23 [History Last Taken Unknown] Allergy/AdvReac Type Severity Reaction Status Date / Time Sugars, Metabolically Active Allergy Intermediate Diarrhea Verified 04/21/23 11:43 prednisone AdvReac Intermediate Other Verified 04/21/23 11:43 Surgical History H/O foot surgery History of esophagogastroduodenoscopy (EGD) History of selective injection of anesthetic agent around lumbar nerve root History of tonsillectomy and adenoidectomy Hx of cholecystectomy Social History Smoking Status: Never smoker alcohol intake: current ROS ROS ED Review of Systems ROS Unobtainable: other Constitutional Constitutional ED: Reports lethargy; Denies chills, fever(s), sweats or weight loss Eyes Eyes: Denies blurry vision, change in vision or diplopia ENT ENT ED: Denies rhinorrhea or sore throat Cardiovascular Cardiovascular: Denies chest pain, orthopnea or racing heartbeat Respiratory/Chest Respiratory/Chest: Denies cough, dyspnea, dyspnea on exertion, orthopnea or sputum Gastrointestinal Gastrointestinal: Reports abdominal pain and nausea; Denies diarrhea or vomiting Genitourinary Genitourinary ED: Denies dysuria, hematuria or urinary frequency Musculoskeletal Musculoskeletal: Reports back pain; Denies arthralgias, myalgias or neck pain Integumentary Denies abscess, Abrasions or rash Neurologic Neurologic: Denies headache(s) or weakness Psychiatric Psychiatric: Denies anxiety, depression or suicidal thoughts Endocrine Endocrinology: Denies polydipsia, polyphagia or polyuria Hematologic/Lymphatic Hematologic/Lymphatic: Denies easy bleeding, easy bruising or lymphadenopathy Allergic/Immunologic Allergic/Immunologic ED: Denies mouth swelling, tongue swelling or urticaria EXAM Physical Exam Const Vital Signs: 04/21/23 11:43 04/21/23 11:42 04/21/23 13:42 Temperature 97.3 F L Temperature Source Temporal Pulse Rate 89 78 Respiratory Rate 14 14 Respiratory Effort Normal Respiratory Pattern Normal Blood Pressure 155/88 H 134/78 H Blood Pressure Mean 110 96 Pulse Ox 98 98 Oxygen Delivery Method Room Air Room Air Positive well nourished and well developed General Appearance ED: well developed and NAD HEENT Reports TM's clear and moist mucous membranes normocephalic and atraumatic; Negative for trauma or tenderness Tympanic Membrane ED: Yes TM's clear Eyes PERRL and EOMs intact bilaterally General Eye ED: Negative for pale conjunctiva or scleral icterus Neck no lymphadenopathy, supple and no JVD General: Negative for tenderness Chest Wall inspection of chest normal and palpation of chest normal Chest: Negative for tenderness Resp normal respiratory effort and clear to auscultation bilaterally Effort and Inspection: Negative for respiratory distress or pain with movement Auscultation: Negative for rhonchi, wheezes or diminished lung sounds Cardio regular rate, regular rhythm, S1 normal heart sound, S2 normal heart sound and no murmurs Peripheral Pulses: pulses 2+ throughout GI normal to inspection, nondistended, normoactive bowel sounds, soft to palpation, non-distended and no masses GI Narrative: Mild tenderness to left lower quadrant with some guarding. There is no rebound, rigidity, or peritoneal signs. No mass palpated. Back/Spine no thoracic nor lumbar tenderness Back/Spine Narrative: Mild CVA tenderness on the left. Extremity normal to inspection General Extremety ED: Negative for edema General Extremity: Negative for edema Neuro oriented x3, CN's II-XII intact bilaterally, no sensory deficits noted and gait normal Sensorium / Orientation: awake, alert, oriented to person, oriented to place and oriented to time Motor Exam: strength 5/5 throughout and strength abnormal Psych mental status grossly normal Skin no rashes or lesions noted and no wounds MDM MDM MDM Narrative Medical decision making narrative: Patient presents via EMS and she had already received Toradol IV. She continues to complain of pain that is a 8 out of 10. She will be given morphine and Zofran. Basic labs will be obtained as well as a urinalysis and a CT scan of the abdomen pelvis without contrast to evaluate further. In the differential would be UTI versus kidney stone versus diverticulitis versus other acute intra-abdominal process. Patient CBC with differential showing a 5.7 and chemistries unremarkable. BUN was elevated 21 and creatinine 1.37. Urinalysis positive for UTI. I did start patient on Rocephin and Zithromax. Patient was medicated with morphine and Zofran and Toradol. Initially had good pain relief with that but then pain came back and required another 4 mg of morphine. Patient continues to complain of pain. Case will be discussed with hospitalist to evaluate for admission for pain control and fluids and antibiotics. Discussed case with patient's urologist Dr. Beck who will admit patient for further management. Lab Data Attestation: I reviewed the patient's lab results. Labs: Laboratory Results - last 24 hr 04/21/23 04/21/23 11:50 14:13 WBC 5.7 RBC 4.05 L Hgb 13.2 Hct 38.7 MCV 95.6 MCH 32.6 H MCHC 34.1 RDW Std Deviation 48.7 H RDW Coeff of Poly 13.7 Plt Count 145 L MPV 11.6 Immature Gran % (Auto) 0.300 Neut % (Auto) 76.5 H Lymph % (Auto) 18.9 L [place] % (Auto) 0.5 Eos % (Auto) 3.3 Baso % (Auto) 0.5 Absolute Neuts (auto) 4.4 Absolute Lymphs (auto) 1.08 Nucleated RBC % 0 Sodium 139 Potassium 3.6 Chloride 108 H Carbon Dioxide 24.0 Anion Gap 7 BUN 21 H Creatinine 1.37 H Estim Creat Clear Calc 33.47 Est GFR (MDRD) Af Amer 49 L Est GFR (MDRD) Non-Af 41 L BUN/Creatinine Ratio 15.3 Glucose 126 H Calcium 8.5 Urine Color Yellow Urine Clarity Sl. Cloudy Urine pH 6.0 Ur Specific [place] 1.020 Urine Protein 30 H Urine Glucose (UA) Normal Urine Ketones 5 H Urine Occult Blood 150 H Urine Nitrite Positive H Urine Bilirubin 1 H Urine Urobilinogen 1 H Ur Leukocyte Esterase 500 H Urine RBC 0-5 SEEN Urine WBC 25-50 SEEN Ur Squamous Epith Cells 0 SEEN Urine Bacteria RARE Urine Mucus 0 SEEN Radiography Diagnostic Testing: Clinical Impression(s) from Imaging Studies Abdomen/Pelvis CT 04/21/23 11:55 IMPRESSION: Left-sided hydronephrosis and hydroureter with a minimal amount of perinephric and periureteral stranding due to a 4.8 mm stone in the distal left ureter on images described above. Punctate nonobstructing bilateral nephrolithiasis No free intraperitoneal fluid, air, or suspicious adenopathy, normal appendix visualized Uterus is present, the endometrium cannot be accurately evaluated with CT Electronically Signed: Wade Villa MD at 13:14 EDT Reading Location ID and State: [facility] / MD , Service support , Discharge Plan Triage Chief Complaint: Flank Pain ED Provider: Madonna Bradley Dx/Rx/DC Orders Clinical Impression: NICOLE (acute kidney injury), Intractable pain, Urolithiasis, Acute UTI Prescriptions: No Action venlafaxine 75 mg tablet 75 mg PO DAILY venlafaxine 150 mg capsule,extended release 24hr 150 mg PO DAILY Qty: 30 2RF lamotrigine 150 mg tablet 150 mg PO BID Qty: 60 2RF levothyroxine 50 MCG tablet 75 mcg PO DAILY Patient Comments: THYROID cholecalciferol (vitamin D3) 1,000 UNIT tablet 2,000 unit PO DAILY ferrous sulfate 15 MG/ML drops 65 mg PO DAILY xbwrxvcs-sxx-gwwk-FA-vit K-lut 1 EACH tablet 1 each PO DAILY ropinirole 1 mg tablet 3 mg PO QHS Patient Comments: RESTLESS LEGS omeprazole 20 MG capsule 20 mg PO DAILY (DME) inhalational spacing device 1 EACH spacer 1 ea MC UD Qty: 1 0RF Rx Instructions: use with MDI calcium carb-D3-mag [id number] [id number] vr-wadr-ov-mg tablet 1 tab PO DAILY Rx Instructions: administer with a meal vitamin B complex [Vitamins B Complex] Capsule 1 cap PO DAILY potassium chloride [K-Tab] 10 mEq tablet extended release 10 meq PO DAILY sucralfate 1 GM tablet 1 gm PO DAILY albuterol sulfate 90 mcg/actuation aerosol powdr breath activated 2 inh inhalation Q6H PRN (Reason: COUGHING) Primary Care Provider: Tila Zazueta Referrals: Tila Zazueta, [Primary Care Provider] - Disposition Disposition: Acute Care Hospital
[2023-04-21] MEDS: Ondansetron 4 MG/2 ML Vial IV ×2 (12:00→19:43)
[2023-04-21] MEDS: Morphine 4 MG/ML Syringe IV ×3 (12:00→19:41)
[2023-04-21 12:06] LABS: Absolute Lymphocyte Count 1.08 X10^3/uL (0.83-4.51); Absolute Neutrophil Count 4.4 X10^3/uL (2.0-7.7); Basophil# 0.03 X10^3/uL; Basophil% 0.5 % (0-1); Differential Indicated SCAN CRITERIA MET; Eosinophil# 0.19 X10^3/uL; Eosinophils% 3.3 % (0-5); Hematocrit 38.7 % (37-47); Hemoglobin 13.2 g/dL (12.0-15.0); Lymphocyte # 1.08 X10^3/ul (0.83-4.51); Lymphocyte % 18.9 % (19-41); Mean Corp Hgb Conc 34.1 g/dL (32-36); Mean Corpuscular Hgb 32.6 pg (27.0-32.0); Mean Corpuscular Volume 95.6 fL (81-99); Mean Platelet Vol. 11.6 fl (6.2-12.0); Monocyte# 0.03 X10^3/uL; Monocyte% 0.5 % (0-10); NRBC Flagged by Analyzer 0 % (0-5); Neutrophil # 4.37 X10^3/uL (2.7-7.7); Neutrophil % 76.5 % (47-70); POSITIVE MORPHOLOGY YES; Platelet Count 145 K/mm3 (150-450); RBC Distribution Width CV 13.7 % (11.6-14.6); RBC Distribution Width SD 48.7 fl (35.1-43.9); Red Blood Count 4.05 M/mm3 (4.2-5.4); White Blood Count 5.7 K/mm3 (4.4-11.0)
[2023-04-21 12:19] LABS: Anion Gap 7 (5-15); BUN 21 mg/dL (7-18); BUN/Creat Ratio 15.3 RATIO (10-20); Calcium,Total 8.5 mg/dL (8.5-10.1); Chloride 108 mmol/L (98-107); Creatinine, Serum 1.37 mg/dL (0.55-1.02); EST Glomerular Filtration Rate 41 mL/min (>60); Est Glom Filt Rate - Afr Amer 49 mL/min (>60); Estimated Creatinine Clearance 33.47 ml/min; Glucose 126 mg/dL (74-106); Potassium 3.6 mmol/L (3.5-5.1); Sodium Level 139 mmol/L (136-145)
[2023-04-21] MEDS: 0.9% Normal Saline 1,000 ML 125 ML IV (12:31)
[2023-04-21 14:18] LABS: Mucous, Urine 0 SEEN /hpf (<or=2+); Squamous Epithelial Cells - UA 0 SEEN /hpf (5-10)
[2023-04-21 14:23] LABS: Color, Urine Yellow (Yellow); Glucose, Dipstick Normal (Normal); Ketone-Dipstick 5 mg/dl (Negative); Leukocyte Esterase-Dipstick 500 /ul (Negative); Nitrite-Dipstick Positive (Negative); Occult Blood-Urine 150 /ul (Negative); Protein-Dipstick 30 mg/dl (Negative); Urine Clarity Sl. Cloudy (Clear); Urine Urobilinogen 1 mg/dl (Normal)
[2023-04-21 14:25] LABS: Urine Bilirubin Dipstick 1 mg/dL (Negative)
[2023-04-21 14:28] LABS: Red Blood Cells-Urine 0-5 SEEN /hpf (0-5); White Blood Cells 25-50 SEEN /hpf (0-5)
[2023-04-21 14:29] LABS: Bacteria RARE /hpf (None Seen)
[2023-04-21] MEDS: Ceftriaxone 1 GM/50 ML BAG IV (14:47)
--- NOTE | 2023-04-21 15:19 | HP.PCM_ITS ---
HPI - General General Date of Admission: 04/21/23 Date of Service: 04/21/23 Chief Complaint: left flank pain HPI Narrative JANAK UGARTE, is a 68 F with a PMH as outlined who presents via the ED on 04/21/2023 with a complaint of left flank pain which started one day prior to admission, and radiated to the left lower abdomen. [facility] Medical History (Updated 04/21/23 @ 15:[address] Madonna Bradley, DO) Abdominal pain Arthritis Bipolar disorder Bipolar disorder, unspecified Carpal tunnel syndrome Cervix erosion Chronic cough Depression Dizziness Easy bruising Fatigue Fever GERD (gastroesophageal reflux disease) Hemorrhoid History of edema History of kidney stones HTN (hypertension) Hypothyroidism IBS (irritable bowel syndrome) Impaired fasting glucose Impingement syndrome of unspecified shoulder Incontinence Injury of head and neck Iron deficiency Leg cramps Low back pain Low iron Non-smoker Osteoarthritis Post-menopausal Radiculopathy, lumbar region Restless leg syndrome Shingles Shortness of breath on exertion Stomach ulcer Vitamin D deficiency Wears glasses Wears partial dentures Home Medications cholecalciferol (vitamin D3) 25 mcg (1,000 unit) tablet 2,000 unit PO DAILY 05/15/16 [History Last Taken Unknown] ferrous sulfate 15 mg iron (75 mg)/mL oral drops 65 mg PO DAILY 05/15/16 [History Last Taken Unknown] levothyroxine 50 mcg tablet 75 mcg PO DAILY 05/15/16 [History Last Taken Unknown] fyonyzbh-xroh-uizh 8 mg-folic 400 mcg-K 50 mcg-lutein 300 mcg tablet 1 each PO DAILY 05/15/16 [History Last Taken Unknown] inhalational spacing device ##1 09/02/19 [Rx Last Taken Unknown] omeprazole 20 mg capsule,delayed release 20 mg PO DAILY 09/02/19 [History Last Taken Unknown] albuterol sulfate 90 mcg/actuation breath activated powder inhaler 2 inh inhalation Q6H PRN COUGHING 03/22/23 [History Last Taken Unknown] calcium carb-vit I9-rnmioxhdp-plre 333 mg-200 unit-133 mg-5 mg tablet 1 tab PO DAILY 03/22/23 [History Last Taken Unknown] potassium chloride 10 mEq tablet,extended release (K-Tab) 10 meq PO DAILY 03/22/23 [History Last Taken Unknown] sucralfate 1 gram tablet 1 gm PO DAILY 03/22/23 [History Last Taken Unknown] vitamin B complex (Vitamins B Complex capsule) 1 cap PO DAILY 03/22/23 [History Last Taken Unknown] lamotrigine 150 mg tablet 150 mg PO BID #60 tabs 04/11/23 [Rx Last Taken Unknown] ropinirole 1 mg tablet 3 mg PO QHS 04/11/23 [History Last Taken Unknown] venlafaxine 150 mg capsule,extended release 24 hr 150 mg PO DAILY #30 caps 04/11/23 [Rx Last Taken Unknown] venlafaxine 75 mg tablet 75 mg PO DAILY 04/11/23 [History Last Taken Unknown] Allergy/AdvReac Type Severity Reaction Status Date / Time Sugars, Metabolically Active Allergy Intermediate Diarrhea Verified 04/21/23 11:43 prednisone AdvReac Intermediate Other Verified 04/21/23 11:43 Surgical History H/O foot surgery History of esophagogastroduodenoscopy (EGD) History of selective injection of anesthetic agent around lumbar nerve root History of tonsillectomy and adenoidectomy Hx of cholecystectomy Social History Smoking Status: Never smoker alcohol intake: current Vital Signs Vital Signs Vital Signs: 04/21/23 11:43 04/21/23 11:42 04/21/23 13:42 Temperature 97.3 F L Temperature Source Temporal Pulse Rate 89 78 Respiratory Rate 14 14 Respiratory Effort Normal Respiratory Pattern Normal Blood Pressure 155/88 H 134/78 H Blood Pressure Mean 110 96 Pulse Ox 98 98 Oxygen Delivery Method Room Air Room Air Weight Weight: 237 lb 12.8 oz Body Mass Index (BMI) 40.8 Results Lab / Micro Data 04/21/23 11:50 04/21/23 11:50 Labs: Laboratory Results - last 24 hr 04/21/23 11:50: WBC 5.7, RBC 4.05 L, Hgb 13.2, Hct 38.7, MCV 95.6, MCH 32.6 H, MCHC 34.1, RDW Std Deviation 48.7 H, RDW Coeff of Poly 13.7, Plt Count 145 L, MPV 11.6, Immature Gran % (Auto) 0.300, Neut % (Auto) 76.5 H, Lymph % (Auto) 18.9 L, [place] % (Auto) 0.5, Eos % (Auto) 3.3, Baso % (Auto) 0.5, Absolute Neuts (auto) 4.4, Absolute Lymphs (auto) 1.08, Nucleated RBC % 0, Sodium 139, Potassium 3.6, Chloride 108 H, Carbon Dioxide 24.0, Anion Gap 7, BUN 21 H, Creatinine 1.37 H, Estim Creat Clear Calc 33.47, Est GFR (MDRD) Af Amer 49 L, Est GFR (MDRD) Non-Af 41 L, BUN/Creatinine Ratio 15.3, Glucose 126 H, Calcium 8.5 04/21/23 14:13: Urine Color Yellow, Urine Clarity Sl. Cloudy, Urine pH 6.0, Ur Specific [place] 1.020, Urine Protein 30 H, Urine Glucose (UA) Normal, Urine Ketones 5 H, Urine Occult Blood 150 H, Urine Nitrite Positive H, Urine Bilirubin 1 H, Urine Urobilinogen 1 H, Ur Leukocyte Esterase 500 H, Urine RBC 0-5 SEEN, Urine WBC 25-50 SEEN, Ur Squamous Epith Cells 0 SEEN, Urine Bacteria RARE, Urine Mucus 0 SEEN Radiology Impression Abdomen/Pelvis CT 04/21/23 11:55 IMPRESSION: Left-sided hydronephrosis and hydroureter with a minimal amount of perinephric and periureteral stranding due to a 4.8 mm stone in the distal left ureter on images described above. Punctate nonobstructing bilateral nephrolithiasis No free intraperitoneal fluid, air, or suspicious adenopathy, normal appendix visualized Uterus is present, the endometrium cannot be accurately evaluated with CT Electronically Signed: Wade Villa MD at 13:14 EDT ,
[2023-04-21] MEDS: Lactated Ringers 1,000 ML 125 ML IV (19:28)
[2023-04-21] MEDS: lamoTRIgine 150 MG Tablet PO (21:23)
[2023-04-21] MEDS: Pramipexole Di-HCl 0.5 MG Tablet 1.5 MG PO (21:23)
[2023-04-21] MEDS: Cefazolin 1 GM/50 ML BAG IV (21:23)
[2023-04-21] MEDS: Venlafaxine XR 150 MG Capsule PO (21:23)
[2023-04-21] MEDS: 0.9% Normal Saline 1,000 ML 999 ML IV ×2 (23:15→23:58)
[2023-04-21] MEDS: Naloxone 2 MG/2 ML Syringe 1 MG IV (23:38)
[2023-04-21 23:46] LABS: Allen Test Positive; Base Excess -6 mmol/L (-2 to +2); Bicarbonate 19.2 mmol/L (22-26); Blood Gas Specimen Type ART; FI02 40; O2 Delivery Device BiPAP; PEEP 8; PO2 78 mmHG (75-100); SITE R Radial; SO2 95 % (95-99); Total Carbon Dioxide 20 mmol/L; pCO2 33.4 mmHg (35-45); pH 7.37 (7.35-7.45)
[2023-04-22] VITALS (54 sets, daily range): BP systolic 75–128; BP diastolic 51–100; PULSE 70–97; RESP 12–31; TEMP 36.7–38.2; O2SAT 88–97; BMI 42.2
--- NOTE | 2023-04-22 00:04 | PCM.HP.STD ---
[facility] - [facility] Date of Admission: 04/21/23 Chief Complaint: Left flank pain [facility] Narrative JANAK UGARTE, is a 68 F who presented to the emergency room with uncontrolled left flank pain and a history of kidney stones. A CT scan confirmed a left distal ureteral calculus. She was admitted to the floor for cystoscopy and ureteral stent insertion along with supportive care, intravenous antibiotics and pain control. I was called this evening with a hypotensive blood pressure reading of 85 systolic with a heart rate in the low 90s and the patient at the time was asymptomatic. A bolus was ordered of 1 L of normal saline. An hour later I received a phone call that her blood pressure continued to be hypotensive, heart rate in the 90s, with an oxygen requirement of more than 4 L nasal cannula. I immediately consulted the medical staff lead warehouse associate and came in to evaluate the patient. The patient was able to answer questions but not necessarily known to be accurately. She was placed on BiPAP, fluids were increased, and stat labs were ordered. Medical staff arrived. Further antibiotic administration with Zosyn and vancomycin was ordered. The OR team was called for immediate cystoscopy and left ureteral stent insertion. Consent had already been obtained previously with admission orders. Per nursing staff, an empty bottle of oxycodone was found within the patient's belongings and Narcan was also ordered. FOR[facility]LY [facility] Medical History (Updated 04/22/23 @ 00:[address] Kelsey Beck MD) Abdominal pain Arthritis Bipolar disorder Bipolar disorder, unspecified Carpal tunnel syndrome Cervix erosion Chronic cough Depression Dizziness Easy bruising Fatigue Fever GERD (gastroesophageal reflux disease) Hemorrhoid History of edema History of kidney stones HTN (hypertension) Hypothyroidism IBS (irritable bowel syndrome) Impaired fasting glucose Impingement syndrome of unspecified shoulder Incontinence Injury of head and neck Iron deficiency Leg cramps Low back pain Low iron Non-smoker Osteoarthritis Post-menopausal Radiculopathy, lumbar region Restless leg syndrome Sepsis Shingles Shortness of breath on exertion Stomach ulcer Vitamin D deficiency Wears glasses Wears partial dentures Home Medications cholecalciferol (vitamin D3) 25 mcg (1,000 unit) tablet 2,000 unit PO DAILY 05/15/16 [History Last Taken 04/20/23 08:00] ferrous sulfate 15 mg iron (75 mg)/mL oral drops 65 mg PO DAILY 05/15/16 [History Last Taken 04/20/23 08:00] levothyroxine 50 mcg tablet 75 mcg PO DAILY 05/15/16 [History Last Taken 04/21/23 08:00] bbvktxez-bjcs-epro 8 mg-folic 400 mcg-K 50 mcg-lutein 300 mcg tablet 1 each PO DAILY 05/15/16 [History Last Taken 04/20/23 08:00] inhalational spacing device ##1 09/02/19 [Rx Last Taken Unknown] omeprazole 20 mg capsule,delayed release 20 mg PO DAILY 09/02/19 [History Last Taken 04/21/23 08:00] albuterol sulfate 90 mcg/actuation breath activated powder inhaler 2 inh inhalation Q6H PRN COUGHING 03/22/23 [History Last Taken 04/21/23 08:57] calcium carb-vit K3-zyqmuiulf-pzgj 333 mg-200 unit-133 mg-5 mg tablet 1 tab PO DAILY 03/22/23 [History Last Taken 04/20/23 08:00] potassium chloride 10 mEq tablet,extended release (K-Tab) 10 meq PO DAILY 03/22/23 [History Last Taken 04/20/23 08:00] sucralfate 1 gram tablet 1 gm PO DAILY 03/22/23 [History Last Taken 04/21/23 06:00] vitamin B complex (Vitamins B Complex capsule) 1 cap PO DAILY 03/22/23 [History Last Taken 04/20/23 08:00] lamotrigine 150 mg tablet 150 mg PO BID #60 tabs 04/11/23 [Rx Last Taken 04/21/23 08:00] ropinirole 1 mg tablet 3 mg PO QHS 04/11/23 [History Last Taken 04/20/23 22:00] venlafaxine 150 mg capsule,extended release 24 hr 150 mg PO DAILY #30 caps 04/11/23 [Rx Last Taken 04/20/23 22:00] venlafaxine 75 mg tablet 75 mg PO DAILY 04/11/23 [History Last Taken 04/20/23 22:00] doxycycline hyclate 100 mg capsule 100 mg PO BID 04/21/23 [History Last Taken Unknown] ketorolac 10 mg tablet 10 mg PO Q6H PRN pain 04/21/23 [History Last Taken 04/21/23 08:00] oxycodone-acetaminophen 5 mg-325 mg tablet 1 tab PO Q6H PRN pain 04/21/23 [History Last Taken 04/21/23 08:00] tamsulosin 0.4 mg capsule 0.4 mg PO DAILY 04/21/23 [History Last Taken 04/20/23 06:00] Allergy/AdvReac Type Severity Reaction Status Date / Time Sugars, Metabolically Active Allergy Intermediate Diarrhea Verified 04/21/23 11:43 prednisone AdvReac Intermediate Other Verified 04/21/23 11:43 Surgical History H/O foot surgery History of esophagogastroduodenoscopy (EGD) History of selective injection of anesthetic agent around lumbar nerve root History of tonsillectomy and adenoidectomy Hx of cholecystectomy Social History Smoking Status: Never smoker alcohol intake: current Vital Signs Vital Signs Vital Signs: 04/21/23 11:43 04/21/23 11:42 04/21/23 13:42 Temperature 97.3 F L Temperature Source Temporal Pulse Rate 89 78 Respiratory Rate 14 14 Respiratory Effort Normal Respiratory Depth Respiratory Pattern Normal Blood Pressure 155/88 H 134/78 H Blood Pressure [BP] Blood Pressure Mean 110 96 Blood Pressure Mean [BP] Blood Pressure Source [BP] Blood Pressure Position [BP] Blood Pressure Location [BP] Pulse Ox 98 98 Oxygen Delivery Method Room Air Room Air Oxygen Flow Rate (L/min) 04/21/23 16:33 04/21/23 16:37 04/21/23 17:33 Temperature 98.0 F Temperature Source Oral Pulse Rate 110 H 100 100 Respiratory Rate 28 H 24 H 18 Respiratory Effort Normal Respiratory Depth Normal Respiratory Pattern Normal Blood Pressure 116/66 121/70 H Blood Pressure [BP] Blood Pressure Mean 82 87 Blood Pressure Mean [BP] Blood Pressure Source [BP] Blood Pressure Position [BP] Blood Pressure Location [BP] Pulse Ox 84 94 92 Oxygen Delivery Method Room Air Nasal Cannula Nasal Cannula Oxygen Flow Rate (L/min) 2 3 04/21/23 17:54 04/21/23 21:24 04/21/23 22:15 Temperature 99 F 99 F Temperature Source Temporal Temporal Pulse Rate 100 100 100 Respiratory Rate 18 18 18 Respiratory Effort Normal Respiratory Depth Normal Respiratory Pattern Normal Blood Pressure 140/80 H 85/49 L Blood Pressure [BP] Blood Pressure Mean 100 61 Blood Pressure Mean [BP] Blood Pressure Source [BP] Blood Pressure Position [BP] Blood Pressure Location [BP] Pulse Ox 92 93 92 Oxygen Delivery Method Nasal Cannula Nasal Cannula Nasal Cannula Oxygen Flow Rate (L/min) 3 3 3 04/21/23 22:40 04/21/23 23:05 04/21/23 23:07 Temperature Temperature Source Pulse Rate 99 Respiratory Rate 24 H Respiratory Effort Respiratory Depth Respiratory Pattern Blood Pressure Blood Pressure [BP] 87/43 L 68/52 L 82/68 L Blood Pressure Mean Blood Pressure Mean [BP] 57 57 72 Blood Pressure Source [BP] Monitor Manual Manual Blood Pressure Position [BP] Semi-Fowlers Semi-Fowlers Blood Pressure Location [BP] Right Forearm Right Arm Pulse Ox 90 Oxygen Delivery Method Nasal Cannula Oxygen Flow Rate (L/min) 5 04/21/23 23:12 04/21/23 23:00 04/21/23 23:39 Temperature Temperature Source Pulse Rate 95 Respiratory Rate 12 94 H Respiratory Effort Respiratory Depth Respiratory Pattern Blood Pressure Blood Pressure [BP] 81/56 L 81/50 L 80/56 L Blood Pressure Mean Blood Pressure Mean [BP] 64 60 64 Blood Pressure Source [BP] Monitor Monitor Blood Pressure Position [BP] Semi-Fowlers Blood Pressure Location [BP] Pulse Ox 95 94 Oxygen Delivery Method Nasal Cannula Bi-pap Bi-pap Oxygen Flow Rate (L/min) 5 04/21/23 23:26 04/21/23 23:59 04/21/23 22:52 Temperature Temperature Source Pulse Rate 91 Respiratory Rate 12 Respiratory Effort Respiratory Depth Respiratory Pattern Blood Pressure Blood Pressure [BP] 95/64 83/56 L 59/44 L Blood Pressure Mean Blood Pressure Mean [BP] 74 65 49 Blood Pressure Source [BP] Monitor Blood Pressure Position [BP] Semi-Fowlers Semi-Fowlers Blood Pressure Location [BP] Right Arm Pulse Ox 97 Oxygen Delivery Method Bi-pap Oxygen Flow Rate (L/min) 04/21/23 23:09 Temperature Temperature Source Pulse Rate Respiratory Rate Respiratory Effort Respiratory Depth Respiratory Pattern Blood Pressure Blood Pressure [BP] 90/62 Blood Pressure Mean Blood Pressure Mean [BP] 71 Blood Pressure Source [BP] Monitor Blood Pressure Position [BP] Prone Blood Pressure Location [BP] Pulse Ox Oxygen Delivery Method Oxygen Flow Rate (L/min) Weight Weight: 107.864 kg Body Mass Index (BMI) 40.8 Physical Exam Const well nourished General Appearance: ill appearing HEENT normocephalic and head/scalp atraumatic Neck supple General: normal visual inspection and trachea midline Lymph Lymphatic: no lymphedema noted Chest inspection of chest normal Resp Effort and Inspection: symmetric chest movement, abnormal respiratory pattern, tachypneic, respiratory distress and labored Cardio regular rate and regular rhythm GI soft to palpation and non-distended Extremity normal to inspection Skin no rashes or lesions noted Results Lab / Micro Data 04/21/23 11:50 04/21/23 11:50 Labs: Laboratory Results - last 24 hr 04/21/23 11:50: WBC 5.7, RBC 4.05 L, Hgb 13.2, Hct 38.7, MCV 95.6, MCH 32.6 H, MCHC 34.1, RDW Std Deviation 48.7 H, RDW Coeff of Poly 13.7, Plt Count 145 L, MPV 11.6, Immature Gran % (Auto) 0.300, Neut % (Auto) 76.5 H, Lymph % (Auto) 18.9 L, [place] % (Auto) 0.5, Eos % (Auto) 3.3, Baso % (Auto) 0.5, Absolute Neuts (auto) 4.4, Absolute Lymphs (auto) 1.08, Nucleated RBC % 0, Sodium 139, Potassium 3.6, Chloride 108 H, Carbon Dioxide 24.0, Anion Gap 7, BUN 21 H, Creatinine 1.37 H, Estim Creat Clear Calc 33.47, Est GFR (MDRD) Af Amer 49 L, Est GFR (MDRD) Non-Af 41 L, BUN/Creatinine Ratio 15.3, Glucose 126 H, Calcium 8.5 04/21/23 14:13: Urine Color Yellow, Urine Clarity Sl. Cloudy, Urine pH 6.0, Ur Specific [place] 1.020, Urine Protein 30 H, Urine Glucose (UA) Normal, Urine Ketones 5 H, Urine Occult Blood 150 H, Urine Nitrite Positive H, Urine Bilirubin 1 H, Urine Urobilinogen 1 H, Ur Leukocyte Esterase 500 H, Urine RBC 0-5 SEEN, Urine WBC 25-50 SEEN, Ur Squamous Epith Cells 0 SEEN, Urine Bacteria RARE, Urine Mucus 0 SEEN ABG Data ABG results: ABG 04/21/23 23:42 Specimen Type ART Sample Site R Radial pH 7.37 Bicarbonate Actual 19.2 L Total CO2 20 Base Excess -6 L O2 Saturation 95 O2 % 40 ABG pCO2 33.4 L ABG pO2 78 Joseph Test Positive O2 Delivery Device BiPAP POC PEEP 8 Radiology Impression Abdomen/Pelvis CT 04/21/23 11:55 IMPRESSION: Left-sided hydronephrosis and hydroureter with a minimal amount of perinephric and periureteral stranding due to a 4.8 mm stone in the distal left ureter on images described above. Punctate nonobstructing bilateral nephrolithiasis No free intraperitoneal fluid, air, or suspicious adenopathy, normal appendix visualized Uterus is present, the endometrium cannot be accurately evaluated with CT Electronically Signed: Wade Villa MD at 13:14 EDT , Assessment & Plan Assessment/Plan (1) Urolithiasis: QUALIFIERS: Urinary calculus location: ureter Qualified Code(s): N20.1 - Calculus of ureter (2) Acute UTI: (3) Sepsis: QUALIFIERS: Sepsis type: sepsis due to unspecified organism Severe sepsis shock status: with septic shock PLAN: Plan To the operating room for cystoscopy and left ureteral stent insertion To the ICU for care afterward Continue supportive care, antibiotics and await cultures
--- NOTE | 2023-04-22 00:13 | PCM.OPRPT ---
Report of Operation Date of Procedure: 04/22/23 Pre-Operative Diagnosis: Left ureteral calculus with sepsis Post-Operative Diagnosis: Same Surgery/Procedure Performed:: Cystoscopy with left ureteral stent insertion Surgeon: Kelsey Beck Type of Anesthesia: MAC Specimen's removed: None Description of Procedure: The patient is a 68-year-old female admitted from the emergency room with a left distal ureteral calculus. She became septic on the floor and was brought down to the operating room for cystoscopy and left ureteral stent insertion. Informed consent was obtained prior to her becoming septic. The patient was taken to the operating room placed on the operating room table. Anesthesia monitored the head, neck, airway, IV access and vital signs throughout the case. Once anesthesia was appropriately administered, she was placed into dorsolithotomy position was prepped and draped in usual sterile fashion. Cystoscope was inserted through the urethra under direct visualization into the urinary bladder. The left ureteral orifice was identified and intubated with an 0.035 Glidewire. A 6 [place] by 24 cm JJ stent was inserted over the wire with good positioning in the renal pelvis as well as the urinary bladder. At this time the cystoscope was removed and a Magdaleno catheter was inserted and the balloon was inflated with 10 cc of saline. The patient was then awakened and taken to the intensive care unit for further management. Grafts/Implants Used: 6 x 24 cm JJ stent Complications None Admit VTE Documentation VTE Present on Admission: Yes VTE Mechan Device Prophylaxis: SCD's VTE Pharm Prophylaxis ordered?: Yes
--- NOTE | 2023-04-22 00:20 | NURSING ---
pt more lethargic, map in 50's, labored breathing with periods of apnea, surgeon called and on her way, dr vizcarra called to beside. bipap applied lab work obtained.
--- NOTE | 2023-04-22 00:22 | PCM.PN.HOSP ---
Reason for Visit Reason for Visit: Diagnoses Sepsis, unspecified organism (04/21/23) Calculus of ureter (04/21/23) Urinary tract infection, site not specified (04/21/23) Subjective Subjective Reason for consult: Hypotension and hypoxia. Patient is 68-year-old with a left distal ureteral calculus; controlled left flank pain and UTI who developed hypotension and hypoxia and for which internal medicine service was consulted. Patient required increased amount of nasal cannula oxygen of about 5 L; had systolic blood pressure in the 80s and appeared confused. Reportedly an empty bottle of oxycodone was found with her so narcan was ordered by urology; and internal medicine service was consulted for further evaluation. However it turned out that the oxycodone had been prescribed several months ago. Also patient received morphine at the emergency department for pain Objective Data Objective Data Vital Signs: Vital Signs Temp Pulse Resp BP Pulse Ox O2 Del Method O2 Flow Rate 99 F 91 12 83/56 L 97 Bi-pap 5 04/21/23 21:24 04/21/23 23:59 04/21/23 23:59 04/21/23 23:59 04/21/23 23:59 04/21/23 23:59 04/21/23 23:12 Oxygen Flow Rate (L/min) 5 Oxygen Delivery Method Bi-pap Weight: 107.864 kg Body Mass Index (BMI) 40.8 Intake & Output: Intake and Output for Last 24 Hours 04/20/23 04/21/23 04/22/23 23:59 23:59 23:59 Intake Total 1741.67 / 1741.67 Output Total 200 / 200 Balance 1541.67 / 1541.67 Lab / Micro Data 04/21/23 23:48 04/21/23 23:48 Labs: Laboratory Results - last 24 hr 04/21/23 11:50: WBC 5.7, RBC 4.05 L, Hgb 13.2, Hct 38.7, MCV 95.6, MCH 32.6 H, MCHC 34.1, RDW Std Deviation 48.7 H, RDW Coeff of Poly 13.7, Plt Count 145 L, MPV 11.6, Immature Gran % (Auto) 0.300, Neut % (Auto) 76.5 H, Lymph % (Auto) 18.9 L, [place] % (Auto) 0.5, Eos % (Auto) 3.3, Baso % (Auto) 0.5, Absolute Neuts (auto) 4.4, Absolute Lymphs (auto) 1.08, Nucleated RBC % 0, Sodium 139, Potassium 3.6, Chloride 108 H, Carbon Dioxide 24.0, Anion Gap 7, BUN 21 H, Creatinine 1.37 H, Estim Creat Clear Calc 33.47, Est GFR (MDRD) Af Amer 49 L, Est GFR (MDRD) Non-Af 41 L, BUN/Creatinine Ratio 15.3, Glucose 126 H, Calcium 8.5 04/21/23 14:13: Urine Color Yellow, Urine Clarity Sl. Cloudy, Urine pH 6.0, Ur Specific [place] 1.020, Urine Protein 30 H, Urine Glucose (UA) Normal, Urine Ketones 5 H, Urine Occult Blood 150 H, Urine Nitrite Positive H, Urine Bilirubin 1 H, Urine Urobilinogen 1 H, Ur Leukocyte Esterase 500 H, Urine RBC 0-5 SEEN, Urine WBC 25-50 SEEN, Ur Squamous Epith Cells 0 SEEN, Urine Bacteria RARE, Urine Mucus 0 SEEN ABG Data ABG results: ABG 04/21/23 23:42 Specimen Type ART Sample Site R Radial pH 7.37 Bicarbonate Actual 19.2 L Total CO2 20 Base Excess -6 L O2 Saturation 95 O2 % 40 ABG pCO2 33.4 L ABG pO2 78 Joseph Test Positive O2 Delivery Device BiPAP POC PEEP 8 Radiography Diagnostic Testing: Radiology Impression Abdomen/Pelvis CT 04/21/23 11:55 IMPRESSION: Left-sided hydronephrosis and hydroureter with a minimal amount of perinephric and periureteral stranding due to a 4.8 mm stone in the distal left ureter on images described above. Punctate nonobstructing bilateral nephrolithiasis No free intraperitoneal fluid, air, or suspicious adenopathy, normal appendix visualized Uterus is present, the endometrium cannot be accurately evaluated with CT Electronically Signed: Wade Villa MD at 13:14 EDT , Physical Exam Narrative Physical exam: General: Well-nourished, well-developed. Head: Normocephalic, atraumatic, no tenderness Eyes: Vision is grossly intact. EOMI ENT, no trauma, moist mucous membranes, no rhinorrhea Neck: Nontender, No thyromegaly. CVS: Regular rate and rhythm. S1-S2 present. No murmur, gallop or rub. Respiratory : clear to auscultation bilaterally, chest wall nontender Abdomen: Soft, nontender, nondistended, normal bowel sounds, no masses : Deferred Back: Nontender, no CVA tenderness, no midline spinal tenderness, deformities, step-offs Extremities: Nontender full range of motion, no trauma Skin: Normal color, no trauma, abrasions Neuro: Hypoalert, confused. Cranial nerves II through XII grossly intact. Moving legs repeatedly in bed. Psychiatry: Normal mood. Normal affect. Not depressed. Not anxious. Assessment & Plan Assessment/Plan (1) Sepsis: QUALIFIERS: Sepsis type: sepsis due to unspecified organism Sepsis acute organ dysfunction status: with acute organ dysfunction Acute renal failure type: with acute renal cortical necrosis Severe sepsis acute organ dysfunction type: acute renal failure Severe sepsis shock status: with septic shock Qualified Code(s): A41.9 - Sepsis, unspecified organism; R65.21 - Severe sepsis with septic shock; N17.1 - Acute kidney failure with acute cortical necrosis (2) Acute UTI: PLAN: Plan Sepsis due to acute UTI Radiologist impression of abdomen/pelvis CT: Left-sided hydronephrosis and hydroureter with a minimal amount of perinephric and periureteral stranding due to a 4.8 mm stone in the distal left ureter on images described above. Punctate nonobstructing bilateral nephrolithiasis No free intraperitoneal fluid, air, or suspicious adenopathy, normal appendix visualized Abdomen/pelvis CT was independently interpreted by hospitalist, I agree with radiologist interpretation. Uterus is present, the endometrium cannot be accurately evaluated with CT The patient presented with sepsis due to (UTI) with acute sepsis related organ dysfunction as evidenced by (lactic acidosis and NICOLE). organ dysfunction: SBP less than 90 or MAP less than 65 Creatinine more than 2 Lactate more than 2 mmol/L Normal saline bolus per septic shock protocol ordered. Trend lactic acid. Cystoscopy with left ureteral stent insertion done. Transfer to intensive care unit. Begin Levophed for MAP less than 65 or systolic blood pressure of less than 95 Blood cultures ordered. Follow urine culture. White count of 11,700. Trend Hypoxia Patient initially required about 5 L of nasal cannula oxygen then transitioned to nonrebreather mask. BiPAP ordered. Continuous oxygenation checks while on BiPAP. NICOLE Creatinine of 2.18. With baseline creatinine close to 1. IV hydration. Trend. Anemia: hemoglobin 11.3. Trend CBC DVT prophylaxis: SCDs ordered Charges/Coding Visit Charges Office Visits / Consults: 57319 OV L5 Est
[2023-04-22 00:23] LABS: Bedside Glucose 100 mg/dL (74-106)
[2023-04-22 00:24] LABS: Absolute Neutrophil Count 10.8 X10^3/uL (2.0-7.7); Basophil# 0.06 X10^3/uL; Basophil% 0.5 % (0-1); Eosinophil# 0.03 X10^3/uL; Eosinophils% 0.3 % (0-5); Hematocrit 35.1 % (37-47); Hemoglobin 11.3 g/dL (12.0-15.0); Lymphocyte % 3.4 % (19-41); Mean Corp Hgb Conc 32.2 g/dL (32-36); Mean Corpuscular Hgb 32.1 pg (27.0-32.0); Mean Corpuscular Volume 99.7 fL (81-99); Mean Platelet Vol. 12.5 fl (6.2-12.0); Monocyte# 0.15 X10^3/uL; Monocyte% 1.3 % (0-10); NRBC Flagged by Analyzer 0.2 % (0-5); Neutrophil # 10.82 X10^3/uL (2.7-7.7); Neutrophil % 92.4 % (47-70); POSITIVE COUNT YES; POSITIVE DIFFERENTIAL YES; POSITIVE MORPHOLOGY YES; Platelet Count 94 K/mm3 (150-450); RBC Distribution Width CV 14.3 % (11.6-14.6); RBC Distribution Width SD 52.1 fl (35.1-43.9); Red Blood Count 3.52 M/mm3 (4.2-5.4); White Blood Count 11.7 K/mm3 (4.4-11.0)
[2023-04-22 00:27] LABS: Differential Indicated SCAN CRITERIA MET
[2023-04-22 00:30] LABS: Lactic Acid 2.6 mmol/L (0.4-1.9)
[2023-04-22 00:31] LABS: ALB/GLOB Ratio 0.9 RATIO (0.9-2.4); AST(SGOT) 67 U/L (15-37); Alanine Aminotransfer ALT/SGPT 44 U/L (13-56); Albumin, Serum 2.6 g/dL (3.2-5.0); Alkaline Phosphatase 98 U/L (45-117); Anion Gap 6 (5-15); BUN 27 mg/dL (7-18); BUN/Creat Ratio 12.4 RATIO (10-20); Calcium,Total 7.7 mg/dL (8.5-10.1); Chloride 110 mmol/L (98-107); Creatinine, Serum 2.18 mg/dL (0.55-1.02); EST Glomerular Filtration Rate 24 mL/min (>60); Est Glom Filt Rate - Afr Amer 29 mL/min (>60); Estimated Creatinine Clearance 21.03 ml/min; Glucose 94 mg/dL (74-106); Magnesium 1.7 mg/dL (1.6-2.6); Phosphorus 2.3 mg/dL (2.5-4.9); Potassium 3.7 mmol/L (3.5-5.1); Protein, Total 5.6 g/dL (6.4-8.2); Sodium Level 137 mmol/L (136-145); Troponin-I HS 20 pg/mL (3.0-54.0)
[2023-04-22 00:53] LABS: Macrocytosis RARE; Platelet Estimate MOD DEC (ADEQ)
[2023-04-22] MEDS: 0.9% Normal Saline 1,000 ML 999 ML IV (00:59)
[2023-04-22 03:54] LABS: Reflex Lactate? Y
[2023-04-22 04:35] LABS: Anion Gap 7 (5-15); BUN 30 mg/dL (7-18); BUN/Creat Ratio 12.3 RATIO (10-20); Calcium,Total 7.2 mg/dL (8.5-10.1); Chloride 110 mmol/L (98-107); Creatinine, Serum 2.44 mg/dL (0.55-1.02); EST Glomerular Filtration Rate 21 mL/min (>60); Est Glom Filt Rate - Afr Amer 25 mL/min (>60); Estimated Creatinine Clearance 18.79 ml/min; Glucose 105 mg/dL (74-106); Potassium 3.7 mmol/L (3.5-5.1); Sodium Level 138 mmol/L (136-145)
[2023-04-22 04:41] LABS: Lactic Acid 1.9 mmol/L (0.4-1.9)
[2023-04-22 04:47] LABS: Hematocrit 34.9 % (37-47); Hemoglobin 11.2 g/dL (12.0-15.0); Mean Corp Hgb Conc 32.1 g/dL (32-36); Mean Corpuscular Hgb 31.9 pg (27.0-32.0); Mean Corpuscular Volume 99.4 fL (81-99); Mean Platelet Vol. 12.8 fl (6.2-12.0); Platelet Count 105 K/mm3 (150-450); RBC Distribution Width CV 14.6 % (11.6-14.6); RBC Distribution Width SD 53.1 fl (35.1-43.9); Red Blood Count 3.51 M/mm3 (4.2-5.4)
--- NOTE | 2023-04-22 04:47 | CPS ---
Fio2 increased to 65% by RN due to pt desat.
--- NOTE | 2023-04-22 04:47 | CPS ---
Bipap pressures increased to 16/10 and 55% due to pt desat and to achieve better tidal volumes.
--- NOTE | 2023-04-22 05:00 | PCM.RX.CS ---
Consult Antibiotic Management Pharmacy has been consulted to manage selected antiobiotic: Vancomycin Type of Intervention Type of Consult: New start Suspected Infection Suspected Infection: Sepsis Labs Labs: Sodium 138 mmol/L (136-145) 04/22/23 03:20 Potassium 3.7 mmol/L (3.5-5.1) 04/22/23 03:20 Chloride 110 mmol/L (98-107) H 04/22/23 03:20 Carbon Dioxide 21.0 mmol/L (21.0-32.0) 04/22/23 03:20 Anion Gap 7 (5-15) 04/22/23 03:20 BUN 30 mg/dL (7-18) H 04/22/23 03:20 Creatinine 2.44 mg/dL (0.55-1.02) H 04/22/23 03:20 Est GFR (MDRD) Af Amer 25 mL/min (>60) L 04/22/23 03:20 Est GFR (MDRD) Non-Af 21 mL/min (>60) L 04/22/23 03:20 BUN/Creatinine Ratio 12.3 RATIO (10-20) 04/22/23 03:20 Glucose 105 mg/dL (74-106) 04/22/23 03:20 Dosing Weight Weight used for dosin.2 kg Estimated Creatinine Clearance Estimated Creatinine Clearance: 26.7 -ABW Goal Trough Goal Trough: 15-20 mcg/mL Pharmacy Plan for Drug Dosing Pharmacy Plan for Drug Dosing: Pharmacy Service will continue to monitor and adjust dosing as required. Follow-Up Labs Follow-Up Labs: Trough: Vancomycin Date/Time Labs Ordered Labs to be done on [date and time ordered]: 04/23/23 @8315
--- NOTE | 2023-04-22 07:16 | PCM.PN.HOSP ---
Reason for Visit Reason for Visit: Diagnoses Sepsis, unspecified organism (04/21/23) Acute kidney failure with acute cortical necrosis (04/21/23) Calculus of ureter (04/21/23) Urinary tract infection, site not specified (04/21/23) Severe sepsis with septic shock (04/21/23) Subjective Subjective Patient is a 68-year-old lady admitted with left flank pain and assessment of sepsis secondary to acute pyelonephritis made admitted to the intensive care unit for further management Objective Data Objective Data Vital Signs: Vital Signs Temp Pulse Resp BP Pulse Ox O2 Del Method O2 Flow Rate 100.2 F H 78 25 H 82/56 L 95 Bi-pap 15 04/22/23 04:00 04/22/23 07:00 04/22/23 07:00 04/22/23 07:00 04/22/23 07:00 04/22/23 07:00 04/22/23 01:30 FiO2 60 04/22/23 07:00 Oxygen Flow Rate (L/min) 15 Oxygen Delivery Method Bi-pap Weight: 112.2 kg Body Mass Index (BMI) 42.2 Intake & Output: Intake and Output for Last 24 Hours 04/20/23 04/21/23 04/22/23 23:59 23:59 23:59 Intake Total 1741.67 / 1741.67 3623.71 / 3623.71 Output Total 200 / 200 100 / 100 Balance 1541.67 / 1541.67 3523.71 / 3523.71 Lab / Micro Data 04/22/23 03:20 04/22/23 03:20 Labs: Laboratory Results - last 24 hr 04/21/23 11:50: WBC 5.7, RBC 4.05 L, Hgb 13.2, Hct 38.7, MCV 95.6, MCH 32.6 H, MCHC 34.1, RDW Std Deviation 48.7 H, RDW Coeff of Poly 13.7, Plt Count 145 L, MPV 11.6, Immature Gran % (Auto) 0.300, Neut % (Auto) 76.5 H, Lymph % (Auto) 18.9 L, [place] % (Auto) 0.5, Eos % (Auto) 3.3, Baso % (Auto) 0.5, Absolute Neuts (auto) 4.4, Absolute Lymphs (auto) 1.08, Nucleated RBC % 0, Sodium 139, Potassium 3.6, Chloride 108 H, Carbon Dioxide 24.0, Anion Gap 7, BUN 21 H, Creatinine 1.37 H, Estim Creat Clear Calc 33.47, Est GFR (MDRD) Af Amer 49 L, Est GFR (MDRD) Non-Af 41 L, BUN/Creatinine Ratio 15.3, Glucose 126 H, Calcium 8.5 04/21/23 14:13: Urine Color Yellow, Urine Clarity Sl. Cloudy, Urine pH 6.0, Ur Specific [place] 1.020, Urine Protein 30 H, Urine Glucose (UA) Normal, Urine Ketones 5 H, Urine Occult Blood 150 H, Urine Nitrite Positive H, Urine Bilirubin 1 H, Urine Urobilinogen 1 H, Ur Leukocyte Esterase 500 H, Urine RBC 0-5 SEEN, Urine WBC 25-50 SEEN, Ur Squamous Epith Cells 0 SEEN, Urine Bacteria RARE, Urine Mucus 0 SEEN 04/21/23 22:57: POC Glucose 100 04/21/23 23:48: WBC 11.7 H, RBC 3.52 L, Hgb 11.3 L, Hct 35.1 L, MCV 99.7 H, MCH 32.1 H, MCHC 32.2 D, RDW Std Deviation 52.1 H, RDW Coeff of Poly 14.3, Plt Count 94 L, MPV 12.5 H, Immature Gran % (Auto) 2.100 H, Neut % (Auto) 92.4 H, Lymph % (Auto) 3.4 L, [place] % (Auto) 1.3, Eos % (Auto) 0.3, Baso % (Auto) 0.5, Absolute Neuts (auto) 10.8 H, Absolute Lymphs (auto) 0.40 L, Nucleated RBC % 0.2, Platelet Estimate MOD DEC, Macrocytosis RARE, Sodium 137, Potassium 3.7, Chloride 110 H, Carbon Dioxide 21.0, Anion Gap 6, BUN 27 H, Creatinine 2.18 H, Estim Creat Clear Calc 21.03, Est GFR (MDRD) Af Amer 29 L, Est GFR (MDRD) Non-Af 24 L, BUN/Creatinine Ratio 12.4, Glucose 94, Lactic Acid 2.6 H*, Calcium 7.7 L, Phosphorus 2.3 L, Magnesium 1.7, Total Bilirubin 0.60, AST 67 H, ALT 44, Alkaline Phosphatase 98, Troponin I High Sens 20, Total Protein 5.6 L, Albumin 2.6 L, Globulin 3.0, Albumin/Globulin Ratio 0.9 04/22/23 03:20: WBC 19.0 H, RBC 3.51 L, Hgb 11.2 L, Hct 34.9 L, MCV 99.4 H, MCH 31.9, MCHC 32.1, RDW Std Deviation 53.1 H, RDW Coeff of Poly 14.6, Plt Count 105 L, MPV 12.8 H, Sodium 138, Potassium 3.7, Chloride 110 H, Carbon Dioxide 21.0, Anion Gap 7, BUN 30 H, Creatinine 2.44 H, Estim Creat Clear Calc 18.79, Est GFR (MDRD) Af Amer 25 L, Est GFR (MDRD) Non-Af 21 L, BUN/Creatinine Ratio 12.3, Glucose 105, Calcium 7.2 L, TSH 1.10 04/22/23 03:35: Lactic Acid 1.9 ABG Data ABG results: ABG 04/21/23 23:42 Specimen Type ART Sample Site R Radial pH 7.37 Bicarbonate Actual 19.2 L Total CO2 20 Base Excess -6 L O2 Saturation 95 O2 % 40 ABG pCO2 33.4 L ABG pO2 78 Joseph Test Positive O2 Delivery Device BiPAP POC PEEP 8 Radiography Diagnostic Testing: Radiology Impression Abdomen/Pelvis CT 04/21/23 11:55 IMPRESSION: Left-sided hydronephrosis and hydroureter with a minimal amount of perinephric and periureteral stranding due to a 4.8 mm stone in the distal left ureter on images described above. Punctate nonobstructing bilateral nephrolithiasis No free intraperitoneal fluid, air, or suspicious adenopathy, normal appendix visualized Uterus is present, the endometrium cannot be accurately evaluated with CT Electronically Signed: Wade Villa MD at 13:14 EDT , Physical Exam Narrative GENERAL: cooperative HEENT: Atraumatic; normocephalic EYES; Anicteric, Normal Conjunctiva NECK; supple, normal thyroid, RESPIRATORY: Diminished to auscultation CARDIOVASCULAR: Regular S1 S2, GI: soft, normoactive bowel sounds, : No Renal angle tenderness; EXTREMITIES: No edema, no clubbing, MUSCULOSKELETAL: no muscle wasting NEURO: Awake; no lateralizing signs. SKIN: No Rash PSYCH; Flat affect Assessment & Plan Assessment/Plan (1) Sepsis: QUALIFIERS: Acute renal failure type: with acute renal cortical necrosis Sepsis acute organ dysfunction status: with acute organ dysfunction Sepsis type: sepsis due to unspecified organism Severe sepsis acute organ dysfunction type: acute renal failure Severe sepsis shock status: with septic shock Qualified Code(s): A41.9 - Sepsis, unspecified organism; R65.21 - Severe sepsis with septic shock; N17.1 - Acute kidney failure with acute cortical necrosis (2) Acute UTI: PLAN: Plan Patient is a 68-year-old lady admitted with left flank pain and assessment of sepsis secondary to acute pyelonephritis made admitted to the intensive care unit for further management 1. Sepsis secondary to acute pyelonephritis ? CT of the abdomen demonstrated left-sided hydronephrosis and hydroureter with minimal amount of perinephric and periureteral stranding due to 4.8 mm stone in the distal left ureter. Treatment initiated per protocol with IV fluid fluid resuscitation broad-spectrum antibiotic therapy after cultures have been sent 2. Acute hypoxia ? Patient placed on supplemental oxygen via nonrebreather mask/BiPAP 3. Acute kidney injury ? Please creatinine Creatinine 1.0 creatinine on admission 2.18, kidney function did worsen to 2.44, IV fluids subsequent monitoring of electrolytes ordered 4. Anemia - Secondary to chronic disorder monitoring H&H and transfuse if patient becomes symptomatic or hemoglobin falls below 7 5. Hypothyroidism - Patient is on levothyroxine home dose continued 6. GERD ? On PPI 7. History of duodenal ulcer ? On PPI 8. DVT prophylaxis ? Bilateral SCDs Time spent in the patient's overall evaluation,decision-making process, review of diagnostic data, adjustment of management, discussion with other providers, nursing nursing and ancillary staff involved in patient's care documentation, 50 Minutes Charges/Coding Visit Charges Inpatient E&M: 17549 [facility] Hosp L3
--- NOTE | 2023-04-22 07:54 | CON.PCM.CC_ITS ---
Assessment & Plan Assessment/Plan (1) Septic shock: PLAN: Plan RECOMMENDATIONS: 1. Continue antibiotics as ordered. 2. Continue Levophed to maintain a mean arterial pressure at or above 65 mmHg. 3. Continue to wean supplemental oxygen to maintain saturations at or above 90%. 4. BiPAP therapy with naps and nightly. 5. Encourage incentive spirometer use and mobilize patient as tolerated. IMPRESSIONS: 1. Gram-negative septic shock Appears to be secondary to pyelonephritis with CT imaging demonstrated left- sided hydronephrosis and hydroureter. The patient underwent cystoscopy and left ureteral stent insertion on April 22. The patient has been adequately volume resuscitated from a sepsis perspective. She subsequently developed fluid refractory hypotension, which necessitated vasopressor support. Cultures are pending. Recommend continuing antimicrobials as ordered along with Levophed to maintain a mean arterial pressure at or above 65 mmHg. 2. Acute kidney injury Most likely prerenal in etiology in the setting of #1. Anticipate stabilization with eventual improvement, pending stability and hemodynamics. I would avoid additional supplemental IV fluid hydration for now and continue vasopressor support to maintain a mean arterial pressure at or above 65 mmHg. Continue to monitor urine output. No current indication for renal replacement therapy. 3. Questionable obstructive sleep apnea The patient is currently being worked up by Dr. Robertson on an outpatient basis. Recommend continuing empiric BiPAP therapy 12/6 cm of water while admitted to [facility] on a nightly basis. 4. History of hypothyroidism/GERD/anemia Complicates care, management, recovery and prognosis. Continue home medications as indicated. TIME: 34 minutes of critical care time, independent of procedures, was spent a ddressing the patient's gram-negative septic shock, acute kidney injury, review of all data and collaboration with the care team. HPI Consult Data Date of Consult: 04/22/23 HPI Narrative Reason for Consultation: Septic shock HPI Narrative: The patient is a 68-year-old female, with a history as outlined below, who presented to the emergency department on April 21 via EMS with left-sided flank pain. Patient has a history of GERD/hypothyroidism and questionable sleep apnea. On presentation to the emergency department, the patient was noted to have a temperature of 97.3 ?F. She was otherwise hemodynamically stable on room air. Initial laboratory evaluation revealed no evidence of a leukocytosis. Platelet count was low at 145,000. Chemistry profile was notable for a creatinine of 1.37. Lactate was elevated at 2.6. Urine analysis was positive for nitrates, leukocyte esterase and rare bacteria. CT abdomen/pelvis demonstrated left-sided hydronephrosis and hydroureter with a 4.8 mm stone in the distal left ureter. The patient was seen in consultation by urology. During the early education teacher hours of April 22, the patient was taken to the OR where she underwent cystoscopy with left ureteral stent insertion. The patient is currently documented to be overall net +5 L for the hospitalization. Her hospital course has been complicated by a worsening leukocytosis along with acute kidney injury and fluid refractory hypotension, requiring vasopressor support. [facility] Medical History (Updated 04/22/23 @ 10:[address] Quentin Myrick, DO) Abdominal pain Arthritis Bipolar disorder Bipolar disorder, unspecified Carpal tunnel syndrome Cervix erosion Chronic cough Depression Dizziness Easy bruising Fatigue Fever GERD (gastroesophageal reflux disease) Hemorrhoid History of edema History of kidney stones HTN (hypertension) Hypothyroidism IBS (irritable bowel syndrome) Impaired fasting glucose Impingement syndrome of unspecified shoulder Incontinence Injury of head and neck Iron deficiency Leg cramps Low back pain Low iron Non-smoker Osteoarthritis Post-menopausal Radiculopathy, lumbar region Restless leg syndrome Sepsis Shingles Shortness of breath on exertion Stomach ulcer Vitamin D deficiency Wears glasses Wears partial dentures Home Medications cholecalciferol (vitamin D3) 25 mcg (1,000 unit) tablet 2,000 unit PO DAILY 05/15/16 [History Last Taken 04/20/23 08:00] ferrous sulfate 15 mg iron (75 mg)/mL oral drops 65 mg PO DAILY 05/15/16 [History Last Taken 04/20/23 08:00] levothyroxine 50 mcg tablet 75 mcg PO DAILY 05/15/16 [History Last Taken 04/21/23 08:00] loditfmj-rgug-rwrs 8 mg-folic 400 mcg-K 50 mcg-lutein 300 mcg tablet 1 each PO DAILY 05/15/16 [History Last Taken 04/20/23 08:00] inhalational spacing device ##1 09/02/19 [Rx Last Taken Unknown] omeprazole 20 mg capsule,delayed release 20 mg PO DAILY 09/02/19 [History Last Taken 04/21/23 08:00] albuterol sulfate 90 mcg/actuation breath activated powder inhaler 2 inh inhalation Q6H PRN COUGHING 03/22/23 [History Last Taken 04/21/23 08:57] calcium carb-vit P2-xelesqjnq-imid 333 mg-200 unit-133 mg-5 mg tablet 1 tab PO DAILY 03/22/23 [History Last Taken 04/20/23 08:00] potassium chloride 10 mEq tablet,extended release (K-Tab) 10 meq PO DAILY 03/22/23 [History Last Taken 04/20/23 08:00] sucralfate 1 gram tablet 1 gm PO DAILY 03/22/23 [History Last Taken 04/21/23 06:00] vitamin B complex (Vitamins B Complex capsule) 1 cap PO DAILY 03/22/23 [History Last Taken 04/20/23 08:00] lamotrigine 150 mg tablet 150 mg PO BID #60 tabs 04/11/23 [Rx Last Taken 04/21/23 08:00] ropinirole 1 mg tablet 3 mg PO QHS 04/11/23 [History Last Taken 04/20/23 22:00] venlafaxine 150 mg capsule,extended release 24 hr 150 mg PO DAILY #30 caps 04/11/23 [Rx Last Taken 04/20/23 22:00] venlafaxine 75 mg tablet 75 mg PO DAILY 04/11/23 [History Last Taken 04/20/23 22:00] doxycycline hyclate 100 mg capsule 100 mg PO BID 04/21/23 [History Last Taken Unknown] ketorolac 10 mg tablet 10 mg PO Q6H PRN pain 04/21/23 [History Last Taken 04/21/23 08:00] oxycodone-acetaminophen 5 mg-325 mg tablet 1 tab PO Q6H PRN pain 04/21/23 [History Last Taken 04/21/23 08:00] tamsulosin 0.4 mg capsule 0.4 mg PO DAILY 04/21/23 [History Last Taken 04/20/23 06:00] Allergy/AdvReac Type Severity Reaction Status Date / Time Sugars, Metabolically Active Allergy Intermediate Diarrhea Verified 04/21/23 11:43 prednisone AdvReac Intermediate Other Verified 04/21/23 11:43 Surgical History H/O foot surgery History of esophagogastroduodenoscopy (EGD) History of selective injection of anesthetic agent around lumbar nerve root History of tonsillectomy and adenoidectomy Hx of cholecystectomy Social History Smoking Status: Never smoker alcohol intake: current ROS ROS Narrative 10 systems reviewed with pertinent positives as noted in the HPI above. Physical Exam Const alert and no apparent distress General Appearance: cooperative HEENT normocephalic and head/scalp atraumatic Eyes PERRL, EOMs intact bilaterally and conjunctivae normal Neck supple General: trachea midline Chest inspection of chest normal Resp normal respiratory effort Resp Narrative: Mild rales in the bases. Cardio regular rate and regular rhythm GI normal to inspection, nondistended, normoactive bowel sounds Extremity no clubbing, cyanosis or edema Skin no rashes or lesions noted Neuro oriented x3, CN's II-XII intact bilaterally and moves all extremities Psych cooperative and affect normal Lab / Micro Data 04/22/23 03:20 04/22/23 03:20 Labs: Laboratory Results - last 24 hr 04/21/23 11:50: WBC 5.7, RBC 4.05 L, Hgb 13.2, Hct 38.7, MCV 95.6, MCH 32.6 H, MCHC 34.1, RDW Std Deviation 48.7 H, RDW Coeff of Poly 13.7, Plt Count 145 L, MPV 11.6, Immature Gran % (Auto) 0.300, Neut % (Auto) 76.5 H, Lymph % (Auto) 18.9 L, [place] % (Auto) 0.5, Eos % (Auto) 3.3, Baso % (Auto) 0.5, Absolute Neuts (auto) 4.4, Absolute Lymphs (auto) 1.08, Nucleated RBC % 0, Sodium 139, Potassium 3.6, Chloride 108 H, Carbon Dioxide 24.0, Anion Gap 7, BUN 21 H, Creatinine 1.37 H, Estim Creat Clear Calc 33.47, Est GFR (MDRD) Af Amer 49 L, Est GFR (MDRD) Non-Af 41 L, BUN/Creatinine Ratio 15.3, Glucose 126 H, Calcium 8.5 04/21/23 14:13: Urine Color Yellow, Urine Clarity Sl. Cloudy, Urine pH 6.0, Ur Specific [place] 1.020, Urine Protein 30 H, Urine Glucose (UA) Normal, Urine Ketones 5 H, Urine Occult Blood 150 H, Urine Nitrite Positive H, Urine Bilirubin 1 H, Urine Urobilinogen 1 H, Ur Leukocyte Esterase 500 H, Urine RBC 0-5 SEEN, Ur ine WBC 25-50 SEEN, Ur Squamous Epith Cells 0 SEEN, Urine Bacteria RARE, Urine Mucus 0 SEEN 04/21/23 22:57: POC Glucose 100 04/21/23 23:48: WBC 11.7 H, RBC 3.52 L, Hgb 11.3 L, Hct 35.1 L, MCV 99.7 H, MCH 32.1 H, MCHC 32.2 D, RDW Std Deviation 52.1 H, RDW Coeff of Poly 14.3, Plt Count 94 L, MPV 12.5 H, Immature Gran % (Auto) 2.100 H, Neut % (Auto) 92.4 H, Lymph % (Auto) 3.4 L, [place] % (Auto) 1.3, Eos % (Auto) 0.3, Baso % (Auto) 0.5, Absolute Neuts (auto) 10.8 H, Absolute Lymphs (auto) 0.40 L, Nucleated RBC % 0.2, Platelet Estimate MOD DEC, Macrocytosis RARE, Sodium 137, Potassium 3.7, Chlorid e 110 H, Carbon Dioxide 21.0, Anion Gap 6, BUN 27 H, Creatinine 2.18 H, Estim Creat Clear Calc 21.03, Est GFR (MDRD) Af Amer 29 L, Est GFR (MDRD) Non-Af 24 L, BUN/Creatinine Ratio 12.4, Glucose 94, Lactic Acid 2.6 H*, Calcium 7.7 L, Phosph orus 2.3 L, Magnesium 1.7, Total Bilirubin 0.60, AST 67 H, ALT 44, Alkaline Phosphatase 98, Troponin I High Sens 20, Total Protein 5.6 L, Albumin 2.6 L, Globulin 3.0, Albumin/Globulin Ratio 0.9 04/22/23 03:20: WBC 19.0 H, RBC 3.51 L, Hgb 11.2 L, Hct 34.9 L, MCV 99.4 H, MCH 31.9, MCHC 32.1, RDW Std Deviation 53.1 H, RDW Coeff of Poly 14.6, Plt Count 105 L, MPV 12.8 H, Sodium 138, Potassium 3.7, Chloride 110 H, Carbon Dioxide 21.0, Anion Gap 7, BUN 30 H, Creatinine 2.44 H, Estim Creat Clear Calc 18.79, Est GFR (MDRD) Af Amer 25 L, Est GFR (MDRD) Non-Af 21 L, BUN/Creatinine Ratio 12.3, Glucose 105, Calcium 7.2 L, TSH 1.10 04/22/23 03:35: Lactic Acid 1.9 ABG Data ABG results: ABG 04/21/23 23:42 Specimen Type ART Sample Site R Radial pH 7.37 Bicarbonate Actual 19.2 L Total CO2 20 Base Excess -6 L O2 Saturation 95 O2 % 40 ABG pCO2 33.4 L ABG pO2 78 Joseph Test Positive O2 Delivery Device BiPAP POC PEEP 8 Radiology Impression Abdomen/Pelvis CT 04/21/23 11:55 IMPRESSION: Left-sided hydronephrosis and hydroureter with a minimal amount of perinephric and periureteral stranding due to a 4.8 mm stone in the distal left ureter on images described above. Punctate nonobstructing bilateral nephrolithiasis No free intraperitoneal fluid, air, or suspicious adenopathy, normal appendix visualized Uterus is present, the endometrium cannot be accurately evaluated with CT Electronically Signed: Wade Villa MD at 13:14 EDT , Charges/Coding Procedures Hospitalists Procedures: [id number] [facility] Care 1st Hr
[2023-04-22] MEDS: Acetaminophen 500 MG Tablet 1000 MG PO (08:54)
[2023-04-22] MEDS: Potassium Chloride Oral Tablet 10 MEQ PO (09:15)
[2023-04-22] MEDS: Enoxaparin 30 MG/0.3 ML Syringe SC (09:15)
[2023-04-22] MEDS: lamoTRIgine 150 MG Tablet PO ×2 (09:15→21:44)
[2023-04-22] MEDS: Pantoprazole Sodium 20 MG Tablet PO (09:15)
--- NOTE | 2023-04-22 10:15 | CASEMGMT ---
RN?CM?PLATE WORKER HELPER?CM?to room to meet with patient for initial transition planning/care coordination?assessment.?RN?CM?introduced self and role at [facility].? Pt voices understanding and consents to?assessment?at this time.? Pt resting in bed in no distress at this time.? Step-GDDee Dee, @ bedside and pt agreeable to her being present during assessment. Pt is A/O at this time and answers all questions appropriately.?? Care providers, pharmacy, and demographics verified/updated at this time. PCP: Dr Aubrie Zazueta @ [facility] Specialists: Dr Ross-GI, Dr Beck-urology, Dr Robertson-pulmonology. Pt states she will be f/u with Dr Robertson to get sleep studies done. Preferred Pharmacy: [facility] Retail Insurance: [employer] Prescription Benefit:?Yes Living Will/HPOA:? Pt does not currently have LW/HCPOA and interested in completing. She states she would like her step-dtr, Susy, to be her HCPOA, and her step-GD, Dee Dee, to be alternative. ROZ Tan, made aware. LNOK: Pt has one dtr, [place], who lives in [facility], but states does not have a good relationship w/her. Step-dtr, Susy. Step-GD, Dee Dee. FriendMamie Living Arrangements: Lives alone in 2-story home w/basement and 3 steps to enter. 1/2 bath on 1st floor. Bedroom and full bath on 2nd floor. Pt states could do FFSU, if needed. Indep w/ADL's and IADL's and manages her own medications. Transportation:?Pt states drives self and states no transportation concerns at this time.? DME: ? Denies using any DME and denies needs.?She does have a BP cuff available. HHC/SNF: No hx of SNF. Has had HHC in the past. Denies need for HHC at this time, as she states she is not homebound. Pt wishes to return home and states has no concerns with going home at time of discharge.? CM?to follow for home oxygen needs and any further discharge planning/needs.? Pt voices no further concerns/needs at this time.? Advised pt to ask for?CM?if any further questions/concerns/needs arise.? Voices understanding. PLAN:??Home Enoch BSN?RN?CM
[2023-04-22] MEDS: Morphine 2 MG/ML Syringe IV ×2 (12:10→21:55)
--- NOTE | 2023-04-22 12:14 | PCM.PN.GU ---
Subjective Subjective Adriana is awake, alert and oriented this morning. She reports that her pain is improved from yesterday and she really is complaining just of a headache today. She remembers being surrounded by several people in her room last night and otherwise does not recall anything. Objective Data Objective Data Vital Signs: Vital Signs Temp Pulse Resp BP Pulse Ox O2 Del Method O2 Flow Rate 99 F 76 22 H 113/82 H 95 Nasal Cannula 5 04/22/23 12:00 04/22/23 12:00 04/22/23 12:00 04/22/23 12:00 04/22/23 12:00 04/22/23 12:00 04/22/23 12:00 FiO2 60 04/22/23 07:00 Oxygen Flow Rate (L/min) 5 Oxygen Delivery Method Nasal Cannula Weight: 112.2 kg Body Mass Index (BMI) 42.2 Intake & Output: Intake and Output for Last 24 Hours 04/20/23 04/21/23 04/22/23 23:59 23:59 23:59 Intake Total 1741.67 / 1741.67 3894.68 / 3894.68 Output Total 200 / 200 250 / 250 Balance 1541.67 / 1541.67 3644.68 / 3644.68 Lab / Micro Data Attestation: I reviewed the patient's lab results. 04/22/23 03:20 04/22/23 03:20 Labs: Laboratory Results - last 24 hr 04/21/23 11:50: Sodium 139, Potassium 3.6, Chloride 108 H, Carbon Dioxide 24.0, Anion Gap 7, BUN 21 H, Creatinine 1.37 H, Estim Creat Clear Calc 33.47, Est GFR (MDRD) Af Amer 49 L, Est GFR (MDRD) Non-Af 41 L, BUN/Creatinine Ratio 15.3, Glucose 126 H, Calcium 8.5 04/21/23 14:13: Urine Color Yellow, Urine Clarity Sl. Cloudy, Urine pH 6.0, Ur Specific [place] 1.020, Urine Protein 30 H, Urine Glucose (UA) Normal, Urine Ketones 5 H, Urine Occult Blood 150 H, Urine Nitrite Positive H, Urine Bilirubin 1 H, Urine Urobilinogen 1 H, Ur Leukocyte Esterase 500 H, Urine RBC 0-5 SEEN, Urine WBC 25-50 SEEN, Ur Squamous Epith Cells 0 SEEN, Urine Bacteria RARE, Urine Mucus 0 SEEN 08/20/23 22:57: POC Glucose 100 04/21/23 23:48: WBC 11.7 H, RBC 3.52 L, Hgb 11.3 L, Hct 35.1 L, MCV 99.7 H, MCH 32.1 H, MCHC 32.2 D, RDW Std Deviation 52.1 H, RDW Coeff of Poly 14.3, Plt Count 94 L, MPV 12.5 H, Immature Gran % (Auto) 2.100 H, Neut % (Auto) 92.4 H, Lymph % (Auto) 3.4 L, [place] % (Auto) 1.3, Eos % (Auto) 0.3, Baso % (Auto) 0.5, Absolute Neuts (auto) 10.8 H, Absolute Lymphs (auto) 0.40 L, Nucleated RBC % 0.2, Platelet Estimate MOD DEC, Macrocytosis RARE, Sodium 137, Potassium 3.7, Chloride 110 H, Carbon Dioxide 21.0, Anion Gap 6, BUN 27 H, Creatinine 2.18 H, Estim Creat Clear Calc 21.03, Est GFR (MDRD) Af Amer 29 L, Est GFR (MDRD) Non-Af 24 L, BUN/Creatinine Ratio 12.4, Glucose 94, Lactic Acid 2.6 H*, Calcium 7.7 L, Phosphorus 2.3 L, Magnesium 1.7, Total Bilirubin 0.60, AST 67 H, ALT 44, Alkaline Phosphatase 98, Troponin I High Sens 20, Total Protein 5.6 L, Albumin 2.6 L, Globulin 3.0, Albumin/Globulin Ratio 0.9 04/22/23 03:20: WBC 19.0 H, RBC 3.51 L, Hgb 11.2 L, Hct 34.9 L, MCV 99.4 H, MCH 31.9, MCHC 32.1, RDW Std Deviation 53.1 H, RDW Coeff of Poly 14.6, Plt Count 105 L, MPV 12.8 H, Sodium 138, Potassium 3.7, Chloride 110 H, Carbon Dioxide 21.0, Anion Gap 7, BUN 30 H, Creatinine 2.44 H, Estim Creat Clear Calc 18.79, Est GFR (MDRD) Af Amer 25 L, Est GFR (MDRD) Non-Af 21 L, BUN/Creatinine Ratio 12.3, Glucose 105, Calcium 7.2 L, TSH 1.10 04/22/23 03:35: Lactic Acid 1.9 Micro: Microbiology 04/21/23 13:00 Urine, Clean Catch Urine Culture - Preliminary Gram negative myrna ABG Data ABG results: ABG 04/21/23 23:42 Specimen Type ART Sample Site R Radial pH 7.37 Bicarbonate Actual 19.2 L Total CO2 20 Base Excess -6 L O2 Saturation 95 O2 % 40 ABG pCO2 33.4 L ABG pO2 78 Joseph Test Positive O2 Delivery Device BiPAP POC PEEP 8 Radiography Diagnostic Testing: Radiology Impression Abdomen/Pelvis CT 04/21/23 11:55 IMPRESSION: Left-sided hydronephrosis and hydroureter with a minimal amount of perinephric and periureteral stranding due to a 4.8 mm stone in the distal left ureter on images described above. Punctate nonobstructing bilateral nephrolithiasis No free intraperitoneal fluid, air, or suspicious adenopathy, normal appendix visualized Uterus is present, the endometrium cannot be accurately evaluated with CT Electronically Signed: Wade Villa MD at 13:14 EDT , Physical Exam Const alert, oriented x3 and well nourished General Appearance: cooperative HEENT normocephalic and head/scalp atraumatic Chest inspection of chest normal Resp Effort and Inspection: able to speak in complete sentences, symmetric chest movement and tachypneic Cardio regular rate and regular rhythm GI soft to palpation and non-tender Narrative: Urine is pink-tinged and the Magdaleno catheter which is draining well Extremity normal to inspection Skin no rashes or lesions noted Neuro oriented x3 and CN's II-XII intact bilaterally Psych mental status grossly normal Assessment & Plan Assessment/Plan (1) Sepsis: QUALIFIERS: Sepsis type: sepsis due to unspecified organism Sepsis acute organ dysfunction status: with acute organ dysfunction Severe sepsis acute organ dysfunction type: acute renal failure Acute renal failure type: with acute renal cortical necrosis Severe sepsis shock status: with septic shock Qualified Code(s): A41.9 - Sepsis, unspecified organism; R65.21 - Severe sepsis with septic shock; N17.1 - Acute kidney failure with acute cortical necrosis (2) Acute UTI: (3) Urolithiasis: QUALIFIERS: Urinary calculus location: ureter Qualified Code(s): N20.1 - Calculus of ureter (4) NICOLE (acute kidney injury): PLAN: Plan Continue supportive care, Levophed is being weaned Continue decreasing oxygen support as able Continue ICU care Continue intravenous antibiotic administration, await culture results Continue Magdaleno catheter Plan for stone intervention in about 3 weeks
--- NOTE | 2023-04-22 16:11 | CASEMGMT ---
Social Work SW informed by RN CM patient requesting assistance to complete AD, patient is alert and oriented. SW met with patient and introduced self and role as [facility] SW. Patient lying on hospital bed and agreeable to speak with SW. SW reviewed HCPOA and LW documents as well as assisted patient with completing documents. SW educated patient on the rights of her identified agents, no special instructions identified. SW placed a copy on patient's chart, provided patient with the original as well as 3 copies. SW encouraged patient to provide a copy to her PCP as well as any other medical appointment. Patient voiced understanding and has no other questions at this time. Britney Campbell PACKING ROOM WORKER, JACKY
[2023-04-22] MEDS: Venlafaxine XR 150 MG Capsule PO (21:44)
[2023-04-22] MEDS: Pramipexole Di-HCl 0.5 MG Tablet 1.5 MG PO (21:44)
[2023-04-23] VITALS (23 sets, daily range): BP systolic 88–153; BP diastolic 53–81; PULSE 70–97; RESP 12–24; TEMP 36.6–37.4; O2SAT 90–98; BMI 43.0
[2023-04-23 00:16] LABS: Vancomycin, Trough Level 10.4 ug/mL (5.0-15.0)
[2023-04-23 04:58] LABS: Hematocrit 33.7 % (37-47); Mean Corp Hgb Conc 32.6 g/dL (32-36); Mean Corpuscular Hgb 31.7 pg (27.0-32.0); Mean Corpuscular Volume 97.1 fL (81-99); Mean Platelet Vol. 12.8 fl (6.2-12.0); POSITIVE COUNT YES; POSITIVE MORPHOLOGY YES; Platelet Count 69 K/mm3 (150-450); RBC Distribution Width CV 14.8 % (11.6-14.6); RBC Distribution Width SD 53.2 fl (35.1-43.9); Red Blood Count 3.47 M/mm3 (4.2-5.4); White Blood Count 15.6 K/mm3 (4.4-11.0)
[2023-04-23 05:06] LABS: Differential Indicated MANUAL DIFF
[2023-04-23 05:19] LABS: Anion Gap 6 (5-15); BUN 37 mg/dL (7-18); BUN/Creat Ratio 18.4 RATIO (10-20); Calcium,Total 7.4 mg/dL (8.5-10.1); Chloride 108 mmol/L (98-107); Creatinine, Serum 2.01 mg/dL (0.55-1.02); EST Glomerular Filtration Rate 26 mL/min (>60); Est Glom Filt Rate - Afr Amer 32 mL/min (>60); Estimated Creatinine Clearance 22.81 ml/min; Glucose 75 mg/dL (74-106); Magnesium 2.2 mg/dL (1.6-2.6); Potassium 4.2 mmol/L (3.5-5.1); Sodium Level 135 mmol/L (136-145)
[2023-04-23] MEDS: Levothyroxine 75 MCG Tablet PO (05:31)
[2023-04-23 05:36] LABS: Anisocytosis 1+; Platelet Estimate MOD DEC (ADEQ)
[2023-04-23] MEDS: Morphine 2 MG/ML Syringe IV ×3 (05:38→21:41)
[2023-04-23 05:39] LABS: Absolute Neutrophil Count 11.5 X10^3/uL (2.0-7.7); Red Cell Morphology NORM C+C NORMAL (NORM C&C)
[2023-04-23 05:40] LABS: Eosinophil 2 % (0-5); Lymphocyte 9 % (19-41); Metamyelocyte 1 % (0-1); Monocyte 13 % (0-10); Myelocyte 1 % (0-0); Neutrophil-Band 16 % (0-5); Neutrophil-Segmented 58 % (47-70); Total Cells Counted 100 (MANUAL DIFF)
--- NOTE | 2023-04-23 07:18 | PN.CC_ITS ---
Assessment & Plan Assessment/Plan (1) Septic shock: PLAN: Plan RECOMMENDATIONS: 1. Continue antibiotics as ordered, while awaiting finalized culture results. 2. Continue to wean supplemental oxygen to maintain saturations at or above 90%. 3. BiPAP therapy with naps and nightly. 4. Encourage incentive spirometer use and mobilize patient as tolerated. IMPRESSIONS: 1. Gram-negative septic shock Appears to be secondary to pyelonephritis with CT imaging demonstrated left- sided hydronephrosis and hydroureter. The patient underwent cystoscopy and left ureteral stent insertion on April 22. The patient has been adequately volume resuscitated from a sepsis perspective. She subsequently developed fluid refractory hypotension, which necessitated vasopressor support. However, she has since been weaned from Levophed and remains hemodynamically stable. Plan to continue empiric antimicrobials, while awaiting finalized culture results. 2. Acute kidney injury Improving. Most likely prerenal in etiology in the setting of #1. Continue to monitor urine output. No current indication for renal replacement therapy. 3. Questionable obstructive sleep apnea The patient is currently being worked up by Dr. Robertson on an outpatient basis. Recommend continuing empiric BiPAP therapy 12/6 cm of water while admitted to the hospital on a nightly basis. 4. History of hypothyroidism/GERD/anemia Complicates care, management, recovery and prognosis. Continue home medications as indicated. This note was generated with [employer] dictation software. It may contain incorrect words, spelling, and punctuation that were not noted in checking the note before signing. Subjective Subjective The patient was seen and examined at the bedside this morning. Events from the last 24 hours have been reviewed. The patient is currently afebrile, hemodynamically stable and maintaining appropriate oxygen saturations on 2 L/min via nasal cannula. The patient was able to be successfully weaned off of Levophed yesterday. She is currently documented to be overall net +4.9 L for the hospitalization. White count remains elevated at 15,000. Platelet count is low at 69,000. Creatinine has improved to 2.01. Objective Data Objective Data The patient's most recent lab work, culture data and imaging studies have all been personally reviewed. Preliminary urine culture was positive for gram- negative myrna. Vital Signs: Vital Signs Temp Pulse Resp BP Pulse Ox O2 Del Method O2 Flow Rate 98.3 F 72 21 H 102/65 90 Nasal Cannula 2 04/23/23 07:00 04/23/23 07:00 04/23/23 07:00 04/23/23 07:00 04/23/23 07:00 04/23/23 07:00 04/23/23 07:00 FiO2 60 04/22/23 07:00 Oxygen Flow Rate (L/min) 2 Oxygen Delivery Method Nasal Cannula Weight: 250 lb 7.122 oz Body Mass Index (BMI) 43.0 Intake & Output: Intake and Output for Last 24 Hours 04/21/23 04/22/23 04/23/23 23:59 23:59 23:59 Intake Total 1741.67 / 1741.67 4261.45 / 4261.45 325 / 325 Output Total 200 / 200 500 / 500 725 / 725 Balance 1541.67 / 1541.67 3761.45 / 3761.45 -400 / -400 Lab / Micro Data Attestation: I reviewed the patient's lab results. 04/23/23 04:45 04/23/23 04:45 Labs: Laboratory Results - last 24 hr 04/22/23 23:30: Vancomycin Trough 10.4 04/23/23 04:45: WBC 15.6 H, RBC 3.47 L, Hgb 11.0 L, Hct 33.7 L, MCV 97.1, MCH 31.7, MCHC 32.6, RDW Std Deviation 53.2 H, RDW Coeff of Poly 14.8 H, Plt Count 69 L, MPV 12.8 H, Neut % (Auto) Not Reportable, Absolute Neuts (auto) 11.5 H, Absolute Lymphs (auto) 1.40, Total Counted 100, Neutrophils % (Manual) 58, Band Neutrophils % 16 H, Lymphocytes % (Manual) 9 L, Monocytes % (Manual) 13 H, Eosinophils % (Manual) 2, Metamyelocytes % 1, Myelocytes % 1 H, Diff Path Review May , Platelet Estimate MOD DEC, RBC Morphology NORM C+C, Anisocytosis 1+, S odium 135 L, Potassium 4.2, Chloride 108 H, Carbon Dioxide 21.0, Anion Gap 6, BUN 37 H, Creatinine 2.01 H, Estim Creat Clear Calc 22.81, Est GFR (MDRD) Af Amer 32 L, Est GFR (MDRD) Non-Af 26 L, BUN/Creatinine Ratio 18.4, Glucose 75, Calcium 7.4 L, Magnesium 2.2 Micro: Microbiology 04/21/23 13:00 Urine, Clean Catch Urine Culture - Preliminary Gram negative myrna Physical Exam Const alert and no apparent distress General Appearance: cooperative HEENT normocephalic and head/scalp atraumatic Eyes PERRL, EOMs intact bilaterally and conjunctivae normal Neck supple General: trachea midline Chest inspection of chest normal Resp normal respiratory effort Resp Narrative: Mild rales in the bases. Cardio regular rate and regular rhythm GI normal to inspection, nondistended, normoactive bowel sounds Extremity no clubbing, cyanosis or edema Skin no rashes or lesions noted Neuro oriented x3, CN's II-XII intact bilaterally and moves all extremities Psych cooperative and affect normal Charges/Coding Visit Charges Inpatient E&M: 24140 Subs Hosp L3
--- NOTE | 2023-04-23 07:18 | PCM.PN.HOSP ---
Reason for Visit Reason for Visit: Diagnoses Sepsis, unspecified organism (04/22/23) Acute kidney failure with acute cortical necrosis (04/22/23) Acute kidney failure, unspecified (04/22/23) Calculus of ureter (04/22/23) Urinary tract infection, site not specified (04/22/23) Severe sepsis with septic shock (04/22/23) Subjective Subjective Urine culture so far positive for gram-negative final identification and sensitivities . Underwent cystoscopy and left ureteral stent insertion the day prior Objective Data Objective Data Vital Signs: Vital Signs Temp Pulse Resp BP Pulse Ox O2 Del Method O2 Flow Rate 98.3 F 72 21 H 102/65 90 Nasal Cannula 2 04/23/23 07:00 04/23/23 07:00 04/23/23 07:00 04/23/23 07:00 04/23/23 07:00 04/23/23 07:00 04/23/23 07:00 FiO2 60 04/22/23 07:00 Oxygen Flow Rate (L/min) 2 Oxygen Delivery Method Nasal Cannula Weight: 113.6 kg Body Mass Index (BMI) 43.0 Intake & Output: Intake and Output for Last 24 Hours 04/21/23 04/22/23 04/23/23 23:59 23:59 23:59 Intake Total 1741.67 / 1741.67 4261.45 / 4261.45 325 / 325 Output Total 200 / 200 500 / 500 725 / 725 Balance 1541.67 / 1541.67 3761.45 / 3761.45 -400 / -400 Lab / Micro Data 04/23/23 04:45 04/23/23 04:45 Labs: Laboratory Results - last 24 hr 04/22/23 23:30: Vancomycin Trough 10.4 04/23/23 04:45: WBC 15.6 H, RBC 3.47 L, Hgb 11.0 L, Hct 33.7 L, MCV 97.1, MCH 31.7, MCHC 32.6, RDW Std Deviation 53.2 H, RDW Coeff of Poly 14.8 H, Plt Count 69 L, MPV 12.8 H, Neut % (Auto) Not Reportable, Absolute Neuts (auto) 11.5 H, Absolute Lymphs (auto) 1.40, Total Counted 100, Neutrophils % (Manual) 58, Band Neutrophils % 16 H, Lymphocytes % (Manual) 9 L, Monocytes % (Manual) 13 H, Eosinophils % (Manual) 2, Metamyelocytes % 1, Myelocytes % 1 H, Diff Path Review May foll, Platelet Estimate MOD DEC, RBC Morphology NORM C+C, Anisocytosis 1+, Sodium 135 L, Potassium 4.2, Chloride 108 H, Carbon Dioxide 21.0, Anion Gap 6, BUN 37 H, Creatinine 2.01 H, Estim Creat Clear Calc 22.81, Est GFR (MDRD) Af Amer 32 L, Est GFR (MDRD) Non-Af 26 L, BUN/Creatinine Ratio 18.4, Glucose 75, Calcium 7.4 L, Magnesium 2.2 Micro: Microbiology 04/21/23 13:00 Urine, Clean Catch Urine Culture - Preliminary Gram negative myrna Physical Exam Narrative GENERAL: cooperative HEENT: Atraumatic; normocephalic EYES; Anicteric, Normal Conjunctiva NECK; supple, normal thyroid, RESPIRATORY: Diminished to auscultation CARDIOVASCULAR: Regular S1 S2, GI: soft, normoactive bowel sounds, : No Renal angle tenderness; EXTREMITIES: No edema, no clubbing, MUSCULOSKELETAL: no muscle wasting NEURO: Awake; no lateralizing signs. SKIN: No Rash PSYCH; Flat affect Assessment & Plan Assessment/Plan (1) Sepsis: QUALIFIERS: Acute renal failure type: with acute renal cortical necrosis Sepsis acute organ dysfunction status: with acute organ dysfunction Sepsis type: sepsis due to unspecified organism Severe sepsis acute organ dysfunction type: acute renal failure Severe sepsis shock status: with septic shock Qualified Code(s): A41.9 - Sepsis, unspecified organism; R65.21 - Severe sepsis with septic shock; N17.1 - Acute kidney failure with acute cortical necrosis (2) Acute UTI: PLAN: Plan Patient is a 68-year-old lady admitted with left flank pain and assessment of sepsis secondary to acute pyelonephritis made admitted to the intensive care unit for further management 1. Sepsis secondary to acute pyelonephritis ? CT of the abdomen demonstrated left-sided hydronephrosis and hydroureter with minimal amount of perinephric and periureteral stranding due to 4.8 mm stone in the distal left ureter. Treatment initiated per protocol with IV fluid fluid resuscitation broad-spectrum antibiotic therapy after cultures have been sent ? 04/23/2023; underwent cystoscopy and left ureteral stent insertion on [address] Smith 2. Acute hypoxia ? Patient placed on supplemental oxygen via nonrebreather mask/BiPAP ? 04/23/2023; patient has been weaned off BiPAP currently on nasal cannula 3. Acute kidney injury ? Please creatinine Creatinine 1.0 creatinine on admission 2.18, kidney function did worsen to 2.44, IV fluids subsequent monitoring of electrolytes ordered ? 04/23/2023; creatinine down to 2.0 4. Anemia - Secondary to chronic disorder monitoring H&H and transfuse if patient becomes symptomatic or hemoglobin falls below 7 5. Hypothyroidism - Patient is on levothyroxine home dose continued 6. GERD ? On PPI 7. History of duodenal ulcer ? On PPI 8. DVT prophylaxis ? Bilateral SCDs Time spent in the patient's overall evaluation,decision-making process, review of diagnostic data, adjustment of management, discussion with other providers, nursing nursing and ancillary staff involved in patient's care documentation, 50 Minutes Charges/Coding Visit Charges Inpatient E&M: 04852 Subs Hosp L3
--- NOTE | 2023-04-23 07:39 | PCM.PN.GU ---
Subjective Subjective Sleeping upon my entering the room. No issues overnight. Objective Data Objective Data Vital Signs: Vital Signs Temp Pulse Resp BP Pulse Ox O2 Del Method O2 Flow Rate 98.3 F 72 21 H 102/65 90 Nasal Cannula 2 04/23/23 07:00 04/23/23 07:00 04/23/23 07:00 04/23/23 07:00 04/23/23 07:00 04/23/23 07:00 04/23/23 07:00 FiO2 60 04/22/23 07:00 Oxygen Flow Rate (L/min) 2 Oxygen Delivery Method Nasal Cannula Weight: 113.6 kg Body Mass Index (BMI) 43.0 Intake & Output: Intake and Output for Last 24 Hours 04/21/23 04/22/23 04/23/23 23:59 23:59 23:59 Intake Total 1741.67 / 1741.67 4261.45 / 4261.45 325 / 325 Output Total 200 / 200 500 / 500 725 / 725 Balance 1541.67 / 1541.67 3761.45 / 3761.45 -400 / -400 Lab / Micro Data 04/23/23 04:45 04/23/23 04:45 Labs: Laboratory Results - last 24 hr 04/22/23 23:30: Vancomycin Trough 10.4 04/23/23 04:45: WBC 15.6 H, RBC 3.47 L, Hgb 11.0 L, Hct 33.7 L, MCV 97.1, MCH 31.7, MCHC 32.6, RDW Std Deviation 53.2 H, RDW Coeff of Poly 14.8 H, Plt Count 69 L, MPV 12.8 H, Neut % (Auto) Not Reportable, Absolute Neuts (auto) 11.5 H, Absolute Lymphs (auto) 1.40, Total Counted 100, Neutrophils % (Manual) 58, Band Neutrophils % 16 H, Lymphocytes % (Manual) 9 L, Monocytes % (Manual) 13 H, Eosinophils % (Manual) 2, Metamyelocytes % 1, Myelocytes % 1 H, Diff Path Review May , Platelet Estimate MOD DEC, RBC Morphology NORM C+C, Anisocytosis 1+, Sodium 135 L, Potassium 4.2, Chloride 108 H, Carbon Dioxide 21.0, Anion Gap 6, BUN 37 H, Creatinine 2.01 H, Estim Creat Clear Calc 22.81, Est GFR (MDRD) Af Amer 32 L, Est GFR (MDRD) Non-Af 26 L, BUN/Creatinine Ratio 18.4, Glucose 75, Calcium 7.4 L, Magnesium 2.2 Micro: Microbiology 04/21/23 13:00 Urine, Clean Catch Urine Culture - Preliminary Gram negative myrna Physical Exam Const alert and oriented x3 General Appearance: cooperative Neck supple Chest inspection of chest normal Chest: symmetrical chest wall rise Resp Effort and Inspection: able to speak in complete sentences and symmetric chest movement Cardio regular rate GI soft to palpation and non-tender Narrative: urine pink tinged in miranda Skin no rashes or lesions noted Neuro oriented x3 and CN's II-XII intact bilaterally Psych mental status grossly normal Assessment & Plan Assessment/Plan (1) Sepsis: QUALIFIERS: Sepsis type: sepsis due to unspecified organism Sepsis acute organ dysfunction status: with acute organ dysfunction Severe sepsis acute organ dysfunction type: acute renal failure Acute renal failure type: with acute renal cortical necrosis Severe sepsis shock status: with septic shock Qualified Code(s): A41.9 - Sepsis, unspecified organism; R65.21 - Severe sepsis with septic shock; N17.1 - Acute kidney failure with acute cortical necrosis (2) Acute UTI: (3) Urolithiasis: QUALIFIERS: Urinary calculus location: ureter Qualified Code(s): N20.1 - Calculus of ureter (4) NICOLE (acute kidney injury): PLAN: Plan continue weaning oxygen and supportive care as able, still on Bipap with sleeping and will need pulmonology follow up after d/c labs improving follow urine output will need stone management in 2-3 weeks
[2023-04-23] MEDS: Pantoprazole Sodium 20 MG Tablet PO (08:29)
[2023-04-23] MEDS: Potassium Chloride Oral Tablet 10 MEQ PO (08:30)
[2023-04-23] MEDS: lamoTRIgine 150 MG Tablet PO ×2 (08:30→21:41)
[2023-04-23] MEDS: Enoxaparin 30 MG/0.3 ML Syringe SC (08:30)
--- NOTE | 2023-04-23 16:57 | NURSING ---
report called to 3rd floor for transfer to room 301, transferred with belongings per wheelchair
[2023-04-23] MEDS: Venlafaxine XR 150 MG Capsule PO (21:41)
[2023-04-23] MEDS: Pramipexole Di-HCl 0.5 MG Tablet 1.5 MG PO (21:41)
[2023-04-23 23:45] LABS: Vancomycin, Trough Level 11.7 ug/mL (5.0-15.0)
[2023-04-24] VITALS (14 sets, daily range): BP systolic 101–133; BP diastolic 63–88; PULSE 63–85; RESP 12–20; TEMP 36.6–36.8; O2SAT 86–97; BMI 30.6
--- NOTE | 2023-04-24 00:36 | PCM.RX.CS ---
Consult Antibiotic Management Pharmacy has been consulted to manage selected antiobiotic: Vancomycin Type of Intervention Type of Consult: Follow-up Labs Labs: Sodium 135 mmol/L (136-145) L 04/23/23 04:45 Potassium 4.2 mmol/L (3.5-5.1) 04/23/23 04:45 Chloride 108 mmol/L (98-107) H 04/23/23 04:45 Carbon Dioxide 21.0 mmol/L (21.0-32.0) 04/23/23 04:45 Anion Gap 6 (5-15) 04/23/23 04:45 BUN 37 mg/dL (7-18) H 04/23/23 04:45 Creatinine 2.01 mg/dL (0.55-1.02) H 04/23/23 04:45 Est GFR (MDRD) Af Amer 32 mL/min (>60) L 04/23/23 04:45 Est GFR (MDRD) Non-Af 26 mL/min (>60) L 04/23/23 04:45 BUN/Creatinine Ratio 18.4 RATIO (10-20) 04/23/23 04:45 Glucose 75 mg/dL (74-106) 04/23/23 04:45 Vancomycin Trough 11.7 ug/mL (5.0-15.0) 04/23/23 23:05 Microbiology Microbiology: Microbiology 04/21/23 13:00 Urine, Clean Catch Urine Culture - Final Proteus mirabilis Dosing Weight Weight used for dosin.6 kg Estimated Creatinine Clearance Estimated Creatinine Clearance: 32.7 Goal Trough Goal Trough: 15-20 mcg/mL Pharmacy Plan for Drug Dosing Pharmacy Plan for Drug Dosing: Vancomycin trough level was 11.7. This was below the target range of 15-20. Noted some improvement in renal function (SCr 2.44 to 2.01). Will increase dose to 1750mg q24h, and draw another trough prior to third dose. Pharmacy Service will continue to monitor and adjust dosing as required. Follow-Up Labs Follow-Up Labs: Trough: Vancomycin Date/Time Labs Ordered Labs to be done on [date and time ordered]: 04/25/23 @8885
[2023-04-24] MEDS: Morphine 2 MG/ML Syringe IV (03:36)
[2023-04-24] MEDS: Levothyroxine 75 MCG Tablet PO (05:19)
[2023-04-24 06:51] LABS: Anion Gap 6 (5-15); BUN 28 mg/dL (7-18); BUN/Creat Ratio 20.4 RATIO (10-20); Calcium,Total 8.2 mg/dL (8.5-10.1); Chloride 110 mmol/L (98-107); Creatinine, Serum 1.37 mg/dL (0.55-1.02); EST Glomerular Filtration Rate 41 mL/min (>60); Est Glom Filt Rate - Afr Amer 49 mL/min (>60); Estimated Creatinine Clearance 33.47 ml/min; Glucose 89 mg/dL (74-106); Potassium 4.6 mmol/L (3.5-5.1); Sodium Level 137 mmol/L (136-145)
[2023-04-24 07:02] LABS: Absolute Lymphocyte Count 1.98 X10^3/uL (0.83-4.51); Absolute Neutrophil Count 12.9 X10^3/uL (2.0-7.7); Basophil% 0.6 % (0-1); Eosinophil# 0.34 X10^3/uL; Eosinophils% 2.1 % (0-5); Hematocrit 31.7 % (37-47); Hemoglobin 10.4 g/dL (12.0-15.0); Lymphocyte # 1.98 X10^3/ul (0.83-4.51); Lymphocyte % 12.4 % (19-41); Mean Corp Hgb Conc 32.8 g/dL (32-36); Mean Corpuscular Hgb 31.2 pg (27.0-32.0); Mean Corpuscular Volume 95.2 fL (81-99); Mean Platelet Vol. 11.7 fl (6.2-12.0); Monocyte% 3.7 % (0-10); NRBC Flagged by Analyzer 0 % (0-5); Neutrophil # 12.93 X10^3/uL (2.7-7.7); Neutrophil % 80.7 % (47-70); POSITIVE COUNT YES; POSITIVE MORPHOLOGY YES; Platelet Count 76 K/mm3 (150-450); RBC Distribution Width CV 14.8 % (11.6-14.6); RBC Distribution Width SD 51.9 fl (35.1-43.9); Red Blood Count 3.33 M/mm3 (4.2-5.4)
[2023-04-24 07:04] LABS: Differential Indicated SCAN CRITERIA MET
--- NOTE | 2023-04-24 07:17 | PN.HOSP_ITS ---
Reason for Visit Reason for Visit: Diagnoses Sepsis, unspecified organism (04/22/23) Acute kidney failure with acute cortical necrosis (04/22/23) Acute kidney failure, unspecified (04/22/23) Calculus of ureter (04/22/23) Urinary tract infection, site not specified (04/22/23) Severe sepsis with septic shock (04/22/23) Subjective Subjective Seen clinical condition continues to improve. Urine cultures positive for Proteus mirabilis on appropriate antibiotic therapy. Plan is to discuss with urology regarding discharge plans Objective Data Objective Data Vital Signs: Vital Signs Temp Pulse Resp BP Pulse Ox O2 Del Method O2 Flow Rate 98 F 70 18 104/63 97 Bi-pap 4 04/24/23 03:30 04/24/23 03:30 04/24/23 03:30 04/24/23 03:30 04/24/23 03:30 04/24/23 03:30 04/23/23 21:33 FiO2 50 04/24/23 02:04 Oxygen Flow Rate (L/min) 4 Oxygen Delivery Method Bi-pap Weight: 80.9 kg Body Mass Index (BMI) 30.6 Intake & Output: Intake and Output for Last 24 Hours 04/22/23 04/23/23 04/24/23 23:59 23:59 23:59 Intake Total 4261.45 / 4261.45 725 / 725 585 / 585 Output Total 500 / 500 1575 / 1875 700 / 700 Balance 3761.45 / 3761.45 -850 / -1150 -115 / -115 Lab / Micro Data 04/24/23 06:55 04/24/23 05:25 Labs: Laboratory Results - last 24 hr 04/23/23 23:05: Vancomycin Trough 11.7 04/24/23 05:25: WBC Cancelled, Corrected WBC Cancelled, RBC Cancelled, Hgb Cancelled, Hct Cancelled, MCV Cancelled, MCH Cancelled, MCHC Cancelled, RDW Std Deviation Cancelled, RDW Coeff of Poly Cancelled, Plt Count Cancelled, MPV Cancelled, Immature Gran % (Auto) Cancelled, Neut % (Auto) Cancelled, Lymph % (Auto) Cancelled, [place] % (Auto) Cancelled, Eos % (Auto) Cancelled, Baso % (Auto) Cancelled, Absolute Neuts (auto) Cancelled, Absolute Lymphs (auto) Cancelled, Total Counted Cancelled, Neutrophils % (Manual) Cancelled, Band Neutrophils % Cancelled, Lymphocytes % (Manual) Cancelled, Monocytes % (Manual) Cancelled, Eosinophils % (Manual) Cancelled, Basophils % (Manual) Cancelled, Metamyelocytes % Cancelled, Myelocytes % Cancelled, Promyelocytes % Cancelled, Blast Cells % Cancelled, Plasma Cell % (Manual) Cancelled, Other Cells % Cancelled, Nucleated RBC % Cancelled, Nucleated RBCs/100 WBC Cancelled, Differential Comment Cancelled, Diff Path Review Cancelled, Hypersegmented Neuts Cancelled, Atypical Lymphocytes Cancelled, Reactive Lymphocytes Cancelled, Smudge Cells Cancelled, Toxic Granulation Cancelled, Toxic Vacuolation Cancelled, Dohle Bodies Cancelled, Eric[place]on Rods Cancelled, Platelet Estimate Cancelled, Plt Morphology Comment Cancelled, RBC Morphology Cancelled 04/24/23 05:25: RBC Morphology Cancelled, Polychromasia Cancelled, Hypochromasia Cancelled, Poikilocytosis Cancelled, Basophilic Stippling Cancelled, Anisocytosis Cancelled, Microcytosis Cancelled, Macrocytosis Cancelled, Spherocytes Cancelled, Sickle Cells Cancelled, Target Cells Cancelled, Tear Drop Cells Cancelled, Ovalocytes Cancelled, Stomatocytes Cancelled, [place] Bodies Cancelled, [place]ika Cells Cancelled, Bite Cells Cancelled, Crenated Cell Cancelled, Acanthocytes (Spur) Cancelled, Rouleaux Cancelled, Schistocytes Cancelled, Sodium 137, Potassium 4.6, Chloride 110 H, Carbon Dioxide 21.0, Anion Gap 6, BUN 28 H, Creatinine 1.37 H, Estim Creat Clear Calc 33.47, Est GFR (MDRD) Af Amer 49 L, Est GFR (MDRD) Non-Af 41 L, BUN/Creatinine Ratio 20.4 H, Glucose 89, Calcium 8.2 L 04/24/23 06:55: WBC 16.0 H, RBC 3.33 L, Hgb 10.4 L, Hct 31.7 L, MCV 95.2, MCH 31.2, MCHC 32.8, RDW Std Deviation 51.9 H, RDW Coeff of Poly 14.8 H, Plt Count 76 L, MPV 11.7, Immature Gran % (Auto) 0.500, Neut % (Auto) 80.7 H, Lymph % (Auto) 12.4 L, [place] % (Auto) 3.7, Eos % (Auto) 2.1, Baso % (Auto) 0.6, Absolute Neuts (auto) 12.9 H, Absolute Lymphs (auto) 1.98, Nucleated RBC % 0 Micro: Microbiology 04/21/23 13:00 Urine, Clean Catch Urine Culture - Final Proteus mirabilis Physical Exam Narrative GENERAL: cooperative HEENT: Atraumatic; normocephalic EYES; Anicteric, Normal Conjunctiva NECK; supple, normal thyroid, RESPIRATORY: Diminished to auscultation CARDIOVASCULAR: Regular S1 S2, GI: soft, normoactive bowel sounds, : No Renal angle tenderness; EXTREMITIES: No edema, no clubbing, MUSCULOSKELETAL: no muscle wasting NEURO: Awake; no lateralizing signs. SKIN: No Rash PSYCH; Flat affect Assessment & Plan Assessment/Plan (1) Sepsis: QUALIFIERS: Acute renal failure type: with acute renal cortical necrosis Sepsis acute organ dysfunction status: with acute organ dysfunction Sepsis type: sepsis due to unspecified organism Severe sepsis acute organ dysfunction type: acute renal failure Severe sepsis shock status: with septic shock Qualified Code(s): A41.9 - Sepsis, unspecified organism; R65.21 - Severe sepsis with septic shock; N17.1 - Acute kidney failure with acute cortical necrosis (2) Acute UTI: PLAN: Plan Patient is a 68-year-old lady admitted with left flank pain and assessment of sepsis secondary to acute pyelonephritis made admitted to the intensive care unit for further management 1. Sepsis secondary to acute pyelonephritis ? CT of the abdomen demonstrated left-sided hydronephrosis and hydroureter with minimal amount of perinephric and periureteral stranding due to 4.8 mm stone in the distal left ureter. Treatment initiated per protocol with IV fluid fluid resuscitation broad-spectrum antibiotic therapy after cultures have been sent ? 04/23/2023; underwent cystoscopy and left ureteral stent insertion on [address] Smith ? 04/24/2023; Seen clinical condition continues to improve. Urine cultures positive for Proteus mirabilis on appropriate antibiotic therapy. Plan is to discuss with urology regarding discharge plans 2. Acute hypoxia ? Patient placed on supplemental oxygen via nonrebreather mask/BiPAP ? 04/23/2023; patient has been weaned off BiPAP currently on nasal cannula 3. Acute kidney injury ? Please creatinine Creatinine 1.0 creatinine on admission 2.18, kidney function did worsen to 2.44, IV fluids subsequent monitoring of electrolytes ordered ? 04/23/2023; creatinine down to 2.0 ? 04/24/2023 creatinine down to 1.3 4. Anemia - Secondary to chronic disorder monitoring H&H and transfuse if patient becomes symptomatic or hemoglobin falls below 7 ? 04/24/2023 hemoglobin relatively stable at 10.4 5. Hypothyroidism - Patient is on levothyroxine home dose continued 6. GERD ? On PPI 7. History of duodenal ulcer ? On PPI 8. DVT prophylaxis ? Bilateral SCDs Time spent in the patient's overall evaluation,decision-making process, review of diagnostic data, adjustment of management, discussion with other providers, nursing nursing and ancillary staff involved in patient's care documentation, 35 Minutes Charges/Coding Visit Charges Inpatient E&M: 97251 Subs Hosp L2
[2023-04-24 07:22] LABS: Platelet Estimate MOD DEC (ADEQ)
[2023-04-24] MEDS: Potassium Chloride Oral Tablet 10 MEQ PO (07:43)
[2023-04-24 07:51] LABS: Pathologist Review Reviewed
[2023-04-24] MEDS: Enoxaparin 30 MG/0.3 ML Syringe SC (09:19)
[2023-04-24] MEDS: lamoTRIgine 150 MG Tablet PO ×2 (09:19→21:31)
[2023-04-24] MEDS: Pantoprazole Sodium 20 MG Tablet PO (09:20)
--- NOTE | 2023-04-24 09:22 | PCM.PN.GU ---
Subjective Subjective Feeling better. Getting anxious to get home. Biggest issue is the headache she is still fighting. No significant back pain. Not big appetite but taking some snacks and fluids. She is still on oxygen but reports she feels like she is breathing better today. Objective Data Objective Data Vital Signs: Vital Signs Temp Pulse Resp BP Pulse Ox O2 Del Method O2 Flow Rate 97.8 F 63 20 H 101/77 93 Nasal Cannula 4.5 04/24/23 09:16 04/24/23 09:16 04/24/23 09:16 04/24/23 09:16 04/24/23 09:16 04/24/23 09:16 04/24/23 09:16 FiO2 50 04/24/23 02:04 Oxygen Flow Rate (L/min) 4.5 Oxygen Delivery Method Nasal Cannula Weight: 80.9 kg Body Mass Index (BMI) 30.6 Intake & Output: Intake and Output for Last 24 Hours 04/22/23 04/23/23 04/24/23 23:59 23:59 23:59 Intake Total 4261.45 / 4261.45 725 / 725 585 / 585 Output Total 500 / 500 1575 / 1875 700 / 700 Balance 3761.45 / 3761.45 -850 / -1150 -115 / -115 Lab / Micro Data 04/24/23 06:55 04/24/23 05:25 Labs: Laboratory Results - last 24 hr 04/23/23 04:45: Diff Path Review Reviewed 04/23/23 23:05: Vancomycin Trough 11.7 04/24/23 05:25: WBC Cancelled, Corrected WBC Cancelled, RBC Cancelled, Hgb Cancelled, Hct Cancelled, MCV Cancelled, MCH Cancelled, MCHC Cancelled, RDW Std Deviation Cancelled, RDW Coeff of Poly Cancelled, Plt Count Cancelled, MPV Cancelled, Immature Gran % (Auto) Cancelled, Neut % (Auto) Cancelled, Lymph % (Auto) Cancelled, [place] % (Auto) Cancelled, Eos % (Auto) Cancelled, Baso % (Auto) Cancelled, Absolute Neuts (auto) Cancelled, Absolute Lymphs (auto) Cancelled, Total Counted Cancelled, Neutrophils % (Manual) Cancelled, Band Neutrophils % Cancelled, Lymphocytes % (Manual) Cancelled, Monocytes % (Manual) Cancelled, Eosinophils % (Manual) Cancelled, Basophils % (Manual) Cancelled, Metamyelocytes % Cancelled, Myelocytes % Cancelled, Promyelocytes % Cancelled, Blast Cells % Cancelled, Plasma Cell % (Manual) Cancelled, Other Cells % Cancelled, Nucleated RBC % Cancelled, Nucleated RBCs/100 WBC Cancelled, Differential Comment Cancelled, Diff Path Review Cancelled, Hypersegmented Neuts Cancelled, Atypical Lymphocytes Cancelled, Reactive Lymphocytes Cancelled, Smudge Cells Cancelled, Toxic Granulation Cancelled, Toxic Vacuolation Cancelled, Dohle Bodies Cancelled, Erickson Rods Cancelled, Platelet Estimate Cancelled, Plt Morphology Comment Cancelled, RBC Morphology Cancelled 04/24/23 05:25: RBC Morphology Cancelled, Polychromasia Cancelled, Hypochromasia Cancelled, Poikilocytosis Cancelled, Basophilic Stippling Cancelled, Anisocytosis Cancelled, Microcytosis Cancelled, Macrocytosis Cancelled, Spherocytes Cancelled, Sickle Cells Cancelled, Target Cells Cancelled, Tear Drop Cells Cancelled, Ovalocytes Cancelled, Stomatocytes Cancelled, [place] Bodies Cancelled, [place] Cells Cancelled, Bite Cells Cancelled, Crenated Cell Cancelled, Acanthocytes (Spur) Cancelled, Rouleaux Cancelled, Schistocytes Cancelled, Sodium 137, Potassium 4.6, Chloride 110 H, Carbon Dioxide 21.0, Anion Gap 6, BUN 28 H, Creatinine 1.37 H, Estim Creat Clear Calc 33.47, Est GFR (MDRD) Af Amer 49 L, Est GFR (MDRD) Non-Af 41 L, BUN/Creatinine Ratio 20.4 H, Glucose 89, Calcium 8.2 L 04/24/23 06:55: WBC 16.0 H, RBC 3.33 L, Hgb 10.4 L, Hct 31.7 L, MCV 95.2, MCH 31.2, MCHC 32.8, RDW Std Deviation 51.9 H, RDW Coeff of Poly 14.8 H, Plt Count 76 L, MPV 11.7, Immature Gran % (Auto) 0.500, Neut % (Auto) 80.7 H, Lymph % (Auto) 12.4 L, [place] % (Auto) 3.7, Eos % (Auto) 2.1, Baso % (Auto) 0.6, Absolute Neuts (auto) 12.9 H, Absolute Lymphs (auto) 1.98, Nucleated RBC % 0, Platelet Estimate MOD DEC Micro: Microbiology 04/22/23 03:35 Blood Culture (Wb) - Anticubital Left Blood Culture - Preliminary No growth in 48 hours. 04/22/23 03:20 Blood Culture (Wb) - Anticubital Right Blood Culture - Preliminary No growth in 48 hours. 04/21/23 13:00 Urine, Clean Catch Urine Culture - Final Proteus mirabilis Physical Exam Const alert and oriented x3 HEENT normocephalic Chest inspection of chest normal Cardio regular rate GI soft to palpation, non-tender and non-distended Narrative: miranda draining pink tinged urine Skin no rashes or lesions noted Neuro oriented x3 and CN's II-XII intact bilaterally Psych mental status grossly normal Assessment & Plan Assessment/Plan (1) Acute UTI: (2) Urolithiasis: QUALIFIERS: Urinary calculus location: ureter Qualified Code(s): N20.1 - Calculus of ureter (3) Sepsis: QUALIFIERS: Acute renal failure type: with acute renal cortical necrosis Sepsis acute organ dysfunction status: with acute organ dysfunction Sepsis type: sepsis due to unspecified organism Severe sepsis acute organ dysfunction type: acute renal failure Severe sepsis shock status: with septic shock Qualified Code(s): A41.9 - Sepsis, unspecified organism; R65.21 - Severe sepsis with septic shock; N17.1 - Acute kidney failure with acute cortical necrosis (4) NICOLE (acute kidney injury): (5) Obstructive sleep apnea: PLAN: Plan plan to D/C miranda catheter today and increase mobility wean oxygen and CXR today
--- NOTE | 2023-04-24 09:46 | RAD_ITS ---
STUDY: X-RAY CHEST REASON FOR EXAM: Female, 68 years old. Dyspnea with shortness of breath and dizziness. TECHNIQUE: Frontal and lateral views of the chest. COMPARISON: Chest dated December 17, 2022. FINDINGS: Cardiomegaly, aortic tortuosity, prominent central pulmonary arteries and hilar structures with calcified granulomatous changes and low volume to both lung león with mild diffuse interstitial pattern with a basilar predominance, unchanged. New patchy opacity at the left base posteriorly which may represent atelectasis or early/developing pneumonia. Follow-up chest imaging to resolution recommended. Diffuse moderate thoracic spondylosis unchanged. No abnormality of the visualized soft tissue structures of the upper abdomen. RAD/Chest PA and Lateral IMPRESSION: New patchy opacity at the left base posteriorly representing atelectasis or early/developing pneumonia. Follow-up chest imaging to resolution recommended. Electronically Signed: Raffi Brown MD at 10:24 EDT ,
--- NOTE | 2023-04-24 10:51 | CASEMGMT ---
Addendum entered by Nahomy Crow 04/24/23 11:52: Per Kandice @ [facility], they are able to accept w/SOC Saturday. Pt made aware. Original Note: DAVID ZHAO NOTE: DAVID ZHAO to room to discuss discharge planning. Pt sitting up in recliner chair. O2 in place via N/C. Pt states she is still having some weakness and has been holding onto someone when up ambulating in room d/t sl unsteady. She states, if walker is recommended, she would be agreeable to getting one. Pt is also interested in HHC for therapy. Discussed homebound and pt feels she would be homebound for awhile. Pt would like [facility] and declines wanting list of other HHC options. Call to Kandice @ [facility] and referral made. Pt does not have home O2. Discussed Home O2 set up process should she qualify and questions answered. Verbal review of DME co's in pt's geographic location. Pt chooses [employer] as 1st choice for O2 or walker, if needed. Pt does not have a pulse ox, recommended she get one, and she states it would be affordable to purchase. Call to [facility] in therapy and made aware evals have been ordered. Awaiting recommendations. Enoch BARRON RN, CM
[2023-04-24] MEDS: Venlafaxine XR 150 MG Capsule PO (21:30)
[2023-04-24] MEDS: Pramipexole Di-HCl 0.5 MG Tablet 1.5 MG PO (21:30)
[2023-04-25] VITALS (8 sets, daily range): BP systolic 128–156; BP diastolic 72–86; PULSE 67–80; RESP 16–20; TEMP 36.8–37; O2SAT 90–94; BMI 30.6
[2023-04-25] MEDS: Levothyroxine 75 MCG Tablet PO (05:07)
[2023-04-25 05:45] LABS: Absolute Lymphocyte Count 2.09 X10^3/uL (0.83-4.51); Basophil# 0.09 X10^3/uL; Basophil% 0.6 % (0-1); Eosinophil# 0.28 X10^3/uL; Hematocrit 32.2 % (37-47); Hemoglobin 10.7 g/dL (12.0-15.0); Lymphocyte # 2.09 X10^3/ul (0.83-4.51); Lymphocyte % 14.6 % (19-41); Mean Corp Hgb Conc 33.2 g/dL (32-36); Mean Corpuscular Hgb 31.5 pg (27.0-32.0); Mean Corpuscular Volume 94.7 fL (81-99); Mean Platelet Vol. 13.4 fl (6.2-12.0); Monocyte# 0.81 X10^3/uL; Monocyte% 5.6 % (0-10); NRBC Flagged by Analyzer 0 % (0-5); Neutrophil # 10.99 X10^3/uL (2.7-7.7); Neutrophil % 76.6 % (47-70); POSITIVE COUNT YES; Platelet Count 96 K/mm3 (150-450); RBC Distribution Width CV 14.9 % (11.6-14.6); White Blood Count 14.3 K/mm3 (4.4-11.0)
[2023-04-25 06:13] LABS: Anion Gap 7 (5-15); BUN 19 mg/dL (7-18); BUN/Creat Ratio 16.1 RATIO (10-20); Calcium,Total 8.4 mg/dL (8.5-10.1); Chloride 110 mmol/L (98-107); Creatinine, Serum 1.18 mg/dL (0.55-1.02); EST Glomerular Filtration Rate 48 mL/min (>60); Est Glom Filt Rate - Afr Amer 58 mL/min (>60); Estimated Creatinine Clearance 38.86 ml/min; Glucose 80 mg/dL (74-106); Potassium 4.3 mmol/L (3.5-5.1); Sodium Level 139 mmol/L (136-145)
--- NOTE | 2023-04-25 08:01 | PN.HOSP_ITS ---
Reason for Visit Reason for Visit: Diagnoses Sepsis, unspecified organism (04/22/23) Obstructive sleep apnea (adult) (pediatric) (04/22/23) Acute kidney failure with acute cortical necrosis (04/22/23) Acute kidney failure, unspecified (04/22/23) Calculus of ureter (04/22/23) Urinary tract infection, site not specified (04/22/23) Severe sepsis with septic shock (04/22/23) Subjective Subjective Patient was found to be hypoxic the day prior was placed on oxygen 4 L. Chest x-ray obtained New patchy opacity at the left base posteriorly representing atelectasis or early/developing pneumonia Objective Data Objective Data Vital Signs: Vital Signs Temp Pulse Resp BP Pulse Ox O2 Del Method O2 Flow Rate 98.6 F 67 16 129/74 H 93 Nasal Cannula 3 04/25/23 02:00 04/25/23 02:00 04/25/23 02:00 04/25/23 02:00 04/25/23 02:00 04/25/23 03:51 04/25/23 03:51 FiO2 40 04/24/23 23:33 Oxygen Flow Rate (L/min) [ 8 AMBULATING with Oxygen #1] Oxygen Flow Rate (L/min) [At 2 REST with Oxygen] Oxygen Flow Rate (L/min) 3 Oxygen Delivery Method Nasal Cannula Weight: 81 kg Body Mass Index (BMI) 30.6 Intake & Output: Intake and Output for Last 24 Hours 04/23/23 04/24/23 04/25/23 23:59 23:59 23:59 Intake Total 725 / 725 685 / 685 50 / 50 Output Total 1575 / 1875 700 / 700 500 / 500 Balance -850 / -1150 -15 / -15 -450 / -450 Lab / Micro Data 04/25/23 04:55 04/25/23 04:55 Labs: Laboratory Results - last 24 hr 04/25/23 04:55: WBC 14.3 H, RBC 3.40 L, Hgb 10.7 L, Hct 32.2 L, MCV 94.7, MCH 31.5, MCHC 33.2, RDW Std Deviation 52.0 H, RDW Coeff of Poly 14.9 H, Plt Count 96 L, MPV 13.4 H, Immature Gran % (Auto) 0.600, Neut % (Auto) 76.6 H, Lymph % ( Auto) 14.6 L, [place] % (Auto) 5.6, Eos % (Auto) 2.0, Baso % (Auto) 0.6, Absolute Neuts (auto) 11.0 H, Absolute Lymphs (auto) 2.09, Nucleated RBC % 0, Sodium 139, Potassium 4.3, Chloride 110 H, Carbon Dioxide 22.0, Anion Gap 7, BUN 19 H, Creatinine 1.18 H, Estim Creat Clear Calc 38.86, Est GFR (MDRD) Af Amer 58 L, Est GFR (MDRD) Non-Af 48 L, BUN/Creatinine Ratio 16.1, Glucose 80, Calcium 8.4 L Micro: Microbiology 04/22/23 03:35 Blood Culture (Wb) - Anticubital Left Blood Culture - Preliminary No growth in 48 hours. 04/22/23 03:20 Blood Culture (Wb) - Anticubital Right Blood Culture - Preliminary No growth in 48 hours. 04/21/23 13:00 Urine, Clean Catch Urine Culture - Final Proteus mirabilis Radiography Diagnostic Testing: Radiology Impression Chest X-Ray 04/24/23 09:46 IMPRESSION: New patchy opacity at the left base posteriorly representing atelectasis or early/developing pneumonia. Follow-up chest imaging to resolution recommended. Electronically Signed: Raffi Brown MD at 10:24 EDT , Physical Exam Narrative GENERAL: cooperative HEENT: Atraumatic; normocephalic EYES; Anicteric, Normal Conjunctiva NECK; supple, normal thyroid, RESPIRATORY: Diminished to auscultation CARDIOVASCULAR: Regular S1 S2, GI: soft, normoactive bowel sounds, : No Renal angle tenderness; EXTREMITIES: No edema, no clubbing, MUSCULOSKELETAL: no muscle wasting NEURO: Awake; no lateralizing signs. SKIN: No Rash PSYCH; Flat affect Assessment & Plan Assessment/Plan (1) Sepsis: QUALIFIERS: Acute renal failure type: with acute renal cortical necrosis Sepsis acute organ dysfunction status: with acute organ dysfunction Sepsis type: sepsis due to unspecified organism Severe sepsis acute organ dysfunction type: acute renal failure Severe sepsis shock status: with septic shock Qualified Code(s): A41.9 - Sepsis, unspecified organism; R65.21 - Severe sepsis with septic shock; N17.1 - Acute kidney failure with acute cortical necrosis (2) Acute UTI: PLAN: Plan Patient is a 68-year-old lady admitted with left flank pain and assessment of sepsis secondary to acute pyelonephritis made admitted to the intensive care unit for further management 1. Sepsis secondary to acute pyelonephritis ? CT of the abdomen demonstrated left-sided hydronephrosis and hydroureter with minimal amount of perinephric and periureteral stranding due to 4.8 mm stone in the distal left ureter. Treatment initiated per protocol with IV fluid fluid resuscitation broad-spectrum antibiotic therapy after cultures have been sent ? 04/23/2023; underwent cystoscopy and left ureteral stent insertion on [address] Smith ? 04/24/2023; Seen clinical condition continues to improve. Urine cultures positive for Proteus mirabilis on appropriate antibiotic therapy. Plan is to discuss with urology regarding discharge plans 2. Acute hypoxia ? Patient placed on supplemental oxygen via nonrebreather mask/BiPAP ? 04/23/2023; patient has been weaned off BiPAP currently on nasal cannula -04/25/2027 patient was found to be hypoxic the day prior was placed on oxygen 4 L. Chest x-ray obtained New patchy opacity at the left base posteriorly repres enting atelectasis or early/developing pneumonia. Patient remains on antibiotic therapy with Zosyn 3. Acute kidney injury ? Please creatinine Creatinine 1.0 creatinine on admission 2.18, kidney function did worsen to 2.44, IV fluids subsequent monitoring of electrolytes ordered ? 04/23/2023; creatinine down to 2.0 ? 04/24/2023 creatinine down to 1.3 4. Anemia - Secondary to chronic disorder monitoring H&H and transfuse if patient becomes symptomatic or hemoglobin falls below 7 ? 04/24/2023 hemoglobin relatively stable at 10.4 5. Hypothyroidism - Patient is on levothyroxine home dose continued 6. GERD ? On PPI 7. History of duodenal ulcer ? On PPI 8. DVT prophylaxis ? Bilateral SCDs Time spent in the patient's overall evaluation,decision-making process, review of diagnostic data, adjustment of management, discussion with other providers, nursing nursing and ancillary staff involved in patient's care documentation, 35 Minutes Charges/Coding Visit Charges Inpatient E&M: 74946 Subs Hosp L2
--- NOTE | 2023-04-25 08:30 | PCM.PN.GU ---
Subjective Subjective Feeling better this afternoon. She has been out in the vences walking. She passed her ambulatory pulse ox test. She denies nausea, vomiting and is taking in oral fluids without difficulty. She denies any issues with pain control. She would like to get home as soon as possible. Objective Data Objective Data Vital Signs: Vital Signs Temp Pulse Resp BP Pulse Ox O2 Del Method O2 Flow Rate 98.4 F 80 20 H 156/86 H 94 Nasal Cannula 3 04/25/23 08:12 04/25/23 08:16 04/25/23 08:12 04/25/23 08:12 04/25/23 08:12 04/25/23 08:16 04/25/23 08:16 FiO2 40 04/24/23 23:33 Oxygen Flow Rate (L/min) [ 8 AMBULATING with Oxygen #1] Oxygen Flow Rate (L/min) [At 2 REST with Oxygen] Oxygen Flow Rate (L/min) 3 Oxygen Delivery Method Nasal Cannula Weight: 81 kg Body Mass Index (BMI) 30.6 Intake & Output: Intake and Output for Last 24 Hours 04/23/23 04/24/23 04/25/23 23:59 23:59 23:59 Intake Total 725 / 725 685 / 685 50 / 50 Output Total 1575 / 1875 700 / 700 500 / 500 Balance -850 / -1150 -15 / -15 -450 / -450 Lab / Micro Data Attestation: I reviewed the patient's lab results. 04/25/23 04:55 04/25/23 04:55 Labs: Laboratory Results - last 24 hr 04/25/23 04:55: WBC 14.3 H, RBC 3.40 L, Hgb 10.7 L, Hct 32.2 L, MCV 94.7, MCH 31.5, MCHC 33.2, RDW Std Deviation 52.0 H, RDW Coeff of Poly 14.9 H, Plt Count 96 L, MPV 13.4 H, Immature Gran % (Auto) 0.600, Neut % (Auto) 76.6 H, Lymph % (Auto) 14.6 L, [place] % (Auto) 5.6, Eos % (Auto) 2.0, Baso % (Auto) 0.6, Absolute Neuts (auto) 11.0 H, Absolute Lymphs (auto) 2.09, Nucleated RBC % 0, Sodium 139, Potassium 4.3, Chloride 110 H, Carbon Dioxide 22.0, Anion Gap 7, BUN 19 H, Creatinine 1.18 H, Estim Creat Clear Calc 38.86, Est GFR (MDRD) Af Amer 58 L, Est GFR (MDRD) Non-Af 48 L, BUN/Creatinine Ratio 16.1, Glucose 80, Calcium 8.4 L Micro: Microbiology 04/22/23 03:35 Blood Culture (Wb) - Anticubital Left Blood Culture - Preliminary No growth in 48 hours. 04/22/23 03:20 Blood Culture (Wb) - Anticubital Right Blood Culture - Preliminary No growth in 48 hours. 04/21/23 13:00 Urine, Clean Catch Urine Culture - Final Proteus mirabilis Radiography Diagnostic Testing: Radiology Impression Chest X-Ray 04/24/23 09:46 IMPRESSION: New patchy opacity at the left base posteriorly representing atelectasis or early/developing pneumonia. Follow-up chest imaging to resolution recommended. Electronically Signed: Raffi Brown MD at 10:24 EDT , Physical Exam Const alert, oriented x3 and no apparent distress General Appearance: cooperative and comfortable HEENT normocephalic and head/scalp atraumatic Lymph Lymphatic: no lymphedema noted Chest inspection of chest normal Resp normal respiratory effort Effort and Inspection: able to speak in complete sentences and symmetric chest movement Cardio regular rate GI soft to palpation, non-tender and non-distended Extremity Extremity Narrative: SCDs are not in place secondary to recent ambulation. Skin no rashes or lesions noted Neuro oriented x3, CN's II-XII intact bilaterally and moves all extremities Psych mental status grossly normal Assessment & Plan Assessment/Plan (1) Acute UTI: (2) Urolithiasis: QUALIFIERS: Urinary calculus location: ureter Qualified Code(s): N20.1 - Calculus of ureter (3) NICOLE (acute kidney injury): (4) Obstructive sleep apnea: PLAN: Plan She is voiding without Magdal[place] catheter, creatinine continues to improve Oxygenation is improving today following Lasix She is feeling well, understands that she will need to follow-up for stone management Plan for discharge home on antibiotics, discharge planning for today Home health care is set up for tomorrow to visit her at home
[2023-04-25] MEDS: Potassium Chloride Oral Tablet 10 MEQ PO (10:23)
[2023-04-25] MEDS: Furosemide 40 MG/4 ML Vial IV (10:23)
[2023-04-25] MEDS: lamoTRIgine 150 MG Tablet PO (10:24)
[2023-04-25] MEDS: Enoxaparin 40 MG/0.4 ML Syringe SC (10:24)
[2023-04-25] MEDS: Pantoprazole Sodium 20 MG Tablet PO (10:24)
--- NOTE | 2023-04-25 13:19 | CASEMGMT ---
Discharge Planning FWW delivered to patient. Neelam Estrada, Discharge Planning Asst.
--- NOTE | 2023-04-25 13:24 | PCM.DC.SUM ---
Providers Date of Admission: 04/22/23 Primary Care Physician: Tila Zazueta DO Consultations 04/22/23 01:23 Consult: Hospitalist Routine Consulting Provider: Ashish Alston Reason for Consult: medical management EMERGENT Consult: No Notified: Yes Date Notified: 04/22/23 Time Notified: 01:23 Method of Notification: Verbal 04/22/23 04:05 Consult: Storeroom Attendant / Pulmonary Medicine Routine Consulting Provider: Pulmonary Medicine mitchell Tucker Reason for Consult: sepsis EMERGENT Consult: No Notified: Yes Date Notified: 04/22/23 Time Notified: 04:05 Method of Notification: Text Reason For Visit: URETERAL CALCULUS Diagnosis Discharge Diagnosis (1) Acute UTI: Status: Acute Code(s): N39.0 - Urinary tract infection, site not specified (2) Urolithiasis: Status: Acute Code(s): N20.9 - Urinary calculus, unspecified Qualifiers: Urinary calculus location: ureter Qualified Code(s): N20.1 - Calculus of ureter (3) NICOLE (acute kidney injury): Status: Acute Code(s): N17.9 - Acute kidney failure, unspecified (4) Obstructive sleep apnea: Status: Acute Code(s): G47.33 - Obstructive sleep apnea (adult) (pediatric) (5) Septic shock: Status: Acute Code(s): A41.9 - Sepsis, unspecified organism; R65.21 - Severe sepsis with septic shock (6) Atelectasis pulmonary: Status: Acute Code(s): J98.11 - Atelectasis Plan She is voiding without Magdaleno catheter, creatinine continues to improve Oxygenation is improving today following Lasix She is feeling well, understands that she will need to follow-up for stone management Plan for discharge home on antibiotics, discharge planning for today Home health care is set up for tomorrow to visit her at home Medications at Discharge Home Medications cholecalciferol (vitamin D3) 25 mcg (1,000 unit) tablet 2,000 unit PO DAILY 05/15/16 ferrous sulfate 15 mg iron (75 mg)/mL oral drops 65 mg PO DAILY 05/15/16 levothyroxine 50 mcg tablet 75 mcg PO DAILY 05/15/16 ydcvdmkt-dmfn-sttg 8 mg-folic 400 mcg-K 50 mcg-lutein 300 mcg tablet 1 each PO DAILY 05/15/16 inhalational spacing device ##1 09/02/19 omeprazole 20 mg capsule,delayed release 20 mg PO DAILY 09/02/19 albuterol sulfate 90 mcg/actuation breath activated powder inhaler 2 inh inhalation Q6H PRN COUGHING 03/22/23 calcium carb-vit N5-lfereyhtb-jgdx 333 mg-200 unit-133 mg-5 mg tablet 1 tab PO DAILY 03/22/23 potassium chloride 10 mEq tablet,extended release (K-Tab) 10 meq PO DAILY 03/22/23 sucralfate 1 gram tablet 1 gm PO DAILY 03/22/23 vitamin B complex (Vitamins B Complex capsule) 1 cap PO DAILY 03/22/23 lamotrigine 150 mg tablet 150 mg PO BID #60 tabs 04/11/23 ropinirole 1 mg tablet 3 mg PO QHS 04/11/23 venlafaxine 150 mg capsule,extended release 24 hr 150 mg PO DAILY #30 caps 04/11/23 oxycodone-acetaminophen 5 mg-325 mg tablet 1 tab PO Q6H PRN pain 04/21/23 cefdinir 300 mg capsule 300 mg PO BID #20 caps 04/25/23 Hospital Course Operations - (Cystoscopy, insertion of ureteral stent on the left) Summary of Care Provided Hospital Course: Adriana was admitted on Saturday evening April 21 from the emergency room with a diagnosis of ureteral calculus and urinary tract infection. She developed a significant hypotension, respiratory distress, leukocytosis and was taken to the operating room that evening for cystoscopy and left ureteral stent insertion. She was given sepsis management with fluids, antibiotics and laboratory evaluations. She was taken to the ICU following cystoscopy and left ureteral stent insertion. She received pressure support, BiPAP respiratory support, intravenous fluid administration, antibiotics and supportive care while in the ICU. She was transferred then to the floor when she was on nasal cannula and no longer requiring medication to maintain her blood pressure. Physical therapy was consulted, pulmonary toilet was instituted, her oxygen was weaned and her Magdaleno catheter was removed. She continued to tolerate p.o. fluids and food intake. Her pain was controlled and she was voiding without concern. On April 25, she passed her ambulatory pulse ox testing. She had been given Lasix in the morning for fluid on her lungs. At this time it was determined that she was able to be discharged home with home health arrangements. Urine culture results were back and she was given appropriate antibiotic coverage. She was discharged home in good condition. Physical Exam Const alert, oriented x3 and no apparent distress HEENT normocephalic, head/scalp atraumatic, hearing grossly normal bilaterally, external nose normal and moist oral mucous membranes Eyes General Eye: normal appearance of both eyes Neck supple General: normal visual inspection and trachea midline Lymph Lymphatic: no lymphedema noted Chest inspection of chest normal Resp normal respiratory effort, normal air movement and no retractions Cardio regular rate and regular rhythm GI normal to inspection, nondistended, normoactive bowel sounds no CVA tenderness and external exam normal Extremity normal to inspection Skin no rashes or lesions noted, no wounds, no jaundice, no petechiae and no mottling Neuro oriented x3, CN's II-XII intact bilaterally and moves all extremities Psych mental status grossly normal, thought process normal and cooperative Weight / BMI Weight Weight: 81 kg Body Mass Index (BMI) 30.6 ABG / Lab / Microbiology Data 04/25/23 04:55 04/25/23 04:55 Laboratory: Laboratory Results - last 24 hr 04/25/23 04:55: WBC 14.3 H, RBC 3.40 L, Hgb 10.7 L, Hct 32.2 L, MCV 94.7, MCH 31.5, MCHC 33.2, RDW Std Deviation 52.0 H, RDW Coeff of Poly 14.9 H, Plt Count 96 L, MPV 13.4 H, Immature Gran % (Auto) 0.600, Neut % (Auto) 76.6 H, Lymph % (Auto) 14.6 L, [place] % (Auto) 5.6, Eos % (Auto) 2.0, Baso % (Auto) 0.6, Absolute Neuts (auto) 11.0 H, Absolute Lymphs (auto) 2.09, Nucleated RBC % 0, Sodium 139, Potassium 4.3, Chloride 110 H, Carbon Dioxide 22.0, Anion Gap 7, BUN 19 H, Creatinine 1.18 H, Estim Creat Clear Calc 38.86, Est GFR (MDRD) Af Amer 58 L, Est GFR (MDRD) Non-Af 48 L, BUN/Creatinine Ratio 16.1, Glucose 80, Calcium 8.4 L Microbiology: Microbiology 04/22/23 03:35 Blood Culture (Wb) - Anticubital Left Blood Culture - Preliminary No growth in 48 hours. 04/22/23 03:20 Blood Culture (Wb) - Anticubital Right Blood Culture - Preliminary No growth in 48 hours. 04/21/23 13:00 Urine, Clean Catch Urine Culture - Final Proteus mirabilis D/C Instructions Discharge Diet: Carb Control Diet Discharge Activity: Return to Normal Activity May resume sexual activity in: No Restrictions Call your doctor if you observe: Fever of 101 or Higher, Inability to urinate, Inability to have a bowel movement, Shortness of breath and Chest pain Please Follow Up With: Kelsey Beck MD When: the office will call for instructions Please also follow up with primary care and pulmonology Meaningful Use Info Meaningful Use Diagnoses (Choose all that apply): None applicable Discharge Plan Admission Admit Date/Time: 04/22/23 08:38 Attending Provider: Kelsey Beck Primary Care Provider: Tila Zazueta Consulting Providers: Frank Castañeda; Ashish Alston; Guille Mabry; Quentin Myrick; Leighton Herr; Chris Sanchez; Tamar Man COLLECTOR Discharge Orders/Prescriptions Prescriptions: New cefdinir 300 mg capsule 300 mg PO BID Qty: 20 0RF Continued venlafaxine 150 mg capsule,extended release 24hr 150 mg PO DAILY Qty: 30 2RF lamotrigine 150 mg tablet 150 mg PO BID Qty: 60 2RF levothyroxine 50 MCG tablet 75 mcg PO DAILY Patient Comments: THYROID cholecalciferol (vitamin D3) 1,000 UNIT tablet 2,000 unit PO DAILY ferrous sulfate 15 MG/ML drops 65 mg PO DAILY vafnrwsn-efa-bmhb-FA-vit K-lut 1 EACH tablet 1 each PO DAILY ropinirole 1 mg tablet 3 mg PO QHS Patient Comments: RESTLESS LEGS omeprazole 20 MG capsule 20 mg PO DAILY calcium carb-D3-mag [id number]-ahbm [id number] cu-gfvs-sj-mg tablet 1 tab PO DAILY Rx Instructions: administer with a meal vitamin B complex [Vitamins B Complex] Capsule 1 cap PO DAILY potassium chloride [K-Tab] 10 mEq tablet extended release 10 meq PO DAILY sucralfate 1 GM tablet 1 gm PO DAILY albuterol sulfate 90 mcg/actuation aerosol powdr breath activated 2 inh inhalation Q6H PRN (Reason: COUGHING) oxycodone-acetaminophen 5-325 mg tablet 1 tab PO Q6H PRN (Reason: pain) Patient Comments: TAKE 1 TABLET BY MOUTHEEVERY 6 HOURS NEEDEDSFOR PAINN Discontinued venlafaxine 75 mg tablet 75 mg PO DAILY ketorolac 10 mg tablet 10 mg PO Q6H PRN (Reason: pain) Patient Comments: TAKE 1 TABLET BY MOUTHNFOUR TIMES A DAY NEEDED FOR PAIN tamsulosin 0.4 mg capsule 0.4 mg PO DAILY Patient Comments: TAKE 1 CAPSULE BY MOUTHEONCE DAILY doxycycline hyclate 100 mg capsule 100 mg PO BID No Action (DME) inhalational spacing device 1 EACH spacer 1 ea MC UD Qty: 1 0RF Rx Instructions: use with MDI Referrals / Follow Up: Tila Zazueta DO [Primary Care Provider] - Disposition Disposition (needs filled in before D/C Order can be placed): Home Health Service
--- NOTE | 2023-04-25 13:36 | CASEMGMT ---
Addendum entered by Nahomy Crow 04/25/23 14:39: Magige @ [facility] made aware pt is discharging home today. Addendum entered by Nahomy Crow 04/25/23 13:44: Pt sitting up in recliner chair in room. She was made aware [facility] SOC slated for tomorrow. She plans to have someone hot die picker a pulse ox today so she can keep an eye on her O2 levels @ home. She denies having any further d/c planning concerns or needs. Original Note: DAVID ZHAO NOTE: Script for walker obtained from Dr Castañeda and sent to [facility] via [employer]. Walker has been delivered to pt's room by [employer] enterprise resource planner. Home O2 amb testing has been completed and pt does not qualify for home O2. Plan: Home w/[facility], SOC tomorrow. Enoch BARRON RN, CM
--- NOTE | 2023-04-25 14:24 | PHA.DC.MC.R ---
Pharmacy [facility] has performed discharge medication reconciliation and counseling for this patient. The patient was counseled on the following discharge medications and changes in medications for homegoing were reviewed. 1. CEFDINIR The Reason for Use, instructions for use, and potential side effects were reviewed for all new medications. The patient's questions regarding all of their medications were answered. The patient was able to verbally demonstrate an understanding of their discharge medications. The patient's discharge medication list was reviewed for discrepancies and discrepancies were resolved. The patient was counselled by Shannan Butler PharmD Candidate Medications at Discharge Home Medications cholecalciferol (vitamin D3) 25 mcg (1,000 unit) tablet 2,000 unit PO DAILY 05/15/16 ferrous sulfate 15 mg iron (75 mg)/mL oral drops 65 mg PO DAILY 05/15/16 levothyroxine 50 mcg tablet 75 mcg PO DAILY 05/15/16 kmzntaev-helc-epry 8 mg-folic 400 mcg-K 50 mcg-lutein 300 mcg tablet 1 each PO DAILY 05/15/16 inhalational spacing device ##1 09/02/19 omeprazole 20 mg capsule,delayed release 20 mg PO DAILY 09/02/19 albuterol sulfate 90 mcg/actuation breath activated powder inhaler 2 inh inhalation Q6H PRN COUGHING 03/22/23 calcium carb-vit Q3-zcpssqtyf-gupn 333 mg-200 unit-133 mg-5 mg tablet 1 tab PO DAILY 03/22/23 potassium chloride 10 mEq tablet,extended release (K-Tab) 10 meq PO DAILY 03/22/23 sucralfate 1 gram tablet 1 gm PO DAILY 03/22/23 vitamin B complex (Vitamins B Complex capsule) 1 cap PO DAILY 03/22/23 lamotrigine 150 mg tablet 150 mg PO BID #60 tabs 04/11/23 ropinirole 1 mg tablet 3 mg PO QHS 04/11/23 venlafaxine 150 mg capsule,extended release 24 hr 150 mg PO DAILY #30 caps 04/11/23 oxycodone-acetaminophen 5 mg-325 mg tablet 1 tab PO Q6H PRN pain 04/21/23 cefdinir 300 mg capsule 300 mg PO BID #20 caps 04/25/23
== END 2023-04-25 15:07 | disposition home health service (06) | DRG 853 ==
LOC: ED 15:36 → MS3 15:49 → ICU 04-22 01:31 → MS3 04-23 17:27
PROVIDERS: Anesthesiology; Hospitalist; Internal Medicine; Admitting Provider Urology; Emergency Provider Emergency Medicine; PCP Family Medicine; Visit Provider Urology
PROC: 0T778DZ Dilation of Left Ureter with Intraluminal Device, Via Natural or Artificial Opening Endoscopic (ICD-10-PCS; principal; 2023-04-22 00:30)
DX: A41.59 Other Gram-negative sepsis (principal); N17.1 Acute kidney failure with acute cortical necrosis; R65.21 Severe sepsis with septic shock; E87.21 Acute metabolic acidosis; J98.11 Atelectasis; N10 Acute pyelonephritis; N13.6 Pyonephrosis; D63.8 Anemia in other chronic diseases classified elsewhere; F31.9 Bipolar disorder, unspecified; E03.9 Hypothyroidism, unspecified; G47.33 Obstructive sleep apnea (adult) (pediatric); K21.9 Gastro-esophageal reflux disease without esophagitis; B96.4 Proteus (mirabilis) (morganii) as the cause of diseases classified elsewhere; R09.02 Hypoxemia; Z90.49 Acquired absence of other specified parts of digestive tract; Z79.899 Other long term (current) drug therapy; Z87.442 Personal history of urinary calculi; Z87.19 Personal history of other diseases of the digestive system
CPT/HCPCS: 36415; 36600; 71046; 74176; 76000; 80048; 80053; 80202; 81001; 82803; 82962; 83605; 83735; 84100; 84443; 84484; 85025; 85027; 87040; 87077; 87086; 87088; 87186; 94002; 94003; 94668; 94762; 97162; 97166; 97530; 97535; 99252; 99285; 99406; J7030; J7040; J7050; J7120; A4216; C2617; G0463; J1940; J2405

== ENCOUNTER 2023-05-03 00:05 | Emergency (ER) | payer MEDICARE, SELFPAY ==
[2023-05-03 00:05] VITALS: BP 128/77; PULSE 66; RESP 18; TEMP 36.4; O2SAT 93; BMI 40.8
--- NOTE | 2023-05-03 00:20 | RAD_ITS ---
INDICATION: R flank pain EXAMINATION/TECHNIQUE: X-RAY - XR Abdomen 1 View COMPARISON: None FINDINGS: BOWEL GAS PATTERN: Left double-J ureteral stent extends caudally expected location left renal pelvis and bladder. Nonspecific non-obstructive bowel gas pattern. No focal stomach or bowel distention. Moderate diffuse colonic stool. FREE AIR: Not well assessed on a supine view. ORGANOMEGALY: Not seen. CALCIFICATIONS: Punctate calcifications in the right and left mid to lower pelvis in the region of phleboliths on CT. LOWER CHEST: No acute pathology. BONES AND SOFT TISSUES: No acute pathology. RAD/Abdomen Single View (Portable) IMPRESSION: Non-obstructive bowel gas pattern. Moderate colonic stool burden. Left double-J ureteral stent in expected location. Punctate pelvic calcifications in area of phleboliths on CT. Electronically Signed: Emeka Le MD at 1:37 EDT ,
--- NOTE | 2023-05-03 00:20 | RAD_ITS ---
INDICATION: Dyspnea with exertion EXAMINATION/TECHNIQUE: X-RAY - XR Chest 1 View COMPARISON: April 24, 2023. FINDINGS: LINES/DEVICES: None. LUNGS: Patchy opacification retrocardiac left lower lung and retrodiaphragmatic right lower lung, decreased from prior exam. No florid edema or effusion. No pneumothorax. MEDIASTINUM AND CARDIOVASCULAR STRUCTURES: Cardiac silhouette not enlarged. BONES AND SOFT TISSUES: Unremarkable. RAD/Chest 1 View (Portable) IMPRESSION: Patchy opacification in the lower lungs with some improved aeration from prior exam. Findings suggestive atelectasis with pneumonia not excluded in the appropriate setting. Electronically Signed: Emeka Le MD at 1:34 EDT ,
--- NOTE | 2023-05-03 00:21 | ED.VIS.GI ---
HPI HPI - GI History of Present Illness Chief Complaint: Flank Pain Informant: patient and EMS Abdominal Pain/Flank Pain Onset: Today Context: Gradual Onset Timing: Waxes and wanes Quality: Sharp Location: Right Flank Current Severity: Moderate Maximum Severity: Moderate Worsened by: Nothing Relieved by: Nothing Nausea/Vomiting/Emesis GI Symptom: Positive for Nausea; Negative for Vomiting Diarrhea/Melena/Hematochezia GI Symptom: Negative for Diarrhea, Melena or Hematochezia Associated Symptoms Associated Symptoms: Positive for Frequency and Urgency; Negative for Dysuria or Hematuria Narrative Narrative: Patient presents for gradually worsening colicky sharp pain in the right flank today. No urinary symptoms. Pain radiates into the right back a little. Nausea no vomiting. No fevers or chills. No hematuria. She states it feels like kidney stone pain, and she was admitted to the hospital about a week ago for a kidney stone on the left that became infected and she was hypotensive and admitted to the ICU. She had a stent placed, and that still resides in the left side. She states when she came to the hospital initially she was having this pain on the right side but it went away, she had another episode or 2 of it between being discharged home and now, but nothing as severe as occurred today. She is still on cefdinir which she was discharged from the hospital on. And also states that from being admitted to the ICU she is still malaised and deconditioned, and gets dyspneic with exertion quite easily although that is nothing new. She has an incentive spirometer which she has been using for that. [facility] Medical History Abdominal pain Arthritis Atelectasis pulmonary Bipolar disorder Bipolar disorder, unspecified Carpal tunnel syndrome Cervix erosion Chronic cough Depression Dizziness Easy bruising Fatigue Fever GERD (gastroesophageal reflux disease) Hemorrhoid History of edema History of kidney stones HTN (hypertension) Hypothyroidism IBS (irritable bowel syndrome) Impaired fasting glucose Impingement syndrome of unspecified shoulder Incontinence Injury of head and neck Iron deficiency Leg cramps Low back pain Low iron Non-smoker Osteoarthritis Post-menopausal Radiculopathy, lumbar region Restless leg syndrome Sepsis Shingles Shortness of breath on exertion Stomach ulcer Vitamin D deficiency Wears glasses Wears partial dentures Home Medications cholecalciferol (vitamin D3) 25 mcg (1,000 unit) tablet 2,000 unit PO DAILY 05/15/16 [History Last Taken 04/20/23 08:00] ferrous sulfate 15 mg iron (75 mg)/mL oral drops 65 mg PO DAILY 05/15/16 [History Last Taken 04/20/23 08:00] levothyroxine 50 mcg tablet 75 mcg PO DAILY 05/15/16 [History Last Taken 04/21/23 08:00] mvwttuyc-njgc-noxi 8 mg-folic 400 mcg-K 50 mcg-lutein 300 mcg tablet 1 each PO DAILY 05/15/16 [History Last Taken 04/20/23 08:00] inhalational spacing device ##1 09/02/19 [Rx Last Taken Unknown] omeprazole 20 mg capsule,delayed release 20 mg PO DAILY 09/02/19 [History Last Taken 04/21/23 08:00] albuterol sulfate 90 mcg/actuation breath activated powder inhaler 2 inh inhalation Q6H PRN COUGHING 03/22/23 [History Last Taken 04/21/23 08:57] calcium carb-vit N1-[id number]-pkii 333 mg-200 unit-133 mg-5 mg tablet 1 tab PO DAILY 03/22/23 [History Last Taken 04/20/23 08:00] potassium chloride 10 mEq tablet,extended release (K-Tab) 10 meq PO DAILY 03/22/23 [History Last Taken 04/20/23 08:00] sucralfate 1 gram tablet 1 gm PO DAILY 03/22/23 [History Last Taken 04/21/23 06:00] vitamin B complex (Vitamins B Complex capsule) 1 cap PO DAILY 03/22/23 [History Last Taken 04/20/23 08:00] lamotrigine 150 mg tablet 150 mg PO BID #60 tabs 04/11/23 [Rx Last Taken 04/21/23 08:00] ropinirole 1 mg tablet 3 mg PO QHS 04/11/23 [History Last Taken 04/20/23 22:00] venlafaxine 150 mg capsule,extended release 24 hr 150 mg PO DAILY #30 caps 04/11/23 [Rx Last Taken 04/20/23 22:00] oxycodone-acetaminophen 5 mg-325 mg tablet 1 tab PO Q6H PRN pain 04/21/23 [History Last Taken 04/21/23 08:00] cefdinir 300 mg capsule 300 mg PO BID #20 caps 04/25/23 [Rx Last Taken Unknown] hydrocodone-acetaminophen 5-325mg 5mg-325mg 1 tab PO Q6H PRN PRN Pain 3 days #10 TABLETS 05/03/23 [Rx Last Taken Unknown] sulfamethoxazole 800 mg-trimethoprim 160 mg tablet 1 tab PO BID #14 TABLETS 05/03/23 [Rx Last Taken Unknown] Allergy/AdvReac Type Severity Reaction Status Date / Time Sugars, Metabolically Active Allergy Intermediate Diarrhea Verified 05/03/23 00:09 prednisone AdvReac Intermediate Other Verified 05/03/23 00:09 Surgical History H/O foot surgery History of esophagogastroduodenoscopy (EGD) History of selective injection of anesthetic agent around lumbar nerve root History of tonsillectomy and adenoidectomy Hx of cholecystectomy Social History Smoking Status: Never smoker alcohol intake: current ROS ROS ED Constitutional Constitutional ED: Denies chills or fever(s) Eyes Eyes: Denies change in vision or diplopia ENT ENT ED: Denies rhinorrhea or sore throat Cardiovascular Cardiovascular: Denies chest pain or palpitations Respiratory/Chest Respiratory/Chest: Reports dyspnea on exertion; Denies cough or sputum Gastrointestinal Gastrointestinal: Reports abdominal pain and nausea; Denies diarrhea or vomiting Genitourinary Genitourinary ED: Reports flank pain, urinary frequency and urinary urgency; Denies dysuria or hematuria Musculoskeletal Musculoskeletal: Denies back pain or neck pain Integumentary Denies abscess or rash Neurologic Neurologic: Denies headache(s), paresthesias or weakness Psychiatric Psychiatric: Denies anxiety or suicidal thoughts EXAM Physical Exam Const Vital Signs: 05/03/23 00:05 Temperature 97.6 F L Temperature Source Oral Pulse Rate 66 Respiratory Rate 18 Blood Pressure 128/77 H Blood Pressure Mean 94 Pulse Ox 93 Oxygen Delivery Method Room Air Positive well nourished and well developed General Appearance ED: well developed and NAD HEENT Reports moist mucous membranes normocephalic and atraumatic Eyes PERRL and EOMs intact bilaterally Neck full ROM and supple Resp normal respiratory effort and clear to auscultation bilaterally Cardio regular rate, regular rhythm and no murmurs GI non-distended GI Narrative: Mild tenderness right lateral mid abdomen and into the flank, but no right upper quadrant or right lower quadrant tenderness, no CVA tenderness and no guarding or rebound tenderness. Auscultation: normoactive bowel sounds Palpation: soft Back/Spine no CVA tenderness General Back: other FROM Extremity normal to inspection General Extremety ED: Negative for edema, pulses abnormal or tenderness General Extremity: Negative for edema or pulses abnormal Neuro oriented x3, CN's II-XII intact bilaterally and no sensory deficits noted Sensorium / Orientation: awake and alert Motor Exam: strength 5/5 throughout Skin no rashes or lesions noted and no wounds MDM MDM MDM Narrative Medical decision making narrative: Work-up shows a white blood count that is 10.7 high end of normal, with no left shift or bandemia, much better than when she was in the hospital. Her creatinine is 1.39 she was at or similar to this level recently, but she peaked higher than this above 2 while she was in the hospital. Her urine this time looks infected on the urinalysis with bacteria, pyuria, and leukocyte esterase. She is not septic and she is doing very well after fluids, Zofran, and analgesics. She has normal vital signs and I do not think she needs to be admitted to the hospital, I did review her urine culture from 04/21, it showed Proteus mirabilis sensitive to everything including cephalosporins, except for nitrofurantoin, but it was only 50-80,000 CFU/mL, which is of unknown significance. I am sending a new culture of her urine today and adding Bactrim but telling her to continue the cefdinir and follow-up closely in the outpatient realm with her urologist Dr. Beck. We will also prescribe her something to use for pain. She is comfortable with that plan. Lab Data Attestation: I reviewed the patient's lab results. Labs: Laboratory Results - last 24 hr 05/03/23 05/03/23 00:30 01:14 WBC 10.7 RBC 3.90 L Hgb 12.1 Hct 36.9 L MCV 94.6 MCH 31.0 MCHC 32.8 RDW Std Deviation 48.7 H RDW Coeff of Poly 14.0 Plt Count 234 MPV 11.4 Immature Gran % (Auto) 0.400 Neut % (Auto) 64.7 Lymph % (Auto) 22.0 [place] % (Auto) 7.3 Eos % (Auto) 4.6 Baso % (Auto) 1.0 Absolute Neuts (auto) 7.0 Absolute Lymphs (auto) 2.36 Nucleated RBC % 0 Sodium 138 Potassium 4.0 Chloride 106 Carbon Dioxide 26.0 Anion Gap 6 BUN 20 H Creatinine 1.39 H Estim Creat Clear Calc 31.60 Est GFR (MDRD) Af Amer 48 L Est GFR (MDRD) Non-Af 40 L BUN/Creatinine Ratio 14.4 Glucose 106 Calcium 9.1 Urine Color Yellow Urine Clarity Sl. Cloudy Urine pH 6.0 Ur Specific Alvin 1.020 Urine Protein 100 H Urine Glucose (UA) Normal Urine Ketones 5 H Urine Occult Blood 250 H Urine Nitrite Negative Urine Bilirubin Negative Urine Urobilinogen Normal Ur Leukocyte Esterase 500 H Urine RBC > 100 SEEN Urine WBC 25-50 SEEN Ur Squamous Epith Cells 0 SEEN Urine Bacteria 3+ Urine Mucus 1+ Radiography Diagnostic Testing: Clinical Impression(s) from Imaging Studies Chest X-Ray 05/03/23 00:20 IMPRESSION: Patchy opacification in the lower lungs with some improved aeration from prior exam. Findings suggestive atelectasis with pneumonia not excluded in the appropriate setting. Electronically Signed: Emeka Le MD at 1:34 EDT , KUB X-Ray 05/03/23 00:20 IMPRESSION: Non-obstructive bowel gas pattern. Moderate colonic stool burden. Left double-J ureteral stent in expected location. Punctate pelvic calcifications in area of phleboliths on CT. Electronically Signed: Emeka Le MD at 1:37 EDT , Chest x-ray 1 view my interpretation shows atelectasis mostly in the left lower lobe, not able to rule out pneumonia. Agree with radiology interpretation. KUB 1 view on my interpretation shows intact left ureteral stent with good placement. Discharge Plan Triage Chief Complaint: Flank Pain ED Provider: Enzo Arredondo Dx/Rx/DC Orders Clinical Impression: Acute UTI, Urolithiasis, Ureteral stent present Instructions: Urinary Tract Infections in Women, ED Kidney Stone w/ Colic Prescriptions: New hydrocodone-acetaminophen [hydrocodone-acetaminophen] 5-325 mg tablet 1 tab PO Q6H PRN PRN (Reason: Pain) 3 Days Qty: 10 0RF sulfamethoxazole-trimethoprim [sulfamethoxazole-trimethoprim] 800-160 mg tablet 1 tab PO BID Qty: 14 0RF No Action venlafaxine 150 mg capsule,extended release 24hr 150 mg PO DAILY Qty: 30 2RF lamotrigine 150 mg tablet 150 mg PO BID Qty: 60 2RF levothyroxine 50 MCG tablet 75 mcg PO DAILY Patient Comments: THYROID cholecalciferol (vitamin D3) 1,000 UNIT tablet 2,000 unit PO DAILY ferrous sulfate 15 MG/ML drops 65 mg PO DAILY jqabyyaq-cdq-yyvx-FA-vit K-lut 1 EACH tablet 1 each PO DAILY ropinirole 1 mg tablet 3 mg PO QHS Patient Comments: RESTLESS LEGS omeprazole 20 MG capsule 20 mg PO DAILY (DME) inhalational spacing device 1 EACH spacer 1 ea MC UD Qty: 1 0RF Rx Instructions: use with MDI calcium carb-D3-mag [id number] tf-init-eq-mg tablet 1 tab PO DAILY Rx Instructions: administer with a meal vitamin B complex [Vitamins B Complex] Capsule 1 cap PO DAILY potassium chloride [K-Tab] 10 mEq tablet extended release 10 meq PO DAILY sucralfate 1 GM tablet 1 gm PO DAILY albuterol sulfate 90 mcg/actuation aerosol powdr breath activated 2 inh inhalation Q6H PRN (Reason: COUGHING) oxycodone-acetaminophen 5-325 mg tablet 1 tab PO Q6H PRN (Reason: pain) Patient Comments: TAKE 1 TABLET BY MOUTHEEVERY 6 HOURS NEEDEDSFOR PAINN cefdinir 300 mg capsule 300 mg PO BID Qty: 20 0RF Primary Care Provider: Tila Zazueta Referrals: Kelsey Beck MD [Med Staff - Active Staff] - 3-5 Days (call for appt) Tila Zazueta, [Primary Care Provider] - Disposition Disposition: Home, Self Care
[2023-05-03] MEDS: Morphine 4 MG/ML Syringe IV (00:36)
[2023-05-03] MEDS: Ondansetron 4 MG/2 ML Vial IV (00:36)
[2023-05-03 00:39] LABS: Absolute Lymphocyte Count 2.36 X10^3/uL (0.83-4.51); Basophil# 0.11 X10^3/uL; Eosinophil# 0.49 X10^3/uL; Eosinophils% 4.6 % (0-5); Hematocrit 36.9 % (37-47); Hemoglobin 12.1 g/dL (12.0-15.0); Lymphocyte # 2.36 X10^3/ul (0.83-4.51); Mean Corp Hgb Conc 32.8 g/dL (32-36); Mean Corpuscular Volume 94.6 fL (81-99); Mean Platelet Vol. 11.4 fl (6.2-12.0); Monocyte# 0.78 X10^3/uL; Monocyte% 7.3 % (0-10); NRBC Flagged by Analyzer 0 % (0-5); Neutrophil # 6.96 X10^3/uL (2.7-7.7); Neutrophil % 64.7 % (47-70); Platelet Count 234 K/mm3 (150-450); RBC Distribution Width SD 48.7 fl (35.1-43.9); White Blood Count 10.7 K/mm3 (4.4-11.0)
[2023-05-03 00:53] LABS: Anion Gap 6 (5-15); BUN 20 mg/dL (7-18); BUN/Creat Ratio 14.4 RATIO (10-20); Calcium,Total 9.1 mg/dL (8.5-10.1); Chloride 106 mmol/L (98-107); Creatinine, Serum 1.39 mg/dL (0.55-1.02); EST Glomerular Filtration Rate 40 mL/min (>60); Est Glom Filt Rate - Afr Amer 48 mL/min (>60); Glucose 106 mg/dL (74-106); Sodium Level 138 mmol/L (136-145)
[2023-05-03 01:21] LABS: Color, Urine Yellow (Yellow); Glucose, Dipstick Normal (Normal); Ketone-Dipstick 5 mg/dl (Negative); Leukocyte Esterase-Dipstick 500 /ul (Negative); Nitrite-Dipstick Negative (Negative); Occult Blood-Urine 250 /ul (Negative); Protein-Dipstick 100 mg/dl (Negative); Squamous Epithelial Cells - UA 0 SEEN /hpf (5-10); Urine Bilirubin Dipstick Negative (Negative); Urine Clarity Sl. Cloudy (Clear); Urine Urobilinogen Normal (Normal)
[2023-05-03 01:28] LABS: Bacteria 3+ /hpf (None Seen); Mucous, Urine 1+ /hpf (<or=2+); Red Blood Cells-Urine > 100 SEEN /hpf (0-5); White Blood Cells 25-50 SEEN /hpf (0-5)
[2023-05-03] MEDS: Smz/Tmp Ds Tablet 1 TABLET PO (02:29)
[2023-05-03 02:30] VITALS: PULSE 74; RESP 17; O2SAT 97
== END 2023-05-03 02:57 | disposition home or self-care (01) ==
PROVIDERS: Emergency Provider Emergency Medicine; PCP Family Medicine; Visit Provider Emergency Medicine
DX: N39.0 Urinary tract infection, site not specified (principal); N20.9 Urinary calculus, unspecified
CPT/HCPCS: 71045; 74018; 80048; 81001; 85025; 87077; 87086; 87088; 87186; 96374; 96375; 99284; A4216; J2405

== ENCOUNTER 2023-05-23 08:50 | Day surgery (SDC) | payer MEDICARE, SELFPAY ==
[2023-05-23 09:26] VITALS: BP 140/89; PULSE 77; RESP 16; TEMP 36.6; O2SAT 97; BMI 40.0
[2023-05-23] MEDS: Lactated Ringers 1,000 ML 15 ML IV (09:42)
[2023-05-23 09:51] LABS: Hematocrit 38.9 % (37-47); Hemoglobin 12.6 g/dL (12.0-15.0); Mean Corp Hgb Conc 32.4 g/dL (32-36); Mean Corpuscular Volume 95.8 fL (81-99); Mean Platelet Vol. 11.8 fl (6.2-12.0); Platelet Count 166 K/mm3 (150-450); RBC Distribution Width CV 14.1 % (11.6-14.6); RBC Distribution Width SD 49.6 fl (35.1-43.9); Red Blood Count 4.06 M/mm3 (4.2-5.4)
[2023-05-23 10:11] LABS: Anion Gap 5 (5-15); BUN 16 mg/dL (7-18); BUN/Creat Ratio 14.5 RATIO (10-20); Calcium,Total 9.3 mg/dL (8.5-10.1); Chloride 109 mmol/L (98-107); EST Glomerular Filtration Rate 52 mL/min (>60); Est Glom Filt Rate - Afr Amer 63 mL/min (>60); Estimated Creatinine Clearance 39.93 ml/min; Glucose 110 mg/dL (74-106); Potassium 3.9 mmol/L (3.5-5.1); Sodium Level 141 mmol/L (136-145)
--- NOTE | 2023-05-23 10:55 | DCINST_ITS ---
Discharge Instructions Diet Discharge Diet: No restrictions Activity Discharge Activity: Return to Normal Activity Dressing / Incision Call your doctor if you observe: Fever of 101 or Higher, Inability to urinate and Inability to have a bowel movement Follow Up Care Please Follow Up With: Kelsey Beck MD When: The office will contact her for follow up instructions. Please complete antibiotics as prescribed earlier this week. Test Results: Test results from this visit will be discussed in further detail at your follow- up appointment, if applicable. Discharge Plan Admission Attending Provider: Kelsey Beck Primary Care Provider: Tila Zazueta Discharge Orders/Prescriptions Prescriptions: New oxycodone-acetaminophen [Percocet] 5-325 mg tablet 1 tab PO Q8H PRN (Reason: pain) 3 Days Qty: 10 0RF Continued venlafaxine 150 mg capsule,extended release 24hr 150 mg PO DAILY Qty: 30 2RF lamotrigine 150 mg tablet 150 mg PO BID Qty: 60 2RF levothyroxine 50 MCG tablet 75 mcg PO DAILY Patient Comments: THYROID cholecalciferol (vitamin D3) 1,000 UNIT tablet 2,000 unit PO DAILY ferrous sulfate 15 MG/ML drops 65 mg PO DAILY rxwpyiwg-gsp-taeo-FA-vit K-lut 1 EACH tablet 1 each PO DAILY ropinirole 1 mg tablet 3 mg PO QHS Patient Comments: RESTLESS LEGS (DME) inhalational spacing device 1 EACH spacer 1 ea MC UD Qty: 1 0RF Rx Instructions: use with MDI vitamin B complex [Vitamins B Complex] Capsule 1 cap PO DAILY albuterol sulfate 90 mcg/actuation aerosol powdr breath activated 2 inh inhalation Q6H PRN (Reason: COUGHING) Referrals / Follow Up: Tila Zazueta DO [Primary Care Provider] - Disposition Disposition (needs filled in before D/C Order can be placed): Home, Self Care
--- NOTE | 2023-05-23 10:57 | OP.PCM_ITS ---
Report of Operation Date of Procedure: 05/23/23 Pre-Operative Diagnosis: Left ureteral calculus, bilateral renal calculi Post-Operative Diagnosis: Same Surgery/Procedure Performed:: Cystoscopy, left ureteroscopy with laser lithotripsy, stone basket extraction and left ureteral stent change, right ureteroscopy attempted stone basket extraction, right ureteral stent insertion Surgeon: Kelsey Beck Type of Anesthesia: General Specimen's removed: Left ureteral and renal stone fragments Description of Procedure: The patient is a 68-year-old female who had a left ureteral stone with obstruction and sepsis with left ureteral stent insertion. She now presents for definitive management of her stones after her infection has been cleared. Informed consent has been obtained. The patient was taken to the operating room and placed on the operating room table. Anesthesia monitored the head, neck, airway, IV access and vital signs throughout the case. Once anesthesia was appropriately administered, the patient was placed into dorsolithotomy position was prepped and draped in usual sterile fashion. The cystoscope was inserted through the urethra under direct visualization into the urinary bladder. The left ureteral stent was grasped and brought to the urethral meatus where it was intubated with a 0.035 Glidewire. A second Glidewire was placed alongside the first. A flexible ureteroscope was then utilized to gain access to the ureter where a stone was identified in the mid ureter. It was lasered using a 200 ?m laser fiber into small pieces which were then removed with a stone basket. The scope was then advanced all the way into the renal pelvis where a few smaller stones were seen and the ones large enough to be grasped with the basket were removed. The remainder of the stones were seen behind the papilla and were not free-floating within the renal pelvis. At this time the cystoscope was used to place a 4.5 x 24 cm JJ stent over the safety wire. Good positioning was achieved in the renal pelvis as well as the urinary bladder. Using the cystoscope, the right ureteral orifice was intubated with 2 separate 0.035 Glidewire's. The flexible ureteroscope was advanced over 1 of these. Access was obtained to the renal pelvis where 2 small stones were identified but I was unable to grasp them secondary to their size. At this time the ureteroscope was used to visualize the entire length of the ureter and using the safety wire and the cystoscope, a 4.5 [place] by 24 cm JJ stent was inserted with good positioning in the renal pelvis as well as the urinary bladder. The patient's bladder was then emptied and she was awakened and taken to the recovery room in good condition. There were no complications during this procedure. Grafts/Implants Used: 4.5 x 24 cm JJ stent bilateral Complications None Admit VTE Documentation VTE Present on Admission: Yes VTE Mechan Device Prophylaxis: SCD's VTE Pharm Prophylaxis ordered?: No Reason prophylaxis not ordered:: Treatment Not Indicated
--- NOTE | 2023-05-23 11:10 | CALC_PTH ---
PATIENT: JANAK UGARTE LOC: [facility] U#:[id number] AGE/SX: 68/F ROOM: RE05/23/[address]: Dr. Kelsey Beck MD : [id number] BED: DIS: 05/23/2023 SPEC #: [id number] RECD: 05/23/23 13:39 STATUS: SARITA OSORIO #: [id number] PORFIRIO: 05/23/23 11:[address]: Kelsey Beck DEPT: SURGICAL PATHOLOGY RECD BY: Casper Couch ENTERED: 05/24/23 07:31 SP TYPE: Calculi OTHR DR: Tila Zazueta DO Tissues: CALCULI Procedures: Surgery Specimen Level I HEADER OPERATION: Cysto, ureteroscopy, laser, left stent change, right stent placement PRE-OP DIAGNOSIS: Left ureteral stone, renal stones, renal lesion, overactive bladder, urgency incontinence TISSUE SUBMITTED: Left ureteral stone GROSS DIAGNOSIS A fragment of stone, clinically left ureteral stone (gross only). RAYMON:apple 05/27/2023 COMMENT The calculus is submitted in its entirety for chemical stone analysis. The results from this study will be reported separately. GROSS DESCRIPTION Received without fixative labeled with the patient's name and designated left ureteral and renal stone. The specimen consists of a fragment of ureña-light brown stone measuring 0.3 x 0.2 x 0.1 cm. The entire specimen is submitted for stone analysis. / RAYMON:apple 05/24/2023 CPT: 84430
[2023-05-23] MEDS: Cefazolin 2 GM in 0.9% Normal Saline (100mL Bag) 100 ML IV (11:17)
[2023-05-23 12:38] VITALS: BP 121/77; BP 140/89; PULSE 75; RESP 16; TEMP 36.3; O2SAT 74
[2023-05-23 12:45] VITALS: BP 140/78; BP 140/89; PULSE 78; RESP 16; O2SAT 90
[2023-05-23 13:00] VITALS: BP 140/89; BP 145/79; PULSE 73; RESP 16; TEMP 36.4; O2SAT 94
[2023-05-23 14:18] VITALS: BP 140/89; BP 159/84; PULSE 65; RESP 18; O2SAT 97
[2023-05-23 15:32] VITALS: BP 140/89; BP 144/85; PULSE 60; RESP 16; TEMP 36.2; O2SAT 95
== END 2023-05-23 16:16 | disposition home or self-care (01) ==
LOC: SDC 08:51 → AC 08:53
PROVIDERS: PCP Family Medicine; Referring Provider Urology; Visit Provider Urology
PROC: 0TJ98ZZ Inspection of Ureter, Via Natural or Artificial Opening Endoscopic (ICD-10-PCS; CPT 52352; principal; 2023-05-23 11:00)
DX: N20.2 Calculus of kidney with calculus of ureter (principal); F31.9 Bipolar disorder, unspecified; N32.81 Overactive bladder; N39.41 Urge incontinence; I10 Essential (primary) hypertension; E03.9 Hypothyroidism, unspecified; E55.9 Vitamin D deficiency, unspecified; Z79.899 Other long term (current) drug therapy
CPT/HCPCS: 52356; 00873; 76000; 80048; 82360; 85027; 88300; J7120; J2405

== ENCOUNTER → 2023-07-04 | Outpatient (CLI) | payer MEDICARE, SELFPAY ==
--- NOTE | 2023-07-04 14:15 | CT_ITS ---
STUDY: CT ABDOMEN WITH AND WITHOUT CONTRAST REASON FOR EXAM: Female, 68 years old. L RENAL MASS RADIATION DOSAGE (If Supplied By Facility): CTDIvol = ( 20.83 ) mGy, DLP = ( 1516.40 ) mGycm TECHNIQUE: Transaxial images were obtained pre and post I.V. administration of IV 100mL Isovue-300, and oral contrast. Sagittal and coronal images were reconstructed. Individualized dose optimization techniques were used for this CT. COMPARISON: Comparison is made with prior study dated April 21, 2023. FINDINGS: The visualized lung bases are unremarkable. The visualized portions of the heart are within normal limits. There is decreased attenuation of the liver consistent with steatosis. The patient is status post cholecystectomy. Normal spleen. Normal pancreas. Normal bilateral adrenal glands. Normal right kidney. There is a 1.3 cm cyst in the lateral portion of the left kidney. 1 cm cyst is also seen in the lower pole. Tiny punctate nonobstructive calculus in the lower pole calyx of the left kidney. Tiny calculus in the distal portion of the left ureter. Normal visualized stomach. Normal small intestine. Normal colon. The appendix is visualized and appears normal. There is scattered atherosclerotic calcification of the abdominal aorta, without a demonstrated aneurysm. Normal inferior vena cava. Normal retroperitoneum. Normal abdominal wall. Normal osseous structures. CT/Abdomen W/WO IV Contrast IMPRESSION: Fatty infiltration of the liver. Tiny calculus in the distal portion of the left ureter with no significant hydronephrosis. Small left renal cysts. Electronically Signed: Anshu Whaley MD at 14:46 EDT ,
== END | disposition home or self-care (01) ==
LOC: CT 13:51
PROVIDERS: PCP Family Medicine; Referring Provider Urology; Visit Provider Urology
DX: N28.89 Other specified disorders of kidney and ureter (principal)
CPT/HCPCS: 74170; Q9967

== ENCOUNTER → 2023-07-16 | Outpatient (CLI) | payer MEDICARE, SELFPAY ==
--- NOTE | 2023-07-16 17:14 | RAD_ITS ---
INDICATION: RIGHT ANKLE PAIN EXAMINATION/TECHNIQUE: X-RAY - RIGHT XR Ankle Min 3 Views 3 VIEWS COMPARISON: [October 31, 2021 FINDINGS: SOFT TISSUES: Diffuse lower leg and ankle edema. No subcutaneous emphysema. No radiopaque foreign body. BONES/JOINTS: No acute fracture. Small osteochondral defect is suggested at the medial talar dome... Normal ankle alignment and mortise spacing.. Mild anterior distal tibial osteophyte formation. Small calcaneal plantar enthesophyte... No sclerotic or destructive changes observed. RAD/Ankle min 3 Views IMPRESSION: Diffuse lower leg and ankle edema.. Concern for small osteochondral defect at the medial talar dome. Degenerative changes are otherwise mild. MRI could better assess for acute associated intraosseous edema as clinically indicated. . Electronically Signed: Emeka Le MD at 4:54 EST ,
== END | disposition home or self-care (01) ==
LOC: MTRAD 16:57
PROVIDERS: PCP Family Medicine; Referring Provider Podiatrist; Visit Provider Podiatrist
DX: M19.071 Primary osteoarthritis, right ankle and foot (principal)
CPT/HCPCS: 73610

== ENCOUNTER → 2023-08-02 | Outpatient (CLI) | payer MEDICARE, SELFPAY | END | disposition home or self-care (01) | LOC: LABSPEC 15:55 | PROVIDERS: PCP Family Medicine; Referring Provider Family Medicine; Visit Provider Family Medicine | DX: N39.0 Urinary tract infection, site not specified (principal) | CPT/HCPCS: 87077; 87086; 87088; 87186 ==

== ENCOUNTER 2023-08-17 13:29 | Emergency (ER) | payer MEDICARE, SELFPAY ==
[2023-08-17 13:30] VITALS: BP 151/80; PULSE 88; RESP 16; TEMP 36.3; O2SAT 94
--- NOTE | 2023-08-17 14:17 | CT_ITS ---
EXAM: CT HEAD WITHOUT INTRAVENOUS CONTRAST CLINICAL INDICATION: headache, trauma TECHNIQUE: Multiple axial images were obtained of the head without intravenous contrast. This CT exam was performed using one or more of the following dose reduction techniques: automated exposure control, adjustment of the mA and/or kV according to patient size, and/or use of iterative reconstruction technique. RADIATION DOSE: CTDIvol = 44.99 mGy, DLP = 796.11 mGy-cm COMPARISON: No relevant prior studies available. FINDINGS: BRAIN AND EXTRA-AXIAL SPACES: Unremarkable. No intra- or extra-axial hemorrhage. No evidence of acute infarct. No intracranial mass or mass effect. There is preservation of the munoz/white matter interface. Posterior fossa structures are unremarkable. Ventricles are appropriate for age. No hydrocephalus. Basal cisterns are patent. BONES/JOINTS: Unremarkable. No discrete lytic or blastic abnormalities. SINUSES: Unremarkable as visualized. Clear. MASTOID AIR CELLS: Unremarkable. Clear. ORBITS: Visualized globes, extraocular muscles, optic nerves and retrobulbar fat appear unremarkable. CT/Brain/Head without Contrast IMPRESSION: Negative head/brain CT without intravenous contrast. Electronically Signed: Fausto Karimi MD at 14:52 EST ,
--- NOTE | 2023-08-17 14:17 | RAD_ITS ---
EXAM: XR RIGHT HAND COMPLETE, 3 OR MORE VIEWS CLINICAL INDICATION: Traumatic injury. Attention 2nd ray bilat TECHNIQUE: Frontal, lateral and oblique views of the right hand. COMPARISON: No relevant prior studies available. FINDINGS: BONES/JOINTS: Moderately pronounced degenerative osteoarthrosis of the carpometacarpal articulation of the right thumb. No acute fracture. No subluxation. Normal alignment. No sclerotic or destructive changes observed. SOFT TISSUES: Unremarkable. No soft tissue swelling or gas. No radiopaque foreign body. RAD/Hand Min 3 Views IMPRESSION: 1. No acute fracture or dislocation of the right hand. 2. Moderately pronounced degenerative osteoarthrosis of the carpometacarpal articulation of the right thumb.. Electronically Signed: Fausto Karimi MD at 15:04 EST ,
--- NOTE | 2023-08-17 14:17 | RAD_ITS ---
EXAM: XR STERNUM, 2 OR MORE VIEWS CLINICAL INDICATION: trauma/pain TECHNIQUE: Lateral and oblique views of the sternum. COMPARISON: No relevant prior studies available. FINDINGS: BONES/JOINTS: No acute fracture. No subluxation. No sclerotic or destructive changes observed. SOFT TISSUES: Unremarkable. No soft tissue swelling or gas. No radiopaque foreign body. RAD/Sternum min 2 Views IMPRESSION: Negative sternum. Electronically Signed: Fausto Karimi MD at 15:03 EST ,
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
--- NOTE | 2023-08-17 14:20 | RAD_ITS ---
EXAM: XR LEFT HAND COMPLETE, 3 OR MORE VIEWS CLINICAL INDICATION: Traumatic injury. Attention 2ND RAY BILATERAL TECHNIQUE: Frontal, lateral and oblique views of the left hand. COMPARISON: No relevant prior studies available. FINDINGS: BONES/JOINTS: Mild degenerative osteoarthrosis of the carpometacarpal articulation of the left thumb. No acute fracture. No subluxation. Normal alignment. No sclerotic or destructive changes observed. SOFT TISSUES: Unremarkable. No soft tissue swelling or gas. No radiopaque foreign body. RAD/Hand Min 3 Views IMPRESSION: 1. No acute fracture or dislocation in the left hand. 2. Mild degenerative osteoarthrosis in the carpometacarpal articulation of the left thumb. Electronically Signed: Fausto Karimi MD at 15:06 EST ,
[2023-08-17 15:13] VITALS: BP 130/78; PULSE 89; RESP 18; O2SAT 98
== END 2023-08-17 15:26 | disposition home or self-care (01) ==
PROVIDERS: Emergency Provider Emergency Medicine; PCP Family Medicine; Visit Provider Emergency Medicine
DX: S20.20XA Contusion of thorax, unspecified, initial encounter (principal); S06.0X0A Concussion without loss of consciousness, initial encounter; S60.222A Contusion of left hand, initial encounter; S60.221A Contusion of right hand, initial encounter; E66.9 Obesity, unspecified; X58.XXXA Exposure to other specified factors, initial encounter
CPT/HCPCS: 70450; 71120; 73130; 99282

== ENCOUNTER → 2023-12-10 | Outpatient (CLI) | payer MEDICARE, SELFPAY ==
--- NOTE | 2023-12-10 09:00 | RAD_ITS ---
STUDY: X-RAY - ABDOMEN/PELVIS REASON FOR EXAM: Female, 68 years old. KUB- KIDNEY STONES TECHNIQUE: Two AP supine views of the abdomen and pelvis. COMPARISON: CT of abdomen and pelvis dated July 04, 2023 FINDINGS: Normal visualized lung bases. There is an unremarkable bowel gas pattern. No visualized radiopaque stones over the bilateral kidney shadows on this study. Normal soft tissue structures. There are diffuse degenerative changes of the visualized lumbar spine. RAD/Abdomen Single View IMPRESSION: Unremarkable x-ray examination of the abdomen and pelvis. Electronically Signed: Myron Mcdonald MD at 10:49 EDT ,
== END | disposition home or self-care (01) ==
LOC: MTRAD 08:59
PROVIDERS: PCP Family Medicine; Referring Provider Urology; Visit Provider Urology
DX: N20.0 Calculus of kidney (principal)
CPT/HCPCS: 74018

== ENCOUNTER 2024-01-11 08:36 | Emergency (ER) | payer MEDICARE, SELFPAY ==
[2024-01-11 08:37] VITALS: BP 138/88; PULSE 66; RESP 18; TEMP 36.6; O2SAT 95; BMI 37.3
--- NOTE | 2024-01-11 08:56 | CT_ITS ---
STUDY: CT ABDOMEN AND PELVIS WITH CONTRAST REASON FOR EXAM: Female, 68 years old. Nausea/vomiting/diarrhea RADIATION DOSAGE (If Supplied By Facility): CTDIvol = ( 18.45 ) mGy, DLP = ( 1180.03 ) mGycm TECHNIQUE: Transaxial images were obtained from the dome of the diaphragm to the symphysis pubis without oral contrast. IV 100mL Isovue-300 was administered. Sagittal and coronal images were reconstructed. Individualized dose optimization techniques were used for this CT. COMPARISON: None. FINDINGS: The visualized lung bases are unremarkable. The visualized portions of the heart are within normal limits. There is decreased attenuation of the liver consistent with steatosis, there is a simple cyst in the caudate lobe.. There is non-visualization of the gallbladder, which may be secondary to either contraction or a prior cholecystectomy. Normal spleen. Normal pancreas. Normal bilateral adrenal glands. No obstructive uropathy or suspicious solid renal lesion, there is a simple 2 cm left renal cyst. Normal visualized stomach. Normal small intestine. Normal colon. The appendix is visualized and appears normal. Appendix seen on coronal recon images 60 through 69 Normal abdominal aorta. Normal inferior vena cava. Normal retroperitoneum. Normal urinary bladder. Uterus is present, with some evidence to suspect endometrial thickening, recommend further evaluation with dedicated pelvic ultrasound. Normal abdominal wall. Mild degenerative bony changes CT/Abdomen/Pelvis W IV Cont ONLY IMPRESSION: Fatty liver, simple hepatic cyst, no specific follow-up needed Simple left renal cyst, no specific follow-up needed No free intraperitoneal fluid, air, or suspicious adenopathy, normal appendix visualized Uterus is present with a suggestion of endometrial thickening or fluid, recommend dedicated pelvic ultrasound for further evaluation there is no suspicious cystic mass or free fluid in the pelvis Electronically Signed: Wade Villa MD at 10:29 EDT ,
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
[2024-01-11] MEDS: 0.9% Normal Saline (1000mL) 1,000 ML 1000 ML IV (09:05)
[2024-01-11 09:08] VITALS: BP 160/86; BP 164/95; BP 185/96; PULSE 64; PULSE 68
[2024-01-11 09:09] LABS: Absolute Lymphocyte Count 2.19 X10^3/uL (0.83-4.51); Basophil# 0.04 X10^3/uL; Basophil% 0.6 % (0-1); Eosinophil# 0.41 X10^3/uL; Eosinophils% 5.7 % (0-5); Hematocrit 40.1 % (37-47); Hemoglobin 12.9 g/dL (12.0-15.0); Lymphocyte # 2.19 X10^3/ul (0.83-4.51); Lymphocyte % 30.2 % (19-41); Mean Corp Hgb Conc 32.2 g/dL (32-36); Mean Corpuscular Hgb 30.8 pg (27.0-32.0); Mean Corpuscular Volume 95.7 fL (81-99); Mean Platelet Vol. 11.8 fl (6.2-12.0); Monocyte# 0.53 X10^3/uL; Monocyte% 7.3 % (0-10); NRBC Flagged by Analyzer 0 % (0-5); Neutrophil # 4.04 X10^3/uL (2.7-7.7); Neutrophil % 55.6 % (47-70); Platelet Count 190 K/mm3 (150-450); RBC Distribution Width CV 14.5 % (11.6-14.6); RBC Distribution Width SD 51.1 fl (35.1-43.9); Red Blood Count 4.19 M/mm3 (4.2-5.4); White Blood Count 7.3 K/mm3 (4.4-11.0)
[2024-01-11 09:25] LABS: ALB/GLOB Ratio 0.9 RATIO (0.9-2.4); AST(SGOT) 24 U/L (15-37); Alanine Aminotransfer ALT/SGPT 30 U/L (13-56); Albumin, Serum 3.4 g/dL (3.2-5.0); Alkaline Phosphatase 98 U/L (45-117); Anion Gap 4 (5-15); BUN 16 mg/dL (7-18); BUN/Creat Ratio 17.1 RATIO (10-20); Calcium,Total 8.5 mg/dL (8.5-10.1); Chloride 109 mmol/L (98-107); Creatinine, Serum 0.93 mg/dL (0.55-1.02); EST Glomerular Filtration Rate 63 mL/min (>60); Est Glom Filt Rate - Afr Amer 76 mL/min (>60); Estimated Creatinine Clearance 62.74 ml/min; Globulin 3.7 g/dL (2.2-4.2); Glucose 106 mg/dL (74-106); Potassium 4.3 mmol/L (3.5-5.1); Protein, Total 7.1 g/dL (6.4-8.2); Sodium Level 137 mmol/L (136-145); Troponin-I HS 4 pg/mL (3.0-54.0)
--- NOTE | 2024-01-11 10:03 | CT_ITS ---
STUDY: CT BRAIN WITHOUT CONTRAST REASON FOR EXAM: Female, 68 years old. Dizziness RADIATION DOSAGE (If Supplied By Facility): CTDIvol = ( 44.99 ) mGy, DLP = ( 779.24 ) mGycm TECHNIQUE: Transaxial CT imaging of the brain was performed without administration of intravenous contrast material. Individualized dose optimization techniques were used for this CT. COMPARISON: 08/17/2023 FINDINGS: Normal soft tissue structures. Normal calvarium. Normal size ventricles and extra-axial spaces for the patient''s age. Normal white matter tracts of the cerebral hemispheres. Normal basal ganglia and thalami. Normal brainstem. Normal cerebellum. There is no intracranial hemorrhage. There are no findings of an acute ischemic infarction. Normal visualized paranasal sinuses. CT/Brain/Head without Contrast IMPRESSION: No acute abnormalities, no interval change Electronically Signed: Wade Villa MD at 11:20 EDT ,
[2024-01-11 10:21] VITALS: BP 169/89; BP 185/101; BP 193/97; PULSE 61; PULSE 68; PULSE 70
[2024-01-11 10:37] VITALS: BP 172/86
[2024-01-11 11:51] VITALS: BP 157/78; PULSE 67; RESP 16; TEMP 36.6; O2SAT 96
== END 2024-01-11 11:52 | disposition home or self-care (01) ==
PROVIDERS: Emergency Provider Emergency Medicine; PCP Family Medicine; Visit Provider Emergency Medicine
DX: R55 Syncope and collapse (principal); R42 Dizziness and giddiness; K57.30 Diverticulosis of large intestine without perforation or abscess without bleeding; I10 Essential (primary) hypertension; E03.9 Hypothyroidism, unspecified; Z79.899 Other long term (current) drug therapy; Z79.890 Hormone replacement therapy
CPT/HCPCS: 70450; 74177; 80053; 84484; 85025; 93005; 96360; 99283; Q9967; A4216

== ENCOUNTER → 2024-01-11 | Outpatient (CLI) | payer MEDICARE, SELFPAY | END | disposition home or self-care (01) | LOC: US 07:46 | PROVIDERS: PCP Family Medicine; Referring Provider Urology; Visit Provider Urology | DX: M54.9 Dorsalgia, unspecified (principal) ==

== ENCOUNTER → 2024-01-21 | Outpatient (CLI) | payer MEDICARE, SELFPAY ==
[2024-01-21 15:57] LABS: Hematocrit 38.1 % (37-47); Hemoglobin 12.3 g/dL (12.0-15.0); Mean Corp Hgb Conc 32.3 g/dL (32-36); Mean Corpuscular Hgb 30.8 pg (27.0-32.0); Mean Corpuscular Volume 95.5 fL (81-99); Mean Platelet Vol. 13.2 fl (6.2-12.0); Platelet Count 170 K/mm3 (150-450); RBC Distribution Width CV 14.3 % (11.6-14.6); RBC Distribution Width SD 50.4 fl (35.1-43.9); Red Blood Count 3.99 M/mm3 (4.2-5.4); White Blood Count 6.9 K/mm3 (4.4-11.0)
[2024-01-21 16:33] LABS: ALB/GLOB Ratio 0.9 RATIO (0.9-2.4); AST(SGOT) 19 U/L (15-37); Alanine Aminotransfer ALT/SGPT 26 U/L (13-56); Albumin, Serum 3.5 g/dL (3.2-5.0); Alkaline Phosphatase 100 U/L (45-117); Anion Gap 7 (5-15); BUN 16 mg/dL (7-18); BUN/Creat Ratio 15.8 RATIO (10-20); Calcium,Total 8.7 mg/dL (8.5-10.1); Chloride 108 mmol/L (98-107); Cholesterol 168 mg/dL (200); Creatinine, Serum 1.01 mg/dL (0.55-1.02); EST Glomerular Filtration Rate 58 mL/min (>60); Est Glom Filt Rate - Afr Amer 70 mL/min (>60); Globulin 3.8 g/dL (2.2-4.2); Glucose 93 mg/dL (74-106); High Density Lipoprotein 46 mg/dL; Potassium 4.5 mmol/L (3.5-5.1); Protein, Total 7.3 g/dL (6.4-8.2); Sodium Level 139 mmol/L (136-145); Thyroid Stim Hormone (TSH) 3.16 uIU/mL (0.358-3.74); Triglycerides 140 mg/dL; Very Low Density Lipoprotein 28 mg/dL (5-40)
[2024-01-21 17:19] LABS: Hemoglobin A1c 5.4 % (3.8-5.6)
== END | disposition home or self-care (01) ==
LOC: MTLAB 12:55
PROVIDERS: PCP Family Medicine; Referring Provider Family Medicine; Visit Provider Family Medicine
DX: I10 Essential (primary) hypertension (principal); E03.9 Hypothyroidism, unspecified; R73.09 Other abnormal glucose; E55.9 Vitamin D deficiency, unspecified
CPT/HCPCS: 36415; 80053; 80061; 82306; 83036; 84443; 85027

== ENCOUNTER 2024-02-09 13:31 | Emergency (ER) | payer MEDICARE, SELFPAY ==
[2024-02-09 13:32] VITALS: BP 156/83; PULSE 81; RESP 19; TEMP 36.8; O2SAT 96; BMI 39.8
--- NOTE | 2024-02-09 13:35 | RAD_ITS ---
STUDY: X-RAY CHEST REASON FOR EXAM: Female, 68 years old. COUGH TECHNIQUE: Single AP portable view of the chest. COMPARISON: May 03, 2023 FINDINGS: The lungs are clear and expanded. There is no demonstrated pleural abnormality. Normal size heart. Normal mediastinum and oliva. Normal visualized pulmonary arteries. There is atherosclerotic calcification of the aortic arch with tortuosity. There are diffuse degenerative changes of the visualized thoracic spine. Normal visualized ribs, clavicles, and shoulders. There is no demonstrated abnormality of the visualized soft tissue structures of the upper abdomen. RAD/Chest 1 View (Portable) IMPRESSION: Degenerative changes, as described above. No demonstrated acute cardiopulmonary process. Electronically Signed: Myron Mcdonald MD at 14:25 EDT ,
[2024-02-09 14:32] VITALS: O2SAT 94
--- NOTE | 2024-02-09 14:48 | ED.VIS.DYS ---
HPI History of Present Illness Chief Complaint: Cough Informant: patient Narrative Narrative: 68-year-old female has had a cough for about a week. She is having some occasional sputum, she is been having increasing wheezing/dyspnea even when she is not coughing but also having coughing fits. States she has had prednisone that has helped with this in the past when she has had it but does not have asthma or COPD that she knows of. She is a non-smoker. She denies any fevers or chills. [facility] Medical History Thyroid disease Anemia History of ulceration History of IBS Atelectasis pulmonary Sepsis Bipolar disorder, unspecified Wears glasses Wears partial dentures Post-menopausal Arthritis History of kidney stones Low iron Easy bruising Injury of head and neck Non-smoker Shortness of breath on exertion Chronic cough Leg cramps History of edema Iron deficiency Stomach ulcer Abdominal pain Low back pain Shingles Dizziness Vitamin D deficiency IBS (irritable bowel syndrome) Osteoarthritis Radiculopathy, lumbar region Impingement syndrome of unspecified shoulder Impaired fasting glucose Carpal tunnel syndrome HTN (hypertension) Fatigue Fever Depression Hemorrhoid Cervix erosion Incontinence Hypothyroidism Restless leg syndrome GERD (gastroesophageal reflux disease) Bipolar disorder Home Medications ?Medication ?Instructions ?Recorded ?Last Taken ?Type cholecalciferol (vitamin D3) 25 2,000 unit PO DAILY 05/15/16 04/20/23 08:00 History mcg (1,000 unit) tablet ferrous sulfate 15 mg iron (75 65 mg PO DAILY 05/15/16 04/20/23 08:00 History mg)/mL oral drops levothyroxine 50 mcg tablet 75 mcg PO DAILY 05/15/16 05/23/23 History lvzrbach-fcta-cxnk 8 mg-folic 400 1 each PO DAILY 05/15/16 04/20/23 08:00 History mcg-K 50 mcg-lutein 300 mcg tablet inhalational spacing device ##1 09/02/19 Unknown Rx albuterol sulfate 90 mcg/actuation 2 inh inhalation Q6H PRN COUGHING 03/22/23 04/21/23 08:57 History breath activated powder inhaler vitamin B complex (Vitamins B 1 cap PO DAILY 03/22/23 04/20/23 08:00 History Complex capsule) ropinirole 1 mg tablet 3 mg PO QHS 04/11/23 04/20/23 22:00 History venlafaxine 150 mg 150 mg PO DAILY #30 caps 04/11/23 04/20/23 22:00 Rx capsule,extended release 24 hr lamotrigine 150 mg tablet 150 mg PO BID #60 tabs 01/09/24 Unknown Rx albuterol sulfate 90 mcg/actuation 1 - 2 puff inhalation Q4H PRN PRN 02/09/24 Unknown Rx aerosol inhaler (Ventolin HFA) Wheezing ##1 amlodipine 5 mg tablet 5 mg PO DAILY 02/09/24 Unknown History omeprazole 20 mg capsule,delayed 20 mg PO DAILY 02/09/24 Unknown History release prednisone 20 mg tablet 20 mg PO DAILY #6 TABLETS 02/09/24 Unknown Rx sucralfate 1 gram tablet (Carafate) 1 g PO DAILY 02/09/24 Unknown History Allergy/AdvReac Type Severity Reaction Status Date / Time Sugars, Metabolically Active Allergy Intermediate Diarrhea Verified 02/09/24 13:35 prednisone AdvReac Intermediate Other Verified 02/09/24 13:35 Surgical History Hx of cystoscopy History of selective injection of anesthetic agent around lumbar nerve root History of esophagogastroduodenoscopy (EGD) History of tonsillectomy and adenoidectomy Hx of cholecystectomy H/O foot surgery Social History Smoking Status: Never smoker alcohol intake: current ROS ROS ED Constitutional Constitutional ED: Denies chills or fever(s) Eyes Eyes: Denies change in vision or diplopia ENT ENT ED: Reports nasal congestion; Denies rhinorrhea or sore throat Cardiovascular Cardiovascular: Denies chest pain or palpitations Respiratory/Chest Respiratory/Chest: Reports cough, dyspnea, sputum and wheezing Gastrointestinal Gastrointestinal: Denies abdominal pain, diarrhea, nausea or vomiting Genitourinary Genitourinary ED: Denies dysuria or hematuria Musculoskeletal Musculoskeletal: Denies back pain or neck pain Integumentary Denies abscess or rash Neurologic Neurologic: Denies headache(s), paresthesias or weakness Psychiatric Psychiatric: Denies suicidal thoughts EXAM Physical Exam Const Vital Signs: 02/09/24 13:32 02/09/24 14:32 02/09/24 14:57 Temperature 98.3 F Temperature Source Temporal Pulse Rate 81 76 Respiratory Rate 19 H 16 Respiratory Effort Non-Labored Respiratory Depth Normal Respiratory Pattern Normal Blood Pressure 156/83 H Blood Pressure Mean 107 Pulse Ox 96 Oxygen Delivery Method Room Air Room Air Positive well nourished and well developed General Appearance ED: well developed and NAD HEENT Reports moist mucous membranes normocephalic and atraumatic Eyes PERRL and EOMs intact bilaterally Neck full ROM, no lymphadenopathy, supple and no JVD Resp normal respiratory effort Auscultation: wheezes expiratory wheezes and throughout (With occasional bronchospasm) Cardio regular rate, regular rhythm and no murmurs GI non-tender and non-distended Auscultation: normoactive bowel sounds Palpation: soft Back/Spine no CVA tenderness General Back: other FROM Extremity normal to inspection General Extremety ED: Negative for edema, pulses abnormal or tenderness General Extremity: Negative for edema or pulses abnormal Neuro oriented x3, CN's II-XII intact bilaterally and no sensory deficits noted Sensorium / Orientation: awake and alert Motor Exam: strength 5/5 throughout Psych Mood & Affect: anxious Skin no rashes or lesions noted and no wounds MDM MDM MDM Narrative Medical decision making narrative: 1 view chest x-ray on my interpretation shows no acute pneumonia or pulmonary edema. Radiology in agreement. This sounds like an illness specially since she is coughing up some yellow sputum, rather than cardiac etiology of her wheezing. She is given a duo nebulizer treatment which helped. She is asking for prednisone, on the EMR this has made her bipolar worse in the past, she is aware of that and requesting prednisone for her breathing. Will prescribe it at 20 mg since she does not have a specific diagnosis of asthma or reactive airway disease in the past, advised to follow-up with her doctor when she has better as she may need pulmonary function testing. Radiography Diagnostic Testing: Clinical Impression(s) from Imaging Studies Chest X-Ray 02/09/24 13:35 IMPRESSION: Degenerative changes, as described above. No demonstrated acute cardiopulmonary process. Electronically Signed: Myron Mcdonald MD at 14:25 EDT Reading Location ID and State: [facility] / [place] , Service support , Discharge Plan Triage Chief Complaint: Cough ED Provider: Enzo Arredondo Dx/Rx/DC Orders Clinical Impression: Acute wheezy bronchitis Instructions: ED Bronchitis with Wheezing (Adult) Prescriptions: New prednisone 20 mg tablet 20 mg PO DAILY Qty: 6 0RF albuterol sulfate [Ventolin HFA] 90 mcg/actuation HFA aerosol inhaler 1 - 2 puff inhalation Q4H PRN PRN (Reason: Wheezing) Qty: 1 0RF No Action venlafaxine 150 mg capsule,extended release 24hr 150 mg PO DAILY Qty: 30 2RF levothyroxine 50 MCG tablet 75 mcg PO DAILY Patient Comments: THYROID cholecalciferol (vitamin D3) 1,000 UNIT tablet 2,000 unit PO DAILY ferrous sulfate 15 MG/ML drops 65 mg PO DAILY olbhvfnq-jbk-fvof-FA-vit K-lut 1 EACH tablet 1 each PO DAILY ropinirole 1 mg tablet 3 mg PO QHS Patient Comments: RESTLESS LEGS (DME) inhalational spacing device 1 EACH spacer 1 ea MC UD Qty: 1 0RF Rx Instructions: use with MDI vitamin B complex [Vitamins B Complex] Capsule 1 cap PO DAILY albuterol sulfate 90 mcg/actuation aerosol powdr breath activated 2 inh inhalation Q6H PRN (Reason: COUGHING) amlodipine 5 mg tablet 5 mg PO DAILY omeprazole 20 mg capsule,delayed release(DR/EC) 20 mg PO DAILY sucralfate [Carafate] 1 gram tablet 1 g PO DAILY lamotrigine 150 mg tablet 150 mg PO BID Qty: 60 2RF Primary Care Provider: Severo Chowdhury Referrals: Severo Chowdhury MD [Primary Care Provider] - 1 Week if not improving Print Language: Guamanian Disposition Disposition: Home, Self Care
[2024-02-09] MEDS: predniSONE 20 MG Tablet PO (14:53)
[2024-02-09] MEDS: Ipratropium/Albuterol Sulfate 3 ML AMPUL.NEB INHALATION (14:55)
[2024-02-09 14:57] VITALS: PULSE 76; RESP 16
--- NOTE | 2024-02-09 14:57 | CPS ---
pt was wheeze in the neck but none in the lungs
[2024-02-09 15:37] VITALS: BP 102/84; PULSE 69; RESP 23; TEMP 36.5; O2SAT 93
== END 2024-02-09 15:49 | disposition home or self-care (01) ==
LOC: ED 15:22
PROVIDERS: Emergency Provider Emergency Medicine; PCP Family Medicine; Visit Provider Emergency Medicine
DX: J20.9 Acute bronchitis, unspecified (principal); I10 Essential (primary) hypertension; K21.9 Gastro-esophageal reflux disease without esophagitis; Z79.899 Other long term (current) drug therapy
CPT/HCPCS: 71045; 94640; 99282

== ENCOUNTER → 2024-02-25 | Outpatient (CLI) | payer MEDICARE, SELFPAY ==
[2024-02-29 15:09] LABS: Alternaria alternata <0.10 kU/L (Class 0); Aspergillus fumigatus <0.10 kU/L (Class 0); Bahia Grass <0.10 kU/L (Class 0); Bermuda Grass <0.10 kU/L (Class 0); Bluegrass, Kentucky <0.10 kU/L (Class 0); Cat Hair/Dander, Standard <0.10 kU/L (Class 0); Cedar, Mountain <0.10 kU/L (Class 0); Cladosporium herbarum <0.10 kU/L (Class 0); Cockroach, American <0.10 kU/L (Class 0); D farinae Mite <0.10 kU/L (Class 0); D pteronyssinus <0.10 kU/L (Class 0); Dog Epithelia <0.10 kU/L (Class 0); Elm, American White <0.10 kU/L (Class 0); Hazelnut Tree <0.10 kU/L (Class 0); Hickory, White <0.10 kU/L (Class 0); Johnson Grass <0.10 kU/L (Class 0); Maple/Box Elder <0.10 kU/L (Class 0); Mucor racemosus <0.10 kU/L (Class 0); Mugwort <0.10 kU/L (Class 0); Mulberry, White <0.10 kU/L (Class 0); Nettle <0.10 kU/L (Class 0); Oak, White <0.10 kU/L (Class 0); Penicillium chrysogen <0.10 kU/L (Class 0); Pigweed, Rough <0.10 kU/L (Class 0); Plantain, English <0.10 kU/L (Class 0); Ragweed, Short/Common <0.10 kU/L (Class 0); Sheep Sorrel(Dock) <0.10 kU/L (Class 0); Stemphylium herbarum <0.10 kU/L (Class 0); Sweet Gum <0.10 kU/L (Class 0); Sycamore, American <0.10 kU/L (Class 0)
== END | disposition home or self-care (01) ==
PROVIDERS: Family Medicine; PCP Family Medicine; Referring Provider Family Medicine; Visit Provider Family Medicine
DX: R05.3 Chronic cough (principal); J30.5 Allergic rhinitis due to food
CPT/HCPCS: 36415; 86003

== ENCOUNTER → 2024-12-25 | Outpatient (CLI) | payer MEDICARE, SELFPAY ==
[2024-12-25 20:10] LABS: Internal QC Validated? YES +Cl - CLEAR BKGD; Monotest Negative (Negative); Record Kit Lot#, Mono 13241430
== END | disposition home or self-care (01) ==
LOC: MFPLAB 14:17
PROVIDERS: PCP Family Medicine
DX: B34.9 Viral infection, unspecified (principal)
CPT/HCPCS: 36415; 86308

== ENCOUNTER → 2025-01-08 | Outpatient (CLI) | payer MEDICARE, SELFPAY ==
[2025-01-08 18:03] LABS: Absolute Lymphocyte Count 2.77 X10^3/uL (0.83-4.51); Absolute Neutrophil Count 4.2 X10^3/uL (2.0-7.7); Basophil# 0.06 X10^3/uL; Basophil% 0.8 % (0-1); Eosinophil# 0.28 X10^3/uL; Eosinophils% 3.6 % (0-5); Hematocrit 39.6 % (37-47); Hemoglobin 13.2 g/dL (12.0-15.0); Lymphocyte # 2.77 X10^3/ul (0.83-4.51); Lymphocyte % 35.5 % (19-41); Mean Corp Hgb Conc 33.3 g/dL (32-36); Mean Corpuscular Volume 96.1 fL (81-99); Mean Platelet Vol. 13.1 fl (6.2-12.0); Monocyte# 0.47 X10^3/uL; NRBC Flagged by Analyzer 0 % (0-5); Neutrophil # 4.19 X10^3/uL (2.7-7.7); Neutrophil % 53.7 % (47-70); Platelet Count 171 K/mm3 (150-450); RBC Distribution Width CV 14.6 % (11.6-14.6); RBC Distribution Width SD 51.2 fl (35.1-43.9); Red Blood Count 4.12 M/mm3 (4.2-5.4); White Blood Count 7.8 K/mm3 (4.4-11.0)
[2025-01-08 18:13] LABS: Hemoglobin A1c 5.7 % (<=5.6)
[2025-01-08 18:20] LABS: ALB/GLOB Ratio 1.3 RATIO (0.9-2.4); AST(SGOT) 20 U/L (<=31); Alanine Aminotransfer ALT/SGPT 14 U/L (<=34); Alkaline Phosphatase 103 U/L (35-104); Anion Gap 11 (5-15); BUN 9 mg/dL (4-19); Calcium,Total 8.9 mg/dL (7.6-11.0); Carbon Dioxide 22.1 mmol/L (21.0-32.0); Chloride 107 mmol/L (98-108); Creatinine, Serum 0.91 mg/dL (0.70-1.20); EST Glomerular Filtration Rate 68 (>60); Globulin 3.1 g/dL (2.2-4.2); Glucose 93 mg/dL (70-99); Potassium 3.8 mmol/L (3.3-5.1); Protein, Total 7.1 g/dL (5.9-8.4); Sodium Level 140 mmol/L (133-145); Total Bilirubin 0.41 mg/dL (0.00-1.30); Vitamin D,25 Hydroxy 26.2 ng/mL (30-100)
== END | disposition home or self-care (01) ==
LOC: MFPLAB 14:23
PROVIDERS: PCP Family Medicine; Referring Provider Family Medicine; Visit Provider Family Medicine
DX: J06.9 Acute upper respiratory infection, unspecified (principal); R53.83 Other fatigue
CPT/HCPCS: 36415; 80053; 82306; 83036; 84439; 84443; 85025

== ENCOUNTER 2025-03-26 23:47 | Emergency (ER) | payer MEDICARE, SELFPAY ==
[2025-03-26 23:48] VITALS: BP 188/99; PULSE 73; RESP 16; TEMP 37.3; O2SAT 95; BMI 41.8
--- NOTE | 2025-03-27 00:02 | CT_ITS ---
PROCEDURE: ABDOMEN/PELVIS WITHOUT CONT 03/27/2025 REASON FOR EXAM: LEFT FLANK PAIN TECHNIQUE: ABDOMEN/PELVIS WITHOUT CONT Noncontrast technique limits evaluation of the abdominal and pelvic viscera. Coronal and Sagittal reconstruction series were provided. One or more dose reduction techniques were used (e.g., Automated exposure control, adjustment of the mA and/or kV according to patient size, use of iterative reconstruction technique). RADIATION DOSE SUMMARY: CTDlvol: 21 mGy DLP: 1110 mGycm COMPARISON: 01/11/2024 FINDINGS: Under aerated lung bases. Normal heart size. Simple liver cysts. Upper abdominal solid organs show no acute findings. Bilateral renal calcifications measuring up to 2 mm. Stable exophytic left renal lesion, series 2, image 65, favoring a benign cyst. There is mild left-sided hydronephrosis. There is a 3 x 5 mm distal left ureteral stone, series 2, image 153. Unremarkable bladder. Normal uterus and ovaries. No retroperitoneal or pelvic adenopathy. No free air. Nondistended bowel normal appendix. Multiple diverticula. No acute large bowel findings. Lumbar spine degeneration. No acute abdominal wall findings. CT/Abdomen/Pelvis without Cont IMPRESSION: 3.5 mm distal left ureteral stone, mild hydronephrosis. Reading [facility]
[2025-03-27] MEDS: 0.9% Normal Saline (1000mL) 1,000 ML 999 ML IV (00:11)
[2025-03-27 00:26] LABS: Hematocrit 39.8 % (37-47); Hemoglobin 13.5 g/dL (12.0-15.0); Immature Granulocytes Count 0.030 X10^3/uL (0.0-0.0); Mean Corp Hgb Conc 33.9 g/dL (32-36); Mean Corpuscular Volume 93.9 fL (81-99); Mean Platelet Vol. 12.1 fl (6.2-12.0); NRBC Flagged by Analyzer 0 % (0-5); Platelet Count 166 K/mm3 (150-450); RBC Distribution Width CV 13.6 % (11.6-14.6); RBC Distribution Width SD 46.4 fl (35.1-43.9); Red Blood Count 4.24 M/mm3 (4.2-5.4); White Blood Count 8.9 K/mm3 (4.4-11.0)
--- NOTE | 2025-03-27 00:54 | EX.ED.DYSGE1 ---
HPI History of Present Illness Chief Complaint: Flank Pain Informant: patient Narrative Narrative: Patient is a 70-year-old female with past medical history of of hypothyroidism bipolar disorder and previous kidney stone. She states that around 8:00 this evening she noticed sharp pain in the left flank. She states there was no recent trauma or excessive activity. She states that there has been no fevers or chills or dysuria. However she reports she had kidney stones requiring admission and stent placement roughly 2 years ago. She states this does feel similar nature. Secondary to concern for repeat stone and potential infection she presents for evaluation [facility] Medical History Thyroid disease Anemia History of ulceration History of IBS Atelectasis pulmonary Sepsis Bipolar disorder, unspecified Wears glasses Wears partial dentures Post-menopausal Arthritis History of kidney stones Low iron Easy bruising Injury of head and neck Non-smoker Shortness of breath on exertion Chronic cough Leg cramps History of edema Iron deficiency Stomach ulcer Abdominal pain Low back pain Shingles Dizziness Vitamin D deficiency IBS (irritable bowel syndrome) Osteoarthritis Radiculopathy, lumbar region Impingement syndrome of unspecified shoulder Impaired fasting glucose Carpal tunnel syndrome HTN (hypertension) Fatigue Fever Depression Hemorrhoid Cervix erosion Incontinence Hypothyroidism Restless leg syndrome GERD (gastroesophageal reflux disease) Bipolar disorder Home Medications Medication Instructions Recorded Last Taken Type cholecalciferol (vitamin D3) 25 2,000 unit PO DAILY 05/15/16 04/20/23 08:00 History mcg (1,000 unit) tablet ferrous sulfate 15 mg iron (75 65 mg PO DAILY 05/15/16 04/20/23 08:00 History mg)/mL oral drops levothyroxine 50 mcg tablet 75 mcg PO DAILY 05/15/16 05/23/23 History [id number] 8 mg-folic 400 1 each PO DAILY 05/15/16 04/20/23 08:00 History mcg-K 50 mcg-lutein 300 mcg tablet inhalational spacing device ##1 09/02/19 Unknown Rx albuterol sulfate 90 mcg/actuation 2 inh inhalation Q6H PRN COUGHING 03/22/23 04/21/23 08:57 History breath activated powder inhaler vitamin B complex (Vitamins B 1 cap PO DAILY 03/22/23 04/20/23 08:00 History Complex capsule) ropinirole 1 mg tablet 3 mg PO QHS 04/11/23 04/20/23 22:00 History venlafaxine 150 mg 150 mg PO DAILY #30 caps 04/11/23 04/20/23 22:00 Rx capsule,extended release 24 hr lamotrigine 150 mg tablet 150 mg PO BID #60 tabs 01/09/24 Unknown Rx albuterol sulfate 90 mcg/actuation 1 - 2 puff inhalation Q4H PRN PRN 02/09/24 Unknown Rx aerosol inhaler (Ventolin HFA) Wheezing ##1 amlodipine 5 mg tablet 5 mg PO DAILY 02/09/24 Unknown History omeprazole 20 mg capsule,delayed 20 mg PO DAILY 02/09/24 Unknown History release prednisone 20 mg tablet 20 mg PO DAILY #6 TABLETS 02/09/24 Unknown Rx sucralfate 1 gram tablet (Carafate) 1 g PO DAILY 02/09/24 Unknown History cephalexin 500 mg capsule 500 mg PO TID 7 days #21 caps 03/27/25 Unknown Rx ketorolac 10 mg tablet 10 mg PO 4X/DAY PRN pain 5 days 03/27/25 Unknown Rx #20 tabs ondansetron 4 mg disintegrating 4 mg PO TID PRN nausea and 03/27/25 Unknown Rx tablet vomiting #21 tabs oxycodone-acetaminophen 5 mg-325 1 tab PO Q6H PRN pain 5 days #20 03/27/25 Unknown Rx mg tablet (Percocet) tabs tamsulosin 0.4 mg capsule (Flomax) 0.4 mg PO DAILY 14 days #14 caps 03/27/25 Unknown Rx Allergy/AdvReac Type Severity Reaction Status Date / Time Sugars, Metabolically Active Allergy Intermediate Diarrhea Verified 03/26/25 23:51 prednisone AdvReac Intermediate Other Verified 03/26/25 23:51 Surgical History Hx of cystoscopy History of selective injection of anesthetic agent around lumbar nerve root History of esophagogastroduodenoscopy (EGD) History of tonsillectomy and adenoidectomy Hx of cholecystectomy H/O foot surgery Social History Smoking Status: Never smoker alcohol intake: current ROS ROS ED Constitutional Constitutional ED: Denies chills or fever(s) Eyes Eyes: Denies change in vision ENT ENT ED: Denies sore throat Cardiovascular Cardiovascular: Denies chest pain Respiratory/Chest Respiratory/Chest: Denies cough or dyspnea Gastrointestinal Gastrointestinal: Reports abdominal pain; Denies diarrhea, nausea or vomiting Genitourinary Genitourinary ED: Denies dysuria or hematuria Musculoskeletal Musculoskeletal: Reports back pain Integumentary Denies rash Neurologic Neurologic: Denies headache(s) Psychiatric Psychiatric: Reports depression Hematologic/Lymphatic Hematologic/Lymphatic: Denies easy bleeding or easy bruising EXAM Physical Exam Const Vital Signs: 03/26/25 23:48 03/27/25 01:30 Temperature 99.2 F H Temperature Source Oral Pulse Rate 73 66 Respiratory Rate 16 18 Blood Pressure 188/99 H 119/42 L Blood Pressure Mean 128 67 Pulse Ox 95 93 Oxygen Delivery Method Room Air Positive well nourished, well developed and obese General Appearance ED: well developed; Negative for pallor Nutritional Appearance: obese HEENT HEENT Narrative: Normocephalic atraumatic Eyes PERRL and EOMs intact bilaterally General Eye ED: Negative for scleral icterus Neck supple Resp normal respiratory effort and clear to auscultation bilaterally Cardio regular rate and regular rhythm Rate: other Other Details: Radial and carotid pulses are equal and symmetric GI non-distended and no masses GI Narrative: Abdomen is soft and nondistended with normal active bowel sounds. There is mild pain with palpation in the suprapubic and left lower quadrant region without voluntary guarding or rigidity or pulsatile mass Auscultation: normoactive bowel sounds Palpation: soft Back/Spine Back/Spine Narrative: Positive left CVA pain noted Extremity normal to inspection Neuro oriented x3, CN's II-XII intact bilaterally and no sensory deficits noted Sensorium / Orientation: alert Motor Exam: strength 5/5 throughout Psych mental status grossly normal Skin no rashes or lesions noted Skin Narrative: No overlying soft tissue changes to suggest trauma or infection General Skin Exam: Negative for jaundice or pallor MDM MDM MDM Narrative Medical decision making narrative: Patient arrived to the ER hypertensive otherwise with stable vitals. She reported left-sided flank/back pain without trauma. Differential diagnosis is for UTI versus pyelonephritis versus kidney stone versus diverticulitis. Her history and exam is most consistent with kidney stone therefore basic labs with a noncontrast CT scan were ordered. Labs show no signs of urosepsis or acute kidney injury. Urine sample does show plus for bacteria but there is also contamination with skin cells. Therefore her urine to be sent for culture. However as she does have a history of urosepsis secondary to kidney stones she will also be given Rocephin in the ER and placed on Keflex. The patient's had resolution of her pain after Toradol was given by EMS and her vitals have stabilized as well. Therefore at this time as the patient does not have urosepsis or acute kidney injury or intractable pain she can be placed on medication as an outpatient and follow-up with urology for continued care. History & Record Review Discussion w/independent historian: EMS personnel and Patient Lab Data Attestation: I reviewed the patient's lab results. Labs: Laboratory Results - last 24 hr 03/27/25 03/27/25 00:06 01:26 WBC 8.9 RBC 4.24 Hgb 13.5 Hct 39.8 MCV 93.9 MCH 31.8 MCHC 33.9 RDW Std Deviation 46.4 H RDW Coeff of Poly 13.6 Plt Count 166 MPV 12.1 H Immature Gran % (Auto) 0.300 Neut % (Auto) 68.2 Lymph % (Auto) 21.9 [place] % (Auto) 6.2 Eos % (Auto) 2.8 Baso % (Auto) 0.6 Absolute Neuts (auto) 6.0 Absolute Lymphs (auto) 1.94 Nucleated RBC % 0 Sodium 142 Potassium 3.5 Chloride 106 Carbon Dioxide 25.3 Anion Gap 10 BUN 11 Creatinine 1.01 Estim Creat Clear Calc 59.88 Est GFR (MDRD) Non-Af 60 BUN/Creatinine Ratio 10.7 Glucose 138 H Calcium 8.9 Urine Color Yellow Urine Clarity Cloudy Urine pH 6.0 Ur Specific [place] 1.020 Urine Protein 30 H Urine Glucose (UA) Normal Urine Ketones Negative Urine Occult Blood 25 H Urine Nitrite Positive H Urine Bilirubin Negative Urine Urobilinogen Normal Ur Leukocyte Esterase 500 H Urine RBC 0 SEEN Urine WBC >100 SEEN Ur Squamous Epith Cells 5-10 SEEN Calcium Oxalate Crystal 1+ Urine Bacteria 4+ Urine Mucus 0 SEEN Radiography Diagnostic Testing: Clinical Impression(s) from Imaging Studies Abdomen/Pelvis CT 03/27/25 00:02 IMPRESSION: 3.5 mm distal left ureteral stone, mild hydronephrosis. Reading Location: [place] [id number] Discharge Plan Triage Chief Complaint: Flank Pain ED Provider: Óscar Crenshaw Dx/Rx/DC Orders Clinical Impression: Kidney stone, Renal colic, GERD (gastroesophageal reflux disease), Bipolar disorder, unspecified Instructions: ED Kidney Stone with Pain Prescriptions: New cephalexin 500 mg capsule 500 mg PO TID 7 Days Qty: 21 0RF ondansetron 4 mg tablet,disintegrating 4 mg PO TID PRN (Reason: nausea and vomiting) Qty: 21 0RF ketorolac 10 mg tablet 10 mg PO 4X/DAY PRN (Reason: pain) 5 Days Qty: 20 0RF oxycodone-acetaminophen [Percocet] 5-325 mg tablet 1 tab PO Q6H PRN (Reason: pain) 5 Days Qty: 20 0RF tamsulosin [Flomax] 0.4 mg capsule 0.4 mg PO DAILY 14 Days Qty: 14 0RF No Action venlafaxine 150 mg capsule,extended release 24hr 150 mg PO DAILY Qty: 30 2RF levothyroxine 50 MCG tablet 75 mcg PO DAILY Patient Comments: THYROID cholecalciferol (vitamin D3) 1,000 UNIT tablet 2,000 unit PO DAILY ferrous sulfate 15 MG/ML drops 65 mg PO DAILY [id number] K-lut 1 EACH tablet 1 each PO DAILY ropinirole 1 mg tablet 3 mg PO QHS Patient Comments: RESTLESS LEGS (DME) inhalational spacing device 1 EACH spacer 1 ea MC UD Qty: 1 0RF Rx Instructions: use with MDI vitamin B complex [Vitamins B Complex] Capsule 1 cap PO DAILY albuterol sulfate 90 mcg/actuation aerosol powdr breath activated 2 inh inhalation Q6H PRN (Reason: COUGHING) amlodipine 5 mg tablet 5 mg PO DAILY omeprazole 20 mg capsule,delayed release(DR/EC) 20 mg PO DAILY sucralfate [Carafate] 1 gram tablet 1 g PO DAILY prednisone 20 mg tablet 20 mg PO DAILY Qty: 6 0RF albuterol sulfate [Ventolin HFA] 90 mcg/actuation HFA aerosol inhaler 1 - 2 puff inhalation Q4H PRN PRN (Reason: Wheezing) Qty: 1 0RF lamotrigine 150 mg tablet 150 mg PO BID Qty: 60 2RF Primary Care Provider: Severo Chowdhury Referrals: Severo Chowdhury MD [Primary Care Provider] - Kelsey Beck MD [Med Staff - Active Staff] - (Kidney stone) Activity Restrictions/Additional Instructions: Please take the medication as directed to help control your pain and prevent infection. If you develop a fever of 100.4 or higher or have intractable pain despite taking your medication please return to the ER for repeat evaluation. Otherwise follow-up with urology to discuss further treatment options if needed Print Language: Tunisian Disposition Disposition: Home, Self Care
[2025-03-27 00:56] LABS: Anion Gap 10 (5-15); BUN 11 mg/dL (4-19); BUN/Creat Ratio 10.7 RATIO (10-20); Calcium,Total 8.9 mg/dL (7.6-11.0); Carbon Dioxide 25.3 mmol/L (21.0-32.0); Chloride 106 mmol/L (98-108); Estimated Creatinine Clearance 59.88 ml/min (50-250); Glucose 138 mg/dL (70-99); Potassium 3.5 mmol/L (3.3-5.1)
--- OUTSIDE RECORDS SUMMARY | 2025-03-27 00:59 | XMS RPT_ITS | CCD ---
Author Organization [facility] Care Team Providers Care Learning Support Resource Room Teacher Name Role Phone ADURY, SHIRA SUNDARI Unavailable Unavailabl e ADURY, SHIRA S Unavailable Unavailable ADURY, SHIRA S Unavailable Unavailable HORN, CATHERINE DPM Admitting Unavailable HAAGEN, AJE Consulting Unavailable HORN, CATHERINE DPM Attending Unavailable HORN, CATHERINE DPM Primary Care Unavailable PROVIDER, UNKNOWN Consulting Unavailable HAAGEN, JAE Consulting Unavailable HORN, CATHERINE DPM Attending Unavailable HORN, CATHERINE DPM Primary Care Unavailable HORN, CATHERINE DPM Admitting Unavailable PROVIDER, UNKNOWN Consulting Unavailable Luciana, Chalon Primary Care Unavailable Luciana, Chalon Referring Unavailable Luciana, Chalon Attending Unavailable Luciana, Chalon Referring Unavailable Luciana, Chalon Attending Unavailable Luciana, Chalon Primary Care Unavailable Enzo Arredondo Attending Unavailable Luciana, Chalon Primary Care Unavailable [facility] MEDICAL RECORD RETRIEVAL SPECIALIST, Juan Miguel Attending Unavailable Luciana, Chalon Primary Care Unavailable Luciana, Chalon Referring Unavailable Luciana, Chalon Attending Unavailable Luciana, Chalon Primary Care Unavailable Allergies Allergy Classification Reported Allergen(s) Allergy Type Date of Onset Reaction(s) Facility (2 sources) betamethasone; Translations: [BETAMETHASONE DIPROPIONATE] Drug Allergy 8 [facility] (2 sources) SUGAR CANE; Translations: [SUGAR CANE] Propensity to adverse reactions to food (disorder) 6 [facility] (1 source) predniSONE Drug Allergy 3 Other [facility] (1 source) Fish Containing Products Allergy to substance 3 [facility] (2 sources) Sugars, Metabolically Active; Translations: [Sugars, Metabolically Active] Allergy to substance 3 Diarrhea [facility] (1 source) predniSONE Drug Allergy 4 [facility] Medications Current Medications Medication Drug Class(es) Dates Sig (Normalized) Sig (Original) [id number] 200 actuat albuterol 0.09 mg/actuat metered dose inhaler (4 sources) beta2-Adrenergic Agonist Start: 10-14-2021 take 1 puff(s) by inhalation every six hours Albuterol Sulfate (Proair Hfa) 90 mcg/actuation HFA aerosol inhaler Active 2 PUFF INHALATION EVERY 6 HOURS October 14, 2021 1:00am Start: 09-02-2019 take 1 puff(s) by in halation every four hours as needed Albuterol Sulfate Active 1 PUFF INHALATION EVERY 4 HOURS NEEDED September 02, 2019 1:00am 24 hr buPROPion hydrochloride 300 mg extended release oral tablet (2 sources) Aminoketone Start: 02-10-2014 take 150 mg by mouth once daily Bupropion Hcl Active 150 MG PO DAILY February 10, 2014 12:00am calcium carbonate 1500 mg oral tablet (5 sources) Start: 05-15-2016 take 600 mg by mouth once daily Calcium Carbonate Active 600 MG PO DAILY May 14, 2016 11:00pm cholecalciferol 0.025 mg oral tablet (5 sources) Vitamin D Start: 05-15-2016 take 2000 [IU] by mouth once daily Cholecalciferol (Vitamin D3) Active 2000 UNIT PO DAILY May 14, 2016 11:00pm ferrous sulfate 75 mg/ml oral solution (5 sources) Start: 05-15-2016 take 65 mg by mouth once daily Ferrous Sulfate Active 65 MG PO DAILY May 14, 2016 11:00pm gabapentin 300 mg oral capsule (2 sources) Anti-epileptic Agent Start: 09-02-2019 take 300 mg by mouth at bedtime Gabapentin Active 300 MG PO AT BEDTIME September 02, 2019 1:00am Inhalational Spacing Device (5 sources) Start: 09-02-2019 Inhalational Spacing Device Active 1 EACH MC DIRECTED September 02, 2019 12:00am use with MDI Start: 09-02-2019 Inhalational S pacing Device Active 1 EACH MC DIRECTED September 02, 2019 1:00am use with MDI lamoTRIgine 150 mg oral tablet (5 sources) Mood Stabilizer, Anti-epileptic Agent Start: 02-10-2014 take 150 mg by mouth twice daily Lamotrigine Active 150 MG PO TWICE A DAY February 09, 2014 11:00pm levothyroxine sodium 0.05 mg oral tablet (5 sources) l-Thyroxine Start: 05-15-2016 take 75 ug by mouth once daily Levothyroxine Active 75 MCG PO DAILY May 14, 2016 11:00pm Start: 05-15-2016 take 50 ug by mouth once daily Levothyroxine Active 50 MCG PO DAILY May 15, 2016 12:00am Cxbbfvfc-Adh-Bagj-Fa-Lutein (5 sources) Start: 05-15-2016 Ozxmyzmu-Vgk-S prm-Bk-Ejqhvk Active 1 EACH PO DAILY May 14, 2016 11:00pm Start: 05-15-2016 Ibwculcj-Kta-X ivt-Zl-Xgnpyw Active 1 EACH PO DAILY May 15, 2016 12:00am omeprazole 20 mg delayed release oral capsule (5 sources) Proton Pump Inhibitor Start: 09-02-2019 take 20 mg by mouth twice daily Omeprazole Active 20 MG PO TWICE A DAY September 02, 2019 12:00am Start: 09-02-2019 take 20 mg by mouth once daily Omeprazole Active 20 MG PO DAILY September 02, 2019 1:00am ondansetron 4 mg disintegrating oral tablet (3 sources) Serotonin-3 Receptor Antagonist Start: 05-16-2022 take 4 mg by mouth every six hours Ondansetron Active 4 MG PO EVERY 6 HOURS May 15, 2022 11:00pm predniSONE 20 mg oral tablet (9 sources) Start: 10-14-2021 take 40 mg by mouth once daily Prednisone Active 40 MG PO DAILY 14 October 14, 2021 1:00am Start: 09-02-2019 End: 11-22-2020 take 40 mg by mouth once daily at mealtime Prednisone Discontinued 40 MG PO DAILY September 02, 2019 12:00am November 22, 2020 7:13am With food rOPINIRole 1 mg oral tablet (5 sources) Nonergot Dopamine Agonist Start: 05-15-2016 take 2 mg by mouth at bedtime Ropinirole Active 2 MG PO AT BEDTIME May 14, 2016 11:00pm sucralfate 1000 mg oral tablet (5 sources) Aluminum Complex Start: 06-05-2016 take 1 g by mouth four times daily Sucralfate Active 1 GM PO 4 TIMES DAILY 120 June 04, 2016 11:00pm 24 hr venlafaxine 150 mg extended release oral capsule (1 source) Serotonin and Norepinephrine Reuptake Inhibitor Start: 10-23-2022 take 150 mg by mouth once daily Venlafaxine Active 150 MG PO DAILY October 23, 2022 12:00am vitamin b12 0.5 mg oral tablet (5 sources) Vitamin B12 Start: 09-02-2019 take 500 ug by mouth once daily Cyanocobalamin (Vitamin B-12) Active 500 MCG PO DAILY@0800 September 02, 2019 12:00am Completed/Discontinued Medications Medication Drug Class(es) Dates Sig (Normalized) Sig (Original) amoxicillin 500 mg oral tablet (5 sources) Penicillin-class Antibacterial Start: 05-26-2017 End: 11-22-2020 take 500 mg by mouth three times daily Amoxicillin Discontinued 500 MG PO THREE TIMES A DAY May 25, 2017 11:00pm November 22, 2020 7:13am azithromycin 250 mg oral tablet (5 sources) Macrolide Antimicrobial Start: 09-02-2019 End: 11-22-2020 Azithromycin Discontinued 250 MG PO DIRECTED September 02, 2019 12:00am November 22, 2020 7:13am benzonatate 100 mg oral capsule (5 sources) Non-narcotic Antitussive Start: 09-02-2019 End: 11-22-2020 take 100 mg by mouth three times daily as needed Benzonatate Discontinued 100 MG PO 3 TIMES DAILY NEEDED September 02, 2019 12:00am November 22, 2020 7:13am sertraline 50 mg oral tablet (5 sources) Serotonin Reuptake Inhibitor Start: 02-10-2014 End: 11-22-2020 take 100 mg by mouth once daily Sertraline Discontinued 100 MG PO DAILY February 09, 2014 11:00pm November 22, 2020 7:13am Problems Active Problems Problem Classification Problem Date Documented Date Episodic/Chronic Chronic obstructive pulmonary disease and bronchiectasis (5 sources) Bronchitis; Translations: [Bronchitis, not specified as acute or chronic] 10-22-2021 Episodic Diverticulosis and diverticulitis (5 sources) Diverticulosis of large intestine; Translations: [Diverticulosis of large intestine without perforation or abscess without bleeding] 09-02-2019 Chronic Esophageal disorders (5 sources) Gastroesophageal reflux disease; Translations: [Gastro-esophageal reflux disease without esophagitis] 09-02-2019 Chronic Essential hypertension (1 source) Essential (primary) hypertension; Translations: [Essential (primary) hypertension] Onset: 02-12-2024 Chronic Gastroduodenal ulcer (except hemorrhage) (5 sources) Ulcer of duodenum; Translations: [Duodenal ulcer, unspecified as acute or chronic, without hemorrhage or perforation] 09-02-2019 Chronic Nausea and vomiting (3 sources) Nausea; Translations: [Nausea] 05-24-2022 Episodic Nonspecific chest pain (8 sources) Chest pain; Translations: [Chest pain, unspecified] 05-24-2022 Episodic Other and unspecified benign neoplasm (5 sources) Gastric polyp; Translations: [Polyp of stomach and duodenum] 09-02-2019 Episodic Other connective tissue disease (5 sources) Impingement syndrome of shoulder region; Translations: [Impingement syndrome of left shoulder] 09-06-2021 Episodic Other connective tissue disease (3 sources) Pain in upper limb; Translations: [Pain in arm, unspecified] 05-24-2022 Episodic Other hereditary and degenerative nervous system conditions (1 source) Restless legs syndrome Onset: 06-27-2017 Chronic Other lower respiratory disease (5 sources) Wheezing; Translations: [Wheezing] 10-22-2021 Episodic Other non-traumatic joint disorders (5 sources) Shoulder pain; Translations: [Pain in unspecified shoulder] 09-06-2021 Episodic Other upper respiratory disease (5 sources) Acute bronchospasm; Translations: [Acute bronchospasm] 09-03-2019 Episodic Other upper respiratory disease (1 source) Bronchospasm; Translations: [Acute bronchospasm] 11-05-2022 Episodic Other upper respiratory infections (6 sources) Viral upper respiratory tract infection; Translations: [Acute upper respiratory infection, unspecified] Onset: 01-13-2025 09-03-2019 Episodic Residual codes; unclassified (5 sources) Obstructive sleep apnea syndrome; Translations: [Obstructive sleep apnea (adult) (pediatric)] 09-02-2019 Chronic Residual codes; unclassified (1 source) Sleep apnea; Translations: [Sleep apnea, unspecified] 11-05-2022 Chronic Unclassified (2 sources) Unknown / UNK(Unknown) Onset: 06-22-2016 Unclassified (1 source) Cough, unspecified; Translations: [Cough, unspecified] Onset: 02-19-2024 Viral infection (1 source) Viral infection, unspecified; Translations: [Viral infection, unspecified] Onset: 12-30-2024 Episodic Past or Other Problems Problem Classification Problem Date Documented Da te Episodic/Chronic Other lower respiratory disease (1 source) Chronic cough; Translations: [Chronic cough] Onset: 03-14-2024 Episodic Results Test Name Value Interpretation Reference Range Facility CBC W/Diff, Automatedon 05-0 Absolute Lymph 2.77 X10 3/uL Normal 0.83-4.51 [facility] Comment on above: Order Comment: Order Date: 01/21/24 Order Info: [id number] - [id number] Performed By: #### L [id number], L500.4050, L506.1000, L501.9985, L500.4100, L100.0500 #### [facility] [address] [place], [address] Absolute Neut 4.2 X10 3/uL Normal 2.0-7.7 [facility] Comment on above: Order Comment: Order Date: 01/21/24 Order Info: [id number] - [id number] Performed By: #### L [id number], L500.4050, L506.1000, L501.9985, L500.4100, L100.0500 #### [facility] [address] [place], [place], [id number] (242 Basophils/100 WBC (Bld) 0.8 % Normal 0-1 [facility] Comment on above: Order Comment: Order Date: 01/21/24 Order Info: [id number] - [id number] Performed By: #### L [id number], L500.4050, L506.1000, L501.9985, L500.4100, L100.0500 #### [facility] [address] [place], [place], [id number] ([address] Eosinophils/100 WBC (Bld) 3.6 % Normal 0-5 [facility] Comment on above: Order Comment: Order Date: 01/21/24 Order Info: [id number] - [id number] Performed By: #### L [id number], L500.4050, L506.1000, L501.9985, L500.4100, L100.0500 #### [facility] [address] [place], [address] Erythrocyte distribution width (RBC) [Ratio] 14.6 % Normal 11.6-14.6 [facility] Comment on above: Order Comment: Order Date: 01/21/24 Order Info: [id number] - [id number] Performed By: #### L [id number], L500.4050, L506.1000, L501.9985, L500.4100, L100.0500 #### [facility] [address] [place], [address] Hematocrit (Bld) [Volume fraction] 39.6 % Normal 37-47 [facility] Comment on above: Order Comment: Order Date: 01/21/24 Order Info: [id number] - [id number] Performed By: #### L [id number], L500.4050, L506.1000, L501.9985, L500.4100, L100.0500 #### [facility] [address] [place], [address] Hemoglobin (Bld) [Mass/Vol] 13.2 g/dL Normal 12.0-15.0 [facility] Comment on above: Order Comment: Order Date: 01/21/24 Order Info: [id number] - [id number] Performed By: #### L [id number], L500.4050, L506.1000, L501.9985, L500.4100, L100.0500 #### [facility] [address] [place], [address] IG% 0.400 Normal 0.0-0.9 [facility] Comment on above: Order Comment: Order Date: 01/21/24 Order Info: [id number] - [id number] Result Comment: IG% - Immature Granulocytes (promyelocytes, myelocytes and metamyelocytes) > 1% indicates that a LEFT SHIFT is Present. Performed By: #### L [id number], L500.4050, L506.1000, L501.9985, L500.4100, L100.0500 #### [facility] [address] [place], [address] Lymphocytes/100 WBC (Bld) 35.5 % Normal 19-41 [facility] Comment on above: Order Comment: Order Date: 01/21/24 Order Info: [id number] - [id number] Performed By: #### L [id number], L500.4050, L506.1000, L501.9985, L500.4100, L100.0500 #### [facility] [address] [place], [address] MCH (RBC) [Entitic mass] 32.0 pg Normal 27.0-32.0 [facility] Comment on above: Order Comment: Order Date: 01/21/24 Order Info: [id number] - VITD25 Performed By: #### L 501.9520, L500.4050, L506.1000, L501.9985, L500.4100, L100.0500 #### [facility] [address] [place], [address] MCHC (RBC) [Mass/Vol] 33.3 g/dL Normal 32-36 [facility] Comment on above: Order Comment: Order Date: 01/21/24 Order Info: [id number] - [id number] Performed By: #### L 501.9520, L500.4050, L506.1000, L501.9985, L500.4100, L100.0500 #### [facility] [address] [place], [address] MCV (RBC) [Entitic vol] 96.1 fL Normal 81-99 [facility] Comment on above: Order Comment: Order Date: 01/21/24 Order Info: [id number] - [id number] Performed By: #### L 501.9520, L500.4050, L506.1000, L501.9985, L500.4100, L100.0500 #### [facility] [address] [place], [address] Monocytes/100 WBC (Bld) 6.0 % Normal 0-10 [facility] Comment on above: Order Comment: Order Date: 01/21/24 Order Info: [id number] - [id number] Performed By: #### L 501.9520, L500.4050, L506.1000, L501.9985, L500.4100, L100.0500 #### [facility] [address] [place], [address] Neutrophils/100 WBC (Bld) 53.7 % Normal 47-70 [facility] Comment on above: Order Comment: Order Date: 01/21/24 Order Info: [id number] - [id number] Performed By: #### L 501.9520, L500.4050, L506.1000, L501.9985, L500.4100, L100.0500 #### [facility] [address] [place], [address] Nucleated RBC (Bld) [#/Vol] 0 10*3/uL Normal 0-5 [facility] Comment on above: Order Comment: Order Date: 01/21/24 Order Info: [id number] - [id number] Performed By: #### L 501.9520, L500.4050, L506.1000, L501.9985, L500.4100, L100.0500 #### [facility] [address] [place], [address] Platelet mean volume (Bld) [Entitic vol] 13.1 fL High 6.2-12.0 [facility] Comment on above: Order Comment: Order Date: 01/21/24 Order Info: [id number] - [id number] Performed By: #### L 501.9520, L500.4050, L506.1000, L501.9985, L500.4100, L100.0500 #### [facility] [address] [place], [address] Platelets (Bld) [#/Vol] 171 10*3/uL Normal 150-450 [facility] Comment on above: Order Comment: Order Date: 01/21/24 Order Info: [id number] - [id number] Performed By: #### L 501.9520, L500.4050, L506.1000, L501.9985, L500.4100, L100.0500 #### [facility] [address] [place], [address] RBC (Bld) [#/Vol] 4.12 10*6/uL Low 4.2-5.[address] [facility] Comment on above: Order Comment: Order Date: 01/21/24 Order Info: [id number] - VITD25 Performed By: #### L 501.9520, L500.4050, L506.1000, L501.9985, L500.4100, L100.0500 #### [facility] [address] [place], [address] RDW SD 51.2 fl High 35.1-43.9 [facility] Comment on above: Order Comment: Order Date: 01/21/24 Order Info: [id number] - VITD25 Performed By: #### L 501.9520, L500.4050, L506.1000, L501.9985, L500.4100, L100.0500 #### [facility] [address] [place], [address] WBC (Bld) [#/Vol] 7.8 10*3/uL Normal 4.4-11.0 [facility] Comment on above: Order Comment: Order Date: 01/21/24 Order Info: [id number] - [id number] Performed By: #### L 501.9520, L500.4050, L506.1000, L501.9985, L500.4100, L100.0500 #### [facility] [address] [place], [address] Comprehensive Metabolic Prof ilon 01-08-2025 Albumin [Mass/Vol] 4.0 g/dL Normal 3.4-4.8 [facility] Comment on above: Order Comment: Order Date: 01/21/24 Order Info: [id number] - VITD25 Performed By: #### L 501.9520, L500.4050, L506.1000, L501.9985, L500.4100, L100.0500 #### [facility] [address] [place], [address] Albumin/Globulin [Mass ratio] 1.3 {ratio} Normal 0.9-2.4 [facility] Comment on above: Order Comment: Order Date: 01/21/24 Order Info: [id number] - [id number] Performed By: #### L 501.9520, L500.4050, L506.1000, L501.9985, L500.4100, L100.0500 #### [facility] [address] [place], [address] ALK PHOS 103 U/L Normal 35-104 [facility] Comment on above: Order Comment: Order Date: 01/21/24 Order Info: [id number] - VITD25 Performed By: #### L 501.9520, L500.4050, L506.1000, L501.9985, L500.4100, L100.0500 #### [facility] [address] [place], [address] ALT [Catalytic activity/Vol] 14 U/L Normal <=34 [facility] Comment on above: Order Comment: Order Date: 01/21/24 Order Info: [id number] - VITD25 Performed By: #### L 501.9520, L500.4050, L506.1000, L501.9985, L500.4100, L100.0500 #### [facility] [address] [place], [address] AST [Catalytic activity/Vol] 20 U/L Normal <=31 [facility] Comment on above: Order Comment: Order Date: 01/21/24 Order Info: [id number] - VITD25 Performed By: #### L 501.9520, L500.4050, L506.1000, L501.9985, L500.4100, L100.0500 #### [facility] [address] [place], [address] Bilirubin [Mass/Vol] 0.41 mg/dL Normal 0.00-1.30 [facility] Comment on above: Order Comment: Order Date: 01/21/24 Order Info: [id number] - VITD25 Performed By: #### L 501.9520, L500.4050, L506.1000, L501.9985, L500.4100, L100.0500 #### [facility] [address] [place], [address] BUN/CRE 10.0 RATIO Normal 10-20 [facility] Comment on above: Order Comment: Order Date: 01/21/24 Order Info: [id number] - VITD25 Performed By: #### L 501.9520, L500.4050, L506.1000, L501.9985, L500.4100, L100.0500 #### [facility] [address] [place], [address] Calcium [Mass/Vol] 8.9 mg/dL Normal 7.6-11.0 [facility] Comment on above: Order Comment: Order Date: 01/21/24 Order Info: [id number] - VITD25 Performed By: #### L 501.9520, L500.4050, L506.1000, L501.9985, L500.4100, L100.0500 #### [facility] [address] [place], [address] Chloride [Moles/Vol] 107 mmol/L Normal 98-108 [facility] Comment on above: Order Comment: Order Date: 01/21/24 Order Info: [id number] - VITD25 Performed By: #### L 501.9520, L500.4050, L506.1000, L501.9985, L500.4100, L100.0500 #### [facility] [address] [place], [address] CO2 [Moles/Vol] 22.1 mmol/L Normal 21.0-32.0 [facility] Comment on above: Order Comment: Order Date: 01/21/24 Order Info: [id number] - [id number] Performed By: #### L 501.9520, L500.4050, L506.1000, L501.9985, L500.4100, L100.0500 #### [facility] [address] [place], [address] Creatinine [Mass/Vol] 0.91 mg/dL Normal 0.70-1.20 [facility] Comment on above: Order Comment: Order Date: 01/21/24 Order Info: [id number] - VITD25 Performed By: #### L 501.9520, L500.4050, L506.1000, L501.9985, L500.4100, L100.0500 #### [facility] [address] [place], [address] GAP 11 Normal 5-15 [facility] Comment on above: Order Comment: Order Date: 01/21/24 Order Info: [id number] - VITD25 Performed By: #### L 501.9520, L500.4050, L506.1000, L501.9985, L500.4100, L100.0500 #### [facility] [address] [place], [address] GFR/1.73 sq M.predicted among non-blacks MDRD (S/P/Bld) [Vol rate/Area] 68 mL/min/{1.73_m2} Normal >60 [facility] Comment on above: Order Comment: Order Date: 01/21/24 Order Info: [id number] - [id number] Result Comment: mL/m in/1.73m2 CKD-EPI Creatinine Equation (2020) Performed By: #### L 501.9520, L500.4050, L506.1000, L501.9985, L500.4100, L100.0500 #### [facility] [address] [place], [address] Globulin (S) [Mass/Vol] 3.1 g/dL Normal 2.2-4.2 [facility] Comment on above: Order Comment: Order Date: 01/21/24 Order Info: [id number] - VITD25 Performed By: #### L 501.9520, L500.4050, L506.1000, L501.9985, L500.4100, L100.0500 #### [facility] [address] [place], [address] Glucose [Mass/Vol] 93 mg/dL Normal 70-99 [facility] Comment on above: Order Comment: Order Date: 01/21/24 Order Info: [id number] - VITD25 Performed By: #### L 501.9520, L500.4050, L506.1000, L501.9985, L500.4100, L100.0500 #### [facility] [address] [place], [address] Potassium [Moles/Vol] 3.8 mmol/L Normal 3.3-5.1 [facility] Comment on above: Order Comment: Order Date: 01/21/24 Order Info: [id number] - VITD25 Performed By: #### L 501.9520, L500.4050, L506.1000, L501.9985, L500.4100, L100.0500 #### [facility] [address] [place], [address] Sodium [Moles/Vol] 140 mmol/L Normal 133-145 [facility] Comment on above: Order Comment: Order Date: 01/21/24 Order Info: [id number] - [id number] Performed By: #### L 501.9520, L500.4050, L506.1000, L501.9985, L500.4100, L100.0500 #### [facility] [address] [place], [address] T PROT 7.1 g/dL Normal 5.9-8.4 [facility] Comment on above: Order Comment: Order Date: 01/21/24 Order Info: [id number] - [id number] Performed By: #### L 501.9520, L500.4050, L506.1000, L501.9985, L500.4100, L100.0500 #### [facility] [address] [place], [address] Urea nitrogen [Mass/Vol] 9 mg/dL Normal 4-19 [facility] Comment on above: Order Comment: Order Date: 01/21/24 Order Info: [id number] - VITD25 Performed By: #### L 501.9520, L500.4050, L506.1000, L501.9985, L500.4100, L100.0500 #### [facility] [address] [place], [address] Hemoglobin A1con 01-08-2025 HbA1c (Bld) [Mass fraction] 5.7 % Normal <=5.6 [facility] Comment on above: Order Comment: Order Date: 01/21/24 Order Info: [id number] - [id number] Result Comment: Norm al < 5.7 % Prediabetic 5.7 - 6.4 % Diabetic >or= 6.5 % Please note range changes. Performed By: #### L 501.9520, L500.4050, L506.1000, L501.9985, L500.4100, L100.0500 #### [facility] [address] [place], [address] T4 Free Directon 01-08-2025 T4 FREE DIRECT 1.00 ng/dL Normal 0.76-1.46 [facility] Comment on above: Order Comment: Order Date: 01/21/24 Order Info: [id number] - [id number] Performed By: #### L 501.9520, L500.4050, L506.1000, L501.9985, L500.4100, L100.0500 #### [facility] [address] [place], [address] Thyroid Stim Hormone (TSH)on 01-08-2025 TSH 5.680 uIU/mL High 0.300-4.200 [facility] Comment on above: Order Comment: Order Date: 01/21/24 Order Info: [id number] - [id number] Performed By: #### L 501.9520, L500.4050, L506.1000, L501.9985, L500.4100, L100.0500 #### [facility] [facility] [address] [place], [address] Vitamin D,25 Hydroxyon 01-08 Vitamin D 25-OH 26.2 ng/mL Low 30-100 [facility] Comment on above: Order Comment: Order Date: 01/21/24 Order Info: [id number] - VITD25 Result Comment: Letty min D Status Deficiency: <20 ng/mL (50nmol/L) Insufficiency: 20-30 ng/mL (50-75 nmol/L) Sufficiency: 30-100 ng/mL (75-250 nmol/L) Toxicity: >100 ng/mL (>250 nmol/L) Performed By: #### L 501.9520, L500.4050, L506.1000, L501.9985, L500.4100, L100.0500 #### [facility] [address] [place], [address] Monoteston 12-25-2024 Monocytes (Bld) [#/Vol] Negative Normal Negative [facility] Comment on above: Order Comment: Order Date: 01/21/24 Order Info: [id number] - VITD25 Performed By: #### L 501.9520, L500.4050, L506.1000, L501.9985, L500.4100, L100.0500 #### [facility] [address] [place], [address] Allergens, Zone 8on 02-29-20 24 A. ALTERNATA <0.10 Normal Class 0 [facility] Comment on above: Order Comment: Test( s) 902916-H025-DwT Cockroach, Polish; 944819- Q997-ZuT Pathfork, White; 853952-S417-AtD Sweet Gum were developed and had performance characteristics determined by [facility]. These tests have not been cleared or approved by the U.S. Food and Drug Administration. The FDA has determined that such clearance or approval is not necessary. These tests are used for clinical purposes. These should not be regarded as investigational or for research. Performed By: #### L 5500.0600 #### [facility] [address] [place], [address] ASPERGILLUS FUM <0.10 Normal Class 0 [facility] Comment on above: Order Comment: Test( s) 056256-M236-KrV Cockroach, Polish; 061232- R180-PyN Path[place], White; 346909-J091-YwG Sweet Gum were developed and had performance characteristics determined by [facility]. These tests have not been cleared or approved by the U.S. Food and Drug Administration. The FDA has determined that such clearance or approval is not necessary. These tests are used for clinical purposes. These should not be regarded as investigational or for research. Performed By: #### L 5500.0600 #### [facility] [address] [place], [address] BAHIA GRASS <0.10 Normal Class 0 [facility] Comment on above: Order Comment: Test( s) 410036-Y339-HfF Cockroach, Polish; 757139- A296-OuK Path[place], White; 368097-W421-MfI Sweet Gum were developed and had performance characteristics determined by [facility]. These tests have not been cleared or approved by the U.S. Food and Drug Administration. The FDA has determined that such clearance or approval is not necessary. These tests are used for clinical purposes. These should not be regarded as investigational or for research. Performed By: #### L 5500.0600 #### [facility] [address] [place], [address] BERMUDA GRASS <0.10 Normal Class 0 [facility] Comment on above: Order Comment: Test( s) 115251-S707-VkR Cockroach, Polish; 944607- Y044-SzL Path[place], White; 605333-B544-KaP Sweet Gum were developed and had performance characteristics determined by [facility]. These tests have not been cleared or approved by the U.S. Food and Drug Administration. The FDA has determined that such clearance or approval is not necessary. These tests are used for clinical purposes. These should not be regarded as investigational or for research. Performed By: #### L 5500.0600 #### [facility] [address] [place], [address] BLUE[place]ASS, [place] <0.10 Normal Class 0 [facility] Comment on above: Order Comment: Test( s) 944574-S473-WwS Cockroach, Polish; 235895- L372-JiD Pathfork, White; 136505-J138-CpM Sweet Gum were developed and had performance characteristics determined by [facility]. These tests have not been cleared or approved by the U.S. Food and Drug Administration. The FDA has determined that such clearance or approval is not necessary. These tests are used for clinical purposes. These should not be regarded as investigational or for research. Performed By: #### L 5500.0600 #### [facility] [address] [place], [address] CAT HAIR/DANDER <0.10 Normal Class 0 [facility] Comment on above: Order Comment: Test( s) 315270-A531-HqC Cockroach, Polish; 025902- J854-FtW Path[place], White; 501572-G093-BiV Sweet Gum were developed and had performance characteristics determined by [facility]. These tests have not been cleared or approved by the U.S. Food and Drug Administration. The FDA has determined that such clearance or approval is not necessary. These tests are used for clinical purposes. These should not be regarded as investigational or for research. Performed By: #### L 5500.0600 #### [facility] [address] [place], [address] CLADOSPOR HERB <0.10 Normal Class 0 [facility] Comment on above: Order Comment: Test( s) 509616-K925-WgW Cockroach, Polish; 011061- J764-YpS Path[place], White; 025202-R055-PjQ Sweet Gum were developed and had performance characteristics determined by [facility]. These tests have not been cleared or approved by the U.S. Food and Drug Administration. The FDA has determined that such clearance or approval is not necessary. These tests are used for clinical purposes. These should not be regarded as investigational or for research. Performed By: #### L 5500.0600 #### [facility] [address] [place], [address] COCKROACH,AMER <0.10 Normal Class 0 [facility] Comment on above: Order Comment: Test( s) 739433-W613-XeH Cockroach, Polish; 459273- H172-TbB Pathfork, White; 582106-O894-VqW Sweet Gum were developed and had performance characteristics determined by [facility]. These tests have not been cleared or approved by the U.S. Food and Drug Administration. The FDA has determined that such clearance or approval is not necessary. These tests are used for clinical purposes. These should not be regarded as investigational or for research. Performed By: #### L 5500.0600 #### [facility] [address] [place], [address] COMMENT Comment Normal . [facility] Comment on above: Order Comment: Test( s) 205990-I443-InW Cockroach, Polish; 648524- T660-AtR Path[place], White; 216864-V081-QvS Sweet Gum were developed and had performance characteristics determined by [facility]. These tests have not been cleared or approved by the U.S. Food and Drug Administration. The FDA has determined that such clearance or approval is not necessary. These tests are used for clinical purposes. These should not be regarded as investigational or for research. Result Comment: Christopher pink of Specific IgE Class Description of Class ----- < 0.10 0 Negative 0.10 - 0.31 0/I Equivocal/Low 0.32 - 0.55 I Low 0.56 - 1.40 II Moderate 1.41 - 3.90 III High 3.91 - 19.00 IV Very High 19.01 - 100.00 V Very High >100.00 Very High Performed By: #### L 5500.0600 #### [facility] [address] [id number] D FARINAE MITE <0.10 Normal Class 0 [facility] Comment on above: Order Comment: Test( s) 572763-F050-RrP Cockroach, Polish; 139305- M974-RaQ Path[place], White; 523242-H170-LkG Sweet Gum were developed and had performance characteristics determined by [facility]. These tests have not been cleared or approved by the U.S. Food and Drug Administration. The FDA has determined that such clearance or approval is not necessary. These tests are used for clinical purposes. These should not be regarded as investigational or for research. Performed By: #### L 5500.0600 #### [facility] [address] [facility] [facility] [address] D PTERONYSSINUS <0.10 Normal Class 0 [facility] Comment on above: Order Comment: Test( s) 241227-Q244-HuG Cockroach, Polish; 400184- F952-DcV Path[place], White; 620566-B052-BcN Sweet Gum were developed and had performance characteristics determined by [facility]. These tests have not been cleared or approved by the U.S. Food and Drug Administration. The FDA has determined that such clearance or approval is not necessary. These tests are used for clinical purposes. These should not be regarded as investigational or for research. Performed By: #### L 5500.0600 #### [facility] [address] [place], [place], [id number] DOG EPITHELIA <0.10 Normal Class 0 [facility] Comment on above: Order Comment: Test( s) 875398-I127-OgA Cockroach, Polish; 962321- G829-OiS Pathfork, White; 211598-R126-OuZ Sweet Gum were developed and had performance characteristics determined by [facility]. These tests have not been cleared or approved by the U.S. Food and Drug Administration. The FDA has determined that such clearance or approval is not necessary. These tests are used for clinical purposes. These should not be regarded as investigational or for research. Performed By: #### L 0.0600 #### [facility] [address] [place], [address] ELM,AMER WHITE <0.10 Normal Class 0 [facility] Comment on above: Order Comment: Test( s) 210663-B826-XeA Cockroach, Polish; 639071- B528-TqY Pathfork, White; 696720-I025-ToM Sweet Gum were developed and had performance characteristics determined by [facility]. These tests have not been cleared or approved by the U.S. Food and Drug Administration. The FDA has determined that such clearance or approval is not necessary. These tests are used for clinical purposes. These should not be regarded as investigational or for research. Performed By: #### L 5500.0600 #### [facility] [address] [place], [address] HAZELNUT TREE <0.10 Normal Class 0 [facility] Comment on above: Order Comment: Test( s) 589035-W768-IyH Cockroach, Polish; 667254- Q248-QiX Pathfork, White; 074945-N691-YhS Sweet Gum were developed and had performance characteristics determined by [facility]. These tests have not been cleared or approved by the U.S. Food and Drug Administration. The FDA has determined that such clearance or approval is not necessary. These tests are used for clinical purposes. These should not be regarded as investigational or for research. Performed By: #### L 5500.0600 #### [facility] [address] [place], [address] HICKORY, WHITE <0.10 Normal Class 0 [facility] Comment on above: Order Comment: Test( s) 621073-I825-FeS Cockroach, Polish; 108871- F459-AvA Pathfork, White; 818721-E641-PzS Sweet Gum were developed and had performance characteristics determined by [facility]. These tests have not been cleared or approved by the U.S. Food and Drug Administration. The FDA has determined that such clearance or approval is not necessary. These tests are used for clinical purposes. These should not be regarded as investigational or for research. Performed By: #### L 5500.0600 #### [facility] [address] [place], [address] ALFREDO GRASS <0.10 Normal Class 0 [facility] Comment on above: Order Comment: Test( s) 537321-P331-AnH Cockroach, Polish; 086860- Y198-RdJ Pathfork, White; 108504-L736-BqD Sweet Gum were developed and had performance characteristics determined by [facility]. These tests have not been cleared or approved by the U.S. Food and Drug Administration. The FDA has determined that such clearance or approval is not necessary. These tests are used for clinical purposes. These should not be regarded as investigational or for research. Performed By: #### L 5500.0600 #### [facility] [address] [place], [address] MAPLE/BOX ELDER <0.10 Normal Class 0 [facility] Comment on above: Order Comment: Test( s) 207592-O557-QjG Cockroach, Polish; 538701- Q242-PhK Pathfork, White; 180064-X427-YhD Sweet Gum were developed and had performance characteristics determined by [facility]. These tests have not been cleared or approved by the U.S. Food and Drug Administration. The FDA has determined that such clearance or approval is not necessary. These tests are used for clinical purposes. These should not be regarded as investigational or for research. Performed By: #### L 5500.0600 #### [facility] [address] [place], [address] MOUNTAIN CEDAR <0.10 Normal Class 0 [facility] Comment on above: Order Comment: Test( s) 466862-D810-IhM Cockroach, Polish; 514846- C383-PwG Pathfork, White; 357375-U502-AfU Sweet Gum were developed and had performance characteristics determined by [facility]. These tests have not been cleared or approved by the U.S. Food and Drug Administration. The FDA has determined that such clearance or approval is not necessary. These tests are used for clinical purposes. These should not be regarded as investigational or for research. Performed By: #### L 5500.0600 #### [facility] [address] [place], [address] MUCOR RACEMOSUS <0.10 Normal Class 0 [facility] Comment on above: Order Comment: Test( s) 641822-T172-CyA Cockroach, Polish; 254958- Z043-ElM Pathfork, White; 405697-V691-UpM Sweet Gum were developed and had performance characteristics determined by [facility]. These tests have not been cleared or approved by the U.S. Food and Drug Administration. The FDA has determined that such clearance or approval is not necessary. These tests are used for clinical purposes. These should not be regarded as investigational or for research. Performed By: #### L 5500.0600 #### [facility] [address] [place], [address] MUGWORT <0.10 Normal Class 0 [facility] Comment on above: Order Comment: Test( s) 131283-C599-ZzF Cockroach, Polish; 922538- L681-WlF Pathfork, White; 113273-B565-RrP Sweet Gum were developed and had performance characteristics determined by [facility]. These tests have not been cleared or approved by the U.S. Food and Drug Administration. The FDA has determined that such clearance or approval is not necessary. These tests are used for clinical purposes. These should not be regarded as investigational or for research. Performed By: #### L 5500.0600 #### [facility] [address] [place], [place], [id number] MULBERRY, WHITE <0.10 Normal Class 0 [facility] Comment on above: Order Comment: Test( s) 045618-X798-JvU Cockroach, Polish; 385289- W981-QzO Pathfork, White; 625807-S857-IcD Sweet Gum were developed and had performance characteristics determined by [facility]. These tests have not been cleared or approved by the U.S. Food and Drug Administration. The FDA has determined that such clearance or approval is not necessary. These tests are used for clinical purposes. These should not be regarded as investigational or for research. Performed By: #### L 5500.0600 #### [facility] [address] [place], [place], [id number] NETTLE <0.10 Normal Class 0 [facility] Comment on above: Order Comment: Test( s) 521108-T310-PhW Cockroach, Polish; 991441- Z512-DqY Pathfork, White; 521218-Y653-UwE Sweet Gum were developed and had performance characteristics determined by [facility]. These tests have not been cleared or approved by the U.S. Food and Drug Administration. The FDA has determined that such clearance or approval is not necessary. These tests are used for clinical purposes. These should not be regarded as investigational or for research. Result Comment: Perf ormed at: - [facility] [id number] Mattress Finisher: Rex Andrews MD, Phone: [phone] Performed By: #### L 5500.0600 #### [facility] [address] [place], [address] OAK, WHITE <0.10 Normal Class 0 [facility] Comment on above: Order Comment: Test( s) 007528-G334-OoY Cockroach, Polish; 097700- J017-LrG Pathfork, White; 250681-P063-FhI Sweet Gum were developed and had performance characteristics determined by [facility]. These tests have not been cleared or approved by the U.S. Food and Drug Administration. The FDA has determined that such clearance or approval is not necessary. These tests are used for clinical purposes. These should not be regarded as investigational or for research. Performed By: #### L 5500.0600 #### [facility] [address] [facility] [address] [place], [place], [id number] PEN CHRYSOGEN <0.10 Normal Class 0 [facility] Comment on above: Order Comment: Test( s) 945500-N449-BmA Cockroach, Polish; 290224- W034-DnO Pathfork, White; 103923-B313-TgQ Sweet Gum were developed and had performance characteristics determined by [facility]. These tests have not been cleared or approved by the U.S. Food and Drug Administration. The FDA has determined that such clearance or approval is not necessary. These tests are used for clinical purposes. These should not be regarded as investigational or for research. Performed By: #### L 5500.0600 #### [facility] [address] [facility] [address] [place], [place], [id number] PIGWEED, ROUGH <0.10 Normal Class 0 [facility] Comment on above: Order Comment: Test( s) 670622-I360-KuB Cockroach, Polish; 806994- O405-GwL Pathfork, White; 638202-R380-QyQ Sweet Gum were developed and had performance characteristics determined by [facility]. These tests have not been cleared or approved by the U.S. Food and Drug Administration. The FDA has determined that such clearance or approval is not necessary. These tests are used for clinical purposes. These should not be regarded as investigational or for research. Performed By: #### L 5500.0600 #### [facility] [address] [place], [address] PLANTAIN,ENGLSH <0.10 Normal Class 0 [facility] Comment on above: Order Comment: Test( s) 900832-A110-LeC Cockroach, Polish; 896971- A850-YsK Pathfork, White; 977456-H335-YrF Sweet Gum were developed and had performance characteristics determined by [facility]. These tests have not been cleared or approved by the U.S. Food and Drug Administration. The FDA has determined that such clearance or approval is not necessary. These tests are used for clinical purposes. These should not be regarded as investigational or for research. Performed By: #### L 5500.0600 #### [facility] [address] [place], [address] RAGWEED SH/COM <0.10 Normal Class 0 [facility] Comment on above: Order Comment: Test( s) 830533-Q065-ByY Cockroach, Polish; 487008- Z237-ScU Path[place], White; 817800-A776-ZsB Sweet Gum were developed and had performance characteristics determined by [facility]. These tests have not been cleared or approved by the U.S. Food and Drug Administration. The FDA has determined that such clearance or approval is not necessary. These tests are used for clinical purposes. These should not be regarded as investigational or for research. Performed By: #### L 5500.0600 #### [facility] [address] [place], [address] SHEEP SORREL <0.10 Normal Class 0 [facility] Comment on above: Order Comment: Test( s) 100877-A275-QuX Cockroach, Polish; 302731- P755-VeC Pathfork, White; 391371-N694-FyY Sweet Gum were developed and had performance characteristics determined by [facility]. These tests have not been cleared or approved by the U.S. Food and Drug Administration. The FDA has determined that such clearance or approval is not necessary. These tests are used for clinical purposes. These should not be regarded as investigational or for research. Performed By: #### L 5500.0600 #### [facility] [address] [place], [place], [id number] STEMPHYLIUM HER <0.10 Normal Class 0 [facility] Comment on above: Order Comment: Test( s) 515788-B230-GqS Cockroach, Polish; 596097- K516-YuF Path[place], White; 179508-H283-TjZ Sweet Gum were developed and had performance characteristics determined by [facility]. These tests have not been cleared or approved by the U.S. Food and Drug Administration. The FDA has determined that such clearance or approval is not necessary. These tests are used for clinical purposes. These should not be regarded as investigational or for research. Performed By: #### L 5500.0600 #### [facility] [address] [place], [address] SWEET GUM <0.10 Normal Class 0 [facility] Comment on above: Order Comment: Test( s) 462138-A627-BqK Cockroach, Polish; 328543- T583-NfD Pathfork, White; 149223-L903-BtS Sweet Gum were developed and had performance characteristics determined by [facility]. These tests have not been cleared or approved by the U.S. Food and Drug Administration. The FDA has determined that such clearance or approval is not necessary. These tests are used for clinical purposes. These should not be regarded as investigational or for research. Performed By: #### L 5500.0600 #### [facility] [address] [place], [address] SYCAMORE, AMER <0.10 Normal Class 0 [facility] Comment on above: Order Comment: Test( s) 347284-P944-LgJ Cockroach, Polish; 361709- P510-QxC Pathfork, White; 279620-G358-RcL Sweet Gum were developed and had performance characteristics determined by [facility]. These tests have not been cleared or approved by the U.S. Food and Drug Administration. The FDA has determined that such clearance or approval is not necessary. These tests are used for clinical purposes. These should not be regarded as investigational or for research. Performed By: #### L 5500.0600 #### [facility] [address] [place], [place], [address] Allergens, Zone 8on 02-25-20 A. ALTERNATA [facility] Comment on above: Order Comment: Order Date: 01/21/24 Order Info: [id number] - VITD25 Result Comment: ABN PRINTED OUT PATIENT WENT BACK TO OFFICE Performed By: #### L 501.9520, L500.4050, L506.1000, L501.9985, L500.4100, L100.0500 #### [facility] [address] [place], [place], [address] ASPERGILLUS FUM [facility] Comment on above: Order Comment: Order Date: 01/21/24 Order Info: [id number] - VITD25 Result Comment: ABN PRINTED OUT PATIENT WENT BACK TO OFFICE Performed By: #### L 501.9520, L500.4050, L506.1000, L501.9985, L500.4100, L100.0500 #### [facility] [address] [place], [place], [address] [place] Comment on above: Order Comment: Order Date: 01/21/24 Order Info: [id number] - VITD25 Result Comment: ABN PRINTED OUT PATIENT WENT BACK TO OFFICE Performed By: #### L 501.9520, L500.4050, L506.1000, L501.9985, L500.4100, L100.0500 #### [facility] [address] [place], [place], [address] [facility] Comment on above: Order Comment: Order Date: 01/21/24 Order Info: [id number] - VITD25 Result Comment: ABN PRINTED OUT PATIENT WENT BACK TO OFFICE Performed By: #### L 501.9520, L500.4050, L506.1000, L501.9985, L500.4100, L100.0500 #### [facility] [address] [place], [place], [id number] [facility] Comment on above: Order Comment: Order Date: 01/21/24 Order Info: [id number] - VITD25 Result Comment: ABN PRINTED OUT PATIENT WENT BACK TO OFFICE Performed By: #### L 501.9520, L500.4050, L506.1000, L501.9985, L500.4100, L100.0500 #### [facility] [address] [place], [place], [id number] CAT HAIR/DANDER [facility] Comment on above: Order Comment: Order Date: 01/21/24 Order Info: [id number] - VITD25 Result Comment: ABN PRINTED OUT PATIENT WENT BACK TO OFFICE Performed By: #### L 501.9520, L500.4050, L506.1000, L501.9985, L500.4100, L100.0500 #### [facility] [address] [place], [place], [id number] CLADOSPOR HERB [facility] Comment on above: Order Comment: Order Date: 01/21/24 Order Info: [id number] - VITD25 Result Comment: ABN PRINTED OUT PATIENT WENT BACK TO OFFICE Performed By: #### L 501.9520, L500.4050, L506.1000, L501.9985, L500.4100, L100.0500 #### [facility] [address] [place], [address] COCKROELPIDIO,AMER [facility] [facility] Comment on above: Order Comment: Order Date: 01/21/24 Order Info: [id number] - VITD25 Result Comment: ABN PRINTED OUT PATIENT WENT BACK TO OFFICE Performed By: #### L 501.9520, L500.4050, L506.1000, L501.9985, L500.4100, L100.0500 #### [facility] [address] [place], [address] D FARINAE MITE Normal [facility] Comment on above: Order Comment: Order Date: 01/21/24 Order Info: [id number] - VITD25 Result Comment: ABN PRINTED OUT PATIENT WENT BACK TO OFFICE Performed By: #### L 501.9520, L500.4050, L506.1000, L501.9985, L500.4100, L100.0500 #### [facility] [address] [place], [address] D PTERONYSSINUS Normal [facility] Comment on above: Order Comment: Order Date: 01/21/24 Order Info: [id number] - VITD25 Result Comment: ABN PRINTED OUT PATIENT WENT BACK TO OFFICE Performed By: #### L 501.9520, L500.4050, L506.1000, L501.9985, L500.4100, L100.0500 #### [facility] [address] [place], [address] DOG EPITHELIA Normal [facility] Comment on above: Order Comment: Order Date: 01/21/24 Order Info: [id number] - VITD25 Result Comment: ABN PRINTED OUT PATIENT WENT BACK TO OFFICE Performed By: #### L 501.9520, L500.4050, L506.1000, L501.9985, L500.4100, L100.0500 #### [facility] [address] [place], [address] ELM,AMER WHITE Normal [facility] Comment on above: Order Comment: Order Date: 01/21/24 Order Info: [id number] - VITD25 Result Comment: ABN PRINTED OUT PATIENT WENT BACK TO OFFICE Performed By: #### L 501.9520, L500.4050, L506.1000, L501.9985, L500.4100, L100.0500 #### [facility] [address] [place], [address] HAZELNUT TREE [facility] Comment on above: Order Comment: Order Date: 01/21/24 Order Info: [id number] - VITD25 Result Comment: ABN PRINTED OUT PATIENT WENT BACK TO OFFICE Performed By: #### L 501.9520, L500.4050, L506.1000, L501.9985, L500.4100, L100.0500 #### [facility] [address] [place], [place], [id number] LARRY FLYNN [facility] Comment on above: Order Comment: Order Date: 01/21/24 Order Info: [id number] - VITD25 Result Comment: ABN PRINTED OUT PATIENT WENT BACK TO OFFICE Performed By: #### L 501.9520, L500.4050, L506.1000, L501.9985, L500.4100, L100.0500 #### [facility] [address] [place], [place], [id number] [facility] Comment on above: Order Comment: Order Date: 01/21/24 Order Info: [id number] - VITD25 Result Comment: ABN PRINTED OUT PATIENT WENT BACK TO OFFICE Performed By: #### L 501.9520, L500.4050, L506.1000, L501.9985, L500.4100, L100.0500 #### [facility] [address] [place], [place], [id number] MAPLE/BOX ELDER [facility] Comment on above: Order Comment: Order Date: 01/21/24 Order Info: [id number] - VITD25 Result Comment: ABN PRINTED OUT PATIENT WENT BACK TO OFFICE Performed By: #### L 501.9520, L500.4050, L506.1000, L501.9985, L500.4100, L100.0500 #### [facility] [address] [place], [place], [id number] [facility] Comment on above: Order Comment: Order Date: 01/21/24 Order Info: [id number] - VITD25 Result Comment: ABN PRINTED OUT PATIENT WENT BACK TO OFFICE Performed By: #### L 501.9520, L500.4050, L506.1000, L501.9985, L500.4100, L100.0500 #### [facility] [address] [place], [address] MUCOR RACEMOSUS [facility] Comment on above: Order Comment: Order Date: 01/21/24 Order Info: [id number] - VITD25 Result Comment: ABN PRINTED OUT PATIENT WENT BACK TO OFFICE Performed By: #### L 501.9520, L500.4050, L506.1000, L501.9985, L500.4100, L100.0500 #### [facility] [address] [place], [place], [id number] [facility] Comment on above: Order Comment: Order Date: 01/21/24 Order Info: [id number] - VITD25 Result Comment: ABN PRINTED OUT PATIENT WENT BACK TO OFFICE Performed By: #### L 501.9520, L500.4050, L506.1000, L501.9985, L500.4100, L100.0500 #### [facility] [address] [place], [address] MULBERRY, WHITE [facility] Comment on above: Order Comment: Order Date: 01/21/24 Order Info: [id number] - VITD25 Result Comment: ABN PRINTED OUT PATIENT WENT BACK TO OFFICE Performed By: #### L 501.9520, L500.4050, L506.1000, L501.9985, L500.4100, L100.0500 #### [facility] [address] [place], [address] NETTLE [facility] Comment on above: Order Comment: Order Date: 01/21/24 Order Info: [id number] - VITD25 Result Comment: ABN PRINTED OUT PATIENT WENT BACK TO OFFICE Performed By: #### L 501.9520, L500.4050, L506.1000, L501.9985, L500.4100, L100.0500 #### [facility] [address] [place], [place], [id number] OAK, WHITE [facility] Comment on above: Order Comment: Order Date: 01/21/24 Order Info: [id number] - VITD25 Result Comment: ABN PRINTED OUT PATIENT WENT BACK TO OFFICE Performed By: #### L 501.9520, L500.4050, L506.1000, L501.9985, L500.4100, L100.0500 #### [facility] [address] [place], [place], [address] PEN CHRYSOGEN [facility] Comment on above: Order Comment: Order Date: 01/21/24 Order Info: [id number] - VITD25 Result Comment: ABN PRINTED OUT PATIENT WENT BACK TO OFFICE Performed By: #### L 501.9520, L500.4050, L506.1000, L501.9985, L500.4100, L100.0500 #### [facility] [address] [place], [place], [id number] PIGWEED, ROUGH [facility] Comment on above: Order Comment: Order Date: 01/21/24 Order Info: [id number] - VITD25 Result Comment: ABN PRINTED OUT PATIENT WENT BACK TO OFFICE Performed By: #### L 501.9520, L500.4050, L506.1000, L501.9985, L500.4100, L100.0500 #### [facility] [address] [place], [place], [address] DAVID FELIZLSJaime [facility] Comment on above: Order Comment: Order Date: 01/21/24 Order Info: [id number] - VITD25 Result Comment: ABN PRINTED OUT PATIENT WENT BACK TO OFFICE Performed By: #### L 501.9520, L500.4050, L506.1000, L501.9985, L500.4100, L100.0500 #### [facility] [address] [place], [address] RAGWEED /COM Normal [facility] Comment on above: Order Comment: Order Date: 01/21/24 Order Info: [id number] - VITD25 Result Comment: ABN PRINTED OUT PATIENT WENT BACK TO OFFICE Performed By: #### L 501.9520, L500.4050, L506.1000, L501.9985, L500.4100, L100.0500 #### [facility] [address] [place], [address] SHEEP SORREL [facility] Comment on above: Order Comment: Order Date: 01/21/24 Order Info: [id number] - VITD25 Result Comment: ABN PRINTED OUT PATIENT WENT BACK TO OFFICE Performed By: #### L 501.9520, L500.4050, L506.1000, L501.9985, L500.4100, L100.0500 #### [facility] [address] [place], [address] STEMPHYLIUM HER [facility] Comment on above: Order Comment: Order Date: 01/21/24 Order Info: [id number] - VITD25 Result Comment: ABN PRINTED OUT PATIENT WENT BACK TO OFFICE Performed By: #### L 501.9520, L500.4050, L506.1000, L501.9985, L500.4100, L100.0500 #### [facility] [address] [place], [address] SWEET GUM [facility] Comment on above: Order Comment: Order Date: 01/21/24 Order Info: [id number] - VITD25 Result Comment: ABN PRINTED OUT PATIENT WENT BACK TO OFFICE Performed By: #### L 501.9520, L500.4050, L506.1000, L501.9985, L500.4100, L100.0500 #### [facility] [address] [place], [address] SY[place], AMER [facility] Comment on above: Order Comment: Order Date: 01/21/24 Order Info: [id number] - VITD25 Result Comment: ABN PRINTED OUT PATIENT WENT BACK TO OFFICE Performed By: #### L 501.9520, L500.4050, L506.1000, L501.9985, L500.4100, L100.0500 #### [facility] [address] [place], [address] L5500.0550on 02-25-2024 BEEF [facility] Comment on above: Order Comment: Order Date: 02/18/24 Order Info: 0763-1 - RAST zone 5 Result Comment: ABN PRINTED OUT PATIENT WENT BACK TO OFFICE Performed By: #### L 5500.0550 #### [facility] [address] [place], [address] CHOCOLATE [facility] Comment on above: Order Comment: Order Date: 02/18/24 Order Info: 0763-1 - RAST zone 5 Result Comment: ABN PRINTED OUT PATIENT WENT BACK TO OFFICE Performed By: #### L 5500.0550 #### [facility] [address] [place], [address] CODFISH [facility] Comment on above: Order Comment: Order Date: 02/18/24 Order Info: 0763-1 - RAST zone 5 Result Comment: ABN PRINTED OUT PATIENT WENT BACK TO OFFICE Performed By: #### L 5500.0550 #### [facility] [address] [place], [address] CORN [facility] Comment on above: Order Comment: Order Date: 02/18/24 Order Info: 0763-1 - RAST zone 5 Result Comment: ABN PRINTED OUT PATIENT WENT BACK TO OFFICE Performed By: #### L 5500.0550 #### [facility] [address] [place], [address] EGG, WHOLE [facility] Comment on above: Order Comment: Order Date: 02/18/24 Order Info: 0763-1 - RAST zone 5 Result Comment: ABN PRINTED OUT PATIENT WENT BACK TO OFFICE Performed By: #### L 5500.0550 #### [facility] [address] [place], [address] MILK (COW) [facility] Comment on above: Order Comment: Order Date: 02/18/24 Order Info: 0763-1 - RAST zone 5 Result Comment: ABN PRINTED OUT PATIENT WENT BACK TO OFFICE Performed By: #### L 5500.0550 #### [facility] [address] [place], [address] MUSSELS [facility] Comment on above: Order Comment: Order Date: 02/18/24 Order Info: 0763-1 - RAST zone 5 Result Comment: ABN PRINTED OUT PATIENT WENT BACK TO OFFICE Performed By: #### L 5500.0550 #### [facility] [address] [place], [address] PEANUT [facility] Comment on above: Order Comment: Order Date: 02/18/24 Order Info: 0763-1 - RAST zone 5 Result Comment: ABN PRINTED OUT PATIENT WENT BACK TO OFFICE Performed By: #### L 5500.0550 #### [facility] [address] [place], [address] PORK [facility] Comment on above: Order Comment: Order Date: 02/18/24 Order Info: 0763-1 - RAST zone 5 Result Comment: ABN PRINTED OUT PATIENT WENT BACK TO OFFICE Performed By: #### L 5500.0550 #### [facility] [address] [place], [address] SALMON [facility] Comment on above: Order Comment: Order Date: 02/18/24 Order Info: 0763-1 - RAST zone 5 Result Comment: ABN PRINTED OUT PATIENT WENT BACK TO OFFICE Performed By: #### L 5500.0550 #### [facility] [address] [place], [address] [facility] Comment on above: Order Comment: Order Date: 02/18/24 Order Info: 0763-1 - RAST zone 5 Result Comment: ABN PRINTED OUT PATIENT WENT BACK TO OFFICE Performed By: #### L 5500.0550 #### [facility] [address] [place], [address] [facility] Comment on above: Order Comment: Order Date: 02/18/24 Order Info: 0763-1 - RAST zone 5 Result Comment: ABN PRINTED OUT PATIENT WENT BACK TO OFFICE Performed By: #### L 5500.0550 #### [facility] [address] [place], [address] [facility] Comment on above: Order Comment: Order Date: 02/18/24 Order Info: 0763-1 - RAST zone 5 Result Comment: ABN PRINTED OUT PATIENT WENT BACK TO OFFICE Performed By: #### L 5500.0550 #### [facility] [address] [place], [address] [facility] Comment on above: Order Comment: Order Date: 02/18/24 Order Info: 0763-1 - RAST zone 5 Result Comment: ABN PRINTED OUT PATIENT WENT BACK TO OFFICE Performed By: #### L 5500.0550 #### [facility] [address] [place], [address] Chest 1 View (Portable)on Chest 1 View (Portable) [facility] Imaging Services [address] [place] [address] Chest 1 View (Portable) MR#: [id number] Acct: [id number] Name: ADRIANA MUÑIZ Rep #: [id number] : 1955 F 68 From: Myron wallace MD PCP: Dr. Severo Chowdhury MD Status: PRE ER Study: Chest 1 View (Portable) Date of Exam: 02/09/24 Exam# [id number] Ordering Dr: Enzo Arredondo MD :[id number] STUDY: X-RAY CHEST REASON FOR EXAM: Female, 68 years old. COUGH TECHNIQUE: Single AP portable view of the chest. COMPARISON: May 03, 2023 FINDINGS: The lungs are clear and expanded. There is no demonstrated pleural abnormality. Normal size heart. Normal mediastinum and oliva. Normal visualized pulmonary arteries. There is atherosclerotic calcification of the aortic arch with tortuosity. There are diffuse degenerative changes of the visualized thoracic spine. Normal visualized ribs, clavicles, and shoulders. There is no demonstrated abnormality of the visualized soft tissue structures of the upper abdomen. RAD/Chest 1 View (Portable) IMPRESSION: Degenerative changes, as described above. No demonstrated acute cardiopulmonary process. Electronically Signed: Myron Mcdonald MD at 14:25 EDT , CC: Dr. Enzo Arredondo MD; Dr. 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 Severo Chowdhury MD Status:DEP ER Location: ED HPI History of Present Illness Chief Complaint: Cough Informant: patient Narrative Narrative: 68-year-old female has had a cough for about a week. She is having some occasional sputum, she is been having increasing wheezing/dyspnea even when she is not coughing but also having coughing fits. States she has had prednisone that has helped with this in the past when she has had it but does not have asthma or COPD that she knows of. She is a non-smoker. She denies any fevers or chills. [facility] Medical History Thyroid disease Anemia History of ulceration History of IBS Atelectasis pulmonary Sepsis Bipolar disorder, unspecified Wears glasses Wears partial dentures Post-menopausal Arthritis History of kidney stones Low iron Easy bruising Injury of head and neck Non-smoker Shortness of breath on exertion Chronic cough Leg cramps History of edema Iron deficiency Stomach ulcer Abdominal pain Low back pain Shingles Dizziness Vitamin D deficiency IBS (irritable bowel syndrome) Osteoarthritis Radiculopathy, lumbar region Impingement syndrome of unspecified shoulder Impaired fasting glucose Carpal tunnel syndrome HTN (hypertension) Fatigue Fever Depression Hemorrhoid Cervix erosion Incontinence Hypothyroidism Restless leg syndrome GERD (gastroesophageal reflux disease) Bipolar disorder Home Medications ???Medication ???Instructions ???Recorded ???Last Taken ???Type cholecalciferol (vitamin D3) 25 2,000 unit PO DAILY 05/15/16 04/20/23 08:00 History mcg (1,000 unit) tablet ferrous sulfate 15 mg iron (75 65 mg PO DAILY 05/15/16 04/20/23 08:00 History mg)/mL oral drops levothyroxine 50 mcg tablet 75 mcg PO DAILY 05/15/16 05/23/23 History ppsqtorv-tjbr-bevc 8 mg-folic 400 1 each PO DAILY 05/15/16 04/20/23 08:00 History mcg-K 50 mcg-lutein 300 mcg tablet inhalational spacing device ##1 09/02/19 Unknown Rx albuterol sulfate 90 mcg/actuation 2 inh inhalation Q6H PRN COUGHING 03/22/23 04/21/23 08:57 History breath activated powder inhaler vitamin B complex (Vitamins B 1 cap PO DAILY 03/22/23 04/20/23 08:00 History Complex capsule) ropinirole 1 mg tablet 3 mg PO QHS 04/11/23 04/20/23 22:00 History venlafaxine 150 mg 150 mg PO DAILY #30 caps 04/11/23 04/20/23 22:00 Rx capsule,extended release 24 hr lamotrigine 150 mg tablet 150 mg PO BID #60 tabs 01/09/24 Unknown Rx albuterol sulfate 90 mcg/actuation 1 - 2 puff inhalation Q4H PRN PRN 02/09/24 Unknown Rx aerosol inhaler (Ventolin HFA) Wheezing ##1 amlodipine 5 mg tablet 5 mg PO DAILY 02/09/24 Unknown History omeprazole 20 mg capsule,delayed 20 mg PO DAILY 02/09/24 Unknown History release prednisone 20 mg tablet 20 mg PO DAILY #6 TABLETS 02/09/24 Unknown Rx sucralfate 1 gram tablet (Carafate) 1 g PO DAILY 02/09/24 Unknown History Allergy/AdvReac Type Severity Reaction Status Date / Time Sugars, Metabolically Active Allergy Intermediate Diarrhea Verified 02/09/24 13:35 prednisone AdvReac Intermediate Other Verified 02/09/24 13:35 Surgical History Hx of cystoscopy History of selective injection of anesthetic agent around lumbar nerve root History of esophagogastroduodenoscopy (EGD) History of tonsillectomy and adenoidectomy Hx of cholecystectomy H/O foot surgery Social History Smoking Status: Never smoker alcohol intake: current ROS ROS ED Constitutional Constitutional ED: Denies chills or fever(s) Eyes Eyes: Denies change in vision or diplopia ENT ENT ED: Reports nasal congestion; Denies rhinorrhea or sore throat Cardiovascular Cardiovascular: Denies chest pain or palpitations Respiratory/Chest Respiratory/Chest: Reports cough, dyspnea, sputum and wheezing Gastrointestinal Gastrointestinal: Denies abdominal pain, diarrhea, nausea or vomiting Genitourinary Genitourinary ED: Denies dysuria or hematuria Musculoskeletal Musculoskeletal: Denies back pain or neck pain Integumentary Denies abscess or rash Neurologic Neurologic: Denies headache(s), paresthesias or weakness Psychiatric Psychiatric: Denies suicidal thoughts EXAM Physical Exam Const Vital Signs: 02/09/24 13:32 02/09/24 14:32 02/09/24 14:57 Temperature 98.3 F Temperature Source Temporal Pulse Rate 81 76 Respiratory Rate 19 H 16 Respiratory Effort Non-Labored (more content not included)... Normal [facility] CBC-Complete Blood Cnt No Di ffon 01-21-2024 Erythrocyte distribution width (RBC) [Ratio] 14.3 % Normal 11.6-14.6 [facility] Comment on above: Order Comment: Order Date: 01/21/24 Order Info: [id number] - CBC Performed By: #### L 501.9520, L500.4050, L506.1000, L501.9985, L500.4100, L100.0500 #### [facility] [address] [place], [address] Hematocrit (Bld) [Volume fraction] 38.1 % Normal 37-47 [facility] Comment on above: Order Comment: Order Date: 01/21/24 Order Info: [id number] - CBC Performed By: #### L 501.9520, L500.4050, L506.1000, L501.9985, L500.4100, L100.0500 #### [facility] [address] [place], [address] Hemoglobin (Bld) [Mass/Vol] 12.3 g/dL Normal 12.0-15.0 [facility] Comment on above: Order Comment: Order Date: 01/21/24 Order Info: [id number] - CBC Performed By: #### L 501.9520, L500.4050, L506.1000, L501.9985, L500.4100, L100.0500 #### [facility] [address] [place], [address] MCH (RBC) [Entitic mass] 30.8 pg Normal 27.0-32.0 [facility] Comment on above: Order Comment: Order Date: 01/21/24 Order Info: [id number] - CBC Performed By: #### L 501.9520, L500.4050, L506.1000, L501.9985, L500.4100, L100.0500 #### [facility] [address] [place], [address] MCHC (RBC) [Mass/Vol] 32.3 g/dL Normal 32-36 [facility] Comment on above: Order Comment: Order Date: 01/21/24 Order Info: [id number] - CBC Performed By: #### L 501.9520, L500.4050, L506.1000, L501.9985, L500.4100, L100.0500 #### [facility] [address] [place], [address] MCV (RBC) [Entitic vol] 95.5 fL Normal 81-99 [facility] Comment on above: Order Comment: Order Date: 01/21/24 Order Info: [id number] - CBC Performed By: #### L 501.9520, L500.4050, L506.1000, L501.9985, L500.4100, L100.0500 #### [facility] [address] [place], [address] Platelet mean volume (Bld) [Entitic vol] 13.2 fL High 6.2-12.0 [facility] Comment on above: Order Comment: Order Date: 01/21/24 Order Info: [id number] - CBC Performed By: #### L 501.9520, L500.4050, L506.1000, L501.9985, L500.4100, L100.0500 #### [facility] [address] [place], [address] Platelets (Bld) [#/Vol] 170 10*3/uL Normal 150-450 [facility] Comment on above: Order Comment: Order Date: 01/21/24 Order Info: [id number] - CBC Performed By: #### L 501.9520, L500.4050, L506.1000, L501.9985, L500.4100, L100.0500 #### [facility] [address] [place], [address] RBC (Bld) [#/Vol] 3.99 10*6/uL Low 4.2-5.[address] [facility] Comment on above: Order Comment: Order Date: 01/21/24 Order Info: [id number] - CBC Performed By: #### L 501.9520, L500.4050, L506.1000, L501.9985, L500.4100, L100.0500 #### [facility] [address] [place], [place], [address] RDW SD 50.4 fl High 35.1-43.9 [facility] Comment on above: Order Comment: Order Date: 01/21/24 Order Info: [id number] - CBC Performed By: #### L 501.9520, L500.4050, L506.1000, L501.9985, L500.4100, L100.0500 #### [facility] [address] [place], [place], [address] WBC (Bld) [#/Vol] 6.9 10*3/uL Normal 4.4-11.0 [facility] Comment on above: Order Comment: Order Date: 01/21/24 Order Info: [id number] - CBC Performed By: #### L 501.9520, L500.4050, L506.1000, L501.9985, L500.4100, L100.0500 #### [facility] [address] [place], [place], [address] Comprehensive Metabolic Prof [facility] 01-21-2024 Albumin [Mass/Vol] 3.5 g/dL Normal 3.2-5.0 [facility] Comment on above: Order Comment: Order Date: 01/21/24 Order Info: 0786-1 - CMP Order Info: [id number] - LIPID Order Info: [id number] - TSH Performed By: #### L 501.9520, L500.4050, L506.1000, L501.9985, L500.4100, L100.0500 #### [facility] [address] [place], [address] Albumin/Globulin [Mass ratio] 0.9 {ratio} Normal 0.9-2.4 [facility] Comment on above: Order Comment: Order Date: 01/21/24 Order Info: 86-1 - CMP Order Info: [id number] - LIPID Order Info: [id number] - TSH Performed By: #### L 501.9520, L500.4050, L506.1000, L501.9985, L500.4100, L100.0500 #### [facility] [address] [place], [address] ALK P 100 U/L Normal 45-117 [facility] Comment on above: Order Comment: Order Date: 01/21/24 Order Info: [id number] - CMP Order Info: - LIPID Order Info: [id number] - TSH Performed By: #### L 501.9520, L500.4050, L506.1000, L501.9985, L500.4100, L100.0500 #### [facility] [address] [place], [address] ALT [Catalytic activity/Vol] 26 U/L Normal 13-56 [facility] Comment on above: Order Comment: Order Date: 01/21/24 Order Info: 07 - CMP Order Info: [id number] - LIPID Order Info: [id number] - TSH Performed By: #### L 501.9520, L500.4050, L506.1000, L501.9985, L500.4100, L100.0500 #### [facility] [address] [place], [address] AST [Catalytic activity/Vol] 19 U/L Normal 15-37 [facility] Comment on above: Order Comment: Order Date: 01/21/24 Order Info: 07-1 - CMP Order Info: - LIPID Order Info: [id number] - TSH Performed By: #### L 501.9520, L500.4050, L506.1000, L501.9985, L500.4100, L100.0500 #### [facility] [address] [place], [address] Bilirubin [Mass/Vol] 0.30 mg/dL Normal 0.20-1.00 [facility] Comment on above: Order Comment: Order Date: 01/21/24 Order Info: 0786-1 - CMP Order Info: [id number] - LIPID Order Info: 3016-3 - TSH Result Comment: For patients on eltrombopag therapy, use of Dimension [place] TBIL is not recommended. Performed By: #### L 501.9520, L500.4050, L506.1000, L501.9985, L500.4100, L100.0500 #### [facility] [address] [place], [address] BUN/CRE 15.8 RATIO Normal 10-20 [facility] Comment on above: Order Comment: Order Date: 01/21/24 Order Info: 07 - CMP Order Info: [id number] - LIPID Order Info: [id number] - TSH Performed By: #### L 501.9520, L500.4050, L506.1000, L501.9985, L500.4100, L100.0500 #### [facility] [address] [place], [address] CA,Total 8.7 mg/dL Normal 8.5-10.1 [facility] Comment on above: Order Comment: Order Date: 01/21/24 Order Info: [id number] - CMP Order Info: [id number] - LIPID Order Info: [id number] - TSH Performed By: #### L 501.9520, L500.4050, L506.1000, L501.9985, L500.4100, L100.0500 #### [facility] [address] [place], [address] Chloride [Moles/Vol] 108 mmol/L High 98-107 [facility] Comment on above: Order Comment: Order Date: 01/21/24 Order Info: [id number] - CMP Order Info: - LIPID Order Info: [id number] - TSH Performed By: #### L 501.9520, L500.4050, L506.1000, L501.9985, L500.4100, L100.0500 #### [facility] [address] [place], [address] CO2 [Moles/Vol] 24.0 mmol/L Normal 21.0-32.0 [facility] Comment on above: Order Comment: Order Date: 01/21/24 Order Info: [id number] - CMP Order Info: - LIPID Order Info: [id number] - TSH Performed By: #### L 501.9520, L500.4050, L506.1000, L501.9985, L500.4100, L100.0500 #### [facility] [address] [place], [address] Creatinine [Mass/Vol] 1.01 mg/dL Normal 0.55-1.02 [facility] Comment on above: Order Comment: Order Date: 01/21/24 Order Info: [id number] - CMP Order Info: - LIPID Order Info: [id number] - TSH Result Comment: The validity of the calculated GFR GFRAA in patients over 70 years has not been determined. Clinical correlation is essential. Performed By: #### L 501.9520, L500.4050, L506.1000, L501.9985, L500.4100, L100.0500 #### [facility] [address] [place], [address] EST GFR - AA 70 mL/min Normal >60 [facility] Comment on above: Order Comment: Order Date: 01/21/24 Order Info: [id number] - CMP Order Info: [id number] - LIPID Order Info: [id number] - TSH Result Comment: Afri can Polish GFR Calc Performed By: #### L 501.9520, L500.4050, L506.1000, L501.9985, L500.4100, L100.0500 #### [facility] [address] [place], [place], [id number] GAP 7 Normal 5-15 [facility] Comment on above: Order Comment: Order Date: 01/21/24 Order Info: 07- - CMP Order Info: - LIPID Order Info: 3 - TSH Performed By: #### L 501.9520, L500.4050, L506.1000, L501.9985, L500.4100, L100.0500 #### [facility] [address] [place], [place], [id number] (959) GFR/1.73 sq M.predicted among non-blacks MDRD (S/P/Bld) [Vol rate/Area] 58 mL/min/{1.73_m2} Low >60 [facility] Comment on above: Order Comment: Order Date: 01/21/24 Order Info: [id number] - CMP Order Info: - LIPID Order Info: 3 - TSH Result Comment: Non- GFR Calc Performed By: #### L 501.9520, L500.4050, L506.1000, L501.9985, L500.4100, L100.0500 #### [facility] [address] [place], [place], [id number] Globulin (S) [Mass/Vol] 3.8 g/dL Normal 2.2-4.2 [facility] Comment on above: Order Comment: Order Date: 01/21/24 Order Info: 07 - CMP Order Info: [id number] - LIPID Order Info: 3 - TSH Performed By: #### L 501.9520, L500.4050, L506.1000, L501.9985, L500.4100, L100.0500 #### [facility] [address] [place], [place], [id number] Glucose [Mass/Vol] 93 mg/dL Normal 74-106 [facility] Comment on above: Order Comment: Order Date: 01/21/24 Order Info: [id number] - CMP Order Info: - LIPID Order Info: [id number] - TSH Performed By: #### L 501.9520, L500.4050, L506.1000, L501.9985, L500.4100, L100.0500 #### [facility] [address] [place], [address] Potassium [Moles/Vol] 4.5 mmol/L Normal 3.5-5.1 [facility] Comment on above: Order Comment: Order Date: 01/21/24 Order Info: [id number] - CMP Order Info: - LIPID Order Info: [id number] - TSH Performed By: #### L 501.9520, L500.4050, L506.1000, L501.9985, L500.4100, L100.0500 #### [facility] [address] [place], [address] Sodium [Moles/Vol] 139 mmol/L Normal 136-145 [facility] Comment on above: Order Comment: Order Date: 01/21/24 Order Info: [id number] - CMP Order Info: [id number] - LIPID Order Info: [id number] - TSH Performed By: #### L 501.9520, L500.4050, L506.1000, L501.9985, L500.4100, L100.0500 #### [facility] [address] [place], [address] T PROT 7.3 g/dL Normal 6.4-8.2 [facility] Comment on above: Order Comment: Order Date: 01/21/24 Order Info: 07 - CMP Order Info: [id number] - LIPID Order Info: [id number] - TSH Performed By: #### L 501.9520, L500.4050, L506.1000, L501.9985, L500.4100, L100.0500 #### [facility] [address] [place], [address] Urea nitrogen [Mass/Vol] 16 mg/dL Normal 7-18 [facility] Comment on above: Order Comment: Order Date: 01/21/24 Order Info: [id number] - CMP Order Info: [id number] - LIPID Order Info: [id number] - TSH Performed By: #### L 501.9520, L500.4050, L506.1000, L501.9985, L500.4100, L100.0500 #### [facility] [address] [place], [address] Hemoglobin A1con 01-21-2024 HbA1c (Bld) [Mass fraction] 5.4 % Normal 3.8-5.6 [facility] Comment on above: Order Comment: Order Date: 01/21/24 Order Info: [id number] - A1C Result Comment: Norm al < 5.7 % Prediabetic 5.7 - 6.4 % Diabetic >or= 6.5 % Please note range changes. Performed By: #### L 501.9520, L500.4050, L506.1000, L501.9985, L500.4100, L100.0500 #### [facility] [address] [place], [address] Lipid Profileon 01-21-2024 Cholesterol [Mass/Vol] 168 mg/dL Normal 200 [facility] Comment on above: Order Comment: Order Date: 01/21/24 Order Info: [id number] - CMP Order Info: [id number] - LIPID Order Info: [id number] - TSH Result Comment: <200 mg/dL Desirable 200-240 mg/dL Borderline >240 mg/dL High Risk Performed By: #### L 501.9520, L500.4050, L506.1000, L501.9985, L500.4100, L100.0500 #### [facility] [address] [place], [address] Cholesterol in HDL [Mass/Vol] 46 mg/dL Normal [facility] Comment on above: Order Comment: Order Date: 01/21/24 Order Info: 785- - CMP Order Info: - LIPID Order Info: [id number] - TSH Result Comment: The drugs N-Acetylcysteine and Metamizole may falsely depress this assay. Reference Range HDL <40 mg/dL Low HDL Cholesterol HDL >or= 60 mg/dL High HDL Cholesterol Performed By: #### L 501.9520, L500.4050, L506.1000, L501.9985, L500.4100, L100.0500 #### [facility] [address] [place], [address] Cholesterol in LDL [Mass/Vol] 94 mg/dL Normal 0-130 [facility] Comment on above: Order Comment: Order Date: 01/21/24 Order Info: [id number] - CMP Order Info: - LIPID Order Info: [id number] - TSH Performed By: #### L 501.9520, L500.4050, L506.1000, L501.9985, L500.4100, L100.0500 #### [facility] [address] [place], [address] Cholesterol in VLDL [Mass/Vol] 28 mg/dL Normal 5-40 [facility] Comment on above: Order Comment: Order Date: 01/21/24 Order Info: [id number] - CMP Order Info: - LIPID Order Info: [id number] - TSH Performed By: #### L 501.9520, L500.4050, L506.1000, L501.9985, L500.4100, L100.0500 #### [facility] [address] [place], [address] Triglyceride [Mass/Vol] 140 mg/dL Normal [facility] Comment on above: Order Comment: Order Date: 01/21/24 Order Info: 785- - CMP Order Info: - LIPID Order Info: [id number] - TSH Result Comment: The drugs N-Acetylcysteine and Metamizole may falsely depress this assay. Serum Triglycerides Reference Interval Normal <150 mg/dL Borderline high 150 - 199 mg/dL High 200 - 499 mg/dL Very High > or = 500 mg/dL Performed By: #### L 501.9520, L500.4050, L506.1000, L501.9985, L500.4100, L100.0500 #### [facility] [address] [place], [address] Thyroid Stim Hormone (TSH)on 01-21-2024 TSH 3.16 uIU/mL Normal 0.358-3.74 [facility] Comment on above: Order Comment: Order Date: 01/21/24 Order Info: [id number] - CMP Order Info: [id number] - LIPID Order Info: [id number] - TSH Performed By: #### L 501.9520, L500.4050, L506.1000, L501.9985, L500.4100, L100.0500 #### [facility] [address] [place], [address] Vitamin D,25 Hydroxyon 01-20 Vitamin D 25-OH 42.0 ng/mL Normal [facility] Comment on above: Order Comment: Order Date: 01/21/24 Order Info: [id number] - VITD25 Result Comment: Letty min D 25(OH) Status Range Deficiency <20 ng/mL (50nmol/L) Insufficiency 20 - 30 ng/mL (50 - 75 nmol/L) Sufficiency 30 - 100 ng/mL (75 - 250 nmol/L) Toxicity >100 ng/mL (>250 nmol/L) Performed By: #### L 501.9520, L500.4050, L506.1000, L501.9985, L500.4100, L100.0500 #### [facility] [address] [place], [address] Absolute lymphocyte countOrd ered By: Dr. Garcia on 11-05-2022 Lymphocytes Auto (Unsp spec) [#/Vol] 2.67 10*3/uL 0.83-4.51 [facility] Basophil percentageOrdered B y: Dr. Garcia on 11-05-2022 Basophils/100 WBC (Bld) 0.8 % 0-1 [facility] Chloride [Moles/Vol] 107 mmol/L 98-107 [facility] Eosinophils/100 WBC (Bld) 5.0 % 0-5 [facility] Glucose [Mass/Vol] 117 mg/dL 74-106 [facility] Comment on above: Fasting Glucose resu lt from 100 to 125 mg/dL suggests IMPAIRED HOMEOSTASIS per A.D.A. criteria. Neutrophils (Bld) [#/Vol] 3.7 10*3/uL 2.0-7.7 [facility] Neutrophils/100 WBC (Bld) 50.6 % 47-70 [facility] Potassium [Moles/Vol] 4.0 mmol/L 3.5-5.1 [facility] Sodium [Moles/Vol] 141 mmol/L 136-145 [facility] WBC (Bld) [#/Vol] 7.3 10*3/uL 4.4-11.0 [facility] Blood erythrocytes count (nu mber/volume)Ordered By: Dr. Garcia on 11-05-2022 RBC (Bld) [#/Vol] 4.19 10*6/uL 4.2-5.[address] [facility] Blood hemoglobin measurement (mass/volume)Ordered By: Dr. Garcia on 11-05-2022 Hemoglobin (Bld) [Mass/Vol] 13.2 g/dL 12.0-15.0 [facility] Blood lymphocytes/100 leukoc ytesOrdered By: Dr. Garcia on 11-05-2022 Lymphocytes/100 WBC (Bld) 36.4 % 19-41 [facility] Blood monocytes/100 leukocyt esOrdered By: Dr. Garcia on 11-05-2022 Monocytes/100 WBC (Bld) 6.8 % 0-10 [facility] Blood platelet mean volumeOr dered By: Dr. Garcia on 11-05-2022 Platelet mean volume (Bld) [Entitic vol] 12.1 fL 6.2-12.0 [facility] Determination of erythrocyte mean corpuscular volume (MCV)Ordered By: Dr. Garcia on 11-05-2022 MCV (RBC) [Entitic vol] 96.4 fL 81-99 [facility] Hematocrit Auto (Bld) [Volum e fraction]Ordered By: Dr. Garcia on 11-05-2022 Hematocrit (Bld) [Volume fraction] 40.4 % 37-47 [facility] - Chemistry and C hemistry - challengeOrdered By: Dr. Garcia on 11-05-2022 CO2 [Moles/Vol] 29.0 mmol/L 21.0-32.0 [facility] Natriuretic peptide B (Bld) [Mass/Vol] 39.4 pg/mL 0-100 [facility] Urea nitrogen/Creatinine [Mass ratio] 11.4 mg/mg 10-20 [facility] - Hematology and Cell countsOrdered By: Dr. Garcia on 11-05-2022 Erythrocyte distribution width (RBC) [Entitic vol] 49.5 fL 35.1-43.9 [facility] Erythrocyte distribution width (RBC) [Ratio] 14.1 % 11.6-14.6 [facility] Immature granulocytes/100 WBC (Bld) 0.400 % 0.0-0.9 [facility] Comment on above: IG% - Immature Granu locytes (promyelocytes, myelocytes and metamyelocytes) > 1% indicates that a LEFT SHIFT is Present. MCH (RBC) [Entitic mass] 31.5 pg 27.0-32.0 [facility] Nucleated RBC/100 WBC (Bld) [Ratio] 0 % 0-5 [facility] MCHC Auto (RBC) [Mass/Vol]Or dered By: Dr. Garcia on 11-05-2022 MCHC (RBC) [Mass/Vol] 32.7 g/dL 32-36 [facility] No Panel InformationOrdered By: Dr. Garcia on 11-05-2022 Estimated Creatinine Clearance Calc 42.42 ml/min [facility] Estimated GFR (MDRD) Amer 67 mL/min >60 [facility] Comment on above: GFR Calc Estimated GFR (MDRD) Non-Af Amer 55 mL/min >60 [facility] Comment on above: Non- GFR Calc Troponin I High Sensitivity 4 pg/mL 3.0-54.0 [facility] Comment on above: Please Note: New Frannie t Units and Gender Specific Reference Ranges. For more information see Policy Stat Procedure [facility] High Sensitivity Troponin (TNIH) and attachments. Platelets bldOrdered By: Dr. Garcia on 11-05-2022 Platelets (Bld) [#/Vol] 183 10*3/uL 150-450 [facility] Serum or plasma calcium anjana urement (mass/volume)Ordered By: Dr. Garcia on 11-05-2022 Calcium [Mass/Vol] 8.9 mg/dL 8.5-10.1 [facility] Serum or plasma creatinine m easurement (mass/volume)Ordered By: Dr. Garcia on 11-05-2022 Creatinine [Mass/Vol] 1.05 mg/dL 0.55-1.02 [facility] Comment on above: The validity of the calculated GFR & GFRAA in patients over 70 years has not been determined. Clinical correlation is essential. Serum or plasma urea nitroge n measurement (mass/volume)Ordered By: Dr. Garcia on 11-05-2022 Urea nitrogen [Mass/Vol] 12 mg/dL 7-18 [facility] Thin prep Papanicolaou smear with manual screeningOrdered By: Dr. Garcia on 11-05-2022 Thin prep Papanicolaou smear with manual screening 5 5-15 [facility] Absolute lymphocyte countOrd ered By: Dr. Gutiérrez on 10-10-2022 Lymphocytes Auto (Unsp spec) [#/Vol] 2.43 10*3/uL 0.83-4.51 [facility] Basophil percentageOrdered B y: Dr. Gutiérrez on 10-10-2022 Basophils/100 WBC (Bld) 0.8 % 0-1 [facility] Bilirubin [Mass/Vol] 0.40 mg/dL 0.20-1.00 [facility] Comment on above: For patients on eltr ombopag therapy, use of Dimension [facility] TBIL is not recommended. Chloride [Moles/Vol] 109 mmol/L 98-107 [facility] Eosinophils/100 WBC (Bld) 4.4 % 0-5 [facility] Glucose [Mass/Vol] 114 mg/dL 74-106 [facility] Comment on above: Fasting Glucose resu lt from 100 to 125 mg/dL suggests IMPAIRED HOMEOSTASIS per A.D.A. criteria. Neutrophils (Bld) [#/Vol] 3.2 10*3/uL 2.0-7.7 [facility] Neutrophils/100 WBC (Bld) 50.2 % 47-70 [facility] Potassium [Moles/Vol] 3.4 mmol/L 3.5-5.1 [facility] Protein [Mass/Vol] 7.3 g/dL 6.4-8.2 [facility] Sodium [Moles/Vol] 142 mmol/L 136-145 [facility] WBC (Bld) [#/Vol] 6.4 10*3/uL 4.4-11.0 [facility] Blood erythrocytes count (nu mber/volume)Ordered By: Dr. Gutiérrez on 10-10-2022 RBC (Bld) [#/Vol] 4.44 10*6/uL 4.2-5.[address] [facility] Blood hemoglobin measurement (mass/volume)Ordered By: Dr. Gutiérrez on 10-10-2022 Hemoglobin (Bld) [Mass/Vol] 13.7 g/dL 12.0-15.0 [facility] Blood lymphocytes/100 leukoc ytesOrdered By: Dr. Gutiérrez on 10-10-2022 Lymphocytes/100 WBC (Bld) 37.9 % 19-41 [facility] Blood monocytes/100 leukocyt esOrdered By: Dr. Gutiérrez on 10-10-2022 Monocytes/100 WBC (Bld) 6.2 % 0-10 [facility] Blood platelet mean volumeOr dered By: Dr. Gutiérrez on 10-10-2022 Platelet mean volume (Bld) [Entitic vol] 12.4 fL 6.2-12.0 [facility] Determination of erythrocyte mean corpuscular volume (MCV)Ordered By: Dr. Gutiérrez on 10-10-2022 MCV (RBC) [Entitic vol] 95.3 fL 81-99 [facility] Hematocrit Auto (Bld) [Volum e fraction]Ordered By: Dr. Gutiérrez on 10-10-2022 Hematocrit (Bld) [Volume fraction] 42.3 % 37-47 [facility] - Chemistry and C hemistry - challengeOrdered By: Dr. Gutiérrez on 10-10-2022 ALP [Catalytic activity/Vol] 106 U/L 45-117 [facility] ALT [Catalytic activity/Vol] 25 U/L 13-56 [facility] CO2 [Moles/Vol] 24.0 mmol/L 21.0-32.0 [facility] Globulin (S) [Mass/Vol] 3.8 g/dL 2.2-4.2 [facility] Urea nitrogen/Creatinine [Mass ratio] 14.3 mg/mg 10-20 [facility] - Hematology and Cell countsOrdered By: Dr. Gutiérrez on 10-10-2022 Erythrocyte distribution width (RBC) [Entitic vol] 48.7 fL 35.1-43.9 [facility] Erythrocyte distribution width (RBC) [Ratio] 14.0 % 11.6-14.6 [facility] Immature granulocytes/100 WBC (Bld) 0.500 % 0.0-0.9 [facility] Comment on above: IG% - Immature Granu locytes (promyelocytes, myelocytes and metamyelocytes) > 1% indicates that a LEFT SHIFT is Present. MCH (RBC) [Entitic mass] 30.9 pg 27.0-32.0 [facility] Nucleated RBC/100 WBC (Bld) [Ratio] 0 % 0-5 [facility] MCHC Auto (RBC) [Mass/Vol]Or dered By: Dr. Gutiérrez on 10-10-2022 MCHC (RBC) [Mass/Vol] 32.4 g/dL 32-36 [facility] No Panel InformationOrdered By: Dr. Gutiérrez on 10-10-2022 Estimated GFR (MDRD) Amer 73 mL/min >60 [facility] Comment on above: GFR Calc Estimated GFR (MDRD) Non-Af Amer 60 mL/min >60 [facility] Comment on above: Non- GFR Calc Thyroid Stimulating Hormone (TSH) 1.48 uIU/mL 0.358-3.74 [facility] Platelets bldOrdered By: Dr. Gutiérrez on 10-10-2022 Platelets (Bld) [#/Vol] 184 10*3/uL 150-450 [facility] Serum or plasma albumin anjana urement (mass/volume)Ordered By: Dr. Gutiérrez on 10-10-2022 Albumin [Mass/Vol] 3.5 g/dL 3.2-5.0 [facility] Serum or plasma albumin/glob ulin mass ratioOrdered By: Dr. Gutiérrez on 10-10-2022 Albumin/Globulin [Mass ratio] 0.9 {ratio} 0.9-2.4 [facility] Serum or plasma calcium anjana urement (mass/volume)Ordered By: Dr. Gutiérrez on 10-10-2022 Calcium [Mass/Vol] 8.8 mg/dL 8.5-10.1 [facility] Serum or plasma creatinine m easurement (mass/volume)Ordered By: Dr. Gutiérrez on 10-10-2022 Creatinine [Mass/Vol] 0.98 mg/dL 0.55-1.02 [facility] Comment on above: The validity of the calculated GFR & GFRAA in patients over 70 years has not been determined. Clinical correlation is essential. Serum or plasma urea nitroge n measurement (mass/volume)Ordered By: Dr. Gutiérrez on 10-10-2022 Urea nitrogen [Mass/Vol] 14 mg/dL 7-18 [facility] Thin prep Papanicolaou smear with manual screeningOrdered By: Dr. Gutiérrez on 10-10-2022 Thin prep Papanicolaou smear with manual screening 18 U/L 15-37 [facility] Thin prep Papanicolaou smear with manual screening 9 5-15 [facility] Cervical or vagninal specime n microscopic examination by cytology stain (reported asOrdered By: Deepthi Smith on 08-08-2022 Cytology report Cyto stain Doc (Cvx/Vag) Comment . [facility] Comment on above: The Pap smear is a s creening test designed to aid in thedetection of premalignant and malignant conditions of theuterine cervix. It is not a diagnostic procedure andshould not be used as the sole means of detecting cervicalcancer. Both false-positive and false-negative reports dooccur. Detection in cervical specim en of any of human papilloma virus (HPV) 16, 18, 31, 33,Ordered By: Deepthi Smith on 08-08-2022 HPV 16+18+31+33+35+39+45 +51+52+56+58+59+66+6 8 DNA Probe+sig amp Ql (Cvx) Negative Negative [facility] Comment on above: This nucleic acid am plification test detects fourteen high- risk HPV types (16,18,31,33,35,39,45,51,52,56,58,59,66,68)without differentiation.Performed at: [facility] [id number] Director: Sondra Mortensen MD, Phone: [phone] at: =G - [facility] [address] [id number] Director: Sondra Mortensen MD, Phone: [phone] Laboratory - CytologyOrdered By: Deepthi Smith on 08-08-2022 Outsole Cutter Machine Cyto stain Nom (Cvx/Vag) [ID] Comment . [facility] Comment on above: Nusrat bustillos, Cemetery Counselor (ASCP) Laboratory - Miscellaneous t estsOrdered By: Deepthi Smith on 08-08-2022 Service comment (Unsp spec) [Interp] Comment . [facility] Comment on above: This liquid based Th inPrep(R) pap test was screened withthe use of an image guided system. Service comment (Unsp spec) [Interp] . . [facility] No Panel InformationOrdered By: Deepthi Smith on 08-08-2022 Pathology report final diagnosis Narrative Comment . [facility] Comment on above: NEGATIVE FOR INTRAEP ITHELIAL LESION OR MALIGNANCY. Absolute lymphocyte counton 05-16-2022 Lymphocytes Auto (Unsp spec) [#/Vol] 2.74 10*3/uL 0.83-4.51 [facility] Work Phone: Basophil percentageon 2021 Basophils/100 WBC (Bld) 0.6 % 0-1 [facility] Work Phone: Chloride [Moles/Vol] 107 mmol/L 98-107 [facility] Work Phone: [phone] Eosinophils/100 WBC (Bld) 5.4 % 0-5 [facility] Work Phone: Glucose [Mass/Vol] 101 mg/dL 74-106 [facility] Work Phone: Comment on above: Fasting Glucose resu lt from 100 to 125 mg/dL suggests IMPAIRED HOMEOSTASIS per A.D.A. criteria. Neutrophils (Bld) [#/Vol] 3.2 10*3/uL 2.0-7.7 [facility] Work Phone: Neutrophils/100 WBC (Bld) 47.1 % 47-70 [facility] Work Phone: Potassium [Moles/Vol] 3.8 mmol/L 3.5-5.1 [facility] Work Phone: [phone] Sodium [Moles/Vol] 140 mmol/L 136-145 [facility] Work Phone: WBC (Bld) [#/Vol] 6.9 10*3/uL 4.4-11.0 [facility] Work Phone: Blood erythrocytes count (nu mber/volume)on 05-16-2022 RBC (Bld) [#/Vol] 4.37 10*6/uL 4.2-5.[address] [facility] Work Phone: Blood hemoglobin measurement (mass/volume)on 05-16-2022 Hemoglobin (Bld) [Mass/Vol] 13.5 g/dL 12.0-15.0 [facility] Work Phone: Blood lymphocytes/100 leukoc yteson 05-16-2022 Lymphocytes/100 WBC (Bld) 39.8 % 19-41 [facility] Work Phone: Blood monocytes/100 leukocyt eson 05-16-2022 Monocytes/100 WBC (Bld) 7.0 % 0-10 [facility] Work Phone: Blood platelet mean volumeon 05-16-2022 Platelet mean volume (Bld) [Entitic vol] 11.8 fL 6.2-12.0 [facility] Work Phone: Determination of erythrocyte mean corpuscular volume (MCV)on 05-16-2022 MCV (RBC) [Entitic vol] 93.8 fL 81-99 [facility] Work Phone: Hematocrit Auto (Bld) [Volum e fraction]on 05-16-2022 Hematocrit (Bld) [Volume fraction] 41.0 % 37-47 [facility] Work Phone: Laboratory - Chemistry and C hemistry - challengeon 05-16-2022 CO2 [Moles/Vol] 26.0 mmol/L 21.0-32.0 [facility] Work Phone: Lipase [Catalytic activity/Vol] 170 U/L 73-393 [facility] Work Phone: Urea nitrogen/Creatinine [Mass ratio] 15.1 mg/mg 10-20 [facility] Work Phone: Laboratory - Hematology and Cell countson 05-16-2022 Erythrocyte distribution width (RBC) [Entitic vol] 48.7 fL 35.1-43.9 [facility] Work Phone: Erythrocyte distribution width (RBC) [Ratio] 14.2 % 11.6-14.6 [facility] Work Phone: Immature granulocytes/100 WBC (Bld) 0.100 % 0.0-0.9 [facility] Work Phone: Comment on above: IG% - Immature Granu locytes (promyelocytes, myelocytes and metamyelocytes) > 1% indicates that a LEFT SHIFT is Present. MCH (RBC) [Entitic mass] 30.9 pg 27.0-32.0 [facility] Work Phone: Nucleated RBC/100 WBC (Bld) [Ratio] 0 % 0-5 [facility] Work Phone: MCHC Auto (RBC) [Mass/Vol]on 05-16-2022 MCHC (RBC) [Mass/Vol] 32.9 g/dL 32-36 [facility] Work Phone: No Panel Informationon 05-16 Troponin I High Sensitivity 4 pg/mL 3.0-54.0 [facility] Work Phone: Comment on above: Please Note: New Frannie t Units and Gender Specific Reference Ranges. For more information see Policy Stat Procedure [facility] High Sensitivity Troponin (TNIH) and attachments. Estimated Creatinine Clearance Calc 47.89 ml/min [facility] Work Phone: Estimated GFR (MDRD) Amer 77 mL/min >60 [facility] Work Phone: Comment on above: GFR Calc Estimated GFR (MDRD) Non-Af Amer 64 mL/min >60 [facility] Work Phone: Comment on above: Non- GFR Calc Platelets bldon 05-16-2022 Platelets (Bld) [#/Vol] 183 10*3/uL 150-450 [facility] Work Phone: Serum or plasma calcium anjana urement (mass/volume)on 05-16-2022 Calcium [Mass/Vol] 8.7 mg/dL 8.5-10.1 [facility] Work Phone: Serum or plasma creatinine m easurement (mass/volume)on 05-16-2022 Creatinine [Mass/Vol] 0.93 mg/dL 0.55-1.02 [facility] Work Phone: Comment on above: The validity of the calculated GFR & GFRAA in patients over 70 years has not been determined. Clinical correlation is essential. Serum or plasma urea nitroge n measurement (mass/volume)on 05-16-2022 Urea nitrogen [Mass/Vol] 14 mg/dL 7-18 [facility] Work Phone: Thin prep Papanicolaou smear with manual screeningon 05-16-2022 Thin prep Papanicolaou smear with manual screening 7 5-15 [facility] Work Phone: Serum heterophile antibody d etectionon 03-21-2022 Heterophile Ab Ql (S) Negative Negative [facility] Work Phone: Absolute lymphocyte counton 02-27-2022 Lymphocytes Auto (Unsp spec) [#/Vol] 1.90 10*3/uL 0.83-4.51 [facility] Work Phone: Basophil percentageon 2021 Basophils/100 WBC (Bld) 0.9 % 0-1 [facility] Work Phone: Bilirubin [Mass/Vol] 0.40 mg/dL 0.20-1.00 [facility] Work Phone: Comment on above: For patients on eltr ombopag therapy, use of Dimension [place] TBIL is not recommended. Chloride [Moles/Vol] 107 mmol/L 98-107 [facility] Work Phone: Eosinophils/100 WBC (Bld) 6.9 % 0-5 [facility] Work Phone: Glucose [Mass/Vol] 93 mg/dL 74-106 [facility] Work Phone: [phone] Neutrophils (Bld) [#/Vol] 3.0 10*3/uL 2.0-7.7 [facility] Work Phone: [phone] Neutrophils/100 WBC (Bld) 52.2 % 47-70 [facility] Work Phone: [phone] Potassium [Moles/Vol] 4.1 mmol/L 3.5-5.1 [facility] Work Phone: [phone] Protein [Mass/Vol] 7.3 g/dL 6.4-8.2 [facility] Work Phone: [phone] Sodium [Moles/Vol] 139 mmol/L 136-145 [facility] Work Phone: WBC (Bld) [#/Vol] 5.8 10*3/uL 4.4-11.0 [facility] Work Phone: [phone] Blood erythrocytes count (nu mber/volume)on 02-27-2022 RBC (Bld) [#/Vol] 4.29 10*6/uL 4.2-5.[address] [facility] Work Phone: [phone] Blood hemoglobin measurement (mass/volume)on 02-27-2022 Hemoglobin (Bld) [Mass/Vol] 13.4 g/dL 12.0-15.0 [facility] Work Phone: Blood lymphocytes/100 leukoc yteson 02-27-2022 Lymphocytes/100 WBC (Bld) 32.8 % 19-41 [facility] Work Phone: Blood monocytes/100 leukocyt eson 02-27-2022 Monocytes/100 WBC (Bld) 6.9 % 0-10 [facility] Work Phone: Blood platelet mean volumeon 02-27-2022 Platelet mean volume (Bld) [Entitic vol] 12.1 fL 6.2-12.0 [facility] Work Phone: Determination of erythrocyte mean corpuscular volume (MCV)on 02-27-2022 MCV (RBC) [Entitic vol] 96.3 fL 81-99 [facility] Work Phone: Hematocrit Auto (Bld) [Volum e fraction]on 02-27-2022 Hematocrit (Bld) [Volume fraction] 41.3 % 37-47 [facility] Work Phone: Laboratory - Chemistry and C hemistry - challengeon 02-27-2022 ALP [Catalytic activity/Vol] 131 U/L 45-117 [facility] Work Phone: ALT [Catalytic activity/Vol] 38 U/L 13-56 [facility] Work Phone: CO2 [Moles/Vol] 25.0 mmol/L 21.0-32.0 [facility] Work Phone: Cobalamin (Vitamin B12) [Mass/Vol] 545 pg/mL 211-911 [facility] Work Phone: Globulin (S) [Mass/Vol] 3.9 g/dL 2.2-4.2 [facility] Work Phone: Urea nitrogen/Creatinine [Mass ratio] 15.8 mg/mg 10-20 [facility] Work Phone: Laboratory - Hematology and Cell countson 02-27-2022 Erythrocyte distribution width (RBC) [Entitic vol] 49.4 fL 35.1-43.9 [facility] Work Phone: Erythrocyte distribution width (RBC) [Ratio] 13.9 % 11.6-14.6 [facility] Work Phone: Immature granulocytes/100 WBC (Bld) 0.300 % 0.0-0.9 [facility] Work Phone: Comment on above: IG% - Immature Granu locytes (promyelocytes, myelocytes and metamyelocytes) > 1% indicates that a LEFT SHIFT is Present. MCH (RBC) [Entitic mass] 31.2 pg 27.0-32.0 [facility] Work Phone: Nucleated RBC/100 WBC (Bld) [Ratio] 0 % 0-5 [facility] Work Phone: MCHC Auto (RBC) [Mass/Vol]on 02-27-2022 MCHC (RBC) [Mass/Vol] 32.4 g/dL 32-36 [facility] Work Phone: No Panel Informationon 02-27 Estimated GFR (MDRD) Amer 75 mL/min >60 [facility] Work Phone: Comment on above: GFR Calc Estimated GFR (MDRD) Non-Af Amer 62 mL/min >60 [facility] Work Phone: Comment on above: Non- GFR Calc Thyroid Stimulating Hormone (TSH) 1.59 uIU/mL 0.358-3.74 [facility] Work Phone: Vitamin D 25-Hydroxy 41.0 ng/mL [facility] Work Phone: Comment on above: Vitamin D 25(OH) Sta tus Range Deficiency <20 ng/mL (50nmol/L) Insufficiency 20 - 30 ng/mL (50 - 75 nmol/L) Sufficiency 30 - 100 ng/mL (75 - 250 nmol/L) Toxicity >100 ng/mL (>250 nmol/L) Platelets bldon 02-27-2022 Platelets (Bld) [#/Vol] 179 10*3/uL 150-450 [facility] Work Phone: Serum or plasma albumin anjana urement (mass/volume)on 02-27-2022 Albumin [Mass/Vol] 3.4 g/dL 3.2-5.0 [facility] Work Phone: Serum or plasma albumin/glob ulin mass ratioon 02-27-2022 Albumin/Globulin [Mass ratio] 0.9 {ratio} 0.9-2.4 [facility] Work Phone: Serum or plasma calcium anjana urement (mass/volume)on 02-27-2022 Calcium [Mass/Vol] 8.8 mg/dL 8.5-10.1 [facility] Work Phone: Serum or plasma creatinine m easurement (mass/volume)on 02-27-2022 Creatinine [Mass/Vol] 0.95 mg/dL 0.55-1.02 [facility] Work Phone: Comment on above: The validity of the calculated GFR & GFRAA in patients over 70 years has not been determined. Clinical correlation is essential. Serum or plasma urea nitroge n measurement (mass/volume)on 02-27-2022 Urea nitrogen [Mass/Vol] 15 mg/dL 7-18 [facility] Work Phone: Thin prep Papanicolaou smear with manual screeningon 02-27-2022 Thin prep Papanicolaou smear with manual screening 26 U/L 15-37 [facility] Work Phone: Thin prep Papanicolaou smear with manual screening 7 5-15 [facility] Work Phone: OPERATIVE PROCEDURESon 04-27 OPERATIVE PROCEDURES [facility] OPERATIVE REPORT NAME ACCOUNT SEX AGE ADMIT DISCHARGE PT MED. RECORD# NUMBER DATE DATE TYPE TORITO [id number] F 66 04/21/21 04/21/21 2 ADRIANA Gaffney [id number] ROOM: [facility] DATE OF : 1955 DICTATING PHYSICIAN: Catherine Ovalles DATE OF SURGERY: April 21, 2021 SURGEON: Catherine Ovalles DPM CUSHION SPRING ASSEMBLER: None. ANESTHESIOLOGIST: Carleen Hammonds MD ANESTHETIC: General with local 10 mL of 1% lidocaine plain. PREOPERATIVE DIAGNOSIS: (1) Painful hallux valgus deformity of the left foot. (2) Painful hammertoe of the left second toe. POSTOPERATIVE DIAGNOSIS: (1) Painful hallux valgus deformity of the left foot. (2) Painful hammertoe of the left second toe. OPERATION PERFORMED: (1) Left foot bunionectomy. (2) Left second toe arthroplasty. (3) Left extensor hallucis longus tendon lengthening. COMPLICATIONS: None. ESTIMATED BLOOD LOSS: Less than 10 mL. HEMOSTASIS: Pneumatic ankle tourniquet set at 250 mmHg. DESCRIPTION OF OPERATION: Under mild sedation, the patient was brought to the OR and placed on the operating table in the supine position. The pneumatic ankle tourniquet was placed about the patient's left ankle. Following IV sedation and intubation, local anesthesia was obtained about the patient's left ankle utilizing a total of 10 mL of 1% lidocaine plain. The foot was scrubbed, prepped and draped in the usual aseptic manner. The left foot was then elevated to exsanguinate the limb, and the pneumatic ankle tourniquet was inflated to 250 mmHg. Attention was then directed to the dorsal aspect of the left foot. Utilizing a #15 blade, an approximately 10 cm linear longitudinal incision was made medial and parallel to the extensor hallucis longus tendon. The incision was deepened through sharp and blunt Page 1 of 3 ADRIANA MUÑIZ Operative Report ADRIANA MUÑIZ : 1955 dissection. Care was taken to retract all vital neurovascular structures. All superficial bleeding vessels were cauterized and ligated as necessary. A large vein noted at this aspect was also cut and tied utilizing 3-0 Vicryl loops. Attention was then directed to the first metatarsal, where a longitudinal periosteal incision was made, and the periosteal and capsular structures were then dissected free from their osseous attachments and retracted. A T-type capsulorrhaphy was then performed. Attention was then directed to the first intermetatarsal space, where the lateral sesamoid apparatus was incised utilizing a linear longitudinal incision, which freed up the fibular sesamoid. This allowed for adequate movement of the first metatarsal head. Attention was then directed medially at the first metatarsal shaft, where an osteotomy was performed oriented from proximal plantarly to distal dorsally utilizing a sagittal saw. Care was taken to not invade into the first metatarsophalangeal joint space or the first metatarsal cuneiform joint space. Then the capital fragment was then shifted more medially into a correct anatomical position. The fixation utilized was Arthrex 2.5 mm headless compression screws, 18 mm x2 and one with a 14 mm length. Appropriate compression and fixation was confirmed with the intraoperative C-arm. The extensor hallucis longus tendon was very taut, and the hallux was dorsiflexed throughout the procedure. It was decided intraoperatively that an extensor tendon lengthening was necessary to give the patient the best outcome for appropriate hallux position. A Z-plasty was performed within the extensor hallucis longus tendon superficial to the metatarsal head and shaft. It was approximately 3 cm long. The tendon was then lengthened, reapproximated and coapted utilizing 3-0 Vicryl sutures. Still, the hallux had a slight dorsiflexory attitude to it, but hopefully this will resolve in time with stretching and exercises. The overhanging first metatarsal shaft was removed utilizing a sagittal saw, and all rough edges were smoothed with a bone rasp. The wound was flushed with copious amounts of normal sterile saline throughout the entire procedure. The capsulorrhaphy area was reapproximated and coapted utilizing 3-0 Vicryl sutures, and the periosteal and capsular structures were reapproximated and coapted utilizing 3-0 Vicryl sutures. The subcutaneous and subcuticular skin was reapproximated and coapted utilizing 4-0 Vicryl sutures, and the skin was reapproximated and coapted utilizing 3-0 Monocryl sutures. The incision was reinforced with Steri-Strips and Cavilon. Attention was then directed to the second toe, where a linear longitudinal incision of approximately 3 cm was performed over the dorsal aspect of the second toe. The incision was deepened through sharp and blunt dissection, where a transverse tenotomy was performed at the level of the proximal interphalangeal joint. The periosteal and capsular structures were dissected free from (more content not included)... [facility] C-ARM USAGE 1 HOUR 021 C-ARM USAGE 1 HOUR [place] [id number] Patient: ADRIANA MUÑIZ Phone#: : 1955 Age: 66 Gender: F Pt. Type: Out Account: [id number] Location: [facility] Ordering: CATHERINE OVALLES Exam Date: 04/21/2021/12:09 Family Phys: JACKSON TANG Charge Code: 837857 Physician: Milam Order #: [id number] DLP Dose#: PROCEDURE: C-ARM USEAGE 1 HR COMPARISON: None. INDICATIONS: Left foot OR TOTAL DOSE: 0.20 mGy FINDINGS: IMAGES: BONES: Surgical fixation is present at the site of osteotomy of the 1st metatarsal. SOFT TISSUES: Negative. No visible soft tissue swelling. EFFUSION: None visible. OTHER: Negative. CONCLUSION: 1. First metatarsal osteotomy. Dictated by: Freda Traylor MD on 04/21/2021 at 15:11 Approved by: Freda Traylor MD on 04/21/2021 at 15:12 [facility] PROGRESSon 06-27-2017 PROGRESS HNO ID: [id number] thor: Shira Arriaza AduryService: (none)Author Type: PhysicianType: Progress NotesFiled: 08/20/2017 6:33 PMNote Text:TIME IN: 11:30 AMID: Adriana Muñiz is a 61 year old femaleCC: Depression and AnxietyHPI:"not so good"Stressed with workSomewhat reactiveLikes to get things done [...] 50 mcg tabletMental Status Examination:Appearance: Neatly groomedDemeanor: CooperativeActivity:NormalEy e Contact: [facility] - fastLanguage is goodMood "ok"Affect: Full-RangeAssociations: LogicalProcess:normalKnowled ge: GoodDelusion: No.Hallucination: NoSuicidal Ideation: No suicidal ideation, intent or planHomicidal Ideation: No homicidal ideation, intent or plan.Judgement: CriticalInsight: TrueOrientation: Person, Place, Time and SituationMemory: IntactAttention: GoodConcentration: GoodNeurological:Gait: steady Tremor: slightVital Signs: There were no vitals taken for this visit.Review Of SystemsNeurological:Sleep:Av erage Sleep Per Night: 8hTakes Requip plus UltramNon compliant to PAP therapy - planning to reinitiateGastrointestinal:A ppetite: GoodNausea: NoBowel movements: DiarrheaSkin rash: NoOther : [...] half of time in counseling AND coordinationShira Madera MDTIME OUT: 11:55 AM Normal [facility] Vital Signs Date Time Vital Sign Value Performing Clinician Faci lity 11-05-2022 04:05-0500 Diastolic blood pressure 73 mm[Hg] [facility] 11-05-2022 04:05-0500 Heart rate 76 /min [facility] 11-05-2022 04:05-0500 Respiratory rate 18 /min [facility] 11-05-2022 04:05-0500 SaO2% (BldA) [Mass fraction] 99 % [facility] 11-05-2022 04:05-0500 Systolic blood pressure 143 mm[Hg] [facility] 11-05-2022 02:12-0500 Body height 160.02 cm [facility] 11-05-2022 02:12-0500 Body mass index (BMI) [Ratio] 41.4 kg/m2 [facility] 11-05-2022 02:12-0500 Body temperature 97.7 [degF] [facility] 11-05-2022 02:12-0500 Body weight 106.2 kg [facility] 05-16-2022 14:52-0400 Diastolic blood pressure 97 mm[Hg] [facility] Work Phone: 05-16-2022 14:52-0400 Heart rate 59 /min [facility] Work Phone: 05-16-2022 14:52-0400 Systolic blood pressure 144 mm[Hg] [facility] Work Phone: 05-16-2022 10:58-0400 Body height 160.02 cm [facility] Work Phone: 05-16-2022 10:58-0400 Body mass index (BMI) [Ratio] 40 kg/m2 [facility] Work Phone: 05-16-2022 10:58-0400 Body temperature 98.2 [degF] [facility] Work Phone: 05-16-2022 10:58-0400 Body weight 102.6 kg [facility] Work Phone: 05-16-2022 10:58-0400 Respiratory rate 20 /min [facility] Work Phone: 05-16-2022 10:58-0400 SaO2% (BldA) [Mass fraction] 96 % [facility] Work Phone: Encounters Encounter Date Encounter Type Care Provider Facility Start: 01-08-2025 End: 01-08-2025 ambulatory [facility] Facility:[facility] Start: 12-25-2024 End: 12-25-2024 ambulatory [facility] Facility:[facility] Start: 02-25-2024 End: 02-25-2024 ambulatory [facility] Facility:[facility] Start: 02-09-2024 End: 02-09-2024 Emergency department patient visit Enzo Arredondo Facility:[facility] Start: 01-21-2024 End: 01-21-2024 ambulatory [facility] Facility:[facility] Start: 11-05-2022 End: 11-05-2022 Emergency department patient visit [facility]Emergency Department Start: 10-10-2022 End: 10-10-2022 ambulatory [facility] Work Phone: Start: 10-10-2022 End: 10-10-2022 Patient encounter procedure [facility], [place] [facility] Start: 08-30-2022 End: 08-30-2022 Patient encounter procedure [facility]Outpatient Breast [facility] Start: 08-09-2022 End: 08-09-2022 ambulatory [facility] Work Phone: Start: 08-09-2022 End: 08-09-2022 Patient encounter procedure [facility]Laboratory, Specimen Start: 05-16-2022 End: 05-16-2022 Emergency department patient visit [facility]Emergency Department Start: 03-21-2022 End: 03-21-2022 Patient encounter procedure [facility] Start: 02-27-2022 End: 02-27-2022 Patient encounter procedure [facility] Start: 04-21-2021 ambulatory JAE NORIEGA [facility] Start: 04-21-2021 End: 04-21-2021 ambulatory CATHERINE DPBritney [facility] Start: 09-19-2017 Ambulatory SHIRA MADERA Facility :[facility] Start: 06-27-2017 End: 06-27-2017 Ambulatory SHIRA ARRIAZA PAXTON [facility] Procedures Date Procedure Procedure Detail Performing Clinician Start: 11-05-2022 Plain chest X-ray Start: 08-30-2022 Screening mammography Start: 05-16-2022 Plain chest X-ray Plan of Treatment Date Care Activity Detail Author Start: 08-30-2022 Screening mammography RUPERTN ALANA M (CAD)W/VARGHESE BILAT [facility] Work Phone: Start: 05-16-2022 [facility] Work Phone: Patient Education [facility] Work Phone: Patient referral [facility] Work Phone: Payers Date Payer Category Payer Private Health Insurance [id number] 2024 Self-pay [id number] 1955 Unknown [id number] Medicare [id number] Unknown [id number] Unknown [id number] Unknown [id number] Unknown [id number] Unknown [id number] 2.16.8 [id number] Unknown [id number] 2.16.8 [id number] Unknown [id number] 2.16.8 [id number] Unknown [id number] 2.16.8 [id number] Unknown [id number] 2.16.8 [id number] Social History Date Type Detail Facility Start: 10-14-2021 End: 11-05-2022 Tobacco smoking status NHIS Unknown if ever smoked [facility] Start: 09-02-2019 None [facility] Start: 09-02-2019 Alone [facility] Start: 1955 Sex Assigned At Female [facility] Mental Status Date Assessment Result Facility 05-16-2022 Cognitive function Awake;Alert;A ppropriate;Fol lows Commands [facility] Work Phone: Clinical Note 08-08-2022 Note Date & Type Note Facility 08-08-2022 Note [facility] Work Phone: Pap Smear Specimen Adequacy August 08, 2022 4:00pm Comment . Satisfactory for evaluation. Endocervical and/or squamous metaplasticcells (endocervical component) are present. Comment on above: Satisfactory for joyce luation. Endocervical and/or squamous metaplasticcells (endocervical component) are present. Clinical Note 08-08-2022 Note Date & Type Note Facility 08-08-2022 Note [facility] Pap Smear Specimen Adequacy August 08, 2022 4:00pm Comment . Satisfactory for evaluation. Endocervical and/or squamous metaplasticcells (endocervical component) are present. Comment on above: Satisfactory for joyce luation. Endocervical and/or squamous metaplasticcells (endocervical component) are present. Clinical Note 08-08-2022 Note Date & Type Note Facility 08-08-2022 Note [facility] Pap Smear Specimen Adequacy August 08, 2022 4:00pm Comment . Satisfactory for evaluation. Endocervical and/or squamous metaplasticcells (endocervical component) are present. Comment on above: Satisfactory for joyce luation. Endocervical and/or squamous metaplasticcells (endocervical component) are present. History and physical note 04-27-2021 Note Date & Type Note Facility 04-27-2021 Note [facility] HISTORY & PHYSICAL NAME ACCOUNT SEX AGE ADMIT DISCHARGE PT MED. RECORD# NUMBER DATE DATE TYPE TORITO [id number] F 66 04/20/21 2 ADRIANA Gaffney [id number] ROOM: DATE OF : 53 DICTATING PHYSICIAN: Catherine Ovalles PREOPERATIVE DIAGNOSES: 1. Left hallux valgus deformity, painful. 2. Left second hammertoe, painful. PLANNED PROCEDURE: 1. Left foot bunionectomy. 2. Left second toe arthroplasty. SURGEON: Catherine Ovalles DPM HISTORY OF PRESENT ILLNESS: The patient is known to me from my private office where she had presented several months ago complaining of painful bunion. She was amendable to conservative measured, and we discussed anti-inflammatories, as well as change in shoe gear, etc. The patient was able to continue with conservative measures for almost a year, and then she presented to our office stating that the pain was not able to be controlled that way. She wanted to move forward with surgical intervention. We discussed a midshaft procedure for the bunionectomy, which means she will be nonweightbearing for approximately 1 month following surgery, as well as an arthroplasty for the second toe. She had the right toe fused, and states she is not interested in having that done and that she has only had complications. MEDICATIONS: See chart. ALLERGIES: No known drug allergies. IMPRESSION: Risks, complications, and alternative treatments were reviewed in detail and no guarantees were given. We discussed postoperative course, as well as surgical intervention, and the patient had reviewed and signed the consent form. PLAN: She will present to [facility] the morning of April 21, 2021 for outpatient surgical intervention. No guarantees were given, and all questions were answered. Dictated By: Catherine Ovalles DPM 04/20/21 18:41 JOB #: [id number] Transcribed By: am Page 1 of 2 ADRIANA MUÑIZ History & Physical ADRIANA MUÑIZ :1955 04/20/21 19:23 Electronically signed by: ETIERNEY OVALLES 04/27/21 08:33 Update to H&P: [ ] No changes: I have examined the patient and reviewed the H&P and there are no changes. [ ] As previously dictated with the following changes: PHYSICIAN SIGNATURE: TIME: DATE: Page 2 of 2 ADRIANA MUÑIZ History & Physical [facility] Evaluation note Note Date & Type Note Facility Evaluation note No assessment information [facility] Work Phone: Summary Purpose Family History No Family History Records FoundNo Family History Records FoundNo Family History Records FoundNo Family History Records Found Advance Directives No Advanced Directives Records Found Advance Directive Response Recorded Date/ Time Advance Directives No August 10, 2016 9:24am Living Will No October 14 12:45pm Power of Engineering Design Manager No October 14, 2021 12:45pm Advance Directive Response Recorded Date/ Time Advance Directives No August 10, 2016 8:24am Living Will No May 16, 2022 10:19am Power of Engineering Design Manager No May 10:19am Advance Directive Response Recorded Date/ Time Advance Directives No August 10, 2016 8:24am Living Will No November 05, 2022 2:16am Power of Engineering Design Manager No November 05 2:16am Chief Complaint and Reason for Visit Chief Complaint CP SCREENING Chief Complaint SCREENING Chief Complaint SCREENING SOB Additional Source Comments INFORMATION SOURCE (unrecogn ized section and content) DATE CREATED AUTHOR 02/25/2018 [facility] DATE CREATED AUTHOR AUTHOR'S ORGANIZ ATION 02/25/2018 [facility] DATE CREATED AUTHOR AUTHOR'S ORGANIZ ATION 04/28/2021 [facility] DATE CREATED AUTHOR AUTHOR'S ORGANIZ ATION 01/14/2025 [facility] Goals (unrecognized section and content) Goals may be documented in a n alternate sectionGoals may be documented in an alternate sectionGoals may be documented in an alternate sectionGoals may be documented in an alternate sectionGoals may be documented in an alternate section Care Teams (unrecognized sec tion and content) Team Status: Active Member Role Status Dates Dr. Maggie Gutiérrez MD Family Provider Active Tila Zazueta DO Primary Care Provider Active Team Status: Inactive Member Role Status Dates Tila Zazueta DO Primary Care Provider Active Deepthi Smith MEDICAL RECORD RETRIEVAL SPECIALIST-C Attending Provider, Referr ing Provider Active Team Status: Inactive Member Role Status Dates Tila Zazueta DO Primary Care Provider Active Deepthi Smith MEDICAL RECORD RETRIEVAL SPECIALIST-C Attending Provider Active Team Status: Inactive Member Role Status Dates Tila Zazueta DO Primary Care Provider Active Dr. Maggie Gutiérrez MD Attending Provider Active Team Status: Inactive Member Role Status Dates Tila Zazueta DO Primary Care Provider Active Dr. Ponce Garcia MD Emergency Provider Active FOR RECORDS PERTAINING TO PATIENTS WHO ARE OR HAVE BEEN ENROLLED IN A CHEMICAL DEPENDENCY/SUBSTANCEABUSE PROGRAM, SOME INFORMATION MAY BE OMITTED. This clinical summary was aggregated from multiple sources. Caution should be exercised in using it in the provision of clinical care. This summary normalizes information from multiple sources, and as a consequence, information in this document may materially change the coding, format and clinical context of patient data. In addition, data may be omitted in some cases. CLINICAL DECISIONS SHOULD BE BASED ON THE PRIMARY CLINICAL RECORDS. [facility]. provides no warranty or guarantee of the accuracy or completeness of information in this document.
[2025-03-27 01:30] VITALS: BP 119/42; PULSE 66; RESP 18; O2SAT 93
[2025-03-27 01:32] LABS: Mucous, Urine 0 SEEN /hpf (<or=2+); Red Blood Cells-Urine 0 SEEN /hpf (0-5)
[2025-03-27 01:36] LABS: Color, Urine Yellow (Yellow); Glucose, Dipstick Normal (Normal); Ketone-Dipstick Negative (Negative); Leukocyte Esterase-Dipstick 500 /ul (Negative); Nitrite-Dipstick Positive (Negative); Occult Blood-Urine 25 /ul (Negative); Protein-Dipstick 30 mg/dl (Negative); Specific Gravity, Urine 1.020 (1.002-1.030); Urine Bilirubin Dipstick Negative (Negative)
[2025-03-27 02:22] LABS: Squamous Epithelial Cells - UA 5-10 SEEN /hpf (5-10)
[2025-03-27 02:23] LABS: Calcium Oxalate Crystals Ur 1+ /hpf (<or=2+)
[2025-03-27 02:49] VITALS: BP 129/73; PULSE 68; PULSE 69; RESP 18; TEMP 36.9; O2SAT 94; O2SAT 95
== END 2025-03-27 03:54 | disposition home or self-care (01) ==
PROVIDERS: Emergency Provider Emergency Medicine; PCP Family Medicine; Visit Provider Emergency Medicine
DX: N13.2 Hydronephrosis with renal and ureteral calculous obstruction (principal); F31.9 Bipolar disorder, unspecified; N23 Unspecified renal colic; K21.9 Gastro-esophageal reflux disease without esophagitis
CPT/HCPCS: 74176; 80048; 81001; 85025; 87077; 87086; 87088; 87186; 96365; 99285; A4216

== ENCOUNTER → 2025-06-01 | Outpatient (CLI) | payer MEDICARE, SELFPAY ==
[2025-06-01 16:22] LABS: Vitamin D,25 Hydroxy 35.0 ng/mL (30-100)
== END | disposition home or self-care (01) ==
LOC: MFPLAB 11:28
PROVIDERS: PCP Family Medicine; Referring Provider Family Medicine; Visit Provider Family Medicine
DX: E03.9 Hypothyroidism, unspecified (principal); R79.89 Other specified abnormal findings of blood chemistry; R73.09 Other abnormal glucose
CPT/HCPCS: 36415; 82306; 83036; 84439; 84443